=== PATIENT | female | born 1960 | race Caucasian/White ===

== ENCOUNTER → 2021-05-24 15:55 | Outpatient (BNVA) | payer OTHER, SELFPAY | PROVIDERS: Visit Provider Internal Medicine | DX: Z13.89 Encounter for screening for other disorder (principal) | CPT/HCPCS: 99202 ==

== ENCOUNTER → 2021-05-28 08:05 | Outpatient (BNVA) | payer OTHER, SELFPAY | PROVIDERS: Visit Provider Internal Medicine | DX: Z13.89 Encounter for screening for other disorder (principal) | CPT/HCPCS: 99213 ==

== ENCOUNTER 2023-07-28 07:29 | Inpatient (IN) | payer OTHER, SELFPAY ==
[2023-07-28] VITALS (9 sets, daily range): BP systolic 112–150; BP diastolic 50–86; PULSE 59–97; RESP 16–20; TEMP 36.1–36.8; O2SAT 87–97; BMI 25.8; BMI 24.4
--- NOTE | ~2023-07-28 | XR_ITS ---
EXAMINATION: XR CHEST CLINICAL INFORMATION: Shortness of breath COMPARISON: None available. TECHNIQUE: Frontal view of the chest was obtained. FINDINGS: Cardiac silhouette is normal in size. The lungs are well aerated. There is no gross lobar consolidation. No pleural effusion or pneumothorax. Mild degenerative changes of the spine. XR/XR chest 1V IMPRESSION: No acute pulmonary pathology.
--- NOTE | 2023-07-28 08:03 | PC.NURSE ---
swabs obtained/sent to lab.
[2023-07-28 08:41] LABS: Influenza A PCR NEGATIVE (Negative); Influenza B PCR NEGATIVE (Negative); Resp Syncy Virus RNA Qual PCR NEGATIVE (Negative); SARS COV2 PCR INHOUSE NEGATIVE (Negative)
--- NOTE | 2023-07-28 09:38 | ED_ITS ---
HPI - URI/Sore Throat General Chief Complaint: Upper Respiratory Symptoms Stated Complaint: Diff breathing Time Seen by Provider: 07/28/23 09:03 Source: patient Mode of arrival: ambulatory Limitations: no limitations History of Present Illness HPI Narrative: This is a 63-year-old female history former smoker, lung nodules, asthma presenting to the emergency department for evaluation of a few weeks of wheezing, shortness of breath, malaise, productive cough of white/ yellow sputum not improving. Patient has used albuterol treatments at home with little to no relief. She reports with bothering her most is the significant shortness of breath she does not feel like her typical she reports when she exerts herself she feels exhausted and like she needs to catch her breath. No history of DVT or PE. Not on blood thinners. No chest pain, fevers, chills, nausea, vomiting, diarrhea, headache, vision change. Patient currently taking a prednisone taper which was rx to her at w/o much improvment. Related Data Previous Rx's Medication Instructions Recorded albuterol sulfate 90 mcg/actuation 2 inh inhalation Q4-6H PRN 07/28/23 breath activated powder inhaler shortness of breath or wheezing #1 ea doxycycline hyclate 100 mg capsule 100 mg PO BID 10 days #20 caps 07/28/23 prednisone 20 mg tablet 40 mg (2 x 20 mg) PO DAILY 5 days 07/28/23 #10 tabs Allergies Allergy/AdvReac Type Severity Reaction Status Date / Time ampicillin Allergy Rash Verified 07/28/23 07:45 eucalyptus Allergy Anaphylaxis Verified 07/28/23 07:45 sulfamethoxazole Allergy Rash Verified 07/28/23 07:45 [From Bactrim] trimethoprim [From Bactrim] Allergy Rash Verified 07/28/23 07:45 Review of Systems 2 Review of Systems: Constitutional : No Weight loss, No Fever, No Chills, No Fatigue, No Malaise ENT/Mouth : No sore throat, No Rhinorrhea Eyes: No Eye Pain, No Swelling, No Redness Cardiovascular : No Chest Pain, + SOB, No Dyspnea on Exertion, No Orthopnea, No Edema, No Palpitations Respiratory : + Cough, + Sputum, + Wheezing Gastrointestinal : No Nausea, No Vomiting, No Diarrhea, No Constipation, No abdominal Pain, No Hematochezia, No Melena Genitourinary : No Dysuria, No Urinary Frequency, No Hematuria, Musculoskeletal : No joint pain, No Myalgias, No Joint Swelling Skin : No Skin Lesions, No rash Neuro : No Weakness, No Numbness, No Dizziness, No Headache Psych : No Anxiety/Panic, No Depression All other systems reviewed and are negative Yes all other systems are reviewed and are negative [facility] Past Medical History Attestation statement: The following information was validated with the patient. Source: old records reviewed and nursing notes reviewed Onset Date is defined in the Problem List Problems that require an onset date and time if occurred within 24 hrs of arrival to the ED Aortic Dissection and Rupture; Neurologic impairment; Cardiopulmonary Arrest; Endotracheal Intubation; Insertion or Replacement of Mechanical Circulatory Assist Device Social History Social History Smoked in Last 30 Days: No Use of substances other than those prescribed or required for medical reasons: Yes Substance Use Type: Marijuana Advance Directives: No Patient : No Physical Exam 2 Vital Signs: Vital Signs: Last Vital Signs Temp 98.3 F 07/28/23 12:36 Pulse 86 07/28/23 12:36 Resp 16 07/28/23 12:36 BP 126/67 07/28/23 12:36 Pulse Ox 87 L 07/28/23 13:32 O2 Del Method Room Air 07/28/23 13:32 BMI result Body Mass Index 25.8 Course Reevaluation(s) Reevaluation #1: CBC with leukocytosis no left shift. Chemistry unremarkable. Normal troponin, EKG nonischemic. Flu/COVID/RSV negative. Chest x-ray unremarkable. Ambulatory O2 87%. Patient will require hospital admission for hypoxia. Time: 13:36 Medications Administered Discontinued Medications Generic Name Dose Route Start Last Admin Trade Name Freq PRN Reason Stop Dose Admin Albuterol/Ipratropium 3 ml 07/28/23 12:45 07/28/23 13:05 Albuterol/Iprat 2.5/0.5mg 3 Ml Ampul.Neb INHALE 07/28/23 12:46 3 ml ONCE ONE Administration Albuterol Sulfate 2.5 mg/ 0 mg 07/28/23 09:56 07/28/23 10:08 Albuterol/Ipratropium 3 ml INHALE 07/28/23 09:57 1 dose ONCE ONE Administration Magnesium Sulfate 2 gm in 50 mls @ 25 mls/hr 07/28/23 09:49 07/28/23 11:56 Magnesium Sulfate/H2o IV 07/28/23 11:48 Infused ONCE ONE Infusion Levalbuterol HCl 1.25 mg 07/28/23 11:45 07/28/23 11:46 Levalbuterol Hcl 1.25 Mg/3 Ml Vial.Neb INHALE 07/28/23 11:46 1.25 mg ONCE ONE Administration Methylprednisolone Sodium Succinate 125 mg 07/28/23 09:49 07/28/23 09:54 Methylprednisolone Sod Succ 125 Mg/2 Ml Vial IVPUSH 07/28/23 09:50 125 mg ONCE ONE Administration Medical Decision Making Medical Decision Making [facility] Narrative: 63-year-old female presents with a few weeks of upper respiratory symptoms worsening. Physical exam expiratory wheezing throughout History and physical exam concerning for bronchitis versus viral illness versus chronic lung condition versus asthma. Unlikely pulmonary embolism, ACS, dissection, pneumonia. Plan labs, imaging, viral test. Will give magnesium and Solu-Medrol. Differential Diagnosis Differential Diagnoses: The differential diagnosis associated with the presentation includes History and physical exam concerning for bronchitis versus viral illness versus chronic lung condition versus asthma. Unlikely pulmonary embolism, ACS, dissection, pneumonia. Admission/Observation Consideration of admission/observation: Escalation of care including admission/observation considered Lab Data [facility] Lab Attestation statement: I reviewed the patient's lab results. 07/28/23 09:51 07/28/23 09:51 Labs: Lab Results 07/28/23 07/28/23 07/28/23 Range/Units 07:59 09:51 12:00 WBC 13.4 H (4.8-10.8) X10*3/uL RBC 5.04 (4.20-5.50) X10*6/uL Hgb 15.3 (12.0-16.0) g/dl Hct 43.9 (37.0-47.0) % MCV 87.1 (80.0-98.0) fL MCH 30.4 (27.0-33.0) pg MCHC 34.9 (31.0-35.0) g/dl RDW 11.8 (11.0-16.0) % Plt Count 379 (160-400) X10*3/uL MPV 8.3 L (9.4-12.3) fL Immature Gran % (Auto) 1.1 H (0.0-0.4) % Neut % (Auto) 69.8 (45-73) % Lymph % (Auto) 21.0 (20-40) % Bertie % (Auto) 7.5 (2-11) % Eos % (Auto) 0.5 (0-4) % Baso % (Auto) 0.1 (0-2) % Lymph # (Auto) 2.8 (1.2-4.9) X10*3/uL Bertie # (Auto) 1.0 (0.1-1.2) X10*3/uL Eos # (Auto) 0.1 (0.0-0.4) X10*3/uL Baso # (Auto) 0.0 (0.0-0.2) X10*3/uL Abs Immat Gran (auto) 0.15 H (0.00-0.03) X10*3/uL Absolute Neuts (auto) 9.4 H (2.0-8.3) x10*3/uL Absolute Nucleated RBC 0.000 (0.0-0.012) X10*3/uL Nucleated RBC % (auto) 0.0 (0.0-0.2) /100WBC PT 11.8 (11.1-13.3) SEC INR 1.0 (0.9-1.1) D-Dimer High Sensitivty < 150 NG/ML Sodium 140 (135-145) mmol/L Potassium 3.8 (3.3-5.1) mmol/L Chloride 104 (96-108) mmol/L Carbon Dioxide 26 (22-29) mmol/L Anion Gap 14 (12-20) BUN 13 (9-16) mg/dL Creatinine 0.67 (0.5-1.4) mg/dL Estim Creat Clear Calc 82.6 Estimated GFR > 60 Random Glucose 88 (60-115) mg/dL Calcium 9.4 (8.4-10.2) mg/dL Total Bilirubin 0.4 (0.0-1.0) mg/dL AST 30 (5-31) U/L ALT 47 H (0-31) U/L Alkaline Phosphatase 82 (39-117) U/L Troponin I High Sens < 2.7 (<3.5-17.0) ng/L Total Protein 7.6 (6.5-8.0) g/dL Albumin 4.3 (3.5-5.0) g/dL Influenza Type A (PCR) NEGATIVE (Negative) Influenza Type B (PCR) NEGATIVE (Negative) RSV RNA Qual (PCR) NEGATIVE (Negative) SARS-CoV-2 RNA (RT-PCR) NEGATIVE (Negative) Independent Interpretation I performed an independent interpretation of an: Plain X-Ray (Unremarkable) Radiology Impression Discussion of test interpretation with radiology: I have reviewed the radiologist's reading. Prescription Management I considered prescription management with: Antibiotic Critical Care Time Critical Care Time Critical Care Time: Yes Total Critical Care Time: 35 Attestation: I attest to this time spent taking care of the patient, obtaining history, physical, reviewing labs, imaging, speaking to my attending, speaking to specialist. Discharge Plan Discharge Clinical Impression: Asthma Patient Disposition: Admitted As Inpatient Instructions: Acute Bronchitis (ED) Prescriptions: New doxycycline hyclate 100 mg capsule 100 mg PO BID 10 Days Qty: 20 0RF albuterol sulfate 90 mcg/actuation aerosol powdr breath activated 2 inh inhalation Q4-6H PRN (Reason: shortness of breath or wheezing) Qty: 1 0RF prednisone 20 mg tablet 40 mg PO DAILY 5 Days Qty: 10 0RF Referrals: Physician,Unknown J [Primary Care Provider] - 2 days Stand Alone Forms: Work/School Release
[2023-07-28 09:54] LABS: MANUAL DIFF FLAG NO
[2023-07-28] MEDS: Magnesium Sulfate/H2O 2 GM/50 ML PIGGYBACK IV (09:54)
[2023-07-28] MEDS: methylPREDNISolone Sod Succ 125 MG/2 ML VIAL IVPUSH (09:54)
[2023-07-28 09:56] LABS: Basophils Percent Auto 0.1 % (0-2); Eosinophils Absolute Auto 0.1 X10*3/uL (0.0-0.4); Eosinophils Percent Auto 0.5 % (0-4); Hematocrit 43.9 % (37.0-47.0); Hemoglobin 15.3 g/dl (12.0-16.0); Imm Gran Abs Auto 0.15 X10*3/uL (0.00-0.03); Imm Gran Pct Auto 1.1 % (0.0-0.4); Lymphocytes Absolute Auto 2.8 X10*3/uL (1.2-4.9); Mean Corpuscular HGB Conc 34.9 g/dl (31.0-35.0); Mean Corpuscular Hemoglobin 30.4 pg (27.0-33.0); Mean Corpuscular Volume 87.1 fL (80.0-98.0); Mean Platelet Volume 8.3 fL (9.4-12.3); Monocytes Percent Auto 7.5 % (2-11); Neutrophils Absolute Auto 9.4 x10*3/uL (2.0-8.3); Neutrophils Percent Auto 69.8 % (45-73); Platelet Count 379 X10*3/uL (160-400); Red Blood Count 5.04 X10*6/uL (4.20-5.50); Red Cell Distribution Width 11.8 % (11.0-16.0); White Blood Count 13.4 X10*3/uL (4.8-10.8)
--- NOTE | 2023-07-28 09:56 | PC.NURSE ---
20gIV placed in the left AC - labs drawn and sent to lab. medication administered per provider order. RT bedside assessing pt at this time.
[2023-07-28 10:02] LABS: Prothrombin Time 11.8 SEC (11.1-13.3)
[2023-07-28 10:05] LABS: D Dimer High Sensitivity < 150 NG/ML
[2023-07-28] MEDS: Albuterol Sulfate 2.5 MG, Albuterol/Iprat 2.5/0.5MG 3 ML 3 ML INHALE (10:08)
[2023-07-28 10:13] LABS: Alanine Aminotransferase 47 U/L (0-31); Albumin Level 4.3 g/dL (3.5-5.0); Alkaline Phosphatase 82 U/L (39-117); Anion Gap 14 (12-20); Aspartate Amino Transferase 30 U/L (5-31); Bilirubin Total 0.4 mg/dL (0.0-1.0); Blood Urea Nitrogen 13 mg/dL (9-16); Calcium 9.4 mg/dL (8.4-10.2); Carbon Dioxide 26 mmol/L (22-29); Chloride 104 mmol/L (96-108); Creatinine Clr Calc Pharmacy 82.6; Estimated Glomerular Filt Rate > 60; Glucose Random 88 mg/dL (60-115); Potassium 3.8 mmol/L (3.3-5.1); Sodium 140 mmol/L (135-145); Total Protein 7.6 g/dL (6.5-8.0)
[2023-07-28] MEDS: levalbuterol HCL 1.25 MG/3 ML VIAL.NEB INHALE (11:46)
--- NOTE | 2023-07-28 11:50 | PC.NURSE ---
pt receiving breathing treatment via RT at this time.
[2023-07-28 12:39] LABS: Troponin-I High Sensitivity < 2.7 ng/L (<3.5-17.0)
--- NOTE | 2023-07-28 12:55 | PC.NURSE ---
ambulatory O2 completed by tech - pt's O2 dropped to 92% on RA while ambulating - pt had to stop multiple times stating that she was SOB.
[2023-07-28] MEDS: Albuterol/Iprat 2.5/0.5MG 3 ML AMPUL.NEB INHALE ×2 (13:05→17:05)
--- NOTE | 2023-07-28 13:31 | PC.NURSE ---
2nd O2 ambulatory trial completed by [employer] states O2 was between 87%-89% on RA while ambulating. tech verbalizes sob/wob noted upon ambulation trial. provider aware at this time.
--- NOTE | 2023-07-28 14:13 | PHA.MEDREC ---
Pharmacy Consult ? Medication Reconciliation Pharmacy has completed the medication reconciliation. Patient reported medicaitons. Juanita Echols, ArmenD
--- NOTE | 2023-07-28 15:15 | PM.IMHP ---
History of Present Illness Date of Service: 07/28/23 Chief Complaint: dyspnea/wheeze 63yo F with mild intermittent allergic asthma who started to have dry cough and nasal congestion around 07/18/23 but then proceeded to develop worsening dyspnea and wheezing, especially with exertion. She went to an urgent care on 07/23/23 and was tested for Covid, influenza, RSV, which were all negative. She was prescribed albuterol and prednisone and has been taking the prednisone as directed without improvement. She presented to the ED today and was given 125 mg of IV methylprednisolone and a total of 4 nebulizer treatments along with magnesium. She still is wheezing and short of breath. She ambulated in the ED and SaO2 dropped to 87%. CXR showed no infiltrate and PCR for influenza, Covid-19, and RSV was negative. Review of Systems Review of Systems: Yes all other systems are reviewed and are negative [facility] Medical History (Updated 07/28/23 @ 15:20 by Gio Cartwright MD) Asthma Social History Smoked in Last 30 Days: No Use of substances other than those prescribed or required for medical reasons: Yes Substance Use Type: Marijuana Advance Directives: No Patient : No Meds Allergies Allergy/AdvReac Type Severity Reaction Status Date / Time ampicillin Allergy Rash Verified 07/28/23 07:45 eucalyptus Allergy Anaphylaxis Verified 07/28/23 07:45 sulfamethoxazole Allergy Rash Verified 07/28/23 07:45 [From Bactrim] trimethoprim [From Bactrim] Allergy Rash Verified 07/28/23 07:45 Active Medications: Current Medications Albuterol Sulfate (Albuterol Sulfate (0.083%) 2.5 Mg/3 Ml Vial.Neb) 2.5 mg INHALE Q2H PRN PRN Reason: Shortness of Breath/Wheezing Diphenhydramine HCl (Diphenhydramine Hcl 25 Mg Capsule) 25 mg PO TID PRN PRN Reason: Allergy Symptoms Methylprednisolone Sodium Succinate (Methylprednisolone Sod Succ 40 Mg/Ml Vial) 40 mg IVPUSH Q12H EBONIE Nicotine Polacrilex (Nicotine Polacrilex 2 Mg Gum) 2 mg BUCCAL Q1H PRN PRN Reason: Nicotine Cravings Home Medications Medication Instructions Recorded Confirmed Last Taken Type albuterol sulfate 90 mcg/actuation 2 puff inhalation Q4H PRN Wheezing 07/28/23 07/28/23 Unknown History aerosol inhaler diphenhydramine HCl 25 mg tablet 25 mg PO TID PRN Allergy Symptoms 07/28/23 07/28/23 Unknown History ibuprofen 200 mg tablet 400 mg PO Q6H PRN Pain 07/28/23 07/28/23 Unknown History prednisone 20 mg tablet See Taper PO DAILY 07/28/23 07/28/23 Unknown History Physical Exam Vital Signs and Narrative: Vital Signs: Last Vital Signs Temp 98.3 F 07/28/23 12:36 Pulse 86 07/28/23 12:36 Resp 16 07/28/23 12:36 BP 126/67 07/28/23 12:36 Pulse Ox 95 07/28/23 13:55 O2 Del Method Room Air 07/28/23 13:55 BMI result Body Mass Index 25.8 Gen: in no acute distress HEENT: sclera anicteric, moist mucus membranes Neck: supple Lungs: L>R inspiratory and expiratory wheezing with scattered rhonchi as well Heart: regular rate and rhythm, no murmurs Abd: soft, non-tender, non-distended Ext: no edema Skin: warm/well-perfused Neuro: alert and oriented x3, no focal findings Psych: appropriate affect Results Labs 07/28/23 09:51 07/28/23 09:51 Labs: Laboratory Results - last 24 hr 07/28/23 07/28/23 07:59 09:51 MCV 87.1 MCH 30.4 MCHC 34.9 RDW 11.8 Plt Count 379 MPV 8.3 L Immature Gran % (Auto) 1.1 H Neut % (Auto) 69.8 Lymph % (Auto) 21.0 Terrell % (Auto) 7.5 Eos % (Auto) 0.5 Baso % (Auto) 0.1 Lymph # (Auto) 2.8 Terrell # (Auto) 1.0 Eos # (Auto) 0.1 Baso # (Auto) 0.0 Abs Immat Gran (auto) 0.15 H Absolute Neuts (auto) 9.4 H Absolute Nucleated RBC 0.000 Nucleated RBC % (auto) 0.0 PT 11.8 INR 1.0 D-Dimer High Sensitivty < 150 Anion Gap 14 Estim Creat Clear Calc 82.6 Estimated GFR > 60 Random Glucose 88 Calcium 9.4 Total Bilirubin 0.4 AST 30 ALT 47 H Alkaline Phosphatase 82 Total Protein 7.6 Albumin 4.3 Influenza Type A (PCR) NEGATIVE Influenza Type B (PCR) NEGATIVE RSV RNA Qual (PCR) NEGATIVE SARS-CoV-2 RNA (RT-PCR) NEGATIVE Imaging Radiologist's Impressions: Impressions Chest X-Ray 07/28/23 08:25 IMPRESSION: No acute pulmonary pathology. Assessment and Plan (1) Asthma, intermittent with acute exacerbation: Status: Acute Plan 63yo F with mild intermittent allergic asthma presenting with worsening dyspnea and cough despite taking prednisone taper from urgent care, found to have exertional hypoxia and persistent wheezing. asthma exacerbation - admit to med-surg service, give IV methylprednisolone 40 mg q8h, give standing/prn bronchodilators, check PCT + resp virus panel exertional hypoxia - wean O2 as tolerated tobacco abuse - NRT VTE ppx - LMWH dispo - eventual home code - full I anticipate that the patient will stay at least 2 midnights as an inpatient in the hospital due to the above reasons. It is neither reasonable nor safe to care for them in a less acute setting. Quality Stroke Does the patient have a stroke diagnosis?: No VTE Prior VTE?: No VTE Risk Level:: Medical - moderate - high VTE Device Contraindication: N/A - Device Ordered VTE Drug Contraindication: N/A - Med Ordered
[2023-07-28 15:57] LABS: Procalcitonin 0.03 ng/mL
[2023-07-28] MEDS: 0.9 % Sodium Chloride Flush 3 ML SYRINGE IVFLUSH ×2 (16:52→22:02)
[2023-07-28] MEDS: Enoxaparin Sodium 40 MG/0.4 ML SYRINGE SUBCUT (16:52)
--- NOTE | 2023-07-28 17:22 | PC.NURSE ---
pt receiving breathing treatment at this time.
--- NOTE | 2023-07-28 17:42 | PC.NURSE ---
admission worksheet completed. transport notified at this time.
[2023-07-28 18:03] LABS: Adenovirus PCR Not Detected (Not Detect.); Bordetella parapertussis PCR Not Detected (Not Detect.); Bordetella pertussis PCR Not Detected (Not Detect.); Chlamydia pneumoniae PCR Not Detected (Not Detect.); Coronavirus 229E PCR Not Detected (Not Detect.); Coronavirus HKU1 PCR Not Detected (Not Detect.); Coronavirus NL63 PCR Not Detected (Not Detect.); Coronavirus OC43 PCR Not Detected (Not Detect.); Human metapneumovirus PCR Not Detected (Not Detect.); Influenza A PCR Not Detected (Not Detect.); Influenza B PCR Not Detected (Not Detect.); Mycoplasma pneumoniae PCR Not Detected (Not Detect.); Parainfluenza 1 PCR Not Detected (Not Detect.); Parainfluenza 2 PCR Not Detected (Not Detect.); Parainfluenza 3 PCR Detected (Not Detect.); Parainfluenza 4 PCR Not Detected (Not Detect.); RSV PCR Not Detected (Not Detect.); Rhino/Enterovirus PCR Not Detected (Not Detect.)
[2023-07-28 18:29] LABS: SARS-CoV-2 PCR Not Detected (Not Detect.)
[2023-07-28] MEDS: methylPREDNISolone Sod Succ 40 MG/ML VIAL IVPUSH (22:02)
[2023-07-29 03:06] VITALS: BP 106/50; PULSE 71; RESP 17; TEMP 36.4; O2SAT 95
[2023-07-29 08:00] VITALS: BP 115/67; PULSE 80; RESP 18; TEMP 36.7; O2SAT 95
[2023-07-29] MEDS: methylPREDNISolone Sod Succ 40 MG/ML VIAL IVPUSH (09:21)
--- NOTE | 2023-07-29 09:35 | MHC.CM.PN ---
Pt lives at home with her , is self-care. Pts will transport her home. PCP: Alisson SOLANO
[2023-07-29 11:13] VITALS: BP 125/68; PULSE 83; RESP 13; TEMP 36.5; O2SAT 98
--- NOTE | 2023-07-29 12:26 | MHC.CM.PN ---
Pt is medically cleared for D/C home self-care, pts to transport her home.
--- NOTE | 2023-07-29 12:26 | PM.DS ---
DS: Providers Provider Date of Service: 07/29/23 Date of admission: 07/28/23 15:14 Date of discharge: 07/29/23 Primary care physician: Unknown Physician DS: Diagnosis Discharge Diagnosis (1) Parainfluenza: Status: Acute (2) Mild intermittent asthma with (acute) exacerbation: Status: Acute DS: Summary Hospital Course Hospital Course: from my admission H+P, 07/28/23: 63yo F with mild intermittent allergic asthma who started to have dry cough and nasal congestion around 07/18/23 but then proceeded to develop worsening dyspnea and wheezing, especially with exertion. She went to an urgent care on 07/23/23 and was tested for Covid, influenza, RSV, which were all negative. She was prescribed albuterol and prednisone and has been taking the prednisone as directed without improvement. She presented to the ED today and was given 125 mg of IV methylprednisolone and a total of 4 nebulizer treatments along with magnesium. She still is wheezing and short of breath. She ambulated in the ED and SaO2 dropped to 87%. CXR showed no infiltrate and PCR for influenza, Covid-19, and RSV was negative. She was admitted to the hospitalist service and improved with treatment with IV methylprednisolone and nebulized albuterol. Viral testing was positive for parainfluenza-3. She was discharged home on prednisone taper and albuterol via nebulizer. She was counseled to quit smoking and will need primary care follow-up and pulmonology referral. Time Attestation Total time managing care of this patient today: 35 mintues. Discharge coordination time: Greater than 30 minutes Quality: Safe Use of Opioids Does Pt have an Active Cancer Diagnosis on the Problem List?: No Quality: Stroke Does the patient have a stroke diagnosis?: No Physical Exam Vital Signs: Vital Signs: Last Vital Signs Temp 97.7 F 07/29/23 11:13 Pulse 83 07/29/23 11:13 Resp 13 07/29/23 11:13 BP 125/68 07/29/23 11:13 Pulse Ox 98 07/29/23 11:13 O2 Del Method Room Air 07/29/23 11:13 BMI result Body Mass Index 24.4 Gen: in no acute distress HEENT: sclera anicteric, moist mucus membranes Neck: supple Lungs: good air entry throughout, scattered end-exp wheezes at base Heart: regular rate and rhythm, no murmurs Abd: soft, non-tender, non-distended Ext: no edema Skin: warm/well-perfused Neuro: alert and oriented x3, no focal findings Psych: appropriate affect DS: Data Data Completed and Pending Completed studies during hospitalization [Text1]: Laboratory Results WBC 13.4 X10*3/uL (4.8-10.8) H 07/28/23 09:51 RBC 5.04 X10*6/uL (4.20-5.50) 07/28/23 09:51 Hgb 15.3 g/dl (12.0-16.0) 07/28/23 09:51 Hct 43.9 % (37.0-47.0) 07/28/23 09:51 MCV 87.1 fL (80.0-98.0) 07/28/23 09:51 MCH 30.4 pg (27.0-33.0) 07/28/23 09:51 MCHC 34.9 g/dl (31.0-35.0) 07/28/23 09:51 RDW 11.8 % (11.0-16.0) 07/28/23 09:51 Plt Count 379 X10*3/uL (160-400) 07/28/23 09:51 MPV 8.3 fL (9.4-12.3) L 07/28/23 09:51 Immature Gran % (Auto) 1.1 % (0.0-0.4) H 07/28/23 09:51 Neut % (Auto) 69.8 % (45-73) 07/28/23 09:51 Lymph % (Auto) 21.0 % (20-40) 07/28/23 09:51 Glenn % (Auto) 7.5 % (2-11) 07/28/23 09:51 Eos % (Auto) 0.5 % (0-4) 07/28/23 09:51 Baso % (Auto) 0.1 % (0-2) 07/28/23 09:51 Lymph # (Auto) 2.8 X10*3/uL (1.2-4.9) 07/28/23 09:51 Glenn # (Auto) 1.0 X10*3/uL (0.1-1.2) 07/28/23 09:51 Eos # (Auto) 0.1 X10*3/uL (0.0-0.4) 07/28/23 09:51 Baso # (Auto) 0.0 X10*3/uL (0.0-0.2) 07/28/23 09:51 Abs Immat Gran (auto) 0.15 X10*3/uL (0.00-0.03) H 07/28/23 09:51 Absolute Neuts (auto) 9.4 x10*3/uL (2.0-8.3) H 07/28/23 09:51 Absolute Nucleated RBC 0.000 X10*3/uL (0.0-0.012) 07/28/23 09:51 Nucleated RBC % (auto) 0.0 /100WBC (0.0-0.2) 07/28/23 09:51 PT 11.8 SEC (11.1-13.3) 07/28/23 09:51 INR 1.0 (0.9-1.1) 07/28/23 09:51 D-Dimer High Sensitivty < 150 NG/ML 07/28/23 09:51 Sodium 140 mmol/L (135-145) 07/28/23 09:51 Potassium 3.8 mmol/L (3.3-5.1) 07/28/23 09:51 Chloride 104 mmol/L (96-108) 07/28/23 09:51 Carbon Dioxide 26 mmol/L (22-29) 07/28/23 09:51 Anion Gap 14 (12-20) 07/28/23 09:51 BUN 13 mg/dL (9-16) 07/28/23 09:51 Creatinine 0.67 mg/dL (0.5-1.4) 07/28/23 09:51 Estim Creat Clear Calc 82.6 07/28/23 09:51 Estimated GFR > 60 07/28/23 09:51 Random Glucose 88 mg/dL (60-115) 07/28/23 09:51 Calcium 9.4 mg/dL (8.4-10.2) 07/28/23 09:51 Total Bilirubin 0.4 mg/dL (0.0-1.0) 07/28/23 09:51 AST 30 U/L (5-31) 07/28/23 09:51 ALT 47 U/L (0-31) H 07/28/23 09:51 Alkaline Phosphatase 82 U/L (39-117) 07/28/23 09:51 Troponin I High Sens < 2.7 ng/L (<3.5-17.0) 07/28/23 12:00 Total Protein 7.6 g/dL (6.5-8.0) 07/28/23 09:51 Albumin 4.3 g/dL (3.5-5.0) 07/28/23 09:51 Procalcitonin 0.03 ng/mL 07/28/23 09:51 Respiratory Panel Shaw See Note 07/28/23 16:58 Adenovirus (Rapid PCR) Not Detected (Not Detect.) 07/28/23 16:58 B.pert (TEM-PCR) Not Detected (Not Detect.) 07/28/23 16:58 B.parapertussis DNA PCR Not Detected (Not Detect.) 07/28/23 16:58 C. pneumoniae DNA (PCR) Not Detected (Not Detect.) 07/28/23 16:58 Coronavirus OC43 (PCR) Not Detected (Not Detect.) 07/28/23 16:58 Coronavirus HKU1 (PCR) Not Detected (Not Detect.) 07/28/23 16:58 Coronavirus 229E (PCR) Not Detected (Not Detect.) 07/28/23 16:58 Coronavirus NL63 (PCR) Not Detected (Not Detect.) 07/28/23 16:58 Human Metapneumovir PCR Not Detected (Not Detect.) 07/28/23 16:58 Influenza A (RT-PCR) Not Detected (Not Detect.) 07/28/23 16:58 Influenza Type A (PCR) NEGATIVE (Negative) 07/28/23 07:59 Influenza B (RT-PCR) Not Detected (Not Detect.) 07/28/23 16:58 Influenza Type B (PCR) NEGATIVE (Negative) 07/28/23 07:59 M. pneumoniae (PCR) Not Detected (Not Detect.) 07/28/23 16:58 Parainfluenza 1 (PCR) Not Detected (Not Detect.) 07/28/23 16:58 Parainfluenza 2 (PCR) Not Detected (Not Detect.) 07/28/23 16:58 Parainfluenza 3 (PCR) Detected (Not Detect.) A 07/28/23 16:58 Parainfluenza 4 (PCR) Not Detected (Not Detect.) 07/28/23 16:58 RSV (PCR) Not Detected (Not Detect.) 07/28/23 16:58 RSV RNA Qual (PCR) NEGATIVE (Negative) 07/28/23 07:59 Entero/Rhino (PCR) Not Detected (Not Detect.) 07/28/23 16:58 SARS-CoV-2 RNA (RT-PCR) Not Detected (Not Detect.) 07/28/23 16:58 Impressions Chest X-Ray 07/28/23 08:25 IMPRESSION: No acute pulmonary pathology. Discharge Plan Discharge Anticipated Discharge Date/Time: 07/29/23 12:14 Patient Disposition: Home, Self-Care Discharge Diagnosis: asthma exacerbation due to parainfluenza infection Referrals: Alisson Oliva NP [Nurse Practitioner] - 1 Week Isael Lewis MD [Physician] - 1 Month Discharge Medications: New albuterol sulfate 90 mcg/actuation aerosol powdr breath activated 2 inh inhalation Q4-6H PRN (Reason: shortness of breath or wheezing) Qty: 1 0RF prednisone 20 mg tablet 40 mg PO DAILY 5 Days Qty: 10 0RF albuterol sulfate 2.5 mg /3 mL (0.083 %) Solution For Nebulization 2.5 mg inhalation Q4H PRN (Reason: Shortness Of Breath/Wheezing) Qty: 50 0RF nicotine (polacrilex) 2 mg Gum 2 mg buccal Q1H PRN (Reason: Nicotine Cravings) Qty: 100 0RF prednisone 20 mg tablet See Rx Instructions .ROUTE .COMPLEX Qty: 21 0RF Rx Instructions: 40 mg (4 tabs) daily x 2 days, then 30 mg (3 tabs) daily x 2 days, then 20 mg (2 tabs) daily x 2 days, then 10 mg (1 tab) daily x 2 days, then 5 mg (half tab) daily x 2 days Continued diphenhydramine HCl 25 mg Tablet 25 mg PO TID PRN (Reason: Allergy Symptoms) ibuprofen 200 mg Tablet 400 mg PO Q6H PRN (Reason: Pain) albuterol sulfate 90 mcg/actuation HFA aerosol inhaler 2 puff inhalation Q4H PRN (Reason: Wheezing) Discontinued prednisone 20 mg tablet See Taper PO DAILY Taper: Prednisone 40 mg daily for 2 Days and 0 Hour 20 mg daily for 3 Days and 0 Hour Discharge Orders: Discharge Order (Routine); Ordered 07/29/23 Ordered By: Gio Cartwright Diet: Advance to usual diet Activity on Discharge: As tolerated Stand Alone Forms: Patient Portal Discharge page, Work/School Release Care Plan Goals: lung health Health Concerns: asthma exacerbation due to parainfluenza infection Plan of Treatment: albuterol via nebulizer every 4 hours as needed for wheeze/shortness of breath prednisone taper: 40 mg (4 tabs) daily x 2 days, then 30 mg (3 tabs) daily x 2 days, then 20 mg (2 tabs) daily x 2 days, then 10 mg (1 tab) daily x 2 days, then 5 mg (half tab) daily x 2 days quit smoking; use nicotine gum to help quit Please follow up with your primary care doctor within 1 week. Return to the hospital if you experience recurrent or worsening symptoms. Pulmonology referral Assessment: See Discharge Summary. Patient Instructions: Acute Bronchitis (ED)
== END 2023-07-29 13:13 | disposition home or self-care (01) | DRG 141 ==
LOC: HO.ED 13:38 → HO.EDOVER 16:08 → HO.IMC 17:19
PROVIDERS: Physician Assistant; Admitting Provider Family Medicine; Emergency Provider Emergency Medicine; PCP Nurse Practitioner Family; Visit Provider Family Medicine
DX: J45.21 Mild intermittent asthma with (acute) exacerbation (principal); B34.8 Other viral infections of unspecified site; R09.02 Hypoxemia; Z20.822 Contact with and (suspected) exposure to COVID-19; F17.210 Nicotine dependence, cigarettes, uncomplicated; Z71.6 Tobacco abuse counseling; Z79.899 Other long term (current) drug therapy
CPT/HCPCS: 0241U; 36415; 71045; 80053; 84145; 84484; 85025; 85379; 85610; 87633; 99285; J1650; J2920; J2930; J3475

== ENCOUNTER → 2023-07-28 08:03 | Outpatient (BNV) | payer OTHER, SELFPAY | PROVIDERS: Emergency Provider Emergency Medicine; Visit Provider Family Medicine | DX: B34.8 Other viral infections of unspecified site (principal); J45.21 Mild intermittent asthma with (acute) exacerbation | CPT/HCPCS: 99223; 99239 ==

== ENCOUNTER 2023-10-26 13:00 | Outpatient (AMB) | payer OTHER, SELFPAY ==
[2023-10-26 13:18] VITALS: BP 110/60; PULSE 62; O2SAT 98; BMI 25.7
--- NOTE | 2023-10-26 13:18 | A.OFFVIS_ITS ---
Intake Vital Signs 10/26/23 13:18 Height 5 ft 4 in Weight 150 lb BMI 25.7 BP 110/60 Blood Pressure Location Lt brachial Position Sitting Pulse 62 Pulse Source Pulse Oximeter Pulse Oximetry (%) 98 Oxygen Delivery Method Room Air Intake Visit Reasons: Hx of Asthma, Allergies ampicillin Allergy (Verified 10/26/23 13:21) Rash eucalyptus Allergy (Verified 10/26/23 13:21) Anaphylaxis sulfamethoxazole [From Bactrim] Allergy (Verified 10/26/23 13:21) Rash trimethoprim [From Bactrim] Allergy (Verified 10/26/23 13:21) Rash HPI HPI Comments History of Present Illness Details The patient is here for pulmonary evaluation. The patient is a 63 year woman, tobacco dependent, with a history of asthma presenting with worsening respiratory symptoms. Several months ago the patient has did develop a respiratory illness which started developing worsening chest tightness and cough. She did go to urgent care where she was given a course of prednisone. However, the patient was no better and she actually was getting worse and decided to come into the [facility] ED where she was evaluated. There she had a chest x-ray which I personally reviewed demonstrating tram tracking and peribronchial coughing primarily the right mid and lower lung areas. Suggest the possibility of bronchiectatic changes. She was initially given a course of prednisone and doxycycline. She was initially resistant to taking the doxycycline. Although her mucus was yellowish in color thick and tenacious and sticky. Moderate in amount. When she started taking the doxycycline her symptoms improved quickly. Now she is back to her baseline. She does use a rescue inhaler although she does not use 1 regularly. Typically less than twice a week. She had been participating also on the lung cancer screening program at [facility]. Her last CT scan was back in December 2022. I personally reviewed all the images with her. The patient does have evidence of chronic bronchitis and also some bronchiectatic changes primarily involving the right middle lobe and lingular area. The patient also has pulmonary nodules largest 1 measuring more than 6 mm in size. The nodules appeared to be inflammatory. Although infectious etiologies such as smoldering infections also in differential. She was supposed to have a repeat CT scan in June based on her rads 3. however, the patient has not them the CT scan as of yet. She does require a CT scan at this time. Will order the CT scan to further address the pulmonary nodules specially her being high risk for malignancy. The patient was also smoking. She understands he is already developing significant smoking-related respiratory issues. She does want to quit. We did talk about different options I do believe the Chantix would be a good option for. She is agreeable this time to starting Chantix. I will send started pack to the pharmacy. [facility] Medical History (Updated 10/26/23 @ 21:08 by Isael Lewis MD) Has daytime drowsiness Pulmonary nodules Tobacco dependence Chronic bronchitis Asthma Social History Household Members: Spouse Housing: House Do you presently have visiting nurse or other home services: No Patient Tobacco Use Status: Never used Tobacco Substance Use Type: Marijuana service: No Review of Systems Const Reports daytime sleepiness, Denies fever(s), Reports snoring and Reports stops breathing during sleep ENT Reports no additional complaints Card Denies chest pain Resp Reports cough, Reports snoring and Denies wheezing GI Reports no additional complaints Musc Reports no additional complaints Skin/Breast Denies rash Von/Lymph Denies lymphadenopathy Aller/Immun Denies wheezing Physical Exam Vital Signs: Last Vital Signs Pulse 62 10/26/23 13:18 BP 110/60 10/26/23 13:18 Pulse Ox 98 10/26/23 13:18 Oxygen Delivery Method Room Air 10/26/23 13:18 BMI result Body Mass Index 25.7 Const General: comfortable HEENT Head: Yes normocephalic Neck Neck: Yes supple Chest Chest palpation & inspection: normal inspection of the chest Resp Effort & Inspection: normal respiratory effort Auscultation: wheezes (On force exhalation) Cardio Heart sounds: S1 normal heart sound present and S2 normal heart sound present GI Palpation (GI): Soft to palpation Skin General skin exam: no rashes or lesions noted Extrem General: Yes no clubbing, cyanosis or edema Assessment & Plan Assessment & Plan (1) Pulmonary nodules: Code(s): R91.8 - Other nonspecific abnormal finding of lung field (2) Chronic bronchitis: Code(s): J42 - Unspecified chronic bronchitis Qualifiers: Chronic bronchitis type: simple Qualified Code(s): J41.0 - Simple chronic bronchitis (3) Tobacco dependence: Code(s): F17.200 - Nicotine dependence, unspecified, uncomplicated (4) Has daytime drowsiness: Code(s): R40.0 - Somnolence Plan CT chest PFTs Sputum cx / AFB sputum cx CPT with Aerobika TAMEKA as needed Start Chantix starter pack Consider Bloodwork and allergy testing Consider home PSG F/U 6-8 weeks Orders: Orders Sputum Cult + Gram stain Today J42 - Unspecified chronic bronchitis Acid-fast Culture + Smear Today J42 - Unspecified chronic bronchitis PFT pulmonary function test Today R91.8 - Other nonspecific abnormal finding of lung field CT chest wo IV con Today R91.8 - Other nonspecific abnormal finding of lung field Medications: New varenicline (Chantix Starting Month Box) PO PER PKG DIR 42 ea 0RF Coding Level of Care Code New Pt Level 4 (30175) Diagnoses Pulmonary nodules R91.8 Simple chronic bronchitis J41.0 Chronic bronchitis type: simple Tobacco dependence F17.200 Has daytime drowsiness R40.0 Time Spent (min) 40
== END 2023-10-26 14:00 | disposition home or self-care (01) ==
PROVIDERS: PCP Nurse Practitioner Family; Referring Provider Nurse Practitioner Family; Visit Provider Hospitalist
DX: R91.8 Other nonspecific abnormal finding of lung field (principal); J41.0 Simple chronic bronchitis; F17.200 Nicotine dependence, unspecified, uncomplicated; R40.0 Somnolence
CPT/HCPCS: 99204

== ENCOUNTER → 2023-10-26 13:00 | Outpatient (BNVA) | payer OTHER, SELFPAY | PROVIDERS: PCP Nurse Practitioner Family; Visit Provider Hospitalist ==

== ENCOUNTER 2023-11-04 12:07 | Outpatient (REF) | payer OTHER, SELFPAY | END 2023-11-04 12:08 | disposition home or self-care (01) | LOC: HO.LNP 12:07 | PROVIDERS: Visit Provider Hospitalist | DX: J42 Unspecified chronic bronchitis (principal) | CPT/HCPCS: 87070; 87077; 87116; 87185; 87205; 87206 ==

== ENCOUNTER 2023-11-30 14:39 | Outpatient (REF) | payer OTHER, SELFPAY ==
[2023-11-30 09:00] VITALS: PULSE 68; RESP 16; O2SAT 98
--- NOTE | 2023-11-30 15:40 | PFT_ITS ---
Flows: FEV1: 62 % of predicted at 1.51 L FVC: 89 % of predicted at 2.73 L FEV1/FVC: 55 % Bronchodilator response: Absent Volumes: Total lung capacity: 107 % of predicted at 5.42 L Residual volume: 164 % of predicted at 2.93 L Slow vital capacity: 76 % of predicted at 2.50 L Expiratory reserve volume: 34 % of predicted at 0.27 L Diffusion capacity: Normal Impression: Moderate obstructive ventilatory defect with no bronchodilator response. Increased residual volume suggests air trapping. Decreased expiratory reserve volume suggests extrathoracic restriction likely secondary to abdominal obesity. MTDD
== END 2023-11-30 14:40 | disposition home or self-care (01) ==
LOC: HO.RESP 14:39
PROVIDERS: PCP Nurse Practitioner Family; Visit Provider Hospitalist
DX: R91.8 Other nonspecific abnormal finding of lung field (principal)
CPT/HCPCS: 94010; 94640; 94727; 94729

== ENCOUNTER → 2023-11-30 15:40 | Outpatient (BNV) | payer OTHER, SELFPAY | PROVIDERS: PCP Nurse Practitioner Family; Visit Provider Internal Medicine Pulmonary Disease | DX: R91.8 Other nonspecific abnormal finding of lung field (principal) | CPT/HCPCS: 94060; 94727; 94729 ==

== ENCOUNTER 2023-12-09 07:41 | Outpatient (REF) | payer OTHER, SELFPAY ==
--- NOTE | ~2023-12-09 | CT_ITS ---
EXAMINATION: CT CHEST WITHOUT CONTRAST CLINICAL INFORMATION: History of abnormal finding of lung. COMPARISON: Chest CT from 01/19/2023. TECHNIQUE: Multidetector volumetric CT imaging of the chest was done. Axial MIP volume rendering provided. Sagittal and coronal reformatted images were obtained. This CT examination was performed using dose optimization techniques as appropriate, variously including the following: *Automated exposure control *Adjustment of mA and/or kV according to patient size (this includes techniques or standardized protocols for targeted exams where dose is matched to indication/reason for exam; i.e. extremities or head) *Use of iterative reconstruction technique DLP: 134 mGy-cm CTDlvol: 3.98 mGy Note: On additional information provided, there is a request for a RADS score. However, it is uncertain whether this is appropriate for this patient since this is not a formal low dose chest CT exam and there is no information provided regarding any smoking history or enrollment in a low-dose screening program. FINDINGS: LUNGS AND PLEURA: Bronchial moya are chronically diffusely thickened. Small scattered foci of mucous plugging are detected. Mild centrilobular and paraseptal emphysema. Chronic pulmonary micronodular. Also, subtle hazy centrilobular opacities are present. These findings could reflect presence of noninfectious respiratory bronchiolitis if there is a chronic history of cigarette smoking. Abnormalities include an irregular solid, noncalcified nodule of 0.6 cm average diameter within the right middle lobe. This has a stable appearance compared to 01/19/2023. A stable 0.4 cm solid, noncalcified nodule is present in the lateral right lower lobe (image 410, series 7). 0.3 cm subpleural nodule in the posterior right lower lobe is unchanged (image 349, series 7). A groundglass focus of 1 cm average diameter in the left upper lobe is unchanged (image 133, series 7). CARDIOVASCULAR: Cardiac chambers, pulmonary arteries and thoracic aorta are normal in size. No pericardial effusion. CORONARY ARTERY CALCIFICATION: None detected. MEDIASTINUM AND LOWER NECK: No mediastinal mass. The esophagus and thyroid gland are unremarkable. LYMPHATICS: No pathologic sized lymph nodes. UPPER ABDOMEN: Unremarkable. SKELETAL AND CHEST WALL: Mild and moderate spondylosis of the thoracic spine. No acute or suspicious osseous abnormality. No aggressive osseous lesions. CT/CT chest wo IV con IMPRESSION: * Mild pulmonary emphysema. * There is likely chronic respiratory bronchiolitis as may be seen in patients with a cigarette smoking history. Correlate for any history of cigarette smoking. * There are pulmonary nodules that remain stable compared to 01/19/2023. If the patient were enrolled in a Lung-RADS low dose screening program, then a Lung-RADS category 2 would be applied. * No interval development of a pulmonary mass or lymphadenopathy.
== END 2023-12-09 07:42 | disposition home or self-care (01) ==
LOC: HO.CT 07:41
PROVIDERS: PCP Nurse Practitioner Family; Visit Provider Hospitalist
DX: R91.8 Other nonspecific abnormal finding of lung field (principal)
CPT/HCPCS: 71250

== ENCOUNTER 2023-12-10 08:55 | Outpatient (REF) | payer OTHER, SELFPAY ==
--- NOTE | ~2023-12-10 | MM_ITS ---
EXAMINATION: MM SCREENING DIGITAL BREAST TOMOSYNTHESIS, BILATERAL CLINICAL INFORMATION: Screening. Asymptomatic. COMPARISON: Mammography: This study is compared with prior exams dating back to 2020. TECHNIQUE: Digital breast tomosynthesis is performed in both the craniocaudal and mediolateral oblique views along with computer-aided detection (CAD). Synthesized 2D images are generated from the tomosynthesis. FINDINGS: The breasts are heterogeneously dense, which may obscure small masses (ACR BI-RADS breast composition Category c). There are no significant masses, abnormal calcifications, or other abnormalities. MM/MM tomosynthesis screening BI IMPRESSION: No mammographic evidence of malignancy. ASSESSMENT: BI-RADS BI-RADS 1 - Negative RECOMMENDATION: Routine annual mammography screening. 1 year F/U This examination should not preclude the clinical evaluation of a suspicious palpable abnormality. This patient's information was entered into a reminder system with a target due date for their next mammogram.
== END 2023-12-10 08:56 | disposition home or self-care (01) ==
LOC: HO.MAMMO 08:55
PROVIDERS: PCP Nurse Practitioner Family; Visit Provider Nurse Practitioner Family
DX: Z12.31 Encounter for screening mammogram for malignant neoplasm of breast (principal)
CPT/HCPCS: 77063; 77067

== ENCOUNTER → 2023-12-10 09:00 | Outpatient (BNV) | payer OTHER, SELFPAY | PROVIDERS: PCP Nurse Practitioner Family; Visit Provider Radiology Diagnostic Radiology | DX: Z12.31 Encounter for screening mammogram for malignant neoplasm of breast (principal) | CPT/HCPCS: 77063; 77067 ==

== ENCOUNTER 2023-12-10 09:35 | Outpatient (AMB) | payer OTHER, SELFPAY ==
--- NOTE | 2023-12-10 10:03 | A.OFFVIS_ITS ---
Vital Signs 12/10/23 10:04 Height 5 ft 4 in Weight 150 lb BMI 25.7 BP 122/60 Blood Pressure Location Lt brachial Position Sitting Pulse 58 Pulse Source Pulse Oximeter Pulse Oximetry (%) 96 Oxygen Delivery Method Room Air Intake Visit Reasons: Asthma Director [place] Required: No Allergies ampicillin Allergy (Verified 12/10/23 10:06) Rash eucalyptus Allergy (Verified 12/10/23 10:06) Anaphylaxis sulfamethoxazole [From Bactrim] Allergy (Verified 12/10/23 10:06) Rash trimethoprim [From Bactrim] Allergy (Verified 12/10/23 10:06) Rash HPI Comments Details: The patient is a 63 year woman, tobacco dependent, with a history of asthma presenting with worsening respiratory symptoms. Several months ago the patient has did develop a respiratory illness which started developing worsening chest tightness and cough. She did go to urgent care where she was given a course of prednisone. However, the patient was no better and she actually was getting worse and decided to come into the [facility] ED where she was evaluated. There she had a chest x-ray which I personally reviewed demons trating tram tracking and peribronchial coughing primarily the right mid and lower lung areas. Suggest the possibility of bronchiectatic changes. She was initially given a course of prednisone and doxycycline. She was initially resistant to taking the doxycycline. Although her mucus was yellowish in color thick and tenacious and sticky. Moderate in amount. When she started taking the doxycycline her symptoms improved quickly. Now she is back to her baseline. She does use a rescue inhaler although she does not use 1 regularly. Typically less than twice a week. She had been participating also on the lung cancer screening program at [facility]. Her last CT scan was back in December 2022. I personally reviewed all the images with her. The patient does have evidence of chronic bronchitis and also some bronchiectatic changes primarily involving the right middle lobe and lingular area. The patient also has pulmonary nodules largest 1 measuring more than 6 mm in size. The nodules appeared to be inflammatory. Although infectious etiologies such as smoldering infections also in differential. She was supposed to have a repeat CT scan in June based on her rads 3. however, the patient has not them the CT scan as of yet. She does require a CT scan at this time. Will order the CT scan to further address the pulmonary nodules specially her being high risk for m alignancy. The patient was also smoking. She understands he is already developing significant smoking-related respiratory issues. She does want to quit. We did talk about different options I do believe the Chantix would be a good option for. She is agreeable this time to starting Chantix. I will send started pack to the pharmacy. 12/10/2023 the patient is here for a pulmonary follow-up visit. Overall the patient is doing well. She has not had to use her rescue inhaler. Still has some dyspnea on exertion. The patient did have pulmonary function studies which we personally reviewed. Appears to have moderate degree of COPD. No significant response to bronchodilators noted although there was a trend. We also reviewed her CT scan of the chest. Pulmonary nodules are stable although she does have areas of ground-glass opacities suggesting a component of respiratory bronchiolitis likely from the smoking. Based on the fact the nodules are stable we will go ahead and refer her to the lung cancer screening program for the next CT scan in a year. She did start the Chantix. She is having some mild adverse effects. She is going to continue with it. [facility] Medical History (Updated 10/26/23 @ 21:13 by Isael Lewis MD) Has daytime drowsiness Pulmonary nodules Tobacco dependence Chronic bronchitis Asthma Social History Household Members: Spouse Housing: House Do you presently have visiting nurse or other home services: No Patient Tobacco Use Status: Never used Tobacco Substance Use Type: Marijuana service: No Review of Systems Const Reports daytime sleepiness, Denies fever(s), Reports snoring and Reports stops breathing during sleep ENT Reports no additional complaints Card Denies chest pain Resp Reports cough, Reports snoring and Denies wheezing GI Reports no additional complaints Musc Reports no additional complaints Skin/Breast Denies rash Von/Lymph Denies lymphadenopathy Aller/Immun Denies wheezing Physical Exam Vital Signs: Last Vital Signs Pulse 58 12/10/23 10:04 BP 122/60 12/10/23 10:04 Pulse Ox 96 12/10/23 10:04 Oxygen Delivery Method Room Air 12/10/23 10:04 BMI result Body Mass Index 25.7 Const General: comfortable HEENT Head: Yes normocephalic Neck Neck: Yes supple Chest Chest palpation & inspection: normal inspection of the chest Resp Effort & Inspection: normal respiratory effort Auscultation: wheezes (On force exhalation) Cardio Heart sounds: S1 normal heart sound present and S2 normal heart sound present GI Palpation (GI): Soft to palpation Skin General skin exam: no rashes or lesions noted Extrem General: Yes no clubbing, cyanosis or edema Assessment & Plan Assessment & Plan (1) Pulmonary nodules: Code(s): R91.8 - Other nonspecific abnormal finding of lung field Category: Medical (2) Chronic bronchitis: Code(s): J42 - Unspecified chronic bronchitis Category: Medical Qualifiers: Chronic bronchitis type: simple Qualified Code(s): J41.0 - Simple chronic bronchitis (3) Tobacco dependence: Code(s): F17.200 - Nicotine dependence, unspecified, uncomplicated Category: Medical (4) Has daytime drowsiness: Code(s): R40.0 - Somnolence Category: Social Hx Plan CPT with Aerobika start Trelegy 100 daily TAMEKA as needed contiue Chantix Consider Bloodwork and allergy testing Consider home PSG LDCT referral, next CT 10/2024 F/U 3-4 months Medications: New mqtdgqlrnmk-bzmkysiad-nodsifoj 100-62.5-25 mcg (Trelegy Ellipta) 1 inh inhalation DAILY 60 ea 11RF 30 days J44.9 - Chronic obstructive pulmonary disease, unspecified Coding Level of Care Code Est Pt Level 4 (58460) Diagnoses Pulmonary nodules R91.8 Simple chronic bronchitis J41.0 Chronic bronchitis type: simple Tobacco dependence F17.200 Has daytime drowsiness R40.0 Time Spent (min) 18
[2023-12-10 10:04] VITALS: BP 122/60; PULSE 58; O2SAT 96; BMI 25.7
== END 2023-12-10 10:34 | disposition home or self-care (01) ==
PROVIDERS: PCP Nurse Practitioner Family; Visit Provider Hospitalist
DX: R91.8 Other nonspecific abnormal finding of lung field (principal); J41.0 Simple chronic bronchitis; F17.200 Nicotine dependence, unspecified, uncomplicated; R40.0 Somnolence
CPT/HCPCS: 99214

== ENCOUNTER 2024-05-31 07:23 | Day surgery (SDC) | payer OTHER, SELFPAY ==
[2024-05-27 09:21] VITALS: BMI 26.1
--- NOTE | 2024-05-30 11:03 | P.CONAN_ITS ---
HPI - Anesthesia Eval Consult details Narrative: 64yo F for Colonoscopy PMFSH Active Problems Active Problems: All Active Problems Mild intermittent asthma with (acute) exacerbation (Acute) Parainfluenza (Acute) Asthma, intermittent with acute exacerbation (Acute) Has daytime drowsiness (Acute) Pulmonary nodules (Acute) Tobacco dependence (Acute) Chronic bronchitis (Acute) Past Medical History Medical History (Updated 10/26/23 @ 21:13 by Isael Lewis MD) Has daytime drowsiness Pulmonary nodules Tobacco dependence Chronic bronchitis Asthma Surgical History Surgical History (Updated 05/27/24 @ 09:20 by Carol Reyes RN) History of breast lump/mass excision Hx of tubal ligation H/O colonoscopy Social History Social History Household Members: Spouse Housing: House Do you presently have visiting nurse or other home services: No Patient Tobacco Use Status: Current everyday Tobacco user Cigarette Packs Per Day: 0.5 Cigarettes Per Day: 10.0 Use of substances other than those prescribed or required for medical reasons: No Substance Use Type: Marijuana Are you DNR?: No Advance Directives: No Advance Directives Information Provided: Yes service: No Meds Allergies Allergy/AdvReac Type Severity Reaction Status Date / Time eucalyptus Allergy Severe Anaphylaxis Verified 05/31/24 07:51 ampicillin Allergy Intermediate Rash Verified 05/31/24 07:51 sulfamethoxazole Allergy Intermediate Rash Verified 05/31/24 07:51 [From Bactrim] trimethoprim [From Bactrim] Allergy Intermediate Rash Verified 05/31/24 07:51 citrace spray Allergy Unknown Unknown Uncoded 05/31/24 07:51 citronella Allergy Unknown Unknown Uncoded 05/31/24 07:51 patchouli plant Allergy Unknown Unknown Uncoded 05/31/24 07:51 Home Medications ?Medication ?Instructions ?Recorded ?Confirmed ?Last Taken ?Type albuterol sulfate 90 mcg/actuation 2 puff inhalation Q4H PRN Wheezing 07/28/23 05/31/24 Unknown History aerosol inhaler diphenhydramine HCl 25 mg tablet 25 mg PO TID PRN Allergy Symptoms 07/28/23 1 07/31/23 Unknown History ibuprofen 200 mg tablet 400 mg PO Q6H PRN Pain 07/28/23 05/31/24 Unknown History nebulizers 10/26/23 Unknown History Exam Height,Weight and Vital Signs: Height 5 ft 4 in Weight 68.946 kg Assessment and Plan Assessment Anesthesia Assessment: Chart Reviewed
[2024-05-31 07:56] VITALS: BMI 26.3
[2024-05-31 08:08] VITALS: BP 126/75; PULSE 63; RESP 16; TEMP 36.3; O2SAT 97
[2024-05-31] MEDS: Lactated Ringers 1,000 ML 100 ML IVCONT (08:29)
--- NOTE | 2024-05-31 08:38 | MHC.SHP ---
Pre-Procedural Eval Section A - 24 Hr Update-Section A only Date of Service: 05/31/24 Section B - Complete if H&P > 30 days Chief Complaint: screening Details of Present Illness: see H&P no changes Relevant Family History (Specify if Yes): No Relevant Social History: None Present Medications: see Short Stay Collaborative assessment Medical History: No relevant PMH History of Previous Operations: No relevant previous surgery Allergies: Allergies Allergy/AdvReac Type Severity Reaction Status Date / Time eucalyptus Allergy Severe Anaphylaxis Verified 05/31/24 07:51 ampicillin Allergy Intermediate Rash Verified 05/31/24 07:51 sulfamethoxazole Allergy Intermediate Rash Verified 05/31/24 07:51 [From Bactrim] trimethoprim [From Bactrim] Allergy Intermediate Rash Verified 05/31/24 07:51 citrace spray Allergy Unknown Unknown Uncoded 05/31/24 07:51 citronella Allergy Unknown Unknown Uncoded 05/31/24 07:51 patchouli plant Allergy Unknown Unknown Uncoded 05/31/24 07:51 Review of Systems Sugical H&P ROS: Negative: Constitution, Cardiovascular, Respiratory, Neurological, Psychiatric, Hem-Onc, Allergic/Immunologic, Gastrointestinal, Genitourinary, Musculoskeletal, Integumentary, Endocrine and Eyes/Ears/Nose/Throat Exam Surgical H&P Exam: Normal: HEENT, Normal: Heart, Normal: Lungs, Normal: Extremities, Normal: Abdomen, Normal: Skin and Normal: Neurological Plan Diagnosis/Plan: Unchanged I have reviewed the history and physical and performed a pertinent physical examination on my patient. No changes have occurred unless specified. Time Spent With Patient Time: Total time managing care of this patient today ____ minutes.
[2024-05-31 09:25] VITALS: BP 94/54; PULSE 59; RESP 17; TEMP 36.1; O2SAT 98
[2024-05-31 09:37] VITALS: BP 120/42; PULSE 61; RESP 16; TEMP 36.1; O2SAT 98
--- NOTE | 2024-05-31 09:59 | OP_ITS ---
DATE OF SERVICE: 05/31/2024 SURGEON: Igor Lozada MD INDICATIONS: Colon cancer screening. PREOPERATIVE DIAGNOSIS: POSTOPERATIVE DIAGNOSIS: PROCEDURE PERFORMED: Colonoscopy to the terminal ileum with snare polypectomy. ESTIMATED BLOOD LOSS: COMPLICATIONS: ANESTHESIA: Monitored anesthesia care. ASSISTANTS: SPECIMENS: DESCRIPTION OF PROCEDURE: A history and physical was performed. The risks and benefits of the procedure were explained to the patient, and informed consent was obtained. The patient was placed in the left lateral decubitus position. A digital rectal exam was performed and was found to be normal. The Olympus pediatric video colonoscope was introduced into the rectum and advanced to the cecum. The cecum was identified by transillumination, palpation, and identification of ileocecal valve. Examination was performed. The scope was removed. She tolerated the procedure well and was returned to the recovery area in stable condition. FINDINGS: The terminal ileum was examined and appeared normal. The visualized colonic mucosa was normal. The quality of prep was good. A single polyp measuring approximately 5 mm was identified in the rectum and removed with a cold snare. The polyp was recovered via suction. No other polyps were seen. Retroflexed examination showed small internal hemorrhoids. IMPRESSION: Colon polyp. RECOMMENDATION: 1. Follow up the biopsy results. 2. Repeat colonoscopy is 5 years because of family history. MD BIRD Blankenship/KATHYL / [phone]
== END 2024-05-31 10:10 | disposition home or self-care (01) ==
PROVIDERS: Visit Provider Internal Medicine Gastroenterology
PROC: 0DJD8ZZ Inspection of Lower Intestinal Tract, Via Natural or Artificial Opening Endoscopic (ICD-10-PCS; CPT 45378; principal; 2024-05-31 09:10)
DX: Z12.11 Encounter for screening for malignant neoplasm of colon (principal); D12.8 Benign neoplasm of rectum; K64.8 Other hemorrhoids; Z86.0101 Personal history of adenomatous and serrated colon polyps; J45.909 Unspecified asthma, uncomplicated; F17.210 Nicotine dependence, cigarettes, uncomplicated; Z79.899 Other long term (current) drug therapy
CPT/HCPCS: 45385; 88305; J2003; J2704

== ENCOUNTER 2024-06-13 12:53 | Outpatient (REF) | payer OTHER, SELFPAY ==
--- NOTE | ~2024-06-13 | XR_ITS ---
EXAMINATION: XR SACRUM AND COCCYX CLINICAL INFORMATION: CHRONIC MIDLINE LOW BACK PAIN WITH SCIATICA COMPARISON: None available. TECHNIQUE: 3 views of the sacrum and coccyx were obtained. FINDINGS: Moderate stool overlies the sacrum and coccyx on the AP view interfering with visualization. There are no fractures seen. There is minimal grade 1 anterolisthesis of L5 upon S1 and L4 upon L5 with mild degenerative change seen at L5-S1. No other bone, joint or soft tissue abnormality is demonstrated. XR/XR sacrum coccyx min 2V IMPRESSION: 1. No evidence of a sacral or coccygeal fracture. 2. Mild degenerative changes in the lower lumbar spine. Electronically signed by: Remy Galeano MD 06/13/2024 04:27 PM VIRI JANG
== END 2024-06-13 12:54 | disposition home or self-care (01) ==
LOC: HO.XRAY 12:53
PROVIDERS: PCP Nurse Practitioner Family; Visit Provider Nurse Practitioner Family
DX: M54.40 Lumbago with sciatica, unspecified side (principal); G89.29 Other chronic pain
CPT/HCPCS: 72220

== ENCOUNTER 2024-06-15 09:47 | Outpatient (AMB) | payer OTHER, SELFPAY ==
--- NOTE | 2024-06-15 09:48 | A.OFFVIS_ITS ---
Vital Signs 06/15/24 09:49 Weight 155 lb 6.814 oz BP 110/60 Blood Pressure Location Lt brachial Position Sitting Pulse 77 Pulse Source Pulse Oximeter Pulse Oximetry (%) 96 Oxygen Delivery Method Room Air Intake Visit Reasons: Asthma Allergies eucalyptus Allergy (Severe, Verified 06/15/24 09:55) Anaphylaxis ampicillin Allergy (Intermediate, Verified 06/15/24 09:55) Rash sulfamethoxazole [From Bactrim] Allergy (Intermediate, Verified 06/15/24 09:55) Rash trimethoprim [From Bactrim] Allergy (Intermediate, Verified 06/15/24 09:55) Rash citrace spray Allergy (Unknown, Uncoded 06/15/24 09:55) Unknown citronella Allergy (Unknown, Uncoded 06/15/24 09:55) Unknown patchouli plant Allergy (Unknown, Uncoded 06/15/24 09:55) Unknown Medication List - Last Reconciled 06/15/24 by Naa Shaikh LPN albuterol sulfate 2.5 mg (3 mL) inhalation Q4H PRN albuterol sulfate 90 mcg/actuation 2 puffs inhalation Q4H PRN diphenhydramine HCl 25 mg PO TID PRN nzciunwljqm-ebhskigqi-ebmrvfrd 100-62.5-25 mcg (Trelegy Ellipta) 1 inh inhalation DAILY 30 days ibuprofen 400 mg PO Q6H PRN nebulizers As directed nicotine (polacrilex) 2 mg buccal Q1H PRN HPI Comments Details: The patient is a 64 year woman, tobacco dependent, with a history of asthma presenting with worsening respiratory symptoms. Several months ago the patient has did develop a respiratory illness which started developing worsening chest tightness and cough. She did go to urgent care where she was given a course of prednisone. However, the patient was no better and she actually was getting worse and decided to come into the [facility] ED where she was evaluated. There she had a chest x-ray which I personally reviewed demonstrating tram tracking and peribronchial coughing primarily the right mid and lower lung areas. Suggest the possibility of bronchiectatic changes. She was initially given a course of prednisone and doxycycline. She was initially resistant to taking the doxycycline. Although her mucus was yellowish in color thick and tenacious and sticky. Moderate in amount. When she started taking the doxycycline her symptoms improved quickly. Now she is back to her baseline. She does use a rescue inhaler although she does not use 1 regularly. Typically less than twice a week. She had been participating also on the lung cancer screening program at [facility]. Her last CT scan was back in December 2022. I personally reviewed all the images with her. The patient does have evidence of chronic bronchitis and also some bronchiectatic changes primarily involving the right middle lobe and lingular area. The patient also has pulmonary nodules largest 1 measuring more than 6 mm in size. The nodules appeared to be inflammatory. Although infectious etiologies such as smoldering infections also in differential. She was supposed to have a repeat CT scan in June based on her rads 3. however, the patient has not them the CT scan as of yet. She does require a CT scan at this time. Will order the CT scan to further address the pulmonary nodules specially her being high risk for malignancy. The patient was also smoking. She understands he is already developing significant smoking-related respiratory issues. She does want to quit. We did talk about different options I do believe the Chantix would be a good option for. She is agreeable this time to starting Chantix. I will send started pack to the pharmacy. 12/10/2023 the patient is here for a pulmonary follow-up visit. Overall the patient is doing well. She has not had to use her rescue inhaler. Still has some dyspnea on exertion. The patient did have pulmonary function studies which we personally reviewed. Appears to have moderate degree of COPD. No significant response to bronchodilators noted although there was a trend. We also reviewed her CT scan of the chest. Pulmonary nodules are stable although she does have areas of ground-glass opacities suggesting a component of respiratory bronchiolitis likely from the smoking. Based on the fact the nodules are stable we will go ahead and refer her to the lung cancer screening program for the next CT scan in a year. She did start the Chantix. She is having some mild adverse effects. She is going to continue with it. 06/15/2024 the patient is here for pulmonary follow-up visit. Overall she is doing well. The Trelegy has been affecting beneficial. She has only had to use her rescue inhaler once. This is because she was exposed to an irritant a stent that was bothering her. Otherwise she is doing good. Unfortunately, she had to stop the Chantix because she started to get depressive symptoms. Therefore she stopped it. Unfortunately she is still smoking about 10 cigarettes a day. She is going to look into hypnosis. She can also consider Wellbutrin. She is going to look into it. In the meantime the patient is taking part of the lung cancer screening program. She is going to have another CT scan in the springtime. Also she does have snoring. She has an elevated [place] score of 8/24. Right now she is doing okay like to hold off on sleep study. If her symptoms were to worsen we can consider home sleep study. She does practice already positional therapy since she can not sleep on her back. Patient follow-up in 6 months. If she has any issues prior to that she will call for an earlier assessment. [facility] Medical History (Updated 10/26/23 @ 21:13 by Isael Lewis MD) Has daytime drowsiness Pulmonary nodules Tobacco dependence Chronic bronchitis Asthma Surgical History (Updated 05/27/24 @ 09:20 by Carol Reyes RN) History of breast lump/mass excision Hx of tubal ligation H/O colonoscopy Social History Household Members: Spouse Housing: House Do you presently have visiting nurse or other home services: No Patient Tobacco Use Status: Current everyday Tobacco user Cigarette Packs Per Day: 0.5 Cigarettes Per Day: 10.0 Substance Use Type: Marijuana service: No Review of Systems Const Reports daytime sleepiness, Denies fever(s), Reports snoring and Reports stops breathing during sleep ENT Reports no additional complaints Card Denies chest pain Resp Reports cough, Reports snoring and Denies wheezing GI Reports no additional complaints Musc Reports no additional complaints Skin/Breast Denies rash Von/Lymph Denies lymphadenopathy Aller/Immun Denies wheezing Physical Exam Vital Signs: Last Vital Signs Pulse 77 06/15/24 09:49 BP 110/60 06/15/24 09:49 Pulse Ox 96 06/15/24 09:49 Oxygen Delivery Method Room Air 06/15/24 09:49 Const General: comfortable HEENT Head: Yes normocephalic Neck Neck: Yes supple Chest Chest palpation & inspection: normal inspection of the chest Resp Effort & Inspection: normal respiratory effort Auscultation: no wheezes (On force exhalation) and diminished lung sounds Cardio Heart sounds: S1 normal heart sound present and S2 normal heart sound present GI Palpation (GI): Soft to palpation Skin General skin exam: no rashes or lesions noted Extrem General: Yes no clubbing, cyanosis or edema Assessment & Plan Assessment & Plan (1) Pulmonary nodules: Code(s): R91.8 - Other nonspecific abnormal finding of lung field Category: Medical (2) Chronic bronchitis: Code(s): J42 - Unspecified chronic bronchitis Category: Medical Qualifiers: Chronic bronchitis type: simple Qualified Code(s): J41.0 - Simple chronic bronchitis (3) Tobacco dependence: Code(s): F17.200 - Nicotine dependence, unspecified, uncomplicated Category: Medical (4) Has daytime drowsiness: Code(s): R40.0 - Somnolence Category: Social Hx Plan CPT with [facility] continue Trelegy 100 daily TAMEKA as needed stopped Chantix, Depressive symptoms Consider home PSG, positional therapy LDCT referral, next CT 10/2024 F/U 8-12 months Coding Level of Care Code Est Pt Level 4 (24989) Diagnoses Pulmonary nodules R91.8 Simple chronic bronchitis J41.0 Chronic bronchitis type: simple Tobacco dependence F17.200 Has daytime drowsiness R40.0 Time Spent (min) 17
[2024-06-15 09:49] VITALS: BP 110/60; PULSE 77; O2SAT 96
== END 2024-06-15 10:17 | disposition home or self-care (01) ==
PROVIDERS: PCP Nurse Practitioner Family; Visit Provider Hospitalist
DX: R91.8 Other nonspecific abnormal finding of lung field (principal); J41.0 Simple chronic bronchitis; F17.200 Nicotine dependence, unspecified, uncomplicated; R40.0 Somnolence
CPT/HCPCS: 99214

== ENCOUNTER 2024-06-30 16:44 | Outpatient (REF) | payer OTHER, SELFPAY | END 2024-06-30 16:45 | disposition home or self-care (01) | LOC: HO.MRI 16:44 | PROVIDERS: PCP Nurse Practitioner Family; Visit Provider Nurse Practitioner Family | DX: M25.561 Pain in right knee (principal); M25.562 Pain in left knee; M54.6 Pain in thoracic spine; M54.50 Low back pain, unspecified | CPT/HCPCS: 72146; 72148; 72195 ==

== ENCOUNTER → 2024-06-30 16:50 | Outpatient (BNV) | payer OTHER, SELFPAY | PROVIDERS: PCP Nurse Practitioner Family; Visit Provider Radiology Diagnostic Radiology | DX: M46.96 Unspecified inflammatory spondylopathy, lumbar region (principal); M43.16 Spondylolisthesis, lumbar region; M48.061 Spinal stenosis, lumbar region without neurogenic claudication | CPT/HCPCS: 72146; 72148; 72195 ==

== ENCOUNTER 2024-07-11 15:06 | Outpatient (REF) | payer OTHER, SELFPAY | END 2024-07-11 15:07 | disposition home or self-care (01) | LOC: HO.LNP 15:06 | PROVIDERS: Visit Provider Hospitalist | DX: J41.0 Simple chronic bronchitis (principal) | CPT/HCPCS: 87070; 87077; 87185; 87205 ==

== ENCOUNTER → 2024-08-10 07:01 | Outpatient (REF) | payer OTHER, SELFPAY ==
--- NOTE | 2024-08-10 09:10 | ECG_ITS ---
Test Reason : copd Blood Pressure : */* mmHG Vent. Rate : 56 BPM Atrial Rate : 56 BPM P-R Int : 146 ms QRS Dur : 82 ms QT Int : 446 ms P-R-T Axes : 74 48 65 degrees QTcB Int : 430 ms Sinus bradycardia Otherwise normal ECG No previous ECGs available Referred By: Isael Lewis Electronically Signed By: Dago Hyde
== END ==
LOC: HO.CARD 07:01
PROVIDERS: PCP Nurse Practitioner Family; Visit Provider Hospitalist
DX: J44.9 Chronic obstructive pulmonary disease, unspecified (principal)
CPT/HCPCS: 93005

== ENCOUNTER → 2024-08-10 09:10 | Outpatient (BNV) | payer OTHER, SELFPAY | PROVIDERS: PCP Nurse Practitioner Family; Visit Provider Internal Medicine Cardiovascular Disease | DX: R00.1 Bradycardia, unspecified (principal) | CPT/HCPCS: 93010 ==

== ENCOUNTER 2024-08-26 11:03 | Outpatient (REF) | payer OTHER, SELFPAY ==
--- NOTE | ~2024-08-26 | XR_ITS ---
EXAMINATION: XR LUMBAR SPINE 4 OR MORE VIEWS HISTORY: M48.062 - Spinal stenosis, lumbar region with neurogenic claudication COMPARISON: Correlation is made with an MRI of the lumbar spine dated 12 5 a 4. FINDINGS: AP, and neutral, flexion, and extension lateral views of the lumbar spine are submitted. Osseous mineralization is normal. Five nonrib-bearing lumbar vertebral bodies are identified, maintaining normal height without evidence of fracture. There is grade I spondylolisthesis of L4 on L5 and L5 on S1. There is no change with flexion or extension. There is mild disc space narrowing. There is osteoarthritis of the facet joints. The visualized paraspinal soft tissues are unremarkable. XR/XR lumbar spine 4V min IMPRESSION: Grade I spondylolisthesis of L4 on L5 and L5 on S1. There is no significant change with flexion or extension. Degenerative changes as described. Electronically signed by: Antione Clinton MD 08/26/2024 02:36 PM [facility]
--- OUTSIDE RECORDS SUMMARY | 2024-08-26 12:22 | XMS_ITS | Encounter Summary ---
Author Organization [facility] Technology [facility] Address [address] [facility] [address] 7 h Floor [place] [phone] Care Team Providers Care Commissioning Specialist Name Role Phone Alisson Oliva Primary Care Provider [phone] Encounter Details Date Type Department Care Team [...] 8:30 AM EST Office Visit [facility]ram [facility] D[facility]AL [address] [place] [address] Tammy Trivedi documented as of this encounter Visit Diagnoses Not on filedocumented in this encounter Care Teams Commissioning Specialist Relationship Specialty Start Date End Date Alisson Oliva FNP [address] [place] [address] PCP - General Family Medicine 10/16/22 documented as of this encounter
--- OUTSIDE RECORDS SUMMARY | 2024-08-26 12:22 | XMS_ITS | Encounter Summary ---
Author Organization [facility] Technology [facility] Address [address] [place] [address] 7 h Floor [place] [id number] Care Team Providers Care Tennis Ball Coverer Hand Name Role Phone Alisson Oliva Primary Care Provider [phone] Encounter Details Date Type Department Care Team [...] 09/28/2024 8:30 AM EST Office Visit [facility] D[facility] [address] [place] [address] Tammy Trivedi documented as of this encounter Visit Diagnoses Not on filedocumented in this encounter Care Teams Tennis Ball Coverer Hand Relationship Specialty Start Date End Date Alisson Oliva FNP [address] [place] [address] PCP - General Family Medicine 10/16/22 documented as of this encounter
--- OUTSIDE RECORDS SUMMARY | 2024-08-26 12:22 | XMS_ITS | Encounter Summary ---
Author Organization Count Includes [facility] Technology [facility] Address [address] [place] [address] 7 h Floor [place] [id number] Care Team Providers Care Licensing Services Clerk Name Role Phone Alisson Oliva Primary Care Provider [phone] Encounter Details Date Type Department Care Team [...] 8:30 AM EST Office Visit [facility] DENTAL [address] [place] [address] Tammy Trivedi documented as of this encounter Visit Diagnoses Not on filedocumented in this encounter Care Teams Licensing Services Clerk Relationship Specialty Start Date End Date Alisson Oliva FNP [address] [place] [address] PCP - General Family Medicine 10/16/22 documented as of this encounter
--- OUTSIDE RECORDS SUMMARY | 2024-08-26 12:22 | XMS_ITS | Clinical Summary ---
Author Organization [employer] [facility] Address [address] [facility] [address] 7t [place] [address] Care Team Providers Care Graphic Coordinator Name Role Phone Alisson Oliva FOAM CUTTING SUPERVISOR Primary Care Provider Allergies Active Allergy Reactions Criticality Noted Date [...] None. Categorization based on Lung-RADS 2021 criteria. [email or web address] WSN: [id number] Ordering Physician: Alisson Oliva Dictated By: Angel [...] done at end of June 2023 at [facility]. Routine general medical exam ination at a health care facility 12/11/2022 Overview (12/15/2023): CPE done 12/15/23. HEALTH CARE MAINTENANCE: Colonoscopy (age 45-75): Dr. Luis - [facility]. [facility] Has to go to [facility] due to insurance. Wants to go to [facility]. Has every 3 years - multiple benign polyps (tubular adenomas). Mammogram (age 40-74): Done 11/2023 - waiting for results. AAA Screen (Fam Hx AAA): No family hx. LDCT (smoke >30 pack year, age 55-80): Engaged with pulm - has routine screens. DEXA (age 61 with RF, age 66): Has Osteopenia - had scan at [facility]. Last done 08/2022. VETERINARY NURSE: Outside VETERINARY NURSE: Dr. Newell LMP: Menopause . Last PAP [...] Was advised by PT to go to [facility] - would like to see Sunita Ferguson at [facility]. We will send referral. Discussed pain management including piriformis stretches and ibuprofen. Assessment & Plan (02/06/2023 8:51 AM EDT): Son is workplace trainer and assessor and has been giving her suggestions. Is [...] from the original note were not included. [facility] Pulmonology Engaged with pulmonology - Isael Cortez. [...] cervicovaginal cytologic smear 10/16/2022 Overview (12/24/2023): Has VETERINARY NURSE - Dr. Newell who is following. 11/05/2022 [...] Type Department Care Team Description 08/10/2024 Telephone [facility] MED[facility] [address] [place] [address] Hailee Gutiérrez MD 08/10/[address] [facility] MEDICAL [address] [place] [address] [facility] Results 06/22/2024 4:00 PM EST Office Visit [facility] DENT[facility] [address] [place] [address] Tammy Trivedi Encounter for dental examination (Primary Dx); Accretions on teeth; Stage 1 grade A localized periodontitis per AAP/EFP 2017 classification 06/16/2024 9:40 AM EST Office Visit [facility] MED[facility] [address] [place] [address] Alisson Oliva, DANNY Hip pain, bilateral; Pulmonary nodules/lesions, multiple; Smoker 06/12/2024 Travel 06/10/2024 Telephone [facility] [address] [place] [address] Alisson Oliva FNP xray order 06/01/2024 Orders Only [facility] Information Management [address] [place] [address] Alisson Oliva FNP from Last 3 Months [...] 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 on file Not [...] Description 09/28/2024 8:30 AM EST Office Visit [facility] [address] [place] [address] Tammy Trivedi Health Maintenance Due Date Last Done [...] Referral to Orthopaedics (08/25/2024) us Alisson Lawrencen FOAM CUTTING SUPERVISOR OUTPATIENT REFERRAL ORDERABLES F inal Result * MR Sacral Iliac Joint w/o Contrast (06/30/2024) Anatomical Region Laterality Modality Magnetic Resonan ce Result [facility] MRI PROCEDURES Final Result * MR Lumbar Spine w/o Contrast (06/30/2024) Anatomical Region Laterality Modality Spine, L-spine Magnetic Resonan ce Result [facility] MRI PROCEDURES Final Result * MR Thoracic Spine w/o Contrast (06/30/2024) Anatomical Region Laterality Modality Spine, T-spine Magnetic Resonan ce Result [facility] MRI PROCEDURES Final Result * XR Sacrum Coccyx 2+ Views (06/13/2024) Anatomical Region Laterality Modality Sacrum, Coccyx Radiographic Deidra ging Result [facility] XR PROCEDURES Final Result * Hm Colonoscopy (05/31/2024 10:08 AM EST) Result [facility] HEALTH MAINTENANCE Final Result * BI Mammogram Screening Tomosynthesis Bilateral (12/10/2023 10:05 AM EDT) Anatomical Region Laterality Modality Breast Bilateral Mammography Result [facility] BI PROCEDURES Final Result * CT Lung Screening Low dose (12/09/2023) Anatomical Region Laterality Modality Lung Computed Tomogra phy Result [facility] CT PROCEDURES Final Result * HIV Antibody/Antigen, 4th Generation (04/23/2023 9:57 AM EDT) Result 4th Gen HIV Antibody Antigen NEGATIVE (NEG) [facility] Comment: Negative for antibodies to HIV 1 and HIV 2 and P24 antigen. Reference range: Negative Additional note: Written patient authorization is required for each separate release of this test result. This test was performed on the [employer] immunoassay system. Testing performed or reported by [facility], a Service of [facility], [address] [place] [address] Jong Lou MD, Insulation Board Back Tender [facility]# [id number] Blood 04/23/2023 9:57 AM EDT 04/23/2023 10:41 AM EDT [facility] LAB BLOOD ORDERABLES Final Resul t Performing Organization Address [facility] Co de Phone Number [facility] [address] [place] [address] * Hepatits C Antibody w/Reflex HCV Quant PCR and Genotyping (04/23/2023 9:57 AM EDT) Pathologist [facility] Hepatitis C Virus Ab, Serum NEGATIVE (NEG) [facility] Comment: Reference range: Negative This test was performed on the [employer] immunoassay system. Testing performed or reported by [facility], a Service of [facility], [facility] [place] [address] Jong Lou MD, Insulation Board Back Tender CLIA# [id number] 04/23/2023 9:57 AM EDT 04/23/2023 10:41 AM EDT [facility] LAB BLOOD ORDERABLES Final Resul t Performing Organization Address [facility] Co de Phone Number [facility] [address] [place] [address] * (ABNORMAL) Lipid panel (04/23/2023 9:57 AM EDT) Cholesterol, Total 225(H) (<200) MG/DL [facility] Triglyceride (mg/dL) in Serum/Plasma 97 (<150) MG/DL [facility] HDL Cholesterol 56 (>39) MG/DL [facility] LDL Cholesterol, Calculated 150(H) (0-130) MG/DL [facility] Non HDL Chol. (LDL+VLDL) 169(H) (<160) MG/DL [facility] Comment: Testing performed or reported by [facility], a Service of [facility], [address] [place] [address] Jong Lou MD, Insulation Board Back Tender [facility]# [id number] Blood Venous blood specimen / Unknown 04/23/2023 9:57 AM EDT 04/23/2023 10:41 AM EDT Alisson [facility] LAB BLOOD ORDERABLES Final Resul t [facility] [address] [place] [address] * HM PAP/HPV (11/05/2022 10:22 AM EDT) Alisson [facility] HEALTH MAINTENANCE Final Result from Last 3 Months or Most Recently Relevant to Health Maintenance Insurance [employer] Care Teams Graphic Coordinator Relationship Specialty Start Date End Date Alisson Oliva FNP [address] [place] [address] PCP - General Family Medicine 10/16/22
--- OUTSIDE RECORDS SUMMARY | 2024-08-26 12:22 | XMS_ITS | Encounter Summary ---
Author Organization [facility] Technology [facility] Address [address] [place] [address] 7 h Floor [place] [phone] Care Team Providers Care Generator Switchboard Operator Name Role Phone Alisson Oliva Primary Care Provider [phone] Encounter Details Date Type Department Care Team [...] 09/28/2024 8:30 AM EST Office Visit [facility] D[facility] [address] [place] [address] Tammy Trivedi documented as of this encounter Visit Diagnoses Not on filedocumented in this encounter Care Teams Generator Switchboard Operator Relationship Specialty Start Date End Date Alisson Oliva FNP [address] [place] [address] PCP - General Family Medicine 10/16/22 documented as of this encounter
--- OUTSIDE RECORDS SUMMARY | 2024-08-26 12:22 | XMS_ITS | Encounter Summary ---
Author Organization [facility] [employer] [facility] Address [address] [place] [address] 7 h Floor [place] [phone] Care Team Providers Care Hydraulic Barker Operator Name Role Phone Alisson Oliva Primary Care Provider [phone] Encounter Details Date Type Department Care Team [...] 09/28/2024 8:30 AM EST Office Visit [facility] DENTAL [address] [place] [address] Tammy Trivedi documented as of this encounter Visit Diagnoses Not on filedocumented in this encounter Care Teams Hydraulic Barker Operator Relationship Specialty Start Date End Date Alisson Oliva FNP [address] [place] [address] PCP - General Family Medicine 10/16/22 documented as of this encounter
--- OUTSIDE RECORDS SUMMARY | 2024-08-26 12:22 | XMS_ITS | Encounter Summary ---
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
--- OUTSIDE RECORDS SUMMARY | 2024-08-26 12:22 | XMS_ITS | Encounter Summary ---
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 Not on file documented as of this encounter Plan of Treatment Upcoming Encounters Date Type Department Care Team (Late st Contact Info) Description 09/28/2024 8:30 AM EST Office Visit [facility] DENTAL [address] [place] [address] Tammy Trivedi documented as of this encounter Procedures Procedure Name Priority Date/Time Associated Diagnosis Comments HM PAP/HPV Routine 11/05/2022 10:22 AM EDT documented in this encounter Results * HM PAP/HPV (11/05/2022 10:22 AM EDT) Alisson [facility] MAINTENA[facility]CE Final Result documented in this encounter Visit Diagnoses Not on filedocumented in this encounter Care Teams Change Management Expert Relationship Specialty Start Date End Date Alisson Oliva FNP [address] [place] [address] PCP - General Family Medicine 10/16/22 documented as of this encounter
--- OUTSIDE RECORDS SUMMARY | 2024-08-26 12:22 | XMS_ITS | Encounter Summary ---
Author Organization [employer] [facility] Address [address] 7 h Floor [place] [id number] Care Team Providers Care Senior Corporate Recruiter Name Role Phone Alisson Oliva Primary Care Provider [phone] Encounter Details Date Type Department Care Team [...] 09/28/2024 8:30 AM EST Office Visit [facility] [address] [place] [address] Tammy Trivedi documented as of this encounter Visit Diagnoses Not on filedocumented in this encounter Care Teams Senior Corporate Recruiter Relationship Specialty Start Date End Date Alisson Oliva FNP [address] [place] [address] PCP - General Family Medicine 10/16/22 documented as of this encounter
--- OUTSIDE RECORDS SUMMARY | 2024-08-26 12:22 | XMS_ITS | Encounter Summary ---
Author Organization [employer] [facility] Address [address] 7t [place] [address] Care Team Providers Care Reclamation Supervisor Name Role Phone Alisson Oliva [facility] Primary Care Provider Reason for Visit * Reason Onset Date Comments Results 08/10/2024 Encounter Details Date Type Department Care Team (Late st Contact Info) Description 08/10/2024 Telephone I[facility] [address] [place] [address] [facility] [address] [place] [address] Results Social History Tobacco Use Types Packs/Day [...] 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
--- OUTSIDE RECORDS SUMMARY | 2024-08-26 12:22 | XMS_ITS | Encounter Summary ---
Author Organization [employer] Address [address] 7t [place] [address] Care Team Providers Care Small Animal Caretaker Name Role Phone Alisson Oliva Primary Care Provider [phone] Encounter Details Date Type Department Care Team (Late st Contact Info) Description 05/11/[address] [place] 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 [address] [place] [address] Tammy Trivedi documented as of this encounter [...] colon documented in this encounter Care Teams Small Animal Caretaker Relationship Specialty Start Date End Date Alisson Oliva FNP [address] [place] [address] PCP - General Family Medicine 10/16/22 documented as of this encounter
--- OUTSIDE RECORDS SUMMARY | 2024-08-26 12:22 | XMS_ITS | Encounter Summary ---
Author Organization [facility] Address [address] [place] [address] 7 h Floor [place] [id number] Care Team Providers Care Laborer Wrecking And Salvaging Name Role Phone Alisosn Oliva Primary Care Provider [phone] Encounter Details Date Type Department Care Team [...] 8:30 AM EST Office Visit [facility] [address] [place] [address] Tammy Trivedi documented as of this encounter Visit Diagnoses Not on filedocumented in this encounter Care Teams Laborer Wrecking And Salvaging Relationship Specialty Start Date End Date Alisson Oliva FNP [address] [place] [address] PCP - General Family Medicine 10/16/22 documented as of this encounter
--- OUTSIDE RECORDS SUMMARY | 2024-08-26 12:22 | XMS_ITS | Encounter Summary ---
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 on file Not on file documented as of this encounter Plan of Treatment Upcoming Encounters Date Type Department Care Team (Late st Contact Info) Description 09/28/2024 8:30 AM EST Office Visit [place] [facility] [address] [place] [address] Tammy Trivedi documented as of this encounter Procedures Procedure Name Priority Date/Time Associated Diagnosis Comments BI MAMMOGRAM SCREENING TOMOSYNTHESIS BILATERAL Routine 12/10/2023 10:05 AM EDT documented in this encounter Results * BI Mammogram Screening Tomosynthesis Bilateral (12/10/2023 10:05 AM EDT) Anatomical Region Laterality Modality Breast Bilateral Mammography Alisson [facility]O [facility] BI PROCEDURES Final Result documented in this encounter Visit Diagnoses Not on filedocumented in this encounter Care Teams High Wire Artist Relationship Specialty Start Date End Date Alisson Oliva FNP [address] [place] [address] PCP - General Family Medicine 10/16/22 documented as of this encounter
--- OUTSIDE RECORDS SUMMARY | 2024-08-26 12:22 | XMS_ITS | Encounter Summary ---
Author Organization [employer] [facility] Address [address] 7 h Floor [place] [address] Care Team Providers Care Director Script Name Role Phone Alisson Oliva Primary Care Provider [phone] Encounter Details Date Type Department Care Team [...] 09/28/2024 8:30 AM EST Office Visit [facility] [address] [place] [address] Tammy Trivedi documented as of this encounter Visit Diagnoses Not on filedocumented in this encounter Care Teams Director Script Relationship Specialty Start Date End Date Alisson Oliva FNP [address] [place] [address] PCP - General Family Medicine 10/16/22 documented as of this encounter
--- OUTSIDE RECORDS SUMMARY | 2024-08-26 12:22 | XMS_ITS | Encounter Summary ---
Author Organization [facility] [employer] [facility] Address [address] [place] [address] 7 h Floor [place] [id number] Care Team Providers Care Pile Driver Name Role Phone Alisson Oliva Primary Care [...] 09/28/2024 8:30 AM EST Office Visit [facility] [address] [place] [address] Tammy Trivedi documented as of this encounter Visit Diagnoses Not on filedocumented in this encounter Care Teams Pile Driver Relationship Specialty Start Date End Date Alisson Oliva FNP [address] [place] [address] PCP - General Family Medicine 10/16/22 documented as of this encounter
--- OUTSIDE RECORDS SUMMARY | 2024-08-26 12:22 | XMS_ITS | Encounter Summary ---
Author Organization [employer] [facility] Address [address] [place] [address] 7t [place] [address] Care Team Providers Care Travel Specialist Name Role Phone Alisson Oliva Primary Care Provider [phone] Encounter Details Date Type Department Care Team (Late st Contact Info) Description 10/16/2022 Abstract [facility] MEDICAL [address] [place] [address] Alisson Oliva FNP [address] [place] [address] Social History Tobacco Use Types Packs/Day Years [...] Description 09/28/2024 8:30 AM EST Office Visit [facility]ENT[facility] [address] [place] [address] Tammy Trivedi documented as of this encounter Procedures Procedure Name Priority Date/Time Associated Diagnosis Comments COLONOSCOPY Routine 10/01/2020 MAMMOGRAPHY Routine 09/20/2019 HEMOGLOBIN A1C Routine 03/10/2019 LIPID PANEL, STANDARD Routine 03/10/2019 documented in this encounter Results * Colonoscopy (10/01/2020) [facility] Colonoscopy Normal Normal Comment:poyp removal, divert icula repeat 3-5 years [facility] Provider HEALTH MAINTENANCE Final Result * Mammography (09/20/2019) [facility] Mammogram Neg - annual exam - very dense breasts Anatomical Region Laterality Modality Other [facility] Provider HEALTH MAINTENANCE Final Result * Hemoglobin A1c (03/10/2019) [facility] Hemoglobin A1C 5.4 4.0 - 6.0 % Blood Venous blood specimen / Unknown Result [facility] Provider MD LAB BLOOD ORDERABLES Sarah l Result * (ABNORMAL) Lipid Panel, Standard (03/10/2019) [facility] Triglycerides 128 40 - 160 mg/dL Cholesterol 201(A) 0 - 200 mg/dL HDL Cholesterol 45 35 - 70 mg/dL LDL Cholesterol 130 mg/dL Blood Venous blood specimen / Unknown Result [facility] Provider MD LAB BLOOD ORDERABLES Sarah l Result documented in this encounter Visit Diagnoses Not on filedocumented in this encounter Care Teams Travel Specialist Relationship Specialty Start Date End Date Alisson Oliva FNP [address] [place] [address] PCP - General Family Medicine 10/16/22 documented as of this encounter
--- OUTSIDE RECORDS SUMMARY | 2024-08-26 12:23 | XMS_ITS | Encounter Summary ---
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 on file Not on file documented as of this encounter Plan of Treatment Upcoming Encounters Date Type Department Care Team (Late st Contact Info) Description 09/28/2024 8:30 AM EST Office Visit [place] [facility] [address] [place] [address] Tammy Trivedi documented as of this encounter Procedures Procedure Name Priority Date/Time Associated Diagnosis Comments HM COLONOSCOPY Routine 05/31/2024 10:08 AM EST documented in this encounter Results * Hm Colonoscopy (05/31/2024 10:08 AM EST) Alisson DELGADO HEALTH MAINTENANCE Final Result documented in this encounter Visit Diagnoses Not on filedocumented in this encounter Care Teams Natural Resource Technician Relationship Specialty Start Date End Date Alisson Oliva FNP [address] [place] [address] PCP - General Family Medicine 10/16/22 documented as of this encounter
== END 2024-08-26 11:04 | disposition home or self-care (01) ==
LOC: HO.HOSX 11:03
PROVIDERS: PCP Nurse Practitioner Family; Referring Provider Physical Medicine & Rehabilitation; Visit Provider Neurological Surgery
DX: M48.062 Spinal stenosis, lumbar region with neurogenic claudication (principal)
CPT/HCPCS: 72110

== ENCOUNTER 2024-08-26 11:03 | Outpatient (AMB) | payer OTHER, SELFPAY ==
--- NOTE | 2024-08-26 11:06 | HO.SPINEOV ---
Intake Visit Reasons: LBP Intake Note: Ms. Parker is here today c/o low back pain. Escape Wheel Tooth Cutter Required: No Allergies eucalyptus Allergy (Severe, Verified 08/25/24 08:46) Anaphylaxis ampicillin Allergy (Intermediate, Verified 08/25/24 08:46) Rash sulfamethoxazole [From Bactrim] Allergy (Intermediate, Verified 08/25/24 08:46) Rash trimethoprim [From Bactrim] Allergy (Intermediate, Verified 08/25/24 08:46) Rash citrace spray Allergy (Unknown, Uncoded 08/25/24 08:46) Unknown citronella Allergy (Unknown, Uncoded 08/25/24 08:46) Unknown patchouli plant Allergy (Unknown, Uncoded 08/25/24 08:46) Unknown Assessment & Plan Assessment & Plan (1) Lumbar stenosis with neurogenic claudication: Code(s): M48.062 - Spinal stenosis, lumbar region with neurogenic claudication Category: Medical Plan: Dear colleague Thank you for referring Lilian Parker to the office today with a chief complaint of low back pain and bilateral hip pain. HPI: This 64-year-old female note is that in the last proximally 5 years she is developing pains in her back. The pain is mostly after yd work where she goes frequently up and down and also periods that it interrupts with her sleep. Overall, the symptoms are manageable. In addition, she has bilateral hip pain with the left side is more affected than the right side and this pain can radiate all the way down to the outside of her ankle. Those symptoms come with prolonged walking or standing. She can still walk for 5 miles or more without interruption. She can also stand for a few hours without symptoms. Sitting down will improve those symptoms. She denies weakness or numbness. She still works full-time without restrictions. She went to the chiropractor with no effect. She went to physical therapy which made her symptoms worse. She takes anti-inflammatory drugs intermittently. PMH: Asthma Medications: Albuterol p.r.n. ibuprofen p.r.n. Allergies: Bactrim and ampicillin Social history: Employed at [employer]. Smokes half pack a day Physical Exam: Pleasant female. Neurological exam is intact for motor sensation and reflexes. Straight leg raise is negative. Normal mobility of the lumbar spine. Radiological Studies: MRI done at [facility] on 12/05/2024 shows severe central stenosis L3-4 and L4-5. There is a grade 1 L4-5 spondylolisthesis confirmed with dynamic lumbar x-rays obtained today. Impression/Plan: This 64-year-old female is suffering from neurogenic claudication and back pain. The symptoms are currently not severe enough to offer this patient a lumbar decompression. Moreover, I decompression may aggravate her back pain. The back pain can be associated with a lumbar spondylolisthesis. I advised the patient to return to my office if the neurogenic claudication symptoms progress. Surgery would be indicated at that time. Thank you for allowing me to participate in your patients care. total time spent was 50 minutes in counseling ,coordination of plan, personal review of imaging, surgical decision making and subsequent plan Kalpesh Wang MD, PhD Spine Fellowship Trained Neurosurgeon Director, [facility] Orders: Orders XR lumbar spine 4V min Today M48.062 - Spinal stenosis, lumbar region with neurogenic claudication Coding Level of Care Code New Pt Level 4 (52717) Diagnoses Lumbar stenosis with neurogenic claudication M48.062
--- OUTSIDE RECORDS SUMMARY | 2024-08-26 11:54 | XMS_ITS | Encounter Summary ---
Author Organization [facility] Address [address] [place] [address] [address] [place] [address] Care Team Providers Care Garnett Room Worker Name Role Phone Alisson Oliva Primary Care Provider [phone] Encounter Details Date Type Department Care Team (Late st Contact Info) Description 10/16/2022 Abstract [facility] MEDICAL [address] [place] [address] Alisson Oliva FNP [address] [place] [address] Social History Tobacco Use Types Packs/Day Years Used Date Smoking Tobacco: Every Day Cigarettes Smokeless Tobacco: Never Tobacco Cessation:Ready to Q uit: No; Counseling Given: Not Answered Alcohol Use Standard Drinks/Week Comments Yes 4 (1 standard drink = 0.6 oz pur e alcohol) Depression Answer Date Recorded Patient Health Questionnaire-2 Score 2 10/17/2022 Comments Unknown Sex and Gender Information Value Date Recorded Sex Assigned at Female 08/25/2022 1:54 PM EST Legal Sex Female 5:35 PM EDT Gender Identity Female 08/25/2022 1:54 PM EST Sexual Orientation Straight 12/08/2023 7: 54 PM EDT COVID-19 Exposure Response Date Recorded In the last 10 days, have yo u been in contact with someone who was confirmed or suspected to have Coronavirus/COVID-19? No / Unsure 10/16/2022 4:35 PM EDT documented as of this encounter Plan of Treatment Upcoming Encounters Date Type Department Care Team (Late st Contact Info) Description 09/28/2024 8:30 AM EST Office Visit [facility] DENTAL [address] [place] [address] Tammy Trivedi documented as of this encounter Procedures Procedure Name Priority Date/Time Associated Diagnosis Comments COLONOSCOPY Routine 10/01/2020 MAMMOGRAPHY Routine 09/20/2019 HEMOGLOBIN A1C Routine 03/10/2019 LIPID PANEL, STANDARD Routine 03/10/2019 documented in this encounter Results * Colonoscopy (10/01/2020) [facility] Colonoscopy Normal Normal Comment:poyp removal, divert icula repeat 3-5 years [facility] Provider HEALTH MAINTENANCE Final Result * Mammography (09/20/2019) [facility] Mammogram Neg - annual exam - very dense breasts Anatomical Region Laterality Modality Other [facility] Provider HEALTH MAINTENANCE Final Result * Hemoglobin A1c (03/10/2019) [facility] Hemoglobin A1C 5.4 4.0 - 6.0 % Blood Venous blood specimen / Unknown Result [facility] Provider MD LAB BLOOD ORDERABLES Sarah l Result * (ABNORMAL) Lipid Panel, Standard (03/10/2019) [facility] Triglycerides 128 40 - 160 mg/dL Cholesterol 201(A) 0 - 200 mg/dL HDL Cholesterol 45 35 - 70 mg/dL LDL Cholesterol 130 mg/dL Blood Venous blood specimen / Unknown Result [facility] Provider MD LAB BLOOD ORDERABLES Sarah l Result documented in this encounter Visit Diagnoses Not on filedocumented in this encounter Care Teams Garnett Room Worker Relationship Specialty Start Date End Date Alisson Oliva FNP [address] [place] [address] PCP - General Family Medicine 10/16/22 documented as of this encounter
--- OUTSIDE RECORDS SUMMARY | 2024-08-26 11:54 | XMS_ITS | Encounter Summary ---
Author Organization [employer] [facility] Address [address] [place] [address] Care Team Providers Care Ship Yard Electrical Person Name Role Phone Alisson Oliva [facility] Primary Care Provider [phone] Reason for Visit * Reason Onset Date Comments Results 08/10/2024 Encounter Details Date Type Department Care Team (Late st Contact Info) Description 08/10/2024 Telephone [facility] MEDICAL [address] [place] [address] [facility] [address] [place] [address] Results Social History Tobacco Use Types Packs/Day Years Used Date Smoking Tobacco: Every Day Cigarettes 0.8 46 Smokeless Tobacco: Never Alcohol Use Standard Drinks/Week Comments Yes 4 (1 standard drink = 0.6 oz pur e alcohol) Housing Stability Answer Date Recorded What is your housing situation today? I have flaco arias 12/15/[address] you li ve. Do you have problems with any of the following? None of the above 12/15/2023 Food Insecurity Answer Date Recorded Within the past 12 months, y ou worried that your food would run out before you got money to buy more: Never True 12/15/2023 Within the past 12 months,th e food you bought just didn't last and you didn't have enough money to get more: Never True Transportation Answer Date Recorded In the past 12 months, has l ack of transportation kept you from medical appts, meetings, work or from getting things needed for daily living? No 12/15/2023 Utilities Answer Date Recorded In the past 12 months, has t he electric, gas, oil or water company threatened to shut off services in your home? No 12/15/2023 Depression Answer Date Recorded Patient Health Questionnaire-2 Score 0 12/15/2023 Education Answer Date Recorded What is the highest level of school you have completed or the highest degree you have received? 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 She saw the MRI results on the portal. She has an appointment scheduled with Ortho later this month. * Telephone Encounter - DANNY Small - 08/10/2024 2:20 PM EST Covering for [place] and reviewing MRI results. Looks like she was already referred to ortho for management of hip/back pain. If she has not reviewed MRI results with them or needs further referrals, should set up provider appointment with a covering provider to review plan. documented in this encounter Plan of Treatment Upcoming Encounters Date Type Department Care Team (Late st Contact Info) Description 09/28/2024 8:30 AM EST Office Visit [facility] DENTAL [address] [place] [address] Tammy Trivedi documented as of this encounter Visit Diagnoses Not on filedocumented in this encounter Care Teams Ship Yard Electrical Person Relationship Specialty Start Date End Date Alisson Oliva FNP [address] [place] [address] PCP - General Family Medicine 10/16/22 documented as of this encounter
--- OUTSIDE RECORDS SUMMARY | 2024-08-26 11:54 | XMS_ITS | Encounter Summary ---
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 She reports she had been dr Gutiérrez's pt for years. She had to switch to [facility] when Dr Gutiérrez started weight management. Now that [facility] has left pt is wondering if she can change back to Dr Gutiérrez. Explained that Dr Gutiérrez is not taking new pt's but if she has an available appointment pt could beseen by her. Pt only wants to hear directly from Dr Gutiérrez. Portal message would be ok. documented in this encounter Plan of Treatment Upcoming Encounters Date Type Department Care Team (Late st Contact Info) Description 09/28/2024 8:30 AM EST Office Visit [place] [facility] [address] [place] [address] Tammy Trivedi documented as of this encounter Visit Diagnoses Not on filedocumented in this encounter Care Teams Mangle Tender Relationship Specialty Start Date End Date Alisson Oliva FNP [address] [place] [address] PCP - General Family Medicine 10/16/22 documented as of this encounter
--- OUTSIDE RECORDS SUMMARY | 2024-08-26 11:55 | XMS_ITS | Encounter Summary ---
Author Organization [facility] Address [address] [place] [address] [address] [place] [id number] Care Team Providers Care Mail Handler Sorter Name Role Phone Alisson Oliva Primary Care Provider Encounter Details Date Type Department Care Team (Latest Contact Info) Description 02/28/2020 Abstract [facility] Dental, Provider, DDS Social History Tobacco Use Types Packs/Day Years Used Date Smoking Tobacco: Never Assessed Comments Unknown Sex and Gender Information Value Date Recorded Sex Assigned at Female 08/25/2022 1:54 PM EST Legal Sex Female 5:35 PM EDT Gender Identity Female 08/25/2022 1:54 PM EST Sexual Orientation Straight 12/08/2023 7: 54 PM EDT documented as of this encounter Plan of Treatment Upcoming Encounters Date Type Department Care Team (Late st Contact Info) Description 09/28/2024 8:30 AM EST Office Visit [place] [facility] [address] [place] [address] Tammy Trivedi documented as of this encounter Visit Diagnoses Not on filedocumented in this encounter Care Teams Mail Handler Sorter Relationship Specialty Start Date End Date Alisson Oliva FNP [address] [place] [address] PCP - General Family Medicine 10/16/22 documented as of this encounter
--- OUTSIDE RECORDS SUMMARY | 2024-08-26 11:55 | XMS_ITS | Encounter Summary ---
Author Organization [facility] Address [address] [address] [facility] [address] [facility] [address] [place] [id number] Care Team Providers Care Marine Chronometer Assembler Name Role Phone Alisson Oliva Primary Care Provider [phone] Encounter Details Date Type Department Care Team (Latest Contact Info) Description 07/07/2019 Abstract [facility] Dental, Provider, DDS Social [...] 09/28/2024 8:30 AM EST Office Visit [place] [facility] [address] [place] [address] Tammy Trivedi documented as of this encounter Visit Diagnoses Not on filedocumented in this encounter Care Teams Marine Chronometer Assembler Relationship Specialty Start Date End Date Alisson Oliva FNP [address] [place] [address] PCP - General Family Medicine 10/16/22 documented as of this encounter
--- OUTSIDE RECORDS SUMMARY | 2024-08-26 11:55 | XMS_ITS | Clinical Summary ---
Author Organization [employer] [facility] Address [address] [place] [address] Care Team Providers Care Lining Folder Name Role Phone Alisson Oliva SAP BASIS Primary Care Provider [phone] Allergies Active Allergy Reactions Criticality Noted Date Comments Ampicillin Rash Low 08/28/2022 Dust Mite Extract Shortness of breath High Eucalyptus Oil Wheezing 10/17/2022 Patchouli Oil Anaphylaxis,Shortnes s of breath High 10/25/2021 Pneumococcal Vac Polyvalent Swelling Medium 08/28/2022 Sulfamethoxazole-Trimet hoprim Rash Low 08/28/2022 Other reaction(s): Edema Medications Multiple Vitamin (multivitamin) tablet Take 1 tablet by mouth in the morning. Active Trelegy Ellipta 100-62.5-25 MCG/ACT aerosol powder 12/10/2023 Active nicotine polacrilex (Nicorette) 2 MG gum 07/29/2023 Active albuterol (2.5 MG/3ML) 0.083% nebulizer solution 07/29/2023 Active albuterol 108 (90 Base) MCG/ACT inhalerIndication s:Mild intermittent asthma without complication INHALE 2 PUFFS INOT THE LUNG EVERY 4 HOURS FOR 16 DAYS NEEDED 18 g 3 12/15/2023 Active Active Problems Problem Noted Date Diagnosed Date Hospital discharge follow-up 08/06/2023 Overview (08/11/2023): Admit 07/28/23 for Respiratory distress s/t +Parainfluenza 3 virus. No records available to review. Treated with antibiotics - continues to take Doxycycline until course is completed. Has pulmonary follow up in 1 month. Symptoms improving, currently denies any respiratory issues. Reviewed when to call clinic, when to go to ER. Family history of colonic polyps 02/06/2023 Pulmonary nodules/lesions, multiple 02/06/2023 Overview (06/16/2024): === 01/19/23 === CT LOW DOSE SCREENING - Impression - 1. Multiple lung nodules measuring up to 6.6 mm average diameter. LungRad Category: 3 Probably benign. Probably benign finding(s) - short term follow up suggested; includes nodules with a low likelihood of becoming a clinically active cancer. 6 month LDCT. 2. No significant additional findings requiring further evaluation. Lung-RAD Category Modifier: None. Categorization based on Lung-RADS 2021 criteria. [email or web address] WSN: [id number] Ordering Physician: Alisson Oliva Dictated By: Angel Staples MD Dictated Date/Time: 01/19/23 4:11 pm Reviewed By: Angel Staples MD Signed By: Angel Staples MD Signed Date/Time: 01/19/23 4:11 pm Transcribed By: PASCUAL Transcribed Date/Time: 01/19/23 4:06 pm Engaged with pulmonology - Isael Cortez. Had PFT. Had CT scan - Stable nodules. Will have follow up in 1 year. Started Trelegy - is sleeping better. Next CT 11/18. Assessment & Plan (02/06/2023 8:53 AM EDT): Discussed results, Mrs. Parker denies any questions or concerns at this time. Follow up CT previously ordered. Plans to have done at end of June 2023 at [facility]. Routine general medical exam ination at a health care facility 12/11/2022 Overview (12/15/2023): CPE done 12/15/23. HEALTH CARE MAINTENANCE: Colonoscopy (age 45-75): Dr[facility] Luis - [facility]. [facility] Has to go to [facility] due to insurance. [facility] to go [facility]. Has every 3 years - multiple benign polyps (tubular adenomas). Mammogram (age 40-74): Done 11/2023 - waiting for results. AAA Screen (Fam Hx AAA): No family hx. LDCT (smoke >30 pack year, age 55-80): Engaged with pulm - has routine screens. DEXA (age 60 with RF, age 65): Has Osteopenia - had scan at [facility]. Last done 08/2022. FOURDRINIER TENDER: Outside FOURDRINIER TENDER: Dr. Newell LMP: Menopause . Last PAP Smear: Not due this year EYES: Due next month - Dr. Pelayo. Goes yearly. DENTAL: Goes every 4 months. IMMUNIZATIONS: Tetanus (every 10 years): 04/2015. Would like to have done today. Pneumococcal (age 65): Done x2, 2015. Shingrix (age 50): Has not yet gotten it. COVID: x3, last booster 06/2023. FLU: 04/2023. Assessment & Plan (12/11/2022 11:13 AM EDT): All health care maintenance reviewed, as above. PAP done 10/2022. Colonoscopy due 2023 - sees Dr. Luis. Mammogram done 11/26/22 - normal, annual follow up. DEXA done 08/2022 - +Osteopenia. Discussed LDCT - agreeable to have done. Chronic midline low back pain without sciatica 0 12/11/2022 Overview (04/20/2023): As a child fractured ankle on growth plate, inhibited growth of right leg - continues to be shorter. Has been wearing a lift in her shoe. Having chronic hip and back pain for years. Engaged with chiropractor - has not been very helpful. Needing Ibuprofen almost daily - which has been helpful. Overall, pain is worsening and changing - feeling more mid-back rather than lumbar. No recent injury/trauma. Hip XR 2020 - bilaterally - normal. Lumbar XR 12/2022 - mild degenerative changes, mild spondylolisthesis L4-5. Discussed treatment options - will get xrays of thoracic and cervical spine. Will refer to PT, unless any contraindications found on xray. Assessment & Plan (12/11/2022 11:10 AM EDT): Discussed options - will get Xray. Smoker 12/11/2022 Overview (06/16/2024): Was 3/4 ppd, now closer to 1/2ppd. Is working toward quitting smoking. Tried Chantix - was not helpful. Not interested in Nicotine replacement. Support and encouragement provided. Is trying hypnotherapy soon. We will continue to discuss. BMI 25.0-25.9,adult 12/11/2022 Overview (04/20/2023): Diet and exercise counseling 12/11/22. Labs due - haven't been done for years. Agreeable to have done. Assessment & Plan (12/11/2022 11:16 AM EDT): I recommend incorporating a variety of fruits, vegetables, whole grains, lean proteins, and healthy fats into your diet. It's important to limit consumption of processed foods, added sugars, and unhealthy fats. By making small but sustainable changes to your diet, you can improve your overall health and reduce the risk of chronic disease. I encourage you to keep a food diary to track your intake and identify areas for improvement. Additionally, focusing on portion sizes, mindful eating, and overcoming barriers to healthy eating can help you achieve your dietary goals. Incorporating both aerobic and strength-training exercises into your routine can help you burn calories, build muscle, and improve cardiovascular health. Aim for at least 150 minutes of moderate-intensity aerobic exercise per week, such as brisk walking or cycling, and two days of strength-training exercises targeting major muscle groups. It's important to find an exercise routine that you enjoy and can stick with long-term. Start slowly and gradually increase intensity and duration over time. Additionally, incorporating physical activity into your daily routine, such as taking the stairs instead of the elevator or walking instead of driving for short trips, can help increase overall activity levels. Depression 10/23/2022 Assessment & Plan (02/06/2023 8:54 AM EDT): Feeling stable, doing well. Does not need anything further at this time and will notify provider if that changes. Assessment & Plan (12/11/2022 11:14 AM EDT): Discussed treatment options. Declines referral to prescriber at this time for evaluation of cyclical depression. Will continue to consider and discuss at future visits. Assessment & Plan (10/23/2022 1:49 PM EDT): Discussed past history of depression. Will continue to discuss. Hip pain, bilateral 10/22/2022 Overview (06/16/2024): L>R, ongoing x 25 years. Reports hip xrays done a few years ago were normal. As child, fractured growth plate in R ankle - R leg 1/4in shorter than L. Went to PT for LE muscle weakness, then began to have other pain. Was advised by PT to go to [facility] - would like to see Sunita Ferguson at [facility]. We will send referral. Discussed pain management including piriformis stretches and ibuprofen. Assessment & Plan (02/06/2023 8:51 AM EDT): Son is ehr trainer and has been giving her suggestions. Is going to get lift in R shoe. Plans to go to chiropractor. Discussed PT - Mrs. Parker will call if she would like to go to physical therapy. Assessment & Plan (10/22/2022 8:54 AM EDT): Will assess further at next visit. Started to discuss some treatment options - pt will consider. Mild intermittent asthma without complication Overview (12/31/2023): Images from the original note were not included. [facility] Engaged with pulmonology - Isael Cortez. Had PFT. Had CT scan - Stable nodules. Will have follow up in 1 year. Started Trelegy - is sleeping better. Has follow up in 6 months. Assessment & Plan (12/11/2022 10:58 AM EDT): Triggered by allergies. Infrequent Albuterol use. Inhaler - needs refill. Assessment & Plan (10/23/2022 1:51 PM EDT): Intermittent use of Albuterol, has environmental triggers. Will continue to discuss. Low grade squamous intraepit helial lesion (LGSIL) on cervicovaginal cytologic smear 10/16/2022 Overview (12/24/2023): Has FOURDRINIER TENDER - Dr. Newell who is following. 11/05/2022 PAP done by outside provider - Negative, ECTZ present, satisfactory for eval, HPV negative. High triglycerides 10/16/2022 Overview (04/20/2023): Due for labs. Osteopenia 10/16/2022 Overview (12/15/2023): 08/2022 Osteopenia in femoral neck. Tubular adenoma 03/11/2010 Overview (06/09/2024): Images from the original note were not included. 05/31/24 Cscope: Resolved Problems Problem Noted Date Diagnosed Date Resolved Date Shoulder joint pain 10/16/2022 12/15/19 Encounters Date Type Department Care Team Description 08/10/2024 Telephone [facility] MEDICAL [address] [place] [address] Hailee Gutiérrez MD 08/10/2024 Telephone [facility] MEDICAL [address] [place] [address] [facility] Results 06/22/2024 4:00 PM EST Office Visit [facility] DENTAL [address] [place] [address] Tammy Trivedi Encounter for dental examination (Primary Dx); Accretions on teeth; Stage 1 grade A localized periodontitis per AAP/EFP 2017 classification 06/16/2024 9:40 AM EST Office Visit [facility] MEDICAL [address] [place] [address] Alisson Oliva, DANNY Hip pain, bilateral; Pulmonary nodules/lesions, multiple; Smoker 06/12/2024 Travel 06/10/2024 Telephone [place] [facility] MED[facility] [address] [place] [address] Alisson Oliva FNP xray order 06/01/2024 Orders Only [facility] [address] [place] [address] Alisson Oliva FNP from Last 3 Months Immunizations Name Administration Dates Next Due Influenza injectable quadrivalent preservative f ree 04/30/2023 Pneumococcal Polysaccharide PPSV23 01/07/2016, TD (adult), 2 Lf tetanus tox oid, preservative free, adsorbed 06/24/2005 Tdap 05/14/2015 Social History Tobacco Use Types Packs/Day Years Used Date Smoking Tobacco: Every Day Cigarettes 0.8 46 Smokeless Tobacco: Never Tobacco Cessation:Ready to Q uit: Not Asked; Counseling Given: Not Answered Alcohol Use Standard [...] 1:54 PM EST Sexual Orientation Straight 12/08/2023 7 :54 PM EDT 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 Not on file Not on file Last Filed Vital Signs Vital Sign Reading Time Taken Comments Blood Pressure 118/73 06/16/2024 10:00 AM EST Pulse 65 06/16/2024 10:00 AM EST Temperature 36.7 ??C (98.1 ??F) 06/16/2024 1 0:00 AM EST Respiratory Rate 16 06/16/2024 10:0 0 AM EST Oxygen Saturation 98% 08/06/2023 12: 00 PM EST Inhaled Oxygen Concentration - - Weight 70.2 kg (154 lb 12.8 oz) 024 10:00 AM EST Height 162.6 cm (5' 4 ) 06/16/2024 10:0 0 AM EST Body Mass Index 26.57 06/16/2024 10:00 AM EST Plan of Treatment Upcoming Encounters Date Type Department Care Team (Late st Contact Info) Description 09/28/2024 8:30 AM EST Office Visit [facility] [address] [place] [address] aTmmy Trivedi Health Maintenance Due Date Last Done Comments CT Colonography 1961 FIT DNA/Cologuard 1961 FIT 1961 FOBT 1961 Sigmoidoscopy 1961 Alcohol/Substance Use Screening 1973 HPV/Cotest 1991 Pneumococcal Vaccine: 50+ Years (2 of 2 - PCV) 01/06/2017 01/07/2016, 09/26/2011 RSV Patients and Patients Aged 60 years or older (1 - Risk 60-74 years 1-dose series) 2021 COVID-19 Vaccine ( season) 2024 06/26/2023, 08/10/2020, 07/18/2020 Dental X-Ray: Full Mouth 12/05/2024 022, 07/07/2019, 06/24/2007 Lung Cancer Screening 12/08/2024 12/09/2023, 023 Depression Screening 12/14/2024 12/15/2023, 12/15/19 24 SDOH Screening 12/14/2024 12/15/2023 Dental Oral Exam 12/21/2024 06/22/2024, , 08/28/2022, Additional history exists Dental Prophylaxis 12/21/2024 06/22/2024, 0 12/30/2023, 08/26/2023, Additional history exists Zoster Vaccines (1 of 2) 12/26/2024 Pos tponed from 2011 (Patient Refused) Tobacco Screening 12/29/2024 12/30/2023 DTaP/Tdap/Td Vaccines (2 - Td or Tdap) 05/14/2025 05/14/2015, 06/24/2005 Dental X-Ray: Bitewings 06/23/2025 06/22/20 24, 02/10/2023, 12/04/2021, Additional history exists Cervical Cancer Screening 11/05/2025 Pap Smear 11/05/2025 11/05/2022, 01/16/2021 Mammogram 12/09/2025 12/10/2023, 05/0 07/2023, 09/20/2019, Additional history exists Lipid Panel 04/23/2028 04/23/2023, 03/10/2019 Colonoscopy 05/31/2034 05/31/2024, 03/0 02/2021, 10/01/2020, Additional history exists Colorectal Cancer Screening 05/31/2034 HIV Screening Completed 04/23/2023 Hepatitis C Screening Completed 04/23/2023 Influenza Vaccine Completed 04/28/2024, 04/30/2023 HIB Vaccines Aged Out No longer eligi ble based on patient's age to complete this topic HPV Vaccines Aged Out No longer eligi ble based on patient's age to complete this topic Hepatitis A Vaccines Aged Out No long er eligible based on patient's age to complete this topic Hepatitis B Vaccines Aged Out No long er eligible based on patient's age to complete this topic IPV Vaccines Aged Out No longer eligi ble based on patient's age to complete this topic Meningococcal Vaccine Aged Out No oz puja eligible based on patient's age to complete this topic RSV under 20 months Aged Out No longe r eligible based on patient's age to complete this topic Rotavirus Vaccines Aged Out No longer eligible based on patient's age to complete this topic Procedures Procedure Name Priority Date/Time Associated Diagnosis Comments AMB REFERRAL TO ORTHOPAEDICS Routine 08/25/2024 Hip pain, bilateral MR THORACIC SPINE WO CONTRAST Routine 06/30/2024 Hip pain, bilateral MR LUMBAR SPINE WO CONTRAST Routine 06/30/2024 Hip pain, bilateral MR SACRAL ILIAC JOINT WO CONTRAST Routine 06/30/2024 Hip pain, bilateral BITEWINGS - 4 RADIOGRAPHIC IMAGES Routine 06/22/2024 4:00 PM EST Full PROPHYLAXIS - ADULT Routine 06/22/2024 4:00 PM EST PERIODIC ORAL EVALUATION - ESTABLISHED PATIENT Routine 06/22/2024 4:00 PM EST XR SACRUM COCCYX 2+ VIEWS Routine 06/13/2024 Chronic midline low back pain with sciatica, sciatica laterality unspecified HM COLONOSCOPY Routine 05/31/2024 10:08 AM EST BI MAMMOGRAM SCREENING TOMOSYNTHESIS BILATERAL Routine 12/10/2023 10:05 AM EDT LDCT LUNG SCREENING Routine 12/09/2023 Lung nodules HEPATITIS C ANTIBODY W/RFLX HCV QUANT PCR AND GENOTYPE Routine 04/23/2023 9:57 AM EDT Screen for STD (sexually transmitted disease) HIV ANTIBODY/ANTIGEN, 4TH GENERATION Routine 04/23/2023 9:57 AM EDT Screen for STD (sexually transmitted disease) LIPID PANEL, STANDARD Routine 04/23/2023 9:57 AM EDT BMI 25.0-25.9,adult HM PAP/HPV Routine 11/05/2022 10:22 AM EDT DIAGNOSTIC - DIAGNOSTIC IMAGING - INTRAORAL - COMPREHENSIVE SERIES OF RADIOGRAPHIC IMAGES Routine 12/04/2021 12:00 AM EDT from Last 3 Months or Most Recently Relevant to Health Maintenance Results * Referral to Orthopaedics (08/25/2024) us Alisson Lawrencen SAP BASIS OUTPATIENT REFERRAL ORDERABLES F inal Result * MR Sacral Iliac Joint w/o Contrast (06/30/2024) Anatomical Region Laterality Modality Magnetic Resonan ce Result [facility] MRI PROCEDURES Final Result * MR Lumbar Spine w/o Contrast (06/30/2024) Anatomical Region Laterality Modality Spine, L-spine Magnetic Resonan ce Result [facility] MRI PROCEDURES Final Result * MR Thoracic Spine w/o Contrast (06/30/2024) Anatomical Region Laterality Modality Spine, T-spine Magnetic Resonan ce Result [facility] MRI PROCEDURES Final Result * XR Sacrum Coccyx 2+ Views (06/13/2024) Anatomical Region Laterality Modality Sacrum, Coccyx Radiographic Deidra ging Result [facility] XR PROCEDURES Final Result * Hm Colonoscopy (05/31/2024 10:08 AM EST) Result [facility] HEALTH MAINTENANCE Final Result * BI Mammogram Screening Tomosynthesis Bilateral (12/10/2023 10:05 AM EDT) Anatomical Region Laterality Modality Breast Bilateral Mammography Result [facility] BI PROCEDURES Final Result * CT Lung Screening Low dose (12/09/2023) Anatomical Region Laterality Modality Lung Computed Tomogra phy Result [facility] CT PROCEDURES Final Result * HIV Antibody/Antigen, 4th Generation (04/23/2023 9:57 AM EDT) Result 4th Gen HIV Antibody Antigen NEGATIVE (NEG) [facility] Comment: Negative for antibodies to HIV 1 and HIV 2 and P24 antigen. Reference range: Negative Additional note: Written patient authorization is required for each separate release of this test result. This test was performed on the [employer] Hand Filer Balance Wheel immunoassay system. Testing performed or reported by [facility], a Service of [facility], [address] [place] [address] Jong Lou MD, Dietitian Therapeutic [facility]# [id number] Blood 04/23/2023 9:57 AM EDT 04/23/2023 10:41 AM EDT [facility] LAB BLOOD ORDERABLES Final Resul t Performing Organization Address [facility] Co de Phone Number [facility] [address] [place] [address] * Hepatits C Antibody w/Reflex HCV Quant PCR and Genotyping (04/23/2023 9:57 AM EDT) Pathologist [facility] Hepatitis C Virus Ab, Serum NEGATIVE (NEG) [facility] Comment: Reference range: Negative This test was performed on the [employer] Hand Filer Balance Wheel immunoassay system. Testing performed or reported by [facility], a Service of [facility], [facility] [place] [address] Jong Lou MD, Dietitian Therapeutic CLIA# [id number] 04/23/2023 9:57 AM EDT 04/23/2023 10:41 AM EDT [facility] LAB BLOOD ORDERABLES Final Resul t Performing Organization Address [facility] Co de Phone Number [facility] [address] [place] [phone] * (ABNORMAL) Lipid panel (04/23/2023 9:57 AM EDT) Cholesterol, Total 225(H) (<200) MG/DL [facility] Triglyceride (mg/dL) in Serum/Plasma 97 (<150) MG/DL [facility] HDL Cholesterol 56 (>39) MG/DL [facility] LDL Cholesterol, Calculated 150(H) (0-130) MG/DL [facility] Non HDL Chol. (LDL+VLDL) 169(H) (<160) MG/DL [facility] Comment: Testing performed or reported by [facility], a Service of [facility], [address] [place] [address] Jong oLu MD, Dietitian Therapeutic [facility]# [id number] Blood Venous blood specimen / Unknown 04/23/2023 9:57 AM EDT 04/23/2023 10:41 AM EDT Alisson [facility] LAB BLOOD ORDERABLES Final Resul t [facility] [address] [place] [id number] * HM PAP/HPV (11/05/2022 10:22 AM EDT) Alisson CRP HEALTH MAINTENANCE Final Result from Last 3 Months or Most Recently Relevant to Health Maintenance Insurance [employer] Care Teams Lining Folder Relationship Specialty Start Date End Date Alisson Oliva FNP [address] [place] [address] PCP - General Family Medicine 10/16/22
--- OUTSIDE RECORDS SUMMARY | 2024-08-26 11:55 | XMS_ITS | Encounter Summary ---
Author Organization [facility] [employer] [facility] Address [address] Floor [place] [id number] Care Team Providers Care Supervisor Ordnance Truck Installation Name Role Phone Alisson Oliva Primary Care Provider [phone] Encounter Details Date Type Department Care Team (Latest Contact Info) Description 02/17/2019 Abstract [facility] CONVERSIONS Dental, Provider, DDS Social [...] 09/28/2024 8:30 AM EST Office Visit [facility] [address] [place] [address] Tammy Trivedi documented as of this encounter Visit Diagnoses Not on filedocumented in this encounter Care Teams Supervisor Ordnance Truck Installation Relationship Specialty Start Date End Date Alisson Oliva FNP [address] [place] [address] PCP - General Family Medicine 10/16/22 documented as of this encounter
--- OUTSIDE RECORDS SUMMARY | 2024-08-26 11:56 | XMS_ITS | Encounter Summary ---
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 on file Not on file documented as of this encounter Plan of Treatment Upcoming Encounters Date Type Department Care Team (Late st Contact Info) Description 09/28/2024 8:30 AM EST Office Visit [facility] [address] [place] [address] Tammy Trivedi documented as of this encounter Procedures Procedure Name Priority Date/Time Associated Diagnosis Comments AMB REFERRAL TO GASTROENTEROLOGY Routine 04/14/2024 Colon cancer screening documented in this encounter Results * Referral to Gastroenterology (04/14/2024) Alisson DELGADO OUTPATIENT REFERRAL ORDERABLES F inal Result documented in this encounter Visit Diagnoses Diagnosis Colon cancer screening Special screening for malignant neoplasms, colon documented in this encounter Care Teams Radiation Control Specialist Relationship Specialty Start Date End Date Alisson Oliva FNP [address] [place] [address] PCP - General Family Medicine 10/16/22 documented as of this encounter
--- OUTSIDE RECORDS SUMMARY | 2024-08-26 11:56 | XMS_ITS | Encounter Summary ---
Author Organization [facility] [employer] [facility] Address [address] [place] [id number] Care Team Providers Care Granulator Operator Name Role Phone Alisson Oliva Primary Care Provider [phone] Encounter Details Date Type Department Care Team (Latest Contact Info) Description 10/13/2018 Abstract [facility] CONVERSIONS Dental, Provider, DDS Social [...] 09/28/2024 8:30 AM EST Office Visit [facility] [address] [place] [address] Tammy Trivedi documented as of this encounter Visit Diagnoses Not on filedocumented in this encounter Care Teams Granulator Operator Relationship Specialty Start Date End Date Alisson Oliva FNP [address] [place] [address] PCP - General Family Medicine 10/16/22 documented as of this encounter
--- OUTSIDE RECORDS SUMMARY | 2024-08-26 11:56 | XMS_ITS | Encounter Summary ---
Author Organization [facility] [employer] [facility] Address [address] [place] [address] 7 h Floor [place] [phone] Care Team Providers Care Aluminum Boats Assembler Name Role Phone Alisson Oliva Primary Care Provider [phone] Encounter Details Date Type Department Care Team (Latest Contact Info) Description 11/01/2020 Abstract [facility] CONVERSIONS Dental, Provider, DDS Social [...] AM EST Office Visit [facility] [address] [place] [address] Tammy Trivedi documented as of this encounter Visit Diagnoses Not on filedocumented in this encounter Care Teams Aluminum Boats Assembler Relationship Specialty Start Date End Date Alisson Oliva FNP 73 [place] [address] PCP - General Family Medicine 10/16/22 documented as of this encounter
--- OUTSIDE RECORDS SUMMARY | 2024-08-26 11:56 | XMS_ITS | Encounter Summary ---
Author Organization [facility] [employer] [facility] Address [address] [place] [address] 7 h Floor [place] [id number] Care Team Providers Care Cigarette Machine Filler Name Role Phone Alisson Oliva Primary Care Provider [phone] Encounter Details Date Type Department Care Team (Latest Contact Info) Description 07/02/2020 Abstract [facility] CONVERSIONS Dental, Provider, DDS Social [...] 09/28/2024 8:30 AM EST Office Visit [facility] D[facility] [address] [place] [address] Tammy Trivedi documented as of this encounter Visit Diagnoses Not on filedocumented in this encounter Care Teams Cigarette Machine Filler Relationship Specialty Start Date End Date Alisson Oliva FNP [address] [place] [address] PCP - General Family Medicine 10/16/22 documented as of this encounter
--- OUTSIDE RECORDS SUMMARY | 2024-08-26 11:56 | XMS_ITS | Encounter Summary ---
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 Not on file Not on file documented as of this encounter Plan of Treatment Upcoming Encounters Date Type Department Care Team (Late st Contact Info) Description 09/28/2024 8:30 AM EST Office Visit [place] [address] [place] [address] Tammy Trivedi documented as of this encounter Procedures Procedure Name Priority Date/Time Associated Diagnosis Comments HM COLONOSCOPY Routine 05/31/2024 10:08 AM EST documented in this encounter Results * Hm Colonoscopy (05/31/2024 10:08 AM EST) Alisson [facility] Final Result documented in this encounter Visit Diagnoses Not on filedocumented in this encounter Care Teams Jet Dyeing Machine Tender Relationship Specialty Start Date End Date Alisson Oliva FNP [address] [place] [address] PCP - General Family Medicine 10/16/22 documented as of this encounter
--- OUTSIDE RECORDS SUMMARY | 2024-08-26 11:56 | XMS_ITS | Encounter Summary ---
Author Organization [facility] [employer] [facility] Address [address] [place] [address] 7 h Floor [place] [phone] Care Team Providers Care Inside Account Executive Name Role Phone Alisson Oliva Primary Care Provider [phone] Encounter Details Date Type Department Care Team (Latest Contact Info) Description 03/14/2021 Abstract [facility] CONVERSIONS Dental, Provider, DDS Social [...] AM EST Office Visit [facility] D[facility] [address] [place] [address] Tammy Trivedi documented as of this encounter Visit Diagnoses Not on filedocumented in this encounter Care Teams Inside Account Executive Relationship Specialty Start Date End Date Alisson Oliva FNP [address] [place] [address] PCP - General Family Medicine 10/16/22 documented as of this encounter
--- OUTSIDE RECORDS SUMMARY | 2024-08-26 11:56 | XMS_ITS | Encounter Summary ---
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 on file Not on file documented as of this encounter Plan of Treatment Upcoming Encounters Date Type Department Care Team (Late st Contact Info) Description 09/28/2024 8:30 AM EST Office Visit [facility] DENTAL [address] [place] [address] Tammy Trivedi documented as of this encounter Procedures Procedure Name Priority Date/Time Associated Diagnosis Comments HM PAP/HPV Routine 11/05/2022 10:22 AM EDT documented in this encounter Results * HM PAP/HPV (11/05/2022 10:22 AM EDT) Alisson [facility] Final Result documented in this encounter Visit Diagnoses Not on filedocumented in this encounter Care Teams Supervisor Scrap Preparation Relationship Specialty Start Date End Date Alisson Oliva FNP [address] [place] [address] PCP - General Family Medicine 10/16/22 documented as of this encounter
--- OUTSIDE RECORDS SUMMARY | 2024-08-26 11:56 | XMS_ITS | Encounter Summary ---
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 file Not on file documented as of this encounter Plan of Treatment Upcoming Encounters Date Type Department Care Team (Late st Contact Info) Description 09/28/2024 8:30 AM EST Office Visit [place] [facility] D[facility] [address] [place] [address] Tammy Trivedi documented as of this encounter Procedures Procedure Name Priority Date/Time Associated Diagnosis Comments BI MAMMOGRAM SCREENING TOMOSYNTHESIS BILATERAL Routine 12/10/2023 10:05 AM EDT documented in this encounter Results * BI Mammogram Screening Tomosynthesis Bilateral (12/10/2023 10:05 AM EDT) Anatomical Region Laterality Modality Breast Bilateral Mammography Alisson [facility] [place] [facility] [place] PROCEDURES Final Result documented in this encounter Visit Diagnoses Not on filedocumented in this encounter Care Teams Soubrette Relationship Specialty Start Date End Date Alisson Oliva FNP [address] [place] [address] PCP - General Family Medicine 10/16/22 documented as of this encounter
--- OUTSIDE RECORDS SUMMARY | 2024-08-26 11:56 | XMS_ITS | Encounter Summary ---
Author Organization [facility] [employer] [facility] Address [address] [place] [address] 7 h Floor [place] [id number] Care Team Providers Care Car Seat Coverer Name Role Phone Alisson Oliva Primary Care Provider [phone] Encounter Details Date Type Department Care Team (Latest Contact Info) Description 07/18/2021 Abstract [facility] CONVERSIONS Dental, Provider, DDS Social [...] 09/28/2024 8:30 AM EST Office Visit [facility] D[facility] [address] [place] [address] Tammy Trivedi documented as of this encounter Visit Diagnoses Not on filedocumented in this encounter Care Teams Car Seat Coverer Relationship Specialty Start Date End Date Alisson Oliva FNP [address] [place] [address] PCP - General Family Medicine 10/16/22 documented as of this encounter
--- OUTSIDE RECORDS SUMMARY | 2024-08-26 11:56 | XMS_ITS | Encounter Summary ---
Author Organization [facility] Technology [facility] Address [address] [place] [address] 7 h Floor [place] [phone] Care Team Providers Care Journeyman Millwright Name Role Phone Alisson Oliva Primary Care Provider [phone] Encounter Details Date Type Department Care Team (Latest Contact Info) Description 12/04/2021 Abstract [facility] CONVERSIONS Dental, Provider, DDS Social [...] AM EST Office Visit [facility]ram [facility] D[facility] [address] [place] [address] Tammy Trivedi documented as of this encounter Visit Diagnoses Not on filedocumented in this encounter Care Teams Journeyman Millwright Relationship Specialty Start Date End Date Alisson Oliva FNP [address] [place] [address] PCP - General Family Medicine 10/16/22 documented as of this encounter
== END 2024-08-26 12:11 | disposition home or self-care (01) ==
LOC: HO.HNS 11:03
PROVIDERS: PCP Nurse Practitioner Family; Referring Provider Physical Medicine & Rehabilitation; Visit Provider Neurological Surgery
DX: M48.062 Spinal stenosis, lumbar region with neurogenic claudication (principal)
CPT/HCPCS: 99204

== ENCOUNTER → 2024-08-26 11:41 | Outpatient (BNV) | payer OTHER, SELFPAY | PROVIDERS: PCP Nurse Practitioner Family; Referring Provider Physical Medicine & Rehabilitation; Visit Provider Radiology Diagnostic Radiology | DX: M48.062 Spinal stenosis, lumbar region with neurogenic claudication (principal) | CPT/HCPCS: 72110 ==

== ENCOUNTER 2024-11-28 10:34 | Outpatient (AMB) | payer OTHER, SELFPAY ==
[2024-11-28 10:40] VITALS: BP 90/52; PULSE 83; O2SAT 96; BMI 27.1
--- NOTE | 2024-11-28 10:40 | MHC.OFFVIS ---
Vital Signs 11/28/24 10:40 Height 5 ft 4 in Weight 157 lb 10.088 oz BMI 27.1 BP 90/52 L Blood Pressure Location Lt brachial Position Sitting Pulse 83 Pulse Source Pulse Oximeter Pulse Oximetry (%) 96 Oxygen Delivery Method Room Air Intake Visit Reasons: Asthma Allergies eucalyptus Allergy (Severe, Verified 08/25/24 08:46) Anaphylaxis ampicillin Allergy (Intermediate, Verified 08/25/24 08:46) Rash sulfamethoxazole [From Bactrim] Allergy (Intermediate, Verified 08/25/24 08:46) Rash trimethoprim [From Bactrim] Allergy (Intermediate, Verified 08/25/24 08:46) Rash citrace spray Allergy (Unknown, Uncoded 08/25/24 08:46) Unknown citronella Allergy (Unknown, Uncoded 08/25/24 08:46) Unknown patchouli plant Allergy (Unknown, Uncoded 08/25/24 08:46) Unknown HPI Comments Details: The patient is a 64 year woman, tobacco dependent, with a history of asthma presenting with worsening respiratory symptoms. Several months ago the patient has did develop a respiratory illness which started developing worsening chest tightness and cough. She did go to urgent care where she was given a course of prednisone. However, the patient was no better and she actually was getting worse and decided to come into the [facility] ED where she was evaluated. There she had a chest x-ray which I personally reviewed demonstrating tram tracking and peribronchial coughing primarily the right mid and lower lung areas. Suggest the possibility of bronchiectatic changes. She was initially given a course of prednisone and doxycycline. She was initially resistant to taking the doxycycline. Although her mucus was yellowish in color thick and tenacious and sticky. Moderate in amount. When she started taking the doxycycline her symptoms improved quickly. Now she is back to her baseline. She does use a rescue inhaler although she does not use 1 regularly. Typically less than twice a week. She had been participating also on the lung cancer screening program at [facility]. Her last CT scan was back in December 2022. I personally reviewed all the images with her. The patient does have evidence of chronic bronchitis and also some bronchiectatic changes primarily involving the right middle lobe and lingular area. The patient also has pulmonary nodules largest 1 measuring more than 6 mm in size. The nodules appeared to be inflammatory. Although infectious etiologies such as smoldering infections also in differential. She was supposed to have a repeat CT scan in June based on her rads 3. however, the patient has not them the CT scan as of yet. She does require a CT scan at this time. Will order the CT scan to further address the pulmonary nodules specially her being high risk for malignancy. The patient was also smoking. She understands he is already developing significant smoking-related respiratory issues. She does want to quit. We did talk about different options I do believe the Chantix would be a good option for. She is agreeable this time to starting Chantix. I will send started pack to the pharmacy. 12/10/2023 the patient is here for a pulmonary follow-up visit. Overall the patient is doing well. She has not had to use her rescue inhaler. Still has some dyspnea on exertion. The patient did have pulmonary function studies which we personally reviewed. Appears to have moderate degree of COPD. No significant response to bronchodilators noted although there was a trend. We also reviewed her CT scan of the chest. Pulmonary nodules are stable although she does have areas of ground-glass opacities suggesting a component of respiratory bronchiolitis likely from the smoking. Based on the fact the nodules are stable we will go ahead and refer her to the lung cancer screening program for the next CT scan in a year. She did start the Chantix. She is having some mild adverse effects. She is going to continue with it. 06/15/2024 the patient is here for pulmonary follow-up visit. Overall she is doing well. The Trelegy has been affecting beneficial. She has only had to use her rescue inhaler once. This is because she was exposed to an irritant a stent that was bothering her. Otherwise she is doing good. Unfortunately, she had to stop the Chantix because she started to get depressive symptoms. Therefore she stopped it. Unfortunately she is still smoking about 10 cigarettes a day. She is going to look into hypnosis. She can also consider Wellbutrin. She is going to look into it. In the meantime the patient is taking part of the lung cancer screening program. She is going to have another CT scan in the springtime. Also she does have snoring. She has an elevated [place] score of 8/24. Right now she is doing okay like to hold off on sleep study. If her symptoms were to worsen we can consider home sleep study. She does practice already positional therapy since she can not sleep on her back. Patient follow-up in 6 months. If she has any issues prior to that she will call for an earlier assessment. 11/28/2024 the patient is here for pulmonary follow-up visit. Overall the patient had been doing very well for several months. The Trelegy inhaler has been very affecting beneficial. She has not had to use her rescue inhaler. Unfortunately she still struggle with smoking. She is looking to hypnosis. In the meantime for last few days she has been having issues with raspiness of her voice and worsening cough. She actually had to use her rescue inhaler this morning. She feels is potentially allergies and she has been working outside a lot lately. She does take allergy medications. Although only partially helpful. Will go and start her on Singulair to help her with her significant allergies. In the meantime she is going to monitor closely for any worsening respiratory symptoms. She had been sick with Haemophilus influenzae for several months. She did respond after prolonged course of azithromycin. Not unreasonable to consider checking her immune system to make sure that she does not have any immuno deficiencies that could predispose her to chronic infections. In addition to that the smoking by itself will cause her to have some increased risk of infections in the airways. She does have a CT scan coming up from the lung cancer screening program so will follow-up with that. Will have her get blood work and she can start the Singulair. She has any worsening symptoms or any chest congestion she will call and get a sputum culture. Will follow-up in 6-8 months. [facility] Medical History (Updated 11/28/24 @ 11:02 by Isael Lewis MD) Chronic bronchiolitis Has daytime drowsiness Pulmonary nodules Tobacco dependence Chronic bronchitis Asthma Surgical History (Updated 05/27/24 @ 09:20 by Carol Reyes RN) History of breast lump/mass excision Hx of tubal ligation H/O colonoscopy Social History Household Members: Spouse Housing: House Do you presently have visiting nurse or other home services: No Patient Tobacco Use Status: Current everyday Tobacco user Cigarette Packs Per Day: 0.5 Cigarettes Per Day: 10.0 Substance Use Type: Marijuana service: No Current occupational status: employed 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 Review of Systems Const Denies chills, Denies fatigue, Denies fever(s), Denies weight gain and Denies weight loss ENT Denies dizziness Card Denies chest pain, Denies leg edema, Denies lightheadedness, Denies palpitations, Denies dyspnea on exertion, Denies orthopnea and Denies other Resp Reports cough, Denies dyspnea on exertion and Reports wheezing GI Denies hematochezia and Denies change in stool character Musc Denies abnormal gait, Denies muscle weakness, Denies numbness, Denies radiating pain into limb and Denies tingling Skin/Breast Denies rash Neuro Denies abnormal gait, Denies dizziness, Denies numbness and Denies tingling Endo Denies fatigue and Denies palpitations Von/Lymph Denies lymphadenopathy Aller/Immun Reports wheezing Physical Exam Vital Signs: Last Vital Signs Pulse 83 11/28/24 10:40 BP 90/52 L 11/28/24 10:40 Pulse Ox 96 11/28/24 10:40 Oxygen Delivery Method Room Air 11/28/24 10:40 BMI result Body Mass Index 27.1 Const General: comfortable HEENT Head: Yes normocephalic Neck Neck: Yes supple Chest Chest palpation & inspection: normal inspection of the chest Resp Effort & Inspection: normal respiratory effort Auscultation: no wheezes (On force exhalation) and diminished lung sounds Cardio Heart sounds: S1 normal heart sound present and S2 normal heart sound present GI Palpation (GI): Soft to palpation Skin General skin exam: no rashes or lesions noted Extrem General: Yes no clubbing, cyanosis or edema Assessment & Plan Assessment & Plan (1) Pulmonary nodules: Code(s): R91.8 - Other nonspecific abnormal finding of lung field Category: Medical (2) Chronic bronchitis: Code(s): J42 - Unspecified chronic bronchitis Category: Medical Qualifiers: Chronic bronchitis type: simple Qualified Code(s): J41.0 - Simple chronic bronchitis (3) Tobacco dependence: Code(s): F17.200 - Nicotine dependence, unspecified, uncomplicated Category: Medical (4) Has daytime drowsiness: Code(s): R40.0 - Somnolence Category: Social Hx (5) Chronic bronchiolitis: Code(s): J44.89 - Other specified chronic obstructive pulmonary disease Category: Medical Plan CPT with [facility] continue Trelegy 100 daily TAMEKA as needed start Singulair bloodwork sputum culture if worsens stopped Chantix, Depressive symptoms. Will try hypnosis Consider home PSG, positional therapy LDCT referral, next CT 11/2024 F/U 6-8 months Orders: Orders Erythrocyte Sedimentation Rate Today J44.89 - Other specified chronic obstructive pulmonary disease Complete Blood Count Auto Diff Today J44.89 - Other specified chronic obstructive pulmonary disease Immunoglobulins,IgG IgA IgM Today J44.89 - Other specified chronic obstructive pulmonary disease Immunoglobulin E Today J44.89 - Other specified chronic obstructive pulmonary disease Sputum Cult + Gram stain Today R91.1 - Solitary pulmonary nodule Medications: New montelukast (Singulair) 10 mg PO BEDTIME 30 tabs 11RF 30 days J45.909 - Unspecified asthma, uncomplicated Coding Level of Care Code Est Pt Level 4 (31103) Complex EM visit Add On G2211 Diagnoses Pulmonary nodules R91.8 Simple chronic bronchitis J41.0 Chronic bronchitis type: simple Tobacco dependence F17.200 Has daytime drowsiness R40.0 Chronic bronchiolitis J44.89 Time Spent (min) 17
--- OUTSIDE RECORDS SUMMARY | 2024-11-28 11:57 | XMS_ITS | Encounter Summary ---
Author Organization [facility] [employer] Address [address] [place] [address] Care Team Providers Care Administrator Health Care Facility Name Role Phone Alisson Oliva Primary Care Provider [phone] Inactive/Transferred Primary Care Provider Unava ilable Encounter Details Date Type Department Care Team [...] Care Team (Late st Contact Info) Description 01/26/2025 8:30 AM EDT Office Visit [facility] DENTAL [address] [place] [address] Tammy Trivedi documented as of this encounter Visit Diagnoses Not on filedocumented in this encounter Care Teams Administrator Health Care Facility Relationship Specialty Start Date End Date Alisson Oliva FNP [address] [place] [address] PCP - General Family Medicine 10/16/22 11/22/24 Inactive/Transferred PCP - General 11/23/24 11/23/24 documented as of this encounter
--- OUTSIDE RECORDS SUMMARY | 2024-11-28 11:57 | XMS_ITS | Clinical Summary ---
Author Organization [employer] [facility] Address [address] [place] [address] 7t [place] [address] Care Team Providers Care Flaker Tender Name Role Phone Unavailable Primary Care Provider Unavailabl e Allergies Active Allergy Reactions Criticality Noted Date Comments Ampicillin Rash Low 08/28/2022 Dust Mite Extract Shortness of breath High 3 Eucalyptus Oil Wheezing 10/17/2022 Patchouli Oil Anaphylaxis,Shortnes s of breath High 10/25/2021 Pneumococcal Vac Polyvalent Swelling Medium 08/28/2022 Sulfamethoxazole-Trimet hoprim Rash Low 08/28/2022 Other reaction(s): Edema Medications Multiple Vitamin (multivitamin) tablet Take 1 tablet by mouth in the morning. Active Trelegy Ellipta 100-62.5-25 MCG/ACT aerosol powder 4 Active nicotine polacrilex (Nicorette) 2 MG gum 4 Active albuterol (2.5 MG/3ML) 0.083% nebulizer solution 4 Active albuterol 108 (90 Base) MCG/ACT inhalerIndicatio ns:Mild intermittent asthma without complication INHALE 2 PUFFS BY MOUTH EVERY 4 HOURS NEEDED 18 g 3 5 Active albuterol 108 (90 Base) MCG/ACT inhalerIndicatio ns:Mild intermittent asthma without complication INHALE 2 PUFFS INOT THE LUNG EVERY 4 HOURS FOR 16 DAYS NEEDED 18 g 3 4 025 Discontinued Active Problems Problem Noted Date Diagnosed Date [...] Category Modifier: None. Categorization based on Lung-RADS 2022 criteria. [email or web address] WSN: [id number] Ordering Physician: Alisson Oliva Dictated By: Angel [...] done at end of June 2023 at [facility]. Routine general medical exam ination at a health care facility 12/11/2022 Overview (12/15/2023): CPE done 12/15/23. HEALTH CARE MAINTENANCE: Colonoscopy (age 45-75): Dr. Luis - [facility]. Due for cscope. Has to go to [place] due to insurance. Wants to go to [facility]. Has every 3 years - multiple benign polyps (tubular adenomas). Mammogram (age 40-74): Done 11/2023 - waiting for results. AAA Screen (Fam Hx AAA): No family hx. LDCT (smoke >30 pack year, age 55-80): Engaged with pulm - has routine screens. DEXA (age 61 with RF, age 66): Has Osteopenia - had scan at [facility]. Last done 08/2022. OCCASIONAL BABYSITTER: Outside OCCASIONAL BABYSITTER: Dr. Newell LMP: Menopause . Last PAP Smear: Not due this year EYES: Due next month - Dr. Pelayo. Goes yearly. DENTAL: Goes every 4 months. IMMUNIZATIONS: Tetanus (every 10 years): 04/2015. Would like to have done today. Pneumococcal (age 65): Done , 2015. Shingrix (age 51): Has not yet [...] EDT): Discussed treatment options. Declines referral to MH prescriber at this time for evaluation of [...] Was advised by PT to go to [facility] - would like to see Sunita Ferguson at [place]. We will send referral. Discussed pain management including piriformis stretches and ibuprofen. Assessment & Plan (02/06/2023 8:51 AM EDT): Son is personal fitness trainer and has been giving her suggestions. [...] from the original note were not included. [facility] Pulmonology Engaged with pulmonology - Isael Cortez. [...] cervicovaginal cytologic smear 10/16/2022 Overview (12/24/2023): Has OCCASIONAL BABYSITTER - Dr. Newell who is following. 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 on file Not [...] Description 01/26/2025 8:30 AM EDT Office Visit [facility] D[facility] [address] [place] [address] Tammy Trivedi Health Maintenance Due Date Last [...] 12/21/2024 06/22/2024, , 08/28/2022, Additional history exists Zoster Vaccines (1 of 2) 12/26/2024 Pos tponed from 2011 (Patient Refused) Tobacco Screening 12/29/2024 12/30/2023 Dental Prophylaxis 04/01/2025 09/28/2024, 1 08/22/2023, 12/30/2023, Additional history exists DTaP/Tdap/Td Vaccines (2 - Td or Tdap) [...] Procedure Name Priority Date/Time Associated Diagnosis Comments PROPHYLAXIS - ADULT Routine 09/28/2024 8 :30 AM EST BITEWINGS - 4 RADIOGRAPHIC IMAGES Routine 06/22/2024 4:00 PM EST PERIODIC ORAL EVALUATION - ESTABLISHED PATIENT Routine 06/22/2024 4:00 PM EST HM COLONOSCOPY Routine 05/31/2024 10:08 AM EST [...] HM PAP/HPV Routine 11/05/2022 10:22 AM EDT INTRAORAL - COMPLETE SERIES OF RADIOGRAPHIC IMAGES Routine 12/04/2021 12:00 AM EDT from Last 3 Months or Most Recently Relevant to Health Maintenance Results * Hm Colonoscopy (05/31/2024 10:08 AM EST) [facility] [place] MAINTENANCE Final Result * BI Mammogram Screening Tomosynthesis Bilateral (12/10/2023 10:05 AM EDT) Anatomical Region Laterality Modality Breast Bilateral [facility]ammography [facility] [place] BI PROCEDURES Final Result * CT Lung Screening Low dose (12/09/2023) Anatomical Region Laterality Modality Lung Computed Tomogra phy [facility] CT PROCEDURES Final Result * HIV Antibody/Antigen, 4th Generation (04/23/2023 9:57 AM EDT) Result 4th Gen HIV Antibody Antigen NEGATIVE (NEG) [facility] Comment: Negative for antibodies to HIV 1 and HIV 2 and P24 antigen. Reference range: Negative Additional note: Written patient authorization is required for each separate release of this test result. This test was performed on the SMGBB immunoassay system. Testing performed or reported by [facility], a Service of [facility], [facility] Loni Johnson, [place] [address] Jong Lou MD, Route Service Representative [facility]# [id number] Blood 04/23/2023 9:57 AM EDT 04/23/2023 10:41 AM EDT Alisson Oliva [facility] BLOOD ORDERABLES Final Resul t Performing Organization Address [facility] Co de Phone Number [facility] [address] [place] [phone] * Hepatits C Antibody w/Reflex HCV Quant PCR and Genotyping (04/23/2023 9:57 AM EDT) Pathologist [facility] Hepatitis C Virus Ab, Serum NEGATIVE (NEG) [facility] Comment: Reference range: Negative This test was performed on the SMGBB immunoassay system. Testing performed or reported by [facility], a Service of [facility], [address] [place], [place] [address], [place] [address] Jong Lou MD, Route Service Representative CLIA# [id number] 04/23/2023 9:57 AM EDT 04/23/2023 10:41 AM EDT Alisson Oliva [facility] BLOOD ORDERABLES Final Resul t Performing Organization Address [facility] Co de Phone Number [facility] [address] [place] [phone] * (ABNORMAL) Lipid panel (04/23/2023 9:57 AM EDT) Pathologist [facility] Cholesterol, Total 225(H) (<200) MG/DL [facility] Triglyceride (mg/dL) in Serum/Plasma 97 (<150) MG/DL [facility] HDL Cholesterol 56 (>39) MG/DL [facility] LDL Cholesterol, Calculated 150(H) (0-130) MG/DL [facility] Non HDL Chol. (LDL+VLDL) 169(H) (<160) MG/DL [facility] Comment: Testing performed or reported by [facility], a Service of [facility], [address] [place] [id number] Jong Lou MD, Route Service Representative CLIA# [id number] Blood Venous blood specimen / Unknown 04/23/2023 9:57 AM EDT 04/23/2023 10:41 AM EDT Alisson Oliva APPEALS SPECIALIST LAB BLOOD ORDERABLES Final Resul t [facility] [address] [place] [address] * HM PAP/HPV (11/05/2022 10:22 AM EDT) Alisson CRP HEALTH MAINTENANCE Final Result from Last 3 Months or Most Recently Relevant to Health Maintenance Insurance [employer]
--- OUTSIDE RECORDS SUMMARY | 2024-11-28 11:57 | XMS_ITS | Encounter Summary ---
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 Not on file Not on file documented as of this encounter Plan of Treatment Upcoming Encounters Date Type Department Care Team (Late st Contact Info) Description 01/26/2025 8:30 AM EDT Office Visit [place] [facility] DENTAL [address] [place] [address] Tammy Trivedi documented as of this encounter Procedures Procedure Name Priority Date/Time Associated Diagnosis Comments XR LUMBAR SPINE COMPLETE 4 OR MORE VIEWS Routine 08/26/2024 11:49 AM EST documented in this encounter Results * XR LUMBAR SPINE COMPLETE 4 OR MORE VIEWS (08/26/2024 11:49 AM EST) Anatomical Region Laterality Modality Radiographic Deidra ging Alisson [facility] XR PROCEDURES Final Result documented in this encounter Visit Diagnoses Not on filedocumented in this encounter Care Teams Cilnical Scientist Relationship Specialty Start Date End Date Alisson Oliva FNP [address] [place] [address] PCP - General Family Medicine 10/16/22 11/22/24 Inactive/Transferred PCP - General 11/23/24 11/23/24 documented as of this encounter
--- OUTSIDE RECORDS SUMMARY | 2024-11-28 11:58 | XMS_ITS | Encounter Summary ---
Author Organization [employer] [facility] Address [address] [place] [address] Care Team Providers Care Director Of Collections And Archives Name Role Phone Alisson Oliva Primary Care Provider [phone] Inactive/Transferred Primary Care Provider Unava ilable Encounter [...] 01/26/2025 8:30 AM EDT Office Visit [facility] DENTAL [address] [place] [address] Tammy Trivedi documented as of this encounter Visit Diagnoses Not on filedocumented in this encounter Care Teams Director Of Collections And Archives Relationship Specialty Start Date End Date Alisson Oliva FNP [address] [place] [address] PCP - General Family Medicine 10/16/22 11/22/24 Inactive/Transferred PCP - General 11/23/24 11/23/24 documented as of this encounter
--- OUTSIDE RECORDS SUMMARY | 2024-11-28 11:58 | XMS_ITS | Encounter Summary ---
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 D[facility] [address] [place] [address] Tammy Trivedi documented as of this encounter Procedures Procedure Name Priority Date/Time Associated Diagnosis Comments HM COLONOSCOPY Routine 05/31/2024 10:08 AM EST documented in this encounter Results * Hm Colonoscopy (05/31/2024 10:08 AM EST) Alisson [facility] HEALTH MAINTENANCE Final Result documented in this encounter Visit Diagnoses Not on filedocumented in this encounter Care Teams Rn Pool Relationship Specialty Start Date End Date Alisson Oliva FNP [address] [place] [address] PCP - General Family Medicine 10/16/22 11/22/24 Inactive/Transferred PCP - General 11/23/24 11/23/24 documented as of this encounter
--- OUTSIDE RECORDS SUMMARY | 2024-11-28 11:58 | XMS_ITS | Encounter Summary ---
Author Organization [facility] [employer] Address [address] [place] [address] Care Team Providers Care Toe Trimmer Name Role Phone Alisson Oliva Primary Care Provider [phone] Inactive/Transferred Primary Care Provider Unava ilable Encounter [...] Description 01/26/2025 8:30 AM EDT Office Visit [facility] DENTAL [address] [place] [address] Tammy Trivedi documented as of this encounter Visit Diagnoses Not on filedocumented in this encounter Care Teams Toe Trimmer Relationship Specialty Start Date End Date Alisson Oliva FNP [address] [place] [address] PCP - General Family Medicine 10/16/22 11/22/24 Inactive/Transferred PCP - General 11/23/24 11/23/24 documented as of this encounter
--- OUTSIDE RECORDS SUMMARY | 2024-11-28 11:58 | XMS_ITS | Encounter Summary ---
Author Organization [employer] Address [address] [place] [address] Care Team Providers Care Clark Driver Name Role Phone Alisson Oliva Primary Care Provider [phone] Inactive/Transferred Primary Care Provider Unava ilable Encounter Details Date Type Department Care Team (Late st Contact Info) Description 05/11/2024 Orders Only [place] [facility] MEDICAL [address] [place] [address] Alisson Oliva FNP [address] [place] [address] Colon cancer screening Social History Tobacco Use Types Packs/Day Years Used Date Smoking Tobacco: Every Day Cigarettes 0.8 46 Smokeless Tobacco: Never Alcohol Use Standard Drinks/Week Comments Yes 4 (1 standard drink = 0.6 oz pur e alcohol) Housing Stability Answer Date Recorded What is your housing situation today? 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
--- OUTSIDE RECORDS SUMMARY | 2024-11-28 11:58 | XMS_ITS | Encounter Summary ---
Author Organization [employer] [facility] Address [address] [place] [address] Care Team Providers Care Physiology Teacher Name Role Phone Alisson Oliva Primary Care Provider [phone] Inactive/Transferred Primary Care Provider Unava ilable Encounter [...] Description 01/26/2025 8:30 AM EDT Office Visit [facility] DENTAL [address] [place] [address] Tammy Trivedi documented as of this encounter Visit Diagnoses Not on filedocumented in this encounter Care Teams Physiology Teacher Relationship Specialty Start Date End Date Alisson Oliva FNP [address] [facility] [address] PCP - General Family Medicine 10/16/22 11/22/24 Inactive/Transferred PCP - General 11/23/24 11/23/24 documented as of this encounter
--- OUTSIDE RECORDS SUMMARY | 2024-11-28 11:58 | XMS_ITS | Encounter Summary ---
Author Organization [facility] [employer] [facility] Address [address] [place] [address] Care Team Providers Care Warehouse Loader Name Role Phone Alisson Oliva Primary Care Provider [phone] Inactive/Transferred Primary Care Provider Unava ilable Encounter [...] Description 01/26/2025 8:30 AM EDT Office Visit [facility] DENTAL [address] [facility] [place] [address] Tammy Trivedi documented as of this encounter Visit Diagnoses Not on filedocumented in this encounter Care Teams Warehouse Loader Relationship Specialty Start Date End Date Alisson Oliva FNP [address] [place] [address] PCP - General Family Medicine 10/16/22 11/22/24 Inactive/Transferred PCP - General 11/23/24 11/23/24 documented as of this encounter
--- OUTSIDE RECORDS SUMMARY | 2024-11-28 11:58 | XMS_ITS | Encounter Summary ---
Author Organization [facility] [employer] Address [address] [place] [address] Care Team Providers Care Reproduction Machine Loader Name Role Phone Alisson Oliva Primary Care Provider [phone] Inactive/Transferred Primary Care Provider Unava ilable Encounter [...] Description 01/26/2025 8:30 AM EDT Office Visit [facility] DENTAL [address] [place] [address] Tammy Trivedi documented as of this encounter Visit Diagnoses Not on filedocumented in this encounter Care Teams Reproduction Machine Loader Relationship Specialty Start Date End Date Alisson Oliva FNP [address] [place] [address] PCP - General Family Medicine 10/16/22 11/22/24 Inactive/Transferred PCP - General 11/23/24 11/23/24 documented as of this encounter
--- OUTSIDE RECORDS SUMMARY | 2024-11-28 11:58 | XMS_ITS | Encounter Summary ---
Author Organization [facility] [employer] [facility] Address [address] [facility] [address] [place] [address] Care Team Providers Care Dowel Inspector Name Role Phone Alisson Oliva Primary Care Provider [phone] Inactive/Transferred Primary Care Provider Unava ilable Encounter [...] 01/26/2025 8:30 AM EDT Office Visit [facility] DENTAL [address] [place] [address] Tammy Trivedi documented as of this encounter Visit Diagnoses Not on filedocumented in this encounter Care Teams Dowel Inspector Relationship Specialty Start Date End Date Alisson Oliva FNP [address] [facility] [place] [address] PCP - General Family Medicine 10/16/22 11/22/24 Inactive/Transferred PCP - General 11/23/24 11/23/24 documented as of this encounter
--- OUTSIDE RECORDS SUMMARY | 2024-11-28 11:58 | XMS_ITS | Patient Health Record ---
Author Organization [facility] Address [address] [place] [address] Care Team Providers Care Helpdesk Administrator Name Role Phone Alisson Story Primary Care Provider Igor Sommer Jr Unavailable Allergies Allergen (clinical drug ingredient) Drug/Non Drug Allergy documented on EMR Reaction Allergy Type Onset Date Status Eucalyptus Unknown Drug Allergy Active sulfamethoxazole / trimethoprim Bactrim Unknown Drug Allergy Active patchouli plant (uncoded) Unknown Allergy Active citrace spray (uncoded) Unknown Allergy Active citronella (uncoded) Unknown Allergy Active Penicillin Unknown Drug Allergy Active Results Component Value Reference Range Notes Pathology Reviewed date:06/02/2024 10:06:52 AM Interpretation: Performing Lab:[facility], [address] [place] [phone] Notes/Report: Name: Owen Peters Age/Sex: 64/F : 1960 Unit#: [id number] Attend Dr: Igor Lozada MD Re05/31/24 Status : [facility] Location: HOSLY Disch: SPEC : [id number] RECD : 05/31/24 STATUS: BERNARDO JAY NUM: [id number] POPPY: 05/31/[address] [facility] DR: Igor Lozada MD ENTERED: 05/31/24 SP TYPE: Surgical OTHR DR: ORDERED: HE Stain/3, Gross Micro L4 Diagnosis Rectum, polypectomy: Tubular adenoma; negative for high-grade dysplasia or carcinoma. Clinical History Pre-Op Dx: Screening Post-Op Dx: Colon polyp Microscopic Description Microscopic sections reviewed. Material Received Rectal polyp Gross Description Received in formalin labeled ?rectal polyp? are 2 barrow-martino and martino-pink irregular and papular tissue fragm ents measuring 0.3 and 0.45 cm, submitted in toto in a cassette labeled A. CEDS Signed (si gnature on file) Ángel Marcos MD 06/01/24 1235 END OF REPORT Reason For Referral No Information Medications Medication SIG (Take, Route, Frequency, Duration) Notes Start Date End Date Status MiraLax (colon prep) 17 GM/SCOOP mixed with Gatorade or Crystal Light Orally begin at 5:00 p.m. the day before the procedure for 1 day 04/14/2024 Active ibuprofen Not-Taking Albuterol Sulfate HFA 108 (90 Base) MCG/ACT Inhalation for 17 A ctive Trelegy Ellipta 100-62.5-25 MCG/ACT Inhalation for 30 Act nancy Social History Tobacco Use: Social History Observation Description Date Details (start date - stop date) Current Smoker NA - NA Tobacco Use/Smoking Question Answer Notes Patient is a current smoker How often do you smoke cigarettes? every day How many cigarettes a day do you smoke? 11-20 Alcohol Screen Question Answer Notes Did you have a drink contain ing alcohol in the past year? Yes How often did you have a dri nk containing alcohol in the past year? Monthly or less (1 point) How many drinks did you have on a typical day when you were drinking in the past year? 1 or 2 drinks (0 point) Points 1 Interpretation Negative Problems Problem Type SNOMED Code ICD Code Onset Dates Problem Status W/U Status Risk Notes Problem 723012591 Special screenin g for malignant neoplasms, colon (Z12.11) Active confirmed Problem 94796387 Constipation, unspecified constipation type (K59.00) Active confirmed Vital Signs Blood pressure diastolic 00 mm Hg 04/14/2024 Height 5 ft 4 in in 04/14/2024 Blood pressure systolic 00 mm Hg 04/14/2024 Weight 152 lbs 04/14/2024 BMI 26.09 kg/m2 04/14/2024 Encounters Encounter Location Date Provider Diagnosis [facility] Outpatient [address] [place], [place] [id number] 05/31/2024 Igor Lozada Jr Colon cancer screening Z12.11 and Colon polyps K63.5 [facility] [address] [place] [phone] 04/14/2024 Igor Lozada Jr Special screening for malignant neoplasms, colon Z12.11 and Constipation, unspecified constipation type K59.00 [facility] [address] [place] [phone] 06/02/2024 Igor Lozada Jr Assessments Encounter Date Diagnosis (ICD Code) Assessment Notes Treatment Notes Treatment Clinical Notes Section Notes 05/31/2024 Colon cancer screening (ICD-10 - Z12.11) 05/31/2024 Colon polyps (ICD-10 - K63.5) 04/14/2024 Special screening for malignant neoplasms, colon (ICD-10 - Z12.11) We discussed constipation today. We discussed the high-fiber diet. We recommended she follow a high-fiber diet and use MiraLax on a p.r.n. basis. She can use fiber supplementation with Metamucil as needed. She is due for colorectal cancer screening. This will be arranged. She understands risks and benefits and agrees to proceed. 04/14/2024 Constipation, unspecified constipation type (ICD-10 - K59.00) Constipation - self-care material was printed We discussed constipation today. We discussed the high-fiber diet. We recommended she follow a high-fiber diet and use MiraLax on a p.r.n. basis. She can use fiber supplementation with Metamucil as needed. She is due for colorectal cancer screening. This will be arranged. She understands risks and benefits and agrees to proceed. Plan Of Treatment Future Test Test Name Order Date COLONOSCOPY 04/14/2024 Insurance Providers Payer Name Payer Address Payer Phone Subscriber Number Group Number Insured Name Patient Relationship to Insured Coverage Start Date Coverage End Date [employer] [address] [address] [place] [address] [id number] KAROL DON Self - patient is the insured Medical (General) History Medical History History ICD Code environmental allergies asthma Surgical History Surgery Date(Month/Year) lipoma fatty left breast superficial 198 3 tubal ligation
--- OUTSIDE RECORDS SUMMARY | 2024-11-28 11:58 | XMS_ITS | Encounter Summary ---
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 Not on file documented as of this encounter Plan of Treatment Upcoming Encounters Date Type Department Care Team (Late st Contact Info) Description 01/26/2025 8:30 AM EDT Office Visit [facility] DENT[facility] [address] [place] [address] Tammy Trivedi documented as of this encounter Procedures Procedure Name Priority Date/Time Associated Diagnosis Comments HM PAP/HPV Routine 11/05/2022 10:22 AM EDT documented in this encounter Results * HM PAP/HPV (11/05/2022 10:22 AM EDT) Alisson DELGADO HEALTH MAINTENANCE Final Result documented in this encounter Visit Diagnoses Not on filedocumented in this encounter Care Teams Health And Wellness Coach Relationship Specialty Start Date End Date Alisson Oliva FNP [address] [place] [address] PCP - General Family Medicine 10/16/22 11/22/24 Inactive/Transferred PCP - General 11/23/24 11/23/24 documented as of this encounter
--- OUTSIDE RECORDS SUMMARY | 2024-11-28 11:58 | XMS_ITS | Encounter Summary ---
Author Organization [employer] [facility] Address [address] [place] [address] Care Team Providers Care Barn And Property Manager Name Role Phone Alisson Oliva Primary Care Provider [phone] Inactive/Transferred Primary Care Provider Unava ilable Encounter Details Date Type Department Care Team (Late st Contact Info) Description 10/16/2022 Abstract [facility] MEDICAL [address] [place] [address] Alisson Oliva FNP [address] [place] [address] Social History Tobacco Use Types Packs/Day Years [...] Description 01/26/2025 8:30 AM EDT Office Visit [facility] DENTAL [address] [place] [address] Tammy Trivedi documented as of this encounter Procedures Procedure Name Priority Date/Time Associated Diagnosis Comments COLONOSCOPY Routine 10/01/2020 MAMMOGRAPHY Routine 09/20/2019 HEMOGLOBIN A1C Routine 03/10/2019 LIPID PANEL, STANDARD Routine 03/10/2019 documented in this encounter Results * Colonoscopy (10/01/2020) [facility] Colonoscopy Normal Normal Comment:poyp removal, divert icula repeat 3-5 years [facility] Provider MD HEALTH MAINTENANCE Final Result * Mammography (09/20/2019) [facility] Mammogram Neg - annual exam - very dense breasts Anatomical Region Laterality Modality Other [facility] Provider HEALTH MAINTENANCE Final Result * Hemoglobin A1c (03/10/2019) [facility] Hemoglobin A1C 5.4 4.0 - 6.0 % Blood Venous blood specimen / Unknown [facility] Provider MD LAB BLOOD ORDERABLES Sarah l Result * (ABNORMAL) Lipid Panel, Standard (03/10/2019) [facility] Triglycerides 128 40 - 160 mg/dL Cholesterol 201(A) 0 - 200 mg/dL HDL Cholesterol 45 35 - 70 mg/dL LDL Cholesterol 130 mg/dL Blood Venous blood specimen / Unknown [facility] Provider LAB BLOOD ORDERABLES Sarah l Result documented in this encounter Visit Diagnoses Not on filedocumented in this encounter Care Teams Barn And Property Manager Relationship Specialty Start Date End Date Alisson Oliva FNP [address] [place] [address] PCP - General Family Medicine 10/16/22 11/22/24 Inactive/Transferred PCP - General 11/23/24 11/23/24 documented as of this encounter
--- OUTSIDE RECORDS SUMMARY | 2024-11-28 11:58 | XMS_ITS ---
Author Organization [facility] Address [address] [place] [address] Care Team Providers Care Qa Tester Name Role Phone Alisson Story Primary Care Provider UnavailIgor Marcial Jr [phone] REASON FOR VISIT pathology Encounters Encounter Location Date Provider Diagnosis [facility] [address] [place] [address] 06/02/2024 Igor Lozada Jr Plan Of Treatment No Information Progress Notes * NAVEED PETERSOB:[birth year] (64 yo F)Acc No.[id number]:06/02/2024 Patient:?KAROL PETERS :1960???Age:64 Y???Sex:Female Address:[address], [place], [address] * true * Date:? Generated for Printi comfort/Brittany/eTransmitting on:?11/28/2024 11:58 AM EDT
--- OUTSIDE RECORDS SUMMARY | 2024-11-28 11:58 | XMS_ITS | Encounter Summary ---
Author Organization [employer] Address [address] [place] [address] Care Team Providers Care Performance Test Engineer Name Role Phone Alisson Oliva Primary Care Provider Inactive/Transferred Primary Care Provider Unava ilable Encounter [...] Description 01/26/2025 8:30 AM EDT Office Visit [facility] DENTAL [address] [place] [address] Tammy Trivedi documented as of this encounter Visit Diagnoses Not on filedocumented in this encounter Care Teams Performance Test Engineer Relationship Specialty Start Date End Date Alisson Oliva FNP [address] [place] [address] PCP - General Family Medicine 10/16/22 11/22/24 Inactive/Transferred PCP - General 11/23/24 11/23/24 documented as of this encounter
--- OUTSIDE RECORDS SUMMARY | 2024-11-28 11:58 | XMS_ITS | Encounter Summary ---
Author Organization [facility] Address [address] [place] [address] Care Team Providers Care Lacing Operator Name Role Phone Alisson Oliva Primary Care Provider [phone] Inactive/Transferred Primary Care Provider Unava ilable Encounter [...] 8:30 AM EDT Office Visit [facility] DENTAL [address] [facility] [place] [address] Tammy Trivedi documented as of this encounter Visit Diagnoses Not on filedocumented in this encounter Care Teams Lacing Operator Relationship Specialty Start Date End Date Alisson Oliva FNP [address] [facility] [place] [address] PCP - General Family Medicine 10/16/22 11/22/24 Inactive/Transferred PCP - General 11/23/24 11/23/24 documented as of this encounter
--- OUTSIDE RECORDS SUMMARY | 2024-11-28 11:58 | XMS_ITS ---
Author Organization [facility] Address [address] [place] [address] Care Team Providers Care Box Car Washer Name Role Phone Alisson Story Primary Care Provider UnavailIgor Marcial Jr [phone] REASON FOR VISIT screening Encounters Encounter Location Date Provider Diagnosis [facility] Outpatient [address] [place] [phone] 05/31/2024 Igor Lozada Jr Colon cancer screening Z12.11 and Colon polyps K63.5 Assessments Encounter Date Diagnosis (ICD Code) Assessment Notes Treatment Notes Treatment Clinical Notes Section Notes 05/31/2024 Colon cancer screening (ICD-10 - Z12.11) 05/31/2024 Colon polyps (ICD-10 - K63.5) Plan Of Treatment No Information Progress Notes * ESTRELLA PETERSRICHYOB:[birth year] (64 yo F)Acc No.[id number]:05/31/2024 COLON WITH MAC Patient:?KAROL PETERS Provider:?Igor Lozada MD :1960???Age:64 Y???Sex:Female D ate:05/31/2024 Address:[address], [place] Pcp:DANNY Ness Subjective: * Chief Complaints: * ???1. Screening. * Medical History:? Objective: * Vitals:? Assessment: * Assessment: 1.?Colon cancer screening - Z12.11 (Primary)???2.?Colon polyps - K63.5??? Plan: * Treatment: * Procedure Codes:?24327 LESIO N REMOVAL COLONOSCOPY, 0529F INTRVL 3+YRS PTS CLNSCP DOCD * * The named appointment provid er may or may not be the originator of this progress note, and it is not deemed complete until electronically signed by the appointment provider. Sign off status: Pending * Provider:?Igor Lozada MD Date:?1 07/31/2023 Generated for Matty moyer/Brittany/eTransmitting on:?11/28/2024 11:57 AM EDT
--- OUTSIDE RECORDS SUMMARY | 2024-11-28 11:58 | XMS_ITS | Encounter Summary ---
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 Not on file Not on file Not on file documented as of this encounter Plan of Treatment Upcoming Encounters Date Type Department Care Team (Late st Contact Info) Description 01/26/2025 8:30 AM EDT Office Visit [facility] D[facility] [address] [place] [address] Tammy Trivedi documented as of this encounter Procedures Procedure Name Priority Date/Time Associated Diagnosis Comments BI MAMMOGRAM SCREENING TOMOSYNTHESIS BILATERAL Routine 12/10/2023 10:05 AM EDT documented in this encounter Results * BI Mammogram Screening Tomosynthesis Bilateral (12/10/2023 10:05 AM EDT) Anatomical Region Laterality Modality Breast Bilateral Mammography Alisson DELGADO IM BI PROCEDURES Final Result documented in this encounter Visit Diagnoses Not on filedocumented in this encounter Care Teams Button Puncher Relationship Specialty Start Date End Date Alisson Oliva FNP [address] [place] [address] PCP - General Family Medicine 10/16/22 11/22/24 Inactive/Transferred PCP - General 11/23/24 11/23/24 documented as of this encounter
== END 2024-11-28 11:13 | disposition home or self-care (01) ==
LOC: HO.HPS 10:34
PROVIDERS: PCP Nurse Practitioner Family; Visit Provider Hospitalist
DX: J41.0 Simple chronic bronchitis (principal); R91.8 Other nonspecific abnormal finding of lung field; F17.210 Nicotine dependence, cigarettes, uncomplicated; R40.0 Somnolence
CPT/HCPCS: 99214

== ENCOUNTER → 2024-11-28 10:34 | Outpatient (BNVA) | payer OTHER, SELFPAY | PROVIDERS: PCP Nurse Practitioner Family; Visit Provider Hospitalist | DX: J42 Unspecified chronic bronchitis (principal); J44.9 Chronic obstructive pulmonary disease, unspecified ==

== ENCOUNTER 2024-11-29 | Outpatient (REF) | payer OTHER, SELFPAY ==
--- NOTE | ~2024-11-29 | XR_ITS ---
EXAMINATION: XR ABDOMEN 2 VIEWS SUPINE ERECT HISTORY: GAS PAIN COMPARISON: There are no prior studies for comparison. FINDINGS: Three supine views of the abdomen are submitted. There is a moderate amount of gas in the stomach. The bowel gas pattern is otherwise unremarkable. No abnormal calcifications are identified. There are no abnormal soft tissue masses. There is degenerative disc disease of the lower lumbar spine. XR/XR abdomen min 2V IMPRESSION: Moderate gaseous distention of the stomach. Electronically signed by: Antione Clinton MD 11/30/2024 07:31 AM EDT
[2024-11-29 16:19] LABS: MANUAL DIFF FLAG NO
[2024-11-29 16:29] LABS: Basophils Absolute Auto 0.1 X10*3/uL (0.0-0.2); Basophils Percent Auto 0.4 % (0-2); Eosinophils Absolute Auto 0.1 X10*3/uL (0.0-0.4); Eosinophils Percent Auto 0.6 % (0-4); Hematocrit 35.5 % (37.0-47.0); Hemoglobin 12.1 g/dl (12.0-16.0); Imm Gran Abs Auto 0.06 X10*3/uL (0.00-0.03); Imm Gran Pct Auto 0.4 % (0.0-0.4); Lymphocytes Absolute Auto 1.6 X10*3/uL (1.2-4.9); Lymphocytes Percent Auto 11.8 % (20-40); Mean Corpuscular HGB Conc 34.1 g/dl (31.0-35.0); Mean Corpuscular Hemoglobin 30.1 pg (27.0-33.0); Mean Corpuscular Volume 88.3 fL (80.0-98.0); Mean Platelet Volume 8.8 fL (9.4-12.3); Monocytes Absolute Auto 0.9 X10*3/uL (0.1-1.2); Monocytes Percent Auto 6.4 % (2-11); Neutrophils Absolute Auto 10.9 x10*3/uL (2.0-8.3); Neutrophils Percent Auto 80.4 % (45-73); Platelet Count 461 X10*3/uL (160-400); Red Blood Count 4.02 X10*6/uL (4.20-5.50); Red Cell Distribution Width 12.2 % (11.0-16.0); White Blood Count 13.5 X10*3/uL (4.8-10.8)
[2024-11-29 17:08] LABS: Erythrocyte Sedimentation Rate 28 MM/HR (0-20)
[2024-11-29 18:11] LABS: Alanine Aminotransferase 128 U/L (0-31); Albumin Level 3.9 g/dL (3.5-5.0); Alkaline Phosphatase 115 U/L (39-117); Aspartate Amino Transferase 65 U/L (5-31); Bilirubin Direct 0.3 mg/dL (0.0-0.5); Bilirubin Total 0.8 mg/dL (0.0-1.0); Lipase 20 U/L (8-78); Total Protein 6.6 g/dL (6.5-8.0)
[2024-11-29 18:31] LABS: TSH reflex Free T4 1.31 uIU/mL (0.32-4.0)
[2024-12-01 08:49] LABS: IgA 146 mg/dL (70-320); IgG 886 mg/dL (600-1540); IgM 105 mg/dL (50-300)
[2024-12-08 23:13] LABS: Immunoglobulin E 40 kU/L (<OR=114)
--- OUTSIDE RECORDS SUMMARY | 2025-01-23 13:02 | XMS_ITS | Patient Health Record ---
Author Organization [facility] Address [address] [place] [address] Care Team Providers Care Industrial Engineer Name Role Phone Alisson Story Primary Care Provider Igor Sommer Jr Unavailable [phone] Allergies Allergen (clinical drug ingredient) Drug/Non Drug [...] date:11/30/2024 08:53:14 AM Interpretation: Performing Lab: Notes/Report: [address] [address] XRay Report Signed Patient: Lilian Peters MR#: [id number] 668 : 1960 Acct:[id number] Age/Sex: 64 / F ADM Date: 11/29/24 Loc: HO.XRAY Attending Dr: Igor Lozada MD Ordering Physician: Igor Lozada MD Date of Service: 11/29/24 Procedure(s): XR abdomen min 2V Accession Number(s): [id number] cc: Igor Lozada MD; Physician,Unknown EXAMINATION: XR [...] Clinton MD in OV> 11/30/24 0731 DD/ 1552 TD/TT: 11/29/24 1606 Sanipractic Physician: Pathology Reviewed date:06/02/2024 10:06:52 AM Interpretation: Performing Lab:[facility], [address] [place] [phone] Notes/Report: Complete Blood Count Auto Di ff Reviewed date:11/30/2024 08:52:46 AM Interpretation: Performing Lab:[facility], [address] [place] [phone] Notes/Report: White Blood Count 13.5 4.8-10.8 X10*3/uL [...] te Reviewed date:11/30/2024 08:52:39 AM Interpretation: Performing Lab:[address] [address] Notes/Report: Erythrocyte Sedimentation Rate 28 0-20 MM/HR Patients with polycythemia and many hemoglobin abnormalities may have depressed sed rates whereas patients with anemia may have elevated sed rates. Liver Panel Reviewed date:11/30/2024 08:52:08 AM Interpretation: Performing Lab:[address] [address] Notes/Report: Bilirubin Total 0.8 0.0-1.0 mg/dL Bilirubin Direct 0.3 0.0-0.5 mg/dL Aspartate Amino Transferase 65 5-31 U/L Alanine Aminotransferase 128 0-31 U/L Total Protein 6.6 6.5-8.0 g/dL Albumin Level 3.9 3.5-5.0 g/dL Alkaline Phosphatase 115 39-117 U/L Lipase Reviewed date:11/30/2024 08:52:05 AM Interpretation: Performing Lab:[address] [address] Notes/Report: Lipase 20 8-78 U/L TSH reflex Free T4 Reviewed date:11/30/2024 08:51:52 AM Interpretation: Performing Lab:[address] [address] Notes/Report: TSH reflex Free T4 1.31 0.32-4.0 uIU/mL Immunoglobulins,IgG IgA IgM Reviewed date:12/09/2024 04:20:40 PM Interpretation: Performing Lab:[facility], [address] [place] [phone] Notes/Report: IgG 421 516-1046 mg/dL IgA 146 70-320 mg/dL IgM 105 50-300 mg/dL THIS TEST WAS PERFORMED AT: [facility] [address] [place] [phone] JASMIN BLANTON MD Immunoglobulin E Reviewed date:12/09/2024 04:20:22 PM Interpretation: Performing Lab:[facility], [address] [place] [phone] Notes/Report: Immunoglobulin E 40 <WX=025 kU/L THIS TEST WAS PERFORMED AT: [facility] [address] [place] [phone] JASMIN BLANTON MD Reason For Referral No [...] W/U Status Risk Notes Problem Abdominal bloating (943795650) Abdominal bloating (787.3) Active confirmed Problem 103944229 Special screening for malignant neoplasms, colon (Z12.11) Active confirmed Problem Eructation (68642084) Eructation (R14.2) Active confirmed Problem Elevated liver enzymes level (395061767) Elevated LFTs (R79.89) Active confirmed Problem Altered bowel function (04842159) Change in bowel function (R19.4) Active confirmed Problem Anemia (663182971) Anemia (D64.9) Active confir med Problem 33530969 Constipation, unspecified constipation type (K59.00) Active confirmed Problem Gastrointestinal tract problem (183092369) Abn findings-GI tract (R93.3) Active confirmed Problem Flatulence, eructation and gas pain (927409580) Abdominal gas pain (R14.1) Active confirmed Vital Signs Blood pressure diastolic 00 mm Hg 04/14/2024 Height 5 ft 4 in in 04/14/2024 Blood pressure systolic 00 mm Hg 04/14/2024 Weight 152 lbs 04/14/2024 BMI 26.09 kg/m2 04/14/2024 Encounters Encounter Location Date Provider Diagnosis [facility] [place] [address] [place] [id number] 05/31/2024 Igor Lozada Jr Colon cancer screening Z12.11 and Colon polyps K63.5 [facility] [address] [place] [address] 04/14/2024 Igor Lozada Jr Special screening for malignant neoplasms, colon Z12.11 and Constipation, unspecified constipation type K59.00 [facility] [address] [place] [address] 06/02/2024 Igor Lozada Jr [facility] [address] [address] 11/29/2024 Igor Lozada Jr Change in bowel function R19.4 ; Abdominal gas pain R14.1 ; Abdominal bloating 787.3 and Eructation R14.2 [facility] [address] [address] 11/30/2024 Igor Lozada Jr Elevated LFTs R79.89 ; Abn findings-GI tract R93.3 and Anemia D64.9 [facility] [address] [address] 12/06/2024 Igor Lozada Jr Assessments Encounter Date [...] Coverage End Date [employer] [place] [address] [address] [place] [address] [id number] 5 LILIAN DON Self - patient is the insured Medical (General) History Medical History History ICD Code environmental allergies asthma Surgical History Surgery Date(Month/Year) lipoma fatty left breast superficial 198 3 tubal ligation
--- OUTSIDE RECORDS SUMMARY | 2025-01-23 13:02 | XMS_ITS | Clinical Summary ---
Author Organization [employer] Address [address] [place] [address] Care Team Providers Care Central Office Repairer Supervisor Name Role Phone Unavailable Primary Care Provider [...] None. Categorization based on Lung-RADS 2022 criteria. [email or web address] WSN: [id number] Ordering Physician: Alisson Oliva Dictated By: Angel [...] done at end of June 2023 at [facility]. Routine general medical exam ination at a health care facility 12/11/2022 Overview (12/15/2023): CPE done 12/15/23. HEALTH CARE MAINTENANCE: Colonoscopy (age 45-75): Dr. Luis - [facility]. Due for cscope. Has to go to [place] due to insurance. Wants to go [facility]. Has every 3 years - multiple benign polyps (tubular adenomas). Mammogram (age 40-74): Done 11/2023 - waiting for results. AAA Screen (Fam Hx AAA): No family hx. LDCT (smoke >30 pack year, age 55-80): Engaged with pulm - has routine screens. DEXA (age 61 with RF, age 66): Has Osteopenia - had scan at [facility]. Last done 08/2022. STUDENT COUNSELOR: Outside STUDENT COUNSELOR: Dr. Newell LMP: Menopause . Last PAP [...] Was advised by PT to go to [facility] - would like to see Sunita Ferguson at [place]. We will send referral. Discussed pain management including piriformis stretches and ibuprofen. Assessment & Plan (02/06/2023 8:51 AM EDT): Son is quality review trainer and has been giving her suggestions. [...] from the original note were not included. [facility] with pulmonology - [facility]. [...] cervicovaginal cytologic smear 10/16/2022 Overview (12/24/2023): Has STUDENT COUNSELOR - Dr. Newell who is following. 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 Not on file Not on file Not on file Last Filed Vital Signs Vital Sign Reading Time Taken Comments Blood Pressure 118/73 06/16/2024 10:00 AM EST Pulse 65 06/16/2024 10:00 AM EST Temperature 36.7 C (98.1 F) 06/16/2024 10:00 AM EST Respiratory Rate 16 06/16/2024 10:0 [...] Description 01/26/2025 8:30 AM EDT Office Visit [place] [facility] [address] [place] [address] Tammy Trivedi Health Maintenance Due Date Last Done Comments CT Colonography 1960 FIT DNA/Cologuard 1960 FIT 1960 FOBT 1960 Sigmoidoscopy 1960 Alcohol/Substance Use Screening 1973 HPV/Cotest 1991 Zoster Vaccines (1 of 2) 2011 Pneumococcal Vaccine: 50+ Years (2 of 2 - PCV) 01/06/2017 01/07/2016, 09/26/2011 RSV Patients and Patients Aged 60 years or older (1 - Risk 60-74 years 1-dose series) 2021 COVID-19 Vaccine ( season) 2024 06/26/2023, 08/10/2020, 07/18/2020 Dental X-Ray: Full Mouth 12/05/2024 022, 07/07/2019, 06/24/2007 Depression Screening 12/14/2024 12/15/2023, 12/15/19 24 SDOH Screening 12/14/2024 12/15/2023 Dental Oral Exam 12/21/2024 06/22/2024, , 08/28/2022, Additional history exists Tobacco Screening 12/29/2024 12/30/2023 Dental Prophylaxis 04/01/2025 09/28/2024, 1 08/22/2023, 12/30/2023, Additional history exists DTaP/Tdap/Td Vaccines (2 - Td or Tdap) 05/14/2025 05/14/2015, 06/24/2005 Disability Screening 06/16/2025 06/16/2024 Dental X-Ray: Bitewings 06/23/2025 06/22/20 24, 02/10/2023, 12/04/2021, Additional history exists Cervical Cancer Screening 11/05/2025 Pap Smear 11/05/2025 11/05/2022, 01/16/2021 Mammogram 12/09/2025 12/10/2023, 05/0 07/2023, 09/20/2019, Additional history exists Colonoscopy 05/31/2034 05/31/2024, 03/0 02/2021, 10/01/2020, Additional history exists Colorectal Cancer Screening 05/31/2034 HIV Screening Completed 04/23/2023 Hepatitis C Screening Completed 04/23/2023 Lung Cancer Screening Discontinued 12/09/2023, 023 Influenza Vaccine Completed 04/28/2024, 04/30/2023 HIB Vaccines [...] EDT Screen for STD (sexually transmitted disease) HM PAP/HPV Routine 11/05/2022 10:22 AM EDT INTRAORAL - COMPLETE SERIES OF RADIOGRAPHIC IMAGES Routine 12/04/2021 12:00 AM EDT from Last 3 Months or Most Recently Relevant to Health Maintenance Results * Hm Colonoscopy (05/31/2024 10:08 AM EST) Result [facility] HEALTH MAINTENANCE Final Result * BI Mammogram Screening Tomosynthesis Bilateral (12/10/2023 10:05 AM EDT) Anatomical Region Laterality Modality Breast Bilateral Mammography [facility] IM BI PROCEDURES Final Result * CT Lung Screening Low dose (12/09/2023) Anatomical Region Laterality Modality Lung Computed Tomogra phy [facility] CT PROCEDURES Final Result * HIV Antibody/Antigen, 4th Generation (04/23/2023 9:57 AM EDT) Result 4th Gen HIV Antibody Antigen NEGATIVE (NEG) [facility] Comment: Negative for antibodies to HIV 1 and HIV 2 and P24 antigen. Reference range: Negative Additional note: Written patient authorization is required for each separate release of this test result. This test was performed on the [employer] immunoassay system. Testing performed or reported by [facility], a Service of [facility], [facility] [place] [address] Jong Lou MD, Automatic Driller And Reamer [facility]# [id number] Blood 04/23/2023 9:57 AM EDT 04/23/2023 10:41 AM EDT Result [facility] LAB BLOOD ORDERABLES Final Resul t [facility] [address] [place] [address] * Hepatits C Antibody w/Reflex HCV Quant PCR and Genotyping (04/23/2023 9:57 AM EDT) Hepatitis C Virus Ab, Serum NEGATIVE (NEG) [facility] Comment: Reference range: Negative This test was performed on the [employer] Hood Operator immunoassay system. Testing performed or reported by [facility] [employer] a Service of [facility], [facility] [place] [address] Jong Lou MD, Automatic Driller And Reamer [facility]# [id number] 04/23/2023 9:57 AM EDT 04/23/2023 10:41 AM EDT Alisson DELGADO LAB BLOOD ORDERABLES Final Resul t [facility] [address] [place] [address] * HM PAP/HPV (11/05/2022 10:22 AM EDT) Alisson DELGADO HEALTH MAINTENANCE Final Result from Last 3 Months or Most Recently Relevant to Health Maintenance Insurance [employer]
== END 2024-11-29 00:01 | disposition home or self-care (01) ==
LOC: HO.XRAY
PROVIDERS: Absent Provider Hospitalist; Visit Provider Internal Medicine Gastroenterology
DX: R19.4 Change in bowel habit (principal); J44.89 Other specified chronic obstructive pulmonary disease; R14.1 Gas pain; R14.2 Eructation
CPT/HCPCS: 36415; 74019; 80076; 82784; 82785; 83690; 84443; 85025; 85652

== ENCOUNTER → 2024-11-29 15:52 | Outpatient (BNV) | payer OTHER, SELFPAY | PROVIDERS: Absent Provider Hospitalist; Visit Provider Radiology Diagnostic Radiology | DX: R14.0 Abdominal distension (gaseous) (principal) | CPT/HCPCS: 74019 ==

== ENCOUNTER 2024-12-02 11:30 | Emergency (ER) | payer OTHER, SELFPAY ==
[2024-12-02] VITALS (9 sets, daily range): BP systolic 99–131; BP diastolic 47–87; PULSE 69–156; RESP 15–23; TEMP 36.7–37.2; O2SAT 95–98; BMI 26.7
--- NOTE | 2024-12-02 | ECG_ITS ---
Test Reason : afib Blood Pressure : */* mmHG Vent. Rate : 145 BPM Atrial Rate : 312 BPM P-R Int : * ms QRS Dur : 70 ms QT Int : 300 ms P-R-T Axes : * 60 213 degrees QTcB Int : 466 ms Atrial flutter with variable A-V block Nonspecific T wave abnormality Abnormal ECG When compared with ECG of 02-Dec-2024 11:58, Atrial flutter has replaced Sinus rhythm Vent. rate has increased by 54 bpm Nonspecific T wave abnormality, worse in Anterolateral leads Referred By: Moises Barcenas Electronically Signed By: JOSELYN ACEVEDO
--- NOTE | ~2024-12-02 | XR_ITS ---
EXAMINATION: XR CHEST CLINICAL INFORMATION: SOB COMPARISON: July 28, 2023. TECHNIQUE: 2 views of the chest were obtained. FINDINGS: Linear opacities lower hemithoraces and blunting of the costophrenic angles. No pneumothorax. Cardiomediastinal silhouette is enlarged. Multilevel thoracic spondylosis. Degenerative changes in the right acromioclavicular joint. XR/XR chest 2V IMPRESSION: Bilateral pleural effusions, moderate volume and likely mild interstitial lung edema with cardiomegaly versus pericardial effusion. Electronically signed by: Ben Farmer MD 12/02/2024 12:20 PM EDT
--- NOTE | 2024-12-02 11:34 | ED_ITS ---
HPI - General Adult General Chief complaint: General Medical Stated complaint: Blood Pressure Low, Fatigue, Trouble Breathing Time Seen by Provider: 12/02/24 14:18 Source: patient Mode of arrival: ambulatory Limitations: no limitations History of Present Illness ED Provider: Dr. Moises Barcenas HPI narrative: 64-year-old female with a history of asthma, hyperlipidemia who presents emergency department for evaluation of 2 weeks of ?feeling lousy ?. She states that she has had dyspnea on exertion and fatigue. She states she was trying to garden and was unusually winded and fatigued. She states that over the last 2 days she has had increased dyspnea on exertion. 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 She also states that she has felt bloated and distended. She did talk to Dr. Lozada and he did order outpatient labs and wanted to get a CT scan of her abdomen pelvis to further evaluate her symptoms. Today, she had increased dyspnea on exertion, her was concerned and insisted that she go to the hospital to be seen. Initially the patient was in a sinus rhythm but on the hall monitor she was noted to be in atrial fibrillation. She denied fever but has had occasional chills. She denied rhinorrhea, sore throat, cough, chest pain. She has had no nausea or vomiting. She states she has loose stools for the past week. She denied frequency, urgency or dysuria. She has not noticed any swelling of her lower extremities her pain in her lower extremities. Related Data Home Medications ?Medication ?Instructions ?Recorded ?Confirmed albuterol sulfate 90 mcg/actuation 2 puff inhalation Q4H PRN Wheezing 07/28/23 12/02/24 aerosol inhaler ibuprofen 200 mg tablet 400 mg PO Q6H PRN Pain 07/28/23 12/02/24 nebulizers 10/26/23 08/25/24 fvdpdbyl-lej-uztuk ac 400 1 tab PO DAILY 12/02/24 12/02/24 mcg-calcium carb 500 mg-vit K1 20 mcg tablet (Women's 50 Plus Daily Formula) Previous Rx's ?Medication ?Instructions ?Recorded albuterol sulfate 2.5 mg/3 mL 2.5 mg (3 mL) inhalation Q4H PRN 07/29/23 (0.083 %) solution for nebulization Shortness Of Breath/Wheezing #50 ea fluticasone fur. 100 mcg-umeclid 1 inh inhalation DAILY 30 days #60 10/25/24 62.5 mcg-vilant 25 mcg ea inhalat.powder (Trelegy Ellipta) Allergies Allergy/AdvReac Type Severity Reaction Status Date / Time eucalyptus Allergy Severe Anaphylaxis Verified 12/02/24 11:43 ampicillin Allergy Intermediate Rash Verified 12/02/24 11:43 sulfamethoxazole Allergy Intermediate Rash Verified 12/02/24 11:43 [From Bactrim] trimethoprim [From Bactrim] Allergy Intermediate Rash Verified 12/02/24 11:43 citrace spray Allergy Unknown Unknown Uncoded 12/02/24 11:43 citronella Allergy Unknown Unknown Uncoded 12/02/24 11:43 patchouli plant Allergy Unknown Unknown Uncoded 12/02/24 11:43 Review of Systems 2 Review of Systems: Yes all other systems are reviewed and are negative [facility] Past Medical History [facility] Narrative: Social history: She does smoke 1/2 pack of cigarettes per day times 40 years. She drinks alcoholic beverages 2 to 3 times a week. When she drinks she will drink 1-2 beers or mixed drinks. She occasionally smokes marijuana. Medical History (Updated 12/02/24 @ 16:17 by Moises Barcenas MD) Tubular adenoma of colon Nicotine dependence, cigarettes, uncomplicated Chronic bronchiolitis Has daytime drowsiness Pulmonary nodules Chronic bronchitis Asthma Surgical History (Updated 12/01/24 @ 13:30 by Shanon Mcgill PA-C) History of tubal ligation History of colonoscopy History of breast lump/mass excision Social History Social History Household Members: Spouse Housing: House Do you presently have visiting nurse or other home services: No Patient Tobacco Use Status: Current everyday Tobacco user Cigarette Packs Per Day: 0.5 Cigarettes Per Day: 10.0 Smoked in Last 30 Days: Yes Substance Use Type: Marijuana Advance Directives: No Advance Directives Information Provided: Yes service: No Current occupational status: employed 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 Physical Exam ED Vital Signs: Vital Signs - 24 hr 12/02/24 11:36 12/02/24 14:07 12/02/24 14:07 Temperature Pulse Rate 101 H 78 Pulse Rate [Monitor] 78 Respiratory Rate 18 16 Blood Pressure 117/78 122/81 Pulse Oximetry 98 96 Oxygen Delivery Method Room Air Room Air 12/02/24 14:21 12/02/24 14:53 12/02/24 15:10 Temperature Pulse Rate 77 156 H 69 Pulse Rate [Monitor] Respiratory Rate 15 23 H 18 Blood Pressure 128/85 131/87 99/63 Pulse Oximetry 97 97 95 Oxygen Delivery Method Room Air Room Air 12/02/24 16:13 12/02/24 18:01 12/02/24 20:00 Temperature 98.3 F 98.1 F 99.0 F Pulse Rate 73 76 73 Pulse Rate [Monitor] Respiratory Rate 18 20 20 Blood Pressure 115/74 99/47 L 112/73 Pulse Oximetry 96 95 95 Oxygen Delivery Method Room Air Room Air Room Air 12/02/24 20:46 Temperature 98.1 F Pulse Rate 73 Pulse Rate [Monitor] Respiratory Rate 20 Blood Pressure 112/73 Pulse Oximetry 95 Oxygen Delivery Method Room Air BMI result Body Mass Index 26.7 Patient's vital signs revealed variation in her heart rate 78-101 beats per minute. Vital signs were otherwise unremarkable Exam: General: Awake, alert in no distress Head: Normocephalic, atraumatic EENT: PERRL, Lids normal, sclera normal, conjunctiva normal, nose normal , ears normal, throat without erythema or exudates Neck: Supple, no adenopathy Lung: breath sounds symmetric, no wheezing, rales or rhonchi Chest: symmetric movement, nontender Heart: Irregular rate rhythm, normal S1-S2, no murmurs rubs or gallops Abdomen: soft, non-tender, nondistended, normal bowel sounds Back: no vertebral tenderness, no CVAT Extremities: no deformities, moves all extremities symmetrically, trace pitting edema bilaterally symmetric Neuro: Awake, alert, oriented, normal speech, cranial nerves intact, moves all extremities symmetrically Psych: Pleasant, cooperative Course Course Course Narrative: This is an RME performed by Jose Brown CNP: Additional HPI, ROS, PE not included below will be deferred to primary provider. 64 yo femalw with PMHx of, asthma, presents to the ED due to 2 weeks of SOB, and abdominal discomfort. She thought SOB may be due to seasonal allergies but difficulty breathing is persistent. Saw her GI doctor who recommended to increase dose of miralax. She states she has only had small volume of soft BM. States she just feels terrible and some episodes of chills without fever. Reports recent bouts of hypotension 90's systolic. Denies, fever, vomiting, black/tarry stool. PE: A&O x3, talking in complete sentences, no increased work of breathing, O2 97% RA Plan: Labs, CXR, EKG, UA Medications Administered Discontinued Medications Generic Name Dose Route Start Last Admin Trade Name Lencho PRN Reason Stop Dose Admin Amiodarone HCl 400 mg 12/02/24 16:11 12/02/24 16:29 Amiodarone Hcl 200 Mg Tablet PO 12/02/24 16:12 400 mg ONCE ONE Administration Diltiazem HCl 15 mg 12/02/24 14:45 12/02/24 14:54 Diltiazem Hcl 50 Mg/10 Ml Vial IVPUSH 12/02/24 14:46 15 mg STAT STA Administration Diltiazem HCl 10 mg 12/02/24 17:28 12/02/24 17:48 Diltiazem Hcl 50 Mg/10 Ml Vial IVPUSH 12/02/24 17:29 Not Given STAT STA Medical Decision Making Medical Decision Making MDM Narrative: 64-year-old female with a history of asthma, hyperlipidemia who presents emergency department for evaluation of 2 weeks of ?feeling lousy ?. Patient has had intermittent dyspnea on exertion which has gotten progressively worse, she has also had a bloated sensation in her abdomen. She denied chest pain with exertion. She has not noticed any peripheral edema. Vital signs revealed a variation in her heart rate 78-101 beats per minute. Initial EKG revealed a normal sinus rhythm but on hall monitor she was noted to be in atrial fibrillation. Physical examination was unremarkable. Differential diagnosis: ?Includes but is not limited to myocardial infarction, myocardial ischemia, acute coronary syndrome, new onset atrial fibrillation, congestive heart failure, anemia, electrolyte abnormalities Course: 15:15 My interpretation patient's laboratory evaluation is as follows: WBC elevated 13,700. Normocytic anemia with an H&H of 12 and 35. Elevated platelet count 492,000. Low sodium 131. Elevated glucose 134. Elevated AST and ALT 33 and 74. Elevated BNP of 138. Urinalysis was positive for leukocyte esterase. Microscopic revealed no bacteria. High sensitive troponin I was below detectable limits. Patient's 12 EKG initially revealed a sinus rhythm but repeat EKG revealed atrial flutter with a 2-1 block with a rate of 145 and a normal QTC interval. Chest x-ray revealed bilateral pleural effusions of moderate volume and mild increased interstitial infiltrates consistent with pulmonary edema with cardiomegaly versus pericardial effusion. Bedside ultrasound did reveal a pericardial effusion but no evidence for tamponade. Patient was given diltiazem 15 mg IV. 16:14 I did discuss the patient's presentation with the covering clinical registered nurse, Dr. Rooney. He recommended a stat echocardiogram to rule out tamponade. He also recommended amiodarone 400 mg orally now. He recommended against giving diuretics since the patient may need more volume given the pericardial effusion. I also discuss admission with the covering hospitalist, physician shipping assistant Kane Linares and the patient will be admitted to the hospitalist service for further treatment. 18:13 I was contacted by our clinical registered nurse, Dr. Rooney and he felt that the patient's thoracic echocardiogram was concerning for moderate to large pericardial effusion and that we did not have the capability to drain this at this institution at this time. He recommended the patient be transferred to [facility]. I did discuss the patient with the mud analysis operator, Dr. Marli Swift who felt that the patient was an appropriate transfer and recommended admission to the hospitalist service. I did discuss the patient with the [facility] covering hospitalist in the accepting attending physician is . The patient had another episode of atrial fibrillation flutter with a rapid RVR and was treated with diltiazem 10 mg IV. Admission/Observation Consideration of admission/observation: Escalation of care including admission/observation considered (Yes) Consult Healthcare Provider Management of the patient was discussed with: Hospitalist (Physician shipping assistant, Kane Linares) and Chief Warden (Proofer Apprentice, Dr. Rooney: graphics coordinator at [facility], Dr. Marli Swift) Lab Data MDM Lab Attestation statement: I reviewed the patient's lab results. 12/02/24 11:54 12/02/24 11:54 Labs: Lab Results 12/02/24 12/02/24 Range/Units 11:54 12:06 WBC 13.7 H (4.8-10.8) X10*3/uL RBC 4.12 L (4.20-5.50) X10*6/uL Hgb 12.2 (12.0-16.0) g/dl Hct 35.8 L (37.0-47.0) % MCV 86.9 (80.0-98.0) fL MCH 29.6 (27.0-33.0) pg MCHC 34.1 (31.0-35.0) g/dl RDW 12.1 (11.0-16.0) % Plt Count 492 H (160-400) X10*3/uL MPV 8.9 L (9.4-12.3) fL Immature Gran % (Auto) 0.5 H (0.0-0.4) % Neut % (Auto) 83.5 H (45-73) % Lymph % (Auto) 7.9 L (20-40) % [place] % (Auto) 7.5 (2-11) % Eos % (Auto) 0.2 (0-4) % Baso % (Auto) 0.4 (0-2) % Lymph # (Auto) 1.1 L (1.2-4.9) X10*3/uL [place] # (Auto) 1.0 (0.1-1.2) X10*3/uL Eos # (Auto) 0.0 (0.0-0.4) X10*3/uL Baso # (Auto) 0.1 (0.0-0.2) X10*3/uL Abs Immat Gran (auto) 0.07 H (0.00-0.03) X10*3/uL Absolute Neuts (auto) 11.5 H (2.0-8.3) x10*3/uL Absolute Nucleated RBC 0.000 (0.0-0.012) X10*3/uL Nucleated RBC % (auto) 0.0 (0.0-0.2) /100WBC Sodium 131 L (135-145) mmol/L Potassium 3.5 (3.3-5.1) mmol/L Chloride 100 (96-108) mmol/L Carbon Dioxide 24 (22-29) mmol/L Anion Gap 11 L (12-20) BUN 8 L (9-16) mg/dL Creatinine 0.71 (0.5-1.4) mg/dL Estim Creat Clear Calc 78.1 Estimated GFR > 60 Random Glucose 134 H (60-115) mg/dL Calcium 8.9 (8.4-10.2) mg/dL Total Bilirubin 0.8 (0.0-1.0) mg/dL Direct Bilirubin 0.4 (0.0-0.5) mg/dL AST 33 H (5-31) U/L ALT 74 H (0-31) U/L Alkaline Phosphatase 107 (39-117) U/L Troponin I High Sens < 2.7 (<3.5-17.0) ng/L B-Natriuretic Peptide 138 H (<100) pg/mL Total Protein 6.6 (6.5-8.0) g/dL Albumin 3.6 (3.5-5.0) g/dL Lipase 10 (8-78) U/L Urine Color Yellow Urine Appearance Clear Urine pH 7.0 (5.0-9.0) Ur Specific Guin 1.010 (1.005-1.025) Urine Protein Trace (Neg-Trace) mg/dL Urine Glucose (UA) Negative (Negative) mg/dL Urine Ketones Negative (Negative) mg/dL Urine Blood Negative (Negative) Urine Nitrite Negative (Negative) Ur Leukocyte Esterase Trace H (Negative) Urine RBC 0-2 (0-2) /HPF Urine WBC 0-5 (0-5) /HPF Ur Squamous Epith Cells 0-2 (0-2) /HPF Urine Bacteria None Seen (None Seen) Hyaline Casts 0-2 (0-2) /LPF Independent Interpretation I performed an independent interpretation of an: EKG and Plain X-Ray Interpretation: My interpretation of the patient's EKGs is as follows: EKG 1.: 12/02/2024 at 14:43 hours , normal sinus rhythm with a rate of 91, normal DC interval, QRS duration QTC interval no ST segment elevation, no ST segment depression, no PACs, no PVCs EKG 2.: 12/02/2024 at 14:43 hours, atrial flutter with a variable block with a rate of 145, no ST segment elevation, no ST segment depression, no significant T-wave abnormalities My interpretation of the patient's two view chest x-ray is as follows: Increased interstitial markings consistent with pulmonary edema, small bilateral pleural effusions Radiology Impression Discussion of test interpretation with radiology: I have reviewed the radiologist's reading. Radiologist Impression: 2 views of the chest were obtained. FINDINGS: Linear opacities lower hemithoraces and blunting of the costophrenic angles. No pneumothorax. Cardiomediastinal silhouette is enlarged. Multilevel thoracic spondylosis. Degenerative changes in the right acromioclavicular joint. XR/XR chest 2V IMPRESSION: Bilateral pleural effusions, moderate volume and likely mild interstitial lung edema with cardiomegaly versus pericardial effusion. Electronically signed by: Ben Farmer MD 12/02/2024 12:20 PM EDT RP Dictated By: Ben Rodriguez MD Chronic Conditions Patient?s care impacted by: Other (Asthma) Critical Care Time Critical Care Time Critical Care Time: Yes Total Critical Care Time: 45 Attestation: Critical Care: The patient was critically ill with a high probability of imminent or life threatening deterioration. I spent greater than 30 minutes of discontinuous time evaluating the patient,delivering critical care at the bedside, discussing and evaluating pertinent data with consultants. Critical care time does not include time spent performing separately billable procedures or teaching. Total time spent performing critical care was 35 minutes. Discharge Plan Discharge Clinical Impression: Paroxysmal atrial fibrillation, Pulmonary edema, Acute pericardial effusion Patient Disposition: er [facility] Hospital Transfer Details: [facility] hospitalist service, [place]; accepting attending physician Dr Jordan Prescriptions: No Action Trelegy Ellipta 100-62.5-25 mcg blister with device 1 inh inhalation DAILY 30 Days Qty: 60 0RF ibuprofen 200 mg Tablet 400 mg PO Q6H PRN (Reason: Pain) albuterol sulfate 90 mcg/actuation HFA aerosol inhaler 2 puff inhalation Q4H PRN (Reason: Wheezing) albuterol sulfate 2.5 mg /3 mL (0.083 %) Solution For Nebulization 2.5 mg inhalation Q4H PRN (Reason: Shortness Of Breath/Wheezing) Qty: 50 0RF Women's 50 Plus Daily Formula 400 mcg-500 mg calcium-20 mcg Tablet 1 tab PO DAILY (DME) nebulizers Misc See Rx Instructions .Route Rx Instructions: As directed Interventions: Acute Care Transfer Worksheet (ED) Last Done: 12/02/24 20:46 Print Language: Luxembourger
--- NOTE | 2024-12-02 11:42 | ECG_ITS ---
Test Reason : SOB Blood Pressure : */* mmHG Vent. Rate : 91 BPM Atrial Rate : 91 BPM P-R Int : 132 ms QRS Dur : 70 ms QT Int : 350 ms P-R-T Axes : -14 9 23 degrees QTcB Int : 430 ms Normal sinus rhythm Low voltage QRS Borderline ECG When compared with ECG of 10-Aug-2024 09:10, Vent. rate has increased by 35 bpm Nonspecific T wave abnormality now evident in Inferior leads Nonspecific T wave abnormality now evident in Lateral leads Referred By: Maria L Brown Electronically Signed By: JOSELYN ACEVEDO
[2024-12-02 12:10] LABS: MANUAL DIFF FLAG NO
[2024-12-02 12:14] LABS: Appearance Urine Clear; Color Urine Yellow; Glucose Urine UA Negative (Negative); Leukocyte Esterase Urine Trace (Negative); Nitrite Urine Negative (Negative); UMIC TRIGGER UACC YES; Urine Blood Negative (Negative); Urine Ketones Negative (Negative); Urine Protein Trace mg/dL (Neg-Trace)
[2024-12-02 12:19] LABS: Bacteria Urine None Seen (None Seen); Hyaline Casts Urine 0-2 /LPF (0-2); RBC Urine 0-2 /HPF (0-2); Squamous Epithelial Cell Urine 0-2 /HPF (0-2); WBC Urine 0-5 /HPF (0-5)
[2024-12-02 12:24] LABS: Basophils Absolute Auto 0.1 X10*3/uL (0.0-0.2); Basophils Percent Auto 0.4 % (0-2); Eosinophils Percent Auto 0.2 % (0-4); Hematocrit 35.8 % (37.0-47.0); Hemoglobin 12.2 g/dl (12.0-16.0); Imm Gran Abs Auto 0.07 X10*3/uL (0.00-0.03); Imm Gran Pct Auto 0.5 % (0.0-0.4); Lymphocytes Absolute Auto 1.1 X10*3/uL (1.2-4.9); Lymphocytes Percent Auto 7.9 % (20-40); Mean Corpuscular HGB Conc 34.1 g/dl (31.0-35.0); Mean Corpuscular Hemoglobin 29.6 pg (27.0-33.0); Mean Corpuscular Volume 86.9 fL (80.0-98.0); Mean Platelet Volume 8.9 fL (9.4-12.3); Monocytes Percent Auto 7.5 % (2-11); Neutrophils Absolute Auto 11.5 x10*3/uL (2.0-8.3); Neutrophils Percent Auto 83.5 % (45-73); Platelet Count 492 X10*3/uL (160-400); Red Blood Count 4.12 X10*6/uL (4.20-5.50); Red Cell Distribution Width 12.1 % (11.0-16.0); White Blood Count 13.7 X10*3/uL (4.8-10.8)
[2024-12-02 12:37] LABS: Alanine Aminotransferase 74 U/L (0-31); Albumin Level 3.6 g/dL (3.5-5.0); Alkaline Phosphatase 107 U/L (39-117); Anion Gap 11 (12-20); Aspartate Amino Transferase 33 U/L (5-31); Bilirubin Direct 0.4 mg/dL (0.0-0.5); Bilirubin Total 0.8 mg/dL (0.0-1.0); Blood Urea Nitrogen 8 mg/dL (9-16); Calcium 8.9 mg/dL (8.4-10.2); Carbon Dioxide 24 mmol/L (22-29); Chloride 100 mmol/L (96-108); Creatinine Clr Calc Pharmacy 78.1; Estimated Glomerular Filt Rate > 60; Glucose Random 134 mg/dL (60-115); Lipase 10 U/L (8-78); Potassium 3.5 mmol/L (3.3-5.1); Sodium 131 mmol/L (135-145); Total Protein 6.6 g/dL (6.5-8.0)
--- NOTE | 2024-12-02 14:00 | PC.NURSE ---
Patient is a 64 yo female who presents with multiple complaints over the past several weeks, including abdominal bloating and gas, fatigue, body aches, intermittent palpitations, and feeling unwell. PMH: Tubular adenoma of colon, Nicotine dependence, cigarettes, uncomplicated Chronic bronchiolitis, Has daytime drowsiness, Pulmonary nodules, Chronic bronchitis, and Asthma. Patient alert and oriented. quality assurance monitor final applied and NSR noted. Lungs essentially clear but decreased in the right base. Respirations even and non-labored. Abdomen soft, sl distended with positive bowel sounds. No tenderness noted. Positive pedal pulses with no edema.
[2024-12-02 14:17] LABS: B Type Natriuretic Peptide 138 pg/mL (<100)
--- NOTE | 2024-12-02 14:23 | PC.NURSE ---
Patient noted to have a non-sustained run of rapid afib in the 150's to 170's. Denies any chest pain or sob. Blood pressure stable.
--- OUTSIDE RECORDS SUMMARY | 2024-12-02 14:23 | XMS_ITS ---
Author Organization [facility] Address [address] [place] [id number] Care Team Providers Care Geriatric Physician Name Role Phone Alisson Story Primary Care Provider Unavailab Igor Rubi Jr Unavailable REASON FOR VISIT Labs/x-ray Problems Problem Type SNOMED Code ICD Code Onset Dates Problem Status W/U Status Risk Notes Problem Elevated liver enzymes level (338518460) Elevated LFTs (R79.89) Active confirmed Problem Gastrointestinal tract problem (932722586) Abn findings-GI tract (R93.3) Active confirmed Problem Anemia (D64.9) Active confirmed Encounters Encounter Location Date Provider Diagnosis [facility] [address] [place] [id number] 11/30/2024 Igor Lozada Jr Elevated LFTs R79.89 ; Abn findings-GI tract R93.3 and Anemia D64.9 Assessments Encounter Date Diagnosis (ICD Code) Assessment Notes Treatment Notes Treatment Clinical Notes Section Notes 11/30/2024 Elevated LFTs (ICD-10 - R79.89) 11/30/2024 Abn findings-GI tract (ICD-10 - R93.3) 11/30/2024 Anemia (ICD-10 - D64.9) Plan Of Treatment Pending Test Test Name Order Date CT ABD & PELVIS WITH CONTRAST 11/30/2024 Progress Notes * NAVEED PETERSOB:[birth year] (64 yo F)Acc No.[id number]:11/30/2024 Patient:?KAROL PETERS :1960???Age:64 Y???Sex:Female Address:[facility], [address] Subjective: * Chief Complaints: * ???Labs/x-ray * Medical History:? * Surgical History:? * Hospitalization/Major Diagno stic Procedure:? * Medications:? Objective: * Vitals:? * Physical Examination:? Assessment: * Assessment: 1.?Elevated LFTs - R79.89 (P rimary)???2.?Abn findings-GI tract - R93.3???3.?Anemia - D64.9??? Plan: * Treatment: 2.?Abn findings-GI tract?Imaging: CT ABD & PELVIS WITH CONTRAST* 3.?Anemia?Imaging: CT ABD & PELVIS WITH CONTRAST* * Procedure Codes:? * true * Date:? Generated for Matty moyer/Brittany/Clintonsmitting on:?12/02/2024 02:23 PM EDT
--- OUTSIDE RECORDS SUMMARY | 2024-12-02 14:24 | XMS_ITS | Clinical Summary ---
Author Organization [employer] Address [address] [place] [address] Care Team Providers Care Connection Worker Name Role Phone Unavailable Primary Care Provider [...] EVERY 4 HOURS NEEDED 18 g 3 11/02/2024 Active Active Problems Problem Noted Date Diagnosed [...] None. Categorization based on Lung-RADS 2022 criteria. [email or web address] WSN: [id number] Ordering Physician: Alisson Oliva Dictated By: Angel [...] done at end of June 2023 at [facility]. Routine general medical exam ination at a health care facility 12/11/2022 Overview (12/15/2023): CPE done 12/15/23. HEALTH CARE MAINTENANCE: Colonoscopy (age 45-75): Dr. Luis - [facility]. Due for cscope. Has to go to [place] due to insurance. Wants to go to [place]. Has every 3 years - multiple benign polyps (tubular adenomas). Mammogram (age 40-74): Done 11/2023 - waiting for results. AAA Screen (Fam Hx AAA): No family hx. LDCT (smoke >30 pack year, age 55-80): Engaged with pulm - has routine screens. DEXA (age 61 with RF, age 66): Has Osteopenia - had scan at [facility]. Last done 08/2022. PRINTER SLOTTER FEEDER: Outside PRINTER SLOTTER FEEDER: Dr. Newell LMP: Menopause . Last PAP [...] Was advised by PT to go to Dental Technician Instructor - would like to see Sunita Ferguson at [place]. We will send referral. Discussed pain management including piriformis stretches and ibuprofen. Assessment & Plan (02/06/2023 8:51 AM EDT): Son is college athletic director and has been giving her suggestions. Is [...] from the original note were not included. [facility] Engaged with pulmonology - Isael Cortez. [...] cervicovaginal cytologic smear 10/16/2022 Overview (12/24/2023): Has PRINTER SLOTTER FEEDER - Dr. Newell who is following. 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 Not on file [...] 01/26/2025 8:30 AM EDT Office Visit [place] [facility] D[facility] [address] [place] [address] Tammy Trivedi Health Maintenance Due Date Last [...] Hm Colonoscopy (05/31/2024 10:08 AM EST) Alisson CRP HEALTH MAINTENANCE Final Result * BI Mammogram Screening Tomosynthesis Bilateral (12/10/2023 10:05 AM EDT) Anatomical Region Laterality Modality Breast Bilateral Mammography Alisson Oliva [facility] IM BI PROCEDURES Final Result * CT Lung Screening Low dose (12/09/2023) Anatomical Region Laterality Modality Lung Computed Tomogra phy Alisson Oliva [facility] CT PROCEDURES Final Result * HIV Antibody/Antigen, 4th Generation (04/23/2023 9:57 AM EDT) Result 4th Gen HIV Antibody Antigen NEGATIVE (NEG) [facility] Comment: Negative for antibodies to HIV 1 and HIV 2 and P24 antigen. Reference range: Negative Additional note: Written patient authorization is required for each separate release of this test result. This test was performed on the [employer] Atmospheric Drier Tender immunoassay system. Testing performed or reported by [facility], a Service of [facility], [facility] Loni Johnson, [place] [address] Jong Lou MD, Size Marker [facility]# [id number] Blood 04/23/2023 9:57 AM EDT 04/23/2023 10:41 AM EDT Alisson CRP LAB BLOOD ORDERABLES Final Resul t [facility] [address] [place] [address] * Hepatits C Antibody w/Reflex HCV Quant PCR and Genotyping (04/23/2023 9:57 AM EDT) Hepatitis C Virus Ab, Serum NEGATIVE (NEG) [facility] Comment: Reference range: Negative This test was performed on the [place] Atmospheric Drier Tender immunoassay system. Testing performed or reported by [facility], a Service of [facility], [address] [place] [address] [place] [address] Jong Lou MD, Size Marker CLIA# [id number] 04/23/2023 9:57 AM EDT 04/23/2023 10:41 AM EDT Alisson Oliva [facility] LAB BLOOD ORDERABLES Final Resul t Performing Organization Address [facility] de Phone Number [facility] [address] [place] [address] * (ABNORMAL) Lipid panel (04/23/2023 9:57 AM EDT) Pathologist [facility] Cholesterol, Total 225(H) (<200) MG/DL [facility] Triglyceride (mg/dL) in Serum/Plasma 97 (<150) MG/DL [facility] HDL Cholesterol 56 (>39) MG/DL [facility] LDL Cholesterol, Calculated 150(H) (0-130) MG/DL [facility] Non HDL Chol. (LDL+VLDL) 169(H) (<160) MG/DL [facility] Comment: Testing performed or reported by [facility], a Service of [facility], [address] [place] [address] Jong Lou MD, Size Marker CLIA# [id number] Blood Venous blood specimen / Unknown 04/23/2023 9:57 AM EDT 04/23/2023 10:41 AM EDT Alisson Oliva [facility] LAB BLOOD ORDERABLES Final Resul t Performing Organization Address [facility] Co de Phone Number [facility] [address] [place] [address] * HM PAP/HPV (11/05/2022 10:22 AM EDT) Alisson Oliva CHLORINATION OPERATOR HEALTH MAINTENANCE Final Result from Last 3 Months or Most Recently Relevant to Health Maintenance Insurance [employer]
--- OUTSIDE RECORDS SUMMARY | 2024-12-02 14:24 | XMS_ITS ---
Author Organization [facility] Address [address] [place] [address] Care Team Providers Care Senior Web Developer Name Role Phone Alisson Story Primary Care Provider UnavailIgor Marcial Jr [phone] REASON FOR VISIT pathology Encounters Encounter Location Date Provider Diagnosis [facility] [address] [place] [address] 06/02/2024 Igor Lozada Jr Plan Of Treatment No Information Progress Notes * NAVEED PETERSOB:[birth year] (64 yo F)Acc No.[id number]:06/02/2024 Patient:?KAROL PETERS :1960???Age:64 Y???Sex:Female Address:[address], [place], [address] * true * Date:? Generated for Radhai comfort/Brittany/eTransmitting on:?12/02/2024 02:24 PM EDT
--- OUTSIDE RECORDS SUMMARY | 2024-12-02 14:24 | XMS_ITS | Patient Health Record ---
Author Organization [facility] Address [address] [place] [address] Care Team Providers Care Senior Science Consultant Name Role Phone Alisson Story Primary Care Provider Igor Sommer Jr Unavailable [phone] Allergies Allergen (clinical drug ingredient) Drug/Non Drug Allergy documented on EMR Reaction Allergy Type Onset Date Status Eucalyptus Unknown Drug Allergy Active sulfamethoxazole / trimethoprim Bactrim Unknown Drug Allergy Active patchouli plant (uncoded) Unknown Allergy Active citrace spray (uncoded) Unknown Allergy Active citronella (uncoded) Unknown Allergy Active Penicillin Unknown Drug Allergy Active Results Component Value Reference Range Notes XR abdomen min 2V Reviewed date:11/30/2024 08:53:14 AM Interpretation: Performing Lab: Notes/Report: [address] [address] XRay Report Signed Patient: Lilian Peters MR#: [id number] : 1960 Acct:[id number] Age/Sex: 64 / F ADM Date: 11/29/24 Loc: HO.XRAY Attending Dr: Igor Lozada MD Ordering Physician: Igor Lozada MD Date of Service: 11/29/24 Procedure(s): XR abdomen min 2V Accession Number(s): [id number] cc: Igor Lozada MD; Physician,Unknown EXAMINATION: XR ABDOMEN 2 VIEWS SUPINE ERECT HISTORY: GAS PAIN COMPARISON: There are no prior studies for comparison. FINDINGS: Three supine views of the abdomen are submitted. There is a moderate amount of gas in the stomach. The bowel gas pattern is otherwise unremarkable. No abnormal calcifications are identified. There are no abnormal soft tissue masses. There is degenerative disc disease of the lower lumbar spine. XR/XR abdomen min 2V IMPRESSION: Moderate gaseous distention of the stomach. Electronically signed by: Antione Clinton MD 11/30/2024 07:31 AM EDT RP Dictated By: Antione Clinton MD Signed By: <Electronically signed by Antione Clinton MD in OV> 11/30/24730 DD/ 1552 TD/TT: 11/29/24 1604 Phonograph Mechanic: [place] [id number] XRay Report Signed Patient: Lilian Peters MR#: [id number] : 1960 Acct:[id number] Age/Sex: 64 / F ADM Date: 11/29/24 Loc: HO.XRAY Attending Dr: Kirit Lozada MD Ordering Physician: Igor Lozada MD Date of Service: 11/29/24 Procedure(s): XR abdomen min 2V Accession Number(s): [id number] cc: Igor Lozada MD; Physician,Unknown EXAMINATION: XR ABDO MEN 2 VIEWS SUPINE ERECT HISTORY: GAS PAIN COMPARISON: There ar e no prior studies for comparison. FINDINGS: Three supi ne views of the abdomen are submitted. There is a moderate amount of gas in the stomach. The bowel gas pattern is otherwise unremarkab le. No abnormal calcifications are identified. There are no abnorma l soft tissue masses. There is degenerative disc disease of the lower lumbar spine. XR/XR abdomen min 2V IMPRESSION: Moderate gaseous distention of the stomach. Electronically giovanni d by: Antione Clinton MD 11/30/2024 07:31 AM EDT RP Dictated By: Antione Clinton MD Signed By: <Electronically signed by Antione Clinton MD in OV> 11/30/24730 DD/ 1552 TD/TT: 11/29/24 1604 Phonograph Mechanic: Pathology Reviewed date:06/02/2024 10:06:52 AM Interpretation: Performing Lab:[facility], [address] [facility], [place] [address] Notes/Report: --- Name: Owen Peters rylan Age/Sex: 64/F : 1960 Unit#: [id number] Attend Dr: Igor Lozada MD Re05/31/24 Status : [facility] Location: [facility] Disch: --- SPEC : [id number] RECD : 05/31/24 STATUS: BERNARDO JAY NUM: [id number] POPPY: 05/31/24 [facility] DR: Igor Lozada MD ENTERED: 05/31/24 SP TYPE: Surgical OTHR DR: ORDERED: HE Stain/3, Gross Micro L4 Diagnosis Rectum, polypectomy: Tubular adenoma; negative for high-grade dysplasia or carcinoma. Clinical History Pre-Op Dx: Screening Post-Op Dx: Colon polyp Microscopic Description Microscopic sections reviewed. Material Received Rectal polyp Gross Description Received in formalin labeled ?rectal polyp? are 2 barrow-martino and martino-pink irregular and papular tissue fragments measuring 0.3 and 0.45 cm, submitted in toto in a cassette labeled AJasmine GUTIERREZ --- Signed (signature on file) Ángel Marcos MD 06/01/24 1235 --- END OF REPORT Complete Blood Count Auto Di ff Reviewed date:11/30/2024 08:52:46 AM Interpretation: Performing Lab:[facility], [address] [place] [phone] Notes/Report: White Blood Count 13.5 4.8-10.8 X10*3/uL Red Blood Count 4.02 4.20-5.50 X10*6/uL Hemoglobin 12.1 12.0-16.0 g/dl Hematocrit 35.5 37.0-47.0 % Mean Corpuscular Volume 88.3 80.0-98.0 fL Mean Corpuscular Hemoglobin 30.1 27.0-33.0 pg Mean Corpuscular HGB Conc 34.1 31.0-35.0 g/dl Red Cell Distribution Width 12.2 11.0-16.0 % Platelet Count 461 160-400 X10*3/uL Mean Platelet Volume 8.8 9.4-12.3 fL Neutrophils Percent Auto 80.4 45-73 % Imm Gran Pct Auto 0.4 0.0-0.4 % Lymphocytes Percent Auto 11.8 20-40 % Monocytes Percent Auto 6.4 2-11 % Eosinophils Percent Auto 0.6 0-4 % Basophils Percent Auto 0.4 0-2 % NRBC Pct Auto 0.0 0.0-0.2 /100WBC Neutrophils Absolute Auto 10.9 2.0-8.3 x10*3/u L Imm Gran Abs Auto 0.06 0.00-0.03 X10*3/uL Lymphocytes Absolute Auto 1.6 1.2-4.9 X10*3/u L Monocytes Absolute Auto 0.9 0.1-1.2 X10*3/uL Eosinophils Absolute Auto 0.1 0.0-0.4 X10*3/u L Basophils Absolute Auto 0.1 0.0-0.2 X10*3/uL NRBC Abs Auto 0.000 0.0-0.012 X10*3/uL Erythrocyte Sedimentation Ra te Reviewed date:11/30/2024 08:52:39 AM Interpretation: Performing Lab:[address] [address] Notes/Report: Erythrocyte Sedimentation Rate 28 0-20 MM/HR Patients with polycythemia and many hemoglobin abnormalities may have depressed sed rates whereas patients with anemia may have elevated sed rates. Liver Panel Reviewed date:11/30/2024 08:52:08 AM Interpretation: Performing Lab:[address] [address] Notes/Report: Bilirubin Total 0.8 0.0-1.0 mg/dL Bilirubin Direct 0.3 0.0-0.5 mg/dL Aspartate Amino Transferase 65 5-31 U/L Alanine Aminotransferase 128 0-31 U/L Total Protein 6.6 6.5-8.0 g/dL Albumin Level 3.9 3.5-5.0 g/dL Alkaline Phosphatase 115 39-117 U/L Lipase Reviewed date:11/30/2024 08:52:05 AM Interpretation: Performing Lab:[address] [address] Notes/Report: Lipase 20 8-78 U/L TSH reflex Free T4 Reviewed date:11/30/2024 08:51:52 AM Interpretation: Performing Lab:[address] [address] Notes/Report: TSH reflex Free T4 1.31 0.32-4.0 uIU/mL Reason For Referral No Information Medications Medication SIG (Take, Route, Frequency, Duration) Notes Start Date End Date Status MiraLax (colon prep) 17 GM/SCOOP mixed with Gatorade or Crystal Light Orally begin at 5:00 p.m. the day before the procedure for 1 day 04/14/2024 Active ibuprofen Not-Taking Albuterol Sulfate HFA 108 (90 Base) MCG/ACT Inhalation for 17 A ctive Gilberto Ellipta 100-62.5-25 MCG/ACT Inhalation for 30 Act [...] Problem Status W/U Status Risk Notes Problem Abdominal bloating (463164713) Abdominal bloating (787.3) Active confirmed Problem 309739122 Special screening for malignant neoplasms, colon (Z12.11) Active confirmed Problem Eructation (47016637) Eructation (R14.2) Active confirmed Problem Elevated liver enzymes level (681608767) Elevated LFTs (R79.89) Active confirmed Problem Altered bowel function (52723545) Change in bowel function (R19.4) Active confirmed Problem Anemia (533626264) Anemia (D64.9) Active confir med Problem 08844736 Constipation, unspecified constipation type (K59.00) Active confirmed Problem Gastrointestinal tract problem (923687888) Abn findings-GI tract (R93.3) Active confirmed Problem Abdominal gas pain (R14.1) Active confirmed Vital Signs Blood pressure diastolic 00 mm Hg 04/14/2024 Height 5 ft 4 in in 04/14/2024 Blood pressure systolic 00 mm Hg 04/14/2024 Weight 152 lbs 04/14/2024 BMI 26.09 kg/m2 04/14/2024 Encounters Encounter Location Date Provider Diagnosis [facility] Outpatient [address] [place] [id number] 05/31/2024 Igor Lozada Jr Colon cancer screening Z12.11 and Colon polyps K63.5 [facility] [address] [place] [phone] 04/14/2024 Igor Lozada Jr Special screening for malignant neoplasms, colon Z12.11 and Constipation, unspecified constipation type K59.00 [facility] [address] [place] [address] 06/02/2024 Igor Lozada Jr [facility] [address] [place] [phone] 11/29/2024 Igor Lozada Jr Change in bowel function R19.4 ; Abdominal gas pain R14.1 ; Abdominal bloating 787.3 and Eructation R14.2 [facility] [address] [place] [phone] 11/30/2024 Igor Lozada Jr Elevated LFTs R79.89 [...] risks and benefits and agrees to proceed. 11/29/2024 Change in bowel function (ICD-10 - R19.4) 11/29/2024 Abdominal gas pain (ICD-10 - R14.1) 11/30/2024 Elevated LFTs (ICD-10 - R79.89) 11/30/2024 Abn findings-GI tract (ICD-10 - R93.3) 11/29/2024 Abdominal bloating (ICD9-CM - 787.3) 11/30/2024 Anemia (ICD-10 - D64.9) 11/29/2024 Eructation (ICD-10 - R14.2) Plan Of Treatment Pending Test Test Name Order Date LIVER PROFILE 11/29/2024 LIPASE 11/29/2024 CBC w/o DIFF 11/29/2024 CT ABD & PELVIS WITH CONTRAST 11/30/2024 TSH REFLEX FREE T4 11/29/2024 Future Test Test Name Order Date COLONOSCOPY 04/14/2024 Insurance Providers Payer Name Payer Address Payer Phone Subscriber Number Group Number Insured Name Patient Relationship to Insured Coverage Start Date Coverage End Date [employer] [place] [address] [address] [place] [address] [id number] LILIAN DON Self - patient is the insured Medical (General) History Medical History History ICD Code environmental allergies asthma Surgical History Surgery Date(Month/Year) lipoma fatty left breast superficial 198 3 tubal ligation
--- OUTSIDE RECORDS SUMMARY | 2024-12-02 14:24 | XMS_ITS | Encounter Summary ---
Author Organization [employer] Address [address] [place] [address] Care Team Providers Care Medical Staff Assistant Name Role Phone Alisson Oliva Primary Care [...] Description 01/26/2025 8:30 AM EDT Office Visit [place] [facility] D[facility] [address] [place] [address] Tammy Trivedi documented as of this encounter Visit Diagnoses Not on filedocumented in this encounter Care Teams Medical Staff Assistant Relationship Specialty Start Date End Date Alisson Oliva FNP [address] [place] [address] PCP - General Family Medicine 10/16/22 11/22/24 Inactive/Transferred PCP - General 11/23/24 11/23/24 documented as of this encounter
--- OUTSIDE RECORDS SUMMARY | 2024-12-02 14:24 | XMS_ITS | Encounter Summary ---
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 Not on file Not on file Not on file documented as of this encounter Plan of Treatment Upcoming Encounters Date Type Department Care Team (Late st Contact Info) Description 01/26/2025 8:30 AM EDT Office Visit [place] [facility] [address] [place] [address] Tammy Trivedi documented as of this encounter [...] on filedocumented in this encounter Care Teams Stunner And Shackler Relationship Specialty Start Date End Date Alisson Oliva FNP [address] [place] [address] PCP - General Family Medicine 10/16/22 11/22/24 Inactive/Transferred PCP - General 11/23/24 11/23/24 documented as of this encounter
--- OUTSIDE RECORDS SUMMARY | 2024-12-02 14:24 | XMS_ITS | Encounter Summary ---
Author Organization [employer] Address [address] [place] [address] Care Team Providers Care Picked Edge Sewing Machine Operator Name Role Phone Alisson Oliva Primary Care Provider [phone] Inactive/Transferred Primary Care Provider Unava ilable Encounter [...] Description 01/26/2025 8:30 AM EDT Office Visit [place] [facility] [address] [place] [address] Tammy Trivedi documented as of this encounter Visit Diagnoses Not on filedocumented in this encounter Care Teams Picked Edge Sewing Machine Operator Relationship Specialty Start Date End Date Alisson Oliva FNP [address] [place] [address] PCP - General Family Medicine 10/16/22 11/22/24 Inactive/Transferred PCP - General 11/23/24 11/23/24 documented as of this encounter
--- OUTSIDE RECORDS SUMMARY | 2024-12-02 14:24 | XMS_ITS | Encounter Summary ---
Author Organization [employer] Address [address] [place] [address] Care Team Providers Care Face Worker Name Role Phone Alisson Oliva Primary Care Provider [phone] Inactive/Transferred Primary Care Provider Unava ilable Encounter [...] Description 01/26/2025 8:30 AM EDT Office Visit [place] [facility] [address] [place] [address] Tammy Trivedi documented as of this encounter Visit Diagnoses Not on filedocumented in this encounter Care Teams Face Worker Relationship Specialty Start Date End Date Alisson Oliva FNP [address] [place] [address] PCP - General Family Medicine 10/16/22 11/22/24 Inactive/Transferred PCP - General 11/23/24 11/23/24 documented as of this encounter
--- OUTSIDE RECORDS SUMMARY | 2024-12-02 14:24 | XMS_ITS | Encounter Summary ---
Author Organization [employer] Address [address] [address] [facility] [address] [address] [place] [address] Care Team Providers Care Small Electric Engine Technician Name Role Phone Alisson Oliva Primary Care Provider [phone] Inactive/Transferred Primary Care Provider Unava ilable Encounter [...] Description 01/26/2025 8:30 AM EDT Office Visit [place] [facility] [address] [place] [address] Tammy Trivedi documented as of this encounter Visit Diagnoses Not on filedocumented in this encounter Care Teams Small Electric Engine Technician Relationship Specialty Start Date End Date Alisson Oliva FNP [address] [place] [address] PCP - General Family Medicine 10/16/22 11/22/24 Inactive/Transferred PCP - General 11/23/24 11/23/24 documented as of this encounter
--- OUTSIDE RECORDS SUMMARY | 2024-12-02 14:24 | XMS_ITS | Encounter Summary ---
Author Organization [employer] Address [address] [place] [address] Care Team Providers Care Sausage Tier Name Role Phone Alisson Oliva Primary Care Provider [phone] Inactive/Transferred Primary Care Provider Unava ilable Encounter [...] Description 01/26/2025 8:30 AM EDT Office Visit [place] [facility] D[facility] [address] [place] [address] Tammy Trivedi documented as of this encounter Visit Diagnoses Not on filedocumented in this encounter Care Teams Sausage Tier Relationship Specialty Start Date End Date Alisson Oliva FNP [address] [facility] [place] [address] PCP - General Family Medicine 10/16/22 11/22/24 Inactive/Transferred PCP - General 11/23/24 11/23/24 documented as of this encounter
--- OUTSIDE RECORDS SUMMARY | 2024-12-02 14:24 | XMS_ITS | Encounter Summary ---
Author Organization [employer] Address [address] [place] [address] Care Team Providers Care Saw Handle Assembler Name Role Phone Alisson Oliva Primary [...] Description 01/26/2025 8:30 AM EDT Office Visit [place] [facility] D[facility] [address] [place] [address] Tammy Trivedi documented as of this encounter Visit Diagnoses Not on filedocumented in this encounter Care Teams Saw Handle Assembler Relationship Specialty Start Date End Date Alisson Oliva FNP [address] [place] [address] PCP - General Family Medicine 10/16/22 11/22/24 Inactive/Transferred PCP - General 11/23/24 11/23/24 documented as of this encounter
--- OUTSIDE RECORDS SUMMARY | 2024-12-02 14:24 | XMS_ITS | Encounter Summary ---
Author Organization [employer] Address 75 [facility] 7 [place] [address] Care Team Providers Care Radiator Repairer Name Role Phone Alisson Oliva Primary Care Provider [phone] Inactive/Transferred Primary Care Provider Unava ilable Encounter [...] Description 01/26/2025 8:30 AM EDT Office Visit [place] [facility] [address] [place] [address] Tammy Trivedi documented as of this encounter Visit Diagnoses Not on filedocumented in this encounter Care Teams Radiator Repairer Relationship Specialty Start Date End Date Alisson Oliva FNP [address] [place] [address] PCP - General Family Medicine 10/16/22 11/22/24 Inactive/Transferred PCP - General 11/23/24 11/23/24 documented as of this encounter
--- OUTSIDE RECORDS SUMMARY | 2024-12-02 14:24 | XMS_ITS | Encounter Summary ---
Author Organization [employer] Address 75 [facility] 7t [place] [address] Care Team Providers Care Sleep Manager Name Role Phone HazelAlisson FILING WRITER Primary Care Provider [phone] Inactive/Transferred Primary Care Provider Unava ilable Encounter Details Date Type Department Care Team (Late st Contact Info) Description 10/16/2022 Abstract [facility][1] MEDICAL [address] [place] [address] Alisson Oliva FNP [address] [place] [address] Social History Tobacco Use Types Packs/Day Years [...] Description 01/26/2025 8:30 AM EDT Office Visit [facility][1] DENTAL [address] [place] [address] Trivedi, Tammy documented as of this encounter Procedures Procedure Name Priority Date/Time Associated Diagnosis Comments COLONOSCOPY Routine 10/01/2020 MAMMOGRAPHY Routine 09/20/2019 HEMOGLOBIN A1C Routine 03/10/2019 LIPID PANEL, STANDARD Routine 03/10/2019 documented in this encounter Results * Colonoscopy (10/01/2020) [facility] Colonoscopy Normal Normal Comment:poyp removal, divert icula repeat 3-5 years [facility] Provider MD HEALTH MAINTENANCE Final Result * Mammography (09/20/2019) [facility] Mammogram Neg - annual exam - very dense breasts Anatomical Region Laterality Modality Other [facility] Provider HEALTH MAINTENANCE Final Result * Hemoglobin A1c (03/10/2019) [facility] Hemoglobin A1C 5.4 4.0 - 6.0 % Blood Venous blood specimen / Unknown [facility] Provider LAB BLOOD ORDERABLES Sarah l Result * (ABNORMAL) Lipid Panel, Standard (03/10/2019) [facility] Triglycerides 128 40 - 160 mg/dL Cholesterol 201(A) 0 - 200 mg/dL HDL Cholesterol 45 35 - 70 mg/dL LDL Cholesterol 130 mg/dL Blood Venous blood specimen / Unknown [facility] Provider LAB BLOOD ORDERABLES Sarah l Result documented in this encounter Visit Diagnoses Not on filedocumented in this encounter Care Teams Sleep Manager Relationship Specialty Start Date End Date Alisson Oliva FNP [address] [place] [address] PCP - General Family Medicine 10/16/22 11/22/24 Inactive/Transferred PCP - General 11/23/24 11/23/24 documented as of this encounter
--- OUTSIDE RECORDS SUMMARY | 2024-12-02 14:24 | XMS_ITS ---
Author Organization [facility] Address [address] [place] [address] Care Team Providers Care Staff Radiographer Name Role Phone Alisson Story Primary Care Provider UnavailIgor Marcial Jr Unavailable Results Component Value Reference Range Notes XR abdomen min 2V Reviewed date:11/30/2024 08:53:14 AM Interpretation: Performing Lab: Notes/Report: [facility] [address] [place] [address] XRay Report Signed Patient: Lilian Peters MR#: [id number] : 1960 Acct:[id number] Age/Sex: 64 / F ADM Date: 11/29/24 Loc: HO.XRAY Attending Dr: Igor Lozada MD Ordering Physician: Igor Lozada MD Date of Service: 11/29/24 Procedure(s): XR abdomen min 2V Accession Number(s): [id number] cc: Igor Lozada MD; Physician,Unknown EXAMINATION: XR [...] Antione Clinton MD in OV> 11/30/24730 DD/ 155 TD/TT: 11/29/24 1604 Medical Associate: [place] [address] XRay Report Signed Patient: Milan Peters MR#: [id number] : 1960 Acct:[id number] Age/Sex: 64 / F ADM Date: 11/29/24 Loc: HO.XRAY Attending Dr: Kirit Lozada MD Ordering Physician: Igor Lozada MD Date of Service: 11/29/24 Procedure(s): XR abdomen min 2V Accession Number(s): [id number] cc: Igor Lozada MD; Physician,Unknown EXAMINATION: XR [...] disc disease of the lower lumbar spine. X R/XR abdomen min 2V IMPRESSION: Moderate gaseous dis tention of the stomach. Electronically giovanni d by: Antione Clinton MD 11/30/2024 07:31 AM EDT RP Dictated By: Antione Clinton MD Signed By: <Electron jerry signed by Antione Clinton MD in OV> 11/30/24 0731 DD/ 155 TD/TT: 11/29/24 1604 Medical Associate: REASON FOR VISIT issues Problems Problem Type SNOMED Code ICD Code Onset Dates Problem Status W/U Status Risk Notes Problem Altered bowel function (96260540) Change in bowel function (R19.4) Active confirmed Problem Flatulence, eructation and gas pain (709184242) Abdominal gas pain (R14.1) Active confirmed Problem Abdominal bloating (445672985) Abdominal bloating (787.3) Active confirmed Problem Eructation (48509460) Eructation (R14.2) Active confirmed Encounters Encounter Location Date Provider Diagnosis [facility] [address] [place] [address] 11/29/2024 Igor Lozada Jr Change in bowel function R19.4 ; Abdominal gas pain R14.1 ; Abdominal bloating 787.3 and Eructation R14.2 Assessments Encounter Date Diagnosis (ICD Code) Assessment Notes Treatment Notes Treatment Clinical Notes Section Notes 11/29/2024 Change in bowel function (ICD-10 - R19.4) 11/29/2024 Abdominal gas pain (ICD-10 - R14.1) 11/29/2024 Abdominal bloating (ICD9-CM - 787.3) 11/29/2024 Eructation (ICD-10 - R14.2) Plan Of Treatment Pending Test Test Name Order Date LIVER PROFILE 11/29/2024 LIPASE 11/29/2024 CBC w/o DIFF 11/29/2024 TSH REFLEX FREE T4 11/29/2024 Progress Notes * NAVEED PETERSOB:[birth year] (64 yo F)Acc No.[id number]:11/29/2024 Patient:?LILIAN PETERS :1960???Age:64 Y???Sex:Female Address:[place] [address], [place], [address] Subjective: * Chief Complaints: * ???Issues * Medical History:? * Surgical History:? * Hospitalization/Major Diagno stic Procedure:? * Medications:? Objective: * Vitals:? * Physical Examination:? Assessment: * Assessment: 1.?Change in bowel function - R19.4 (Primary)???2.?Abdominal gas pain - R14.1???3.?Abdominal bloating - 787.3???4.?Eructation - R14.2??? Plan: * Treatment: 2.?Abdominal gas pain?LAB: LIVER PROFILE ?LAB: LIPASE ?LAB: CBC w/o DIFF ?LAB: TSH REFLEX FREE T4 ?Imaging: XR abdomen min 2V* 3.?Abdominal bloating?LAB: LIVER PROFILE ?LAB: LIPASE ?LAB: CBC w/o DIFF ?LAB: TSH REFLEX FREE T4 ?Imaging: XR abdomen min 2V* 4.?Eructation?LAB: LIVER PROFILE ?LAB: LIPASE ?LAB: CBC w/o DIFF ?LAB: TSH REFLEX FREE T4 ?Imaging: XR abdomen min 2V* * Procedure Codes:? * true * Date:? Generated for Matty moyer/Brittany/Flip on:?12/02/2024 02:23 PM EDT
--- OUTSIDE RECORDS SUMMARY | 2024-12-02 14:24 | XMS_ITS | Encounter Summary ---
Author Organization [employer] Address [address] 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 Not on file Not on file documented as of this encounter Plan of Treatment Upcoming Encounters Date Type Department Care Team (Late st Contact Info) Description 01/26/2025 8:30 AM EDT Office Visit [place] [facility] [address] [place] [address] Tammy Trivedi documented as of this encounter Procedures Procedure Name Priority Date/Time Associated Diagnosis Comments HM PAP/HPV Routine 11/05/2022 10:22 AM EDT documented in this encounter Results * HM PAP/HPV (11/05/2022 10:22 AM EDT) Alisson [facility] MAINTENA[facility]CE Final Result documented in this encounter Visit Diagnoses Not on filedocumented in this encounter Care Teams Nurse Researcher Relationship Specialty Start Date End Date Alisson Oliva FNP [address] [place] [address] PCP - General Family Medicine 10/16/22 11/22/24 Inactive/Transferred PCP - General 11/23/24 11/23/24 documented as of this encounter
--- OUTSIDE RECORDS SUMMARY | 2024-12-02 14:24 | XMS_ITS | Encounter Summary ---
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
--- OUTSIDE RECORDS SUMMARY | 2024-12-02 14:24 | XMS_ITS | Encounter Summary ---
Author Organization [employer] Address 75 [facility] [address] [place] [address] Care Team Providers Care Ela Teacher Name Role Phone Alisson Oliva Primary Care Provider [phone] Inactive/Transferred Primary Care Provider Unava ilable Encounter [...] Description 01/26/2025 8:30 AM EDT Office Visit [place] [facility] [address] [place] [address] Tammy Trivedi documented as of this encounter Visit Diagnoses Not on filedocumented in this encounter Care Teams Ela Teacher Relationship Specialty Start Date End Date Alisson Oliva FNP 73 [facility] [place] [address] PCP - General Family Medicine 10/16/22 11/22/24 Inactive/Transferred PCP - General 11/23/24 11/23/24 documented as of this encounter
--- OUTSIDE RECORDS SUMMARY | 2024-12-02 14:24 | XMS_ITS | Encounter Summary ---
Author Organization [employer] Address 75 [facility] 7 [place] [address] Care Team Providers Care Block Inspector Name Role Phone Alisson Oliva Primary Care Provider [phone] Inactive/Transferred Primary Care Provider Unava ilable Encounter [...] Description 01/26/2025 8:30 AM EDT Office Visit [place] [facility] D[facility] [address] [place] [address] Tammy Trivedi documented as of this encounter Visit Diagnoses Not on filedocumented in this encounter Care Teams Block Inspector Relationship Specialty Start Date End Date Alisson Oliva FNP [address] [facility] [place] [address] PCP - General Family Medicine 10/16/22 11/22/24 Inactive/Transferred PCP - General 11/23/24 11/23/24 documented as of this encounter
--- OUTSIDE RECORDS SUMMARY | 2024-12-02 14:25 | XMS_ITS | Encounter Summary ---
Author Organization [employer] Address [address] 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 Not on file Not on file documented as of this encounter Plan of Treatment Upcoming Encounters Date Type Department Care Team (Late st Contact Info) Description 01/26/2025 8:30 AM EDT Office Visit [place] [facility] [address] [place] [address] Tammy Trivedi documented as of this encounter Procedures Procedure Name Priority Date/Time Associated Diagnosis Comments HM COLONOSCOPY Routine 05/31/2024 10:08 AM EST documented in this encounter Results * Hm Colonoscopy (05/31/2024 10:08 AM EST) Alisson [facility] MAINTENANCE Final Result documented in this encounter Visit Diagnoses Not on filedocumented in this encounter Care Teams Marine Safety Officer Relationship Specialty Start Date End Date Alisson Oliva FNP [address] [place] [address] PCP - General Family Medicine 10/16/22 11/22/24 Inactive/Transferred PCP - General 11/23/24 11/23/24 documented as of this encounter
--- OUTSIDE RECORDS SUMMARY | 2024-12-02 14:25 | XMS_ITS | Encounter Summary ---
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
--- NOTE | 2024-12-02 14:48 | MHC.EDTECH ---
orthostatic vitals delayed d/t arrhythmia and tachycardia
[2024-12-02] MEDS: dilTIAZem HCL 50 MG/10 ML VIAL 15 MG IVPUSH (14:54)
[2024-12-02 14:58] LABS: Troponin-I High Sensitivity < 2.7 ng/L (<3.5-17.0)
--- NOTE | 2024-12-02 16:03 | CA_ITS ---
Transthoracic Echocardiogram Patient (Last, First, Middle): Lilian Parker, Gender: Female Date of : 1960 Age: 64 Procedure Date: 12/02/2024 Procedure Type: Transthoracic Echocardiogram Location: ER Height: 162.56 cm Weight: 70.31 kg BSA: 1.76 m2 Heart Rate: bpm BP: 115 / 74 mmHg Moulder Operator: Referring MD: Moises Barcenas MD Symptoms: Pericardial effusion on bedside ultrasound, rule out tamponade Study Quality: Adequate ECG Rhythm: Sinus Conclusions: - function is normal. The visually estimated ejection fraction is between 55-60%. - Moderate to large circumferential pericardial effusion noted. There is augmented respiratory variation in mitral inflow, but otherwise no definitive evidence of tamponade physiology. Findings Left Ventricle Normal left ventricular cavity size. There is normal left ventricular wall thickness. The left ventricular systolic function is normal. The visually estimated ejection fraction is between 55-60%. There is no evidence of regional wall motion abnormalities. Diastolic function is normal for age. Right Ventricle Normal right ventricular cavity size and systolic function. Atria Both atria are normal in size. Aortic Valve There is a normal trileaflet aortic valve. There is no aortic valve stenosis. There is no aortic valve regurgitation. Mitral Valve The mitral valve appears normal. There is trace mitral valve regurgitation. There is no mitral valve stenosis. Pulmonic Valve The pulmonic valve is likely normal. Tricuspid Valve There is trace tricuspid valve regurgitation. There is no evidence of pulmonary hypertension. Great Vessels The asc aorta is normal in size. Venous The inferior vena cava is normal in size and collapses greater than 50% with inspiration. Pericardium/Pleural Moderate to large circumferential pericardial effusion noted. There is augmented respiratory variation in mitral inflow, but otherwise no definitive evidence of tamponade physiology. Prior Study Comparison No prior study available for comparison. Measurements 2D Linear Measurements IVSd: 0.82 0.6-0.9/0.6-1.0 cm LVIDd: 3.83 3.9-5.3/4.2-5.9 cm LVIDd Index: 2.18 2.4-3.2/2.2-3.1 cm/m2 LVIDs: 2.79 2.0-3.6 cm LVPWd: 0.87 0.7-1.1 cm Ao Root: 2.90 2.1-3.5 cm LA Diam: 3.40 2.7-3.8/3.0-4.0 cm LAIDs Index: 1.93 1.5-2.3 cm/m2 LV Mass: 116.40 67-162/88-224 g LV Mass Index: 66.14 43-95/49-115 g/m2 LVOT Diam: 1.90 3.0+(-)1.3 cm Mitral Valve MV Pk E: 0.84 MV PK A: 0.79 MV Decel Time: 234.00 E/A: 1.10 E'Lateral: 8.81 E'Medial: 10.00 E/E' Med: 8.40 E/E' Lat: 9.50 PHT: 68.00 MVA PHT: 3.24 Decel [place]: 3.58 Aortic Valve AoV Pk Gregor: 1.66 AoV Mn Gregor: 0.99 AoV VTI: 0.34 AoV Pk Grad: 11.00 Aov Mn Grad: 5.00 HALEY Cont.VTI: 1.92 LVOT LVOT Pk Gregor: 1.27 LVOT Mn Gregor: 0.75 LVOT VTI: 0.23 LVOT Pk Grad: 6.00 LVOT Mn Grad: 3.00 LVOT Diam: 1.90 LVOT Area: 2.84 Diastolic Function MV Pk E: 0.84 MV Pk A: 0.79 E/A: 1.10 E'Medial: 10.00 E/E' Med: 8.40 E' Laterial: 8.81 E/E' Lat: 9.50 Right Ventricle TAPSE (mm): 24.00 Tricuspid Valve TR Pk Gregor: 2.29 TR Pk Grad: 21.00 RA Press: 3.00 RVSP: 24.00 Great Vessels Aorta Ao Root-2D: 2.90 2.0-3.7 cm Ao Asc: 3.00 2.1-3.4 cm Pulmonary Valve PV Pk Gregor: 0.90 Peak PV Grad: 3.00 Updated in Other Vendor System with Status of Final Juan Antonio Rooney MD electronically signed on 12/03/2024 9:05:04 AM with status of Final
[2024-12-02] MEDS: Amiodarone HCL 200 MG TABLET 400 MG PO (16:29)
--- NOTE | 2024-12-02 16:30 | P.HPHOSP_ITS ---
History of Present Illness Date of Service: 12/02/24 Attending physician on admission: Jordi Diana Chief Complaint: Dizziness, SOB Pt is a 64-year-old female with a PMH significant for?moderate persistent asthma, who presents to the ED with? In the ED pt was Labs were significant for WBCs 13.7, sodium 131, AST 33, ALT 74, BNP 138. Stable H&H. Renal function WNL. T bili WNL. Troponin negative. UA negative for UTI. CXR showed moderate bilateral pleural effusions and likely mild interstitial lung edema with cardiomegaly vs pericardial effusion. CT? Initial EKG demonstrated normal sinus rhythm without significant ischemia. Repeat EKG showed atrial flutter with variable AV block and RVR of 145. Bedside echo performed by ED clinician showed small pericardial effusion.Pt was treated in the ED with diltiazem 50 mg IV and amiodarone 400 mg p.o.. Pt is admitted to the hospital for treatment and further evaluation of new onset a flutter with likely new onset mild CHF. [facility] Medical History (Updated 12/02/24 @ 16:17 by Moises Barcenas MD) Tubular adenoma of colon Nicotine dependence, cigarettes, uncomplicated Chronic bronchiolitis Has daytime drowsiness Pulmonary nodules Chronic bronchitis Asthma Surgical History (Updated 12/01/24 @ 13:30 by Shanon Mcgill PA-C) History of tubal ligation History of colonoscopy History of breast lump/mass excision Social History Household Members: Spouse Housing: House Do you presently have visiting nurse or other home services: No Patient Tobacco Use Status: Current everyday Tobacco user Cigarette Packs Per Day: 0.5 Cigarettes Per Day: 10.0 Smoked in Last 30 Days: Yes Substance Use Type: Marijuana Advance Directives: No Advance Directives Information Provided: Yes service: No Current occupational status: employed 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 Meds Allergies Allergy/AdvReac Type Severity Reaction Status Date / Time eucalyptus Allergy Severe Anaphylaxis Verified 12/02/24 11:43 ampicillin Allergy Intermediate Rash Verified 12/02/24 11:43 sulfamethoxazole Allergy Intermediate Rash Verified 12/02/24 11:43 [From Bactrim] trimethoprim [From Bactrim] Allergy Intermediate Rash Verified 12/02/24 11:43 citrace spray Allergy Unknown Unknown Uncoded 12/02/24 11:43 citronella Allergy Unknown Unknown Uncoded 12/02/24 11:43 patchouli plant Allergy Unknown Unknown Uncoded 12/02/24 11:43 Home Medications ?Medication ?Instructions ?Recorded ?Confirmed ?Last Taken ?Type albuterol sulfate 90 mcg/actuation 2 puff inhalation Q4H PRN Wheezing 07/28/23 08/25/24 Unknown History aerosol inhaler diphenhydramine HCl 25 mg tablet 25 mg PO TID PRN Allergy Symptoms 07/28/23 08/25/24 Unknown History ibuprofen 200 mg tablet 400 mg PO Q6H PRN Pain 07/28/23 08/25/24 Unknown History nebulizers 10/26/23 08/25/24 Unknown History Physical Exam 2 Vital Signs and Narrative: Vital Signs: Last Vital Signs Temp 98.3 F 12/02/24 16:13 Pulse 73 12/02/24 16:13 Resp 18 12/02/24 16:13 BP 115/74 12/02/24 16:13 Pulse Ox 96 12/02/24 16:13 O2 Del Method Room Air 12/02/24 16:13 BMI result Body Mass Index 26.7 Results Labs 12/02/24 11:54 12/02/24 11:54 Labs: Laboratory Results - last 24 hr 12/02/24 12/02/24 11:54 12:06 MCV 86.9 MCH 29.6 MCHC 34.1 RDW 12.1 Plt Count 492 H MPV 8.9 L Immature Gran % (Auto) 0.5 H Neut % (Auto) 83.5 H Lymph % (Auto) 7.9 L Ramsey % (Auto) 7.5 Eos % (Auto) 0.2 Baso % (Auto) 0.4 Lymph # (Auto) 1.1 L Ramsey # (Auto) 1.0 Eos # (Auto) 0.0 Baso # (Auto) 0.1 Abs Immat Gran (auto) 0.07 H Absolute Neuts (auto) 11.5 H Absolute Nucleated RBC 0.000 Nucleated RBC % (auto) 0.0 Anion Gap 11 L Estim Creat Clear Calc 78.1 Estimated GFR > 60 Random Glucose 134 H Calcium 8.9 Total Bilirubin 0.8 Direct Bilirubin 0.4 AST 33 H ALT 74 H Alkaline Phosphatase 107 B-Natriuretic Peptide 138 H Total Protein 6.6 Albumin 3.6 Lipase 10 Urine Color Yellow Urine Appearance Clear Urine pH 7.0 Ur Specific [place] 1.010 Urine Protein Trace Urine Glucose (UA) Negative Urine Ketones Negative Urine Blood Negative Urine Nitrite Negative Ur Leukocyte Esterase Trace H Urine RBC 0-2 Urine WBC 0-5 Ur Squamous Epith Cells 0-2 Urine Bacteria None Seen Hyaline Casts 0-2 Imaging Radiologist's Impressions: Impressions Chest X-Ray 12/02/24 11:41 IMPRESSION: Bilateral pleural effusions, moderate volume and likely mild interstitial lung edema with cardiomegaly versus pericardial effusion. Electronically signed by: Ben Farmer MD 12/02/2024 12:20 PM EDT
--- NOTE | 2024-12-02 16:31 | PC.NURSE ---
U/S at the bedside
--- NOTE | 2024-12-02 16:48 | MHC.EDTECH ---
Per Dr. Arvizu, orthostatic vitals are no longer needed
--- NOTE | 2024-12-02 18:05 | PHA.MEDREC ---
Pharmacy Consult ? Medication Reconciliation Pharmacy has completed the medication reconciliation. Spoke with patient and she confirmed her medications. Patient confirmed she has not started taking the Montlukast 10mg tab due to still dealing with some health issues and scared staring that med might make things worse for her.
--- NOTE | 2024-12-02 20:45 | PC.NURSE ---
report called to SONIA Newell on [place] [facility] room 4 - pt to be transfrred via [facility]- no ETA at this time
[2024-12-09 23:59] LABS: Amiodarone, Serum <0.1 mcg/mL (1.5-2.5)
== END 2024-12-02 23:15 | disposition short-term general hospital (02) ==
PROVIDERS: Nurse Practitioner Family; Emergency Provider Emergency Medicine Emergency Medical Services; PCP Physician Assistant
DX: I48.0 Paroxysmal atrial fibrillation (principal); J81.1 Chronic pulmonary edema; I30.9 Acute pericarditis, unspecified; R06.00 Dyspnea, unspecified; E78.5 Hyperlipidemia, unspecified; J45.909 Unspecified asthma, uncomplicated; F17.210 Nicotine dependence, cigarettes, uncomplicated
CPT/HCPCS: 36415; 71046; 80048; 80076; 80151; 81001; 83690; 83880; 84484; 85025; 93005; 93306; 96374; 99285

== ENCOUNTER → 2024-12-02 11:41 | Outpatient (BNV) | payer OTHER, SELFPAY | PROVIDERS: PCP Physician Assistant; Visit Provider Radiology Diagnostic Radiology | DX: J90 Pleural effusion, not elsewhere classified (principal) | CPT/HCPCS: 71046 ==

== ENCOUNTER → 2024-12-02 16:03 | Outpatient (BNV) | payer OTHER, SELFPAY | PROVIDERS: Emergency Provider Emergency Medicine Emergency Medical Services; PCP Physician Assistant; Visit Provider Internal Medicine | DX: I48.92 Unspecified atrial flutter (principal); I44.0 Atrioventricular block, first degree; R06.02 Shortness of breath | CPT/HCPCS: 93010 ==

== ENCOUNTER 2024-12-15 08:43 | Outpatient (REF) | payer OTHER, SELFPAY ==
--- NOTE | ~2024-12-15 | MM_ITS ---
EXAMINATION: DXA BONE DENSITY AXIAL HISTORY: N95.9 TECHNIQUE: [employer] Dual energy absorptiometry (DEXA) of the lumbar spine, total left hip, and femoral neck was performed. COMPARISON: There are no prior studies for comparison. FINDINGS: The bone mineral density of the lumbar spine is 1.177, corresponding to a T-score of 0.1, and a Z-score of 1.4. This is indicative of normal bone mineral density. The bone mineral density of the left total hip is 0.841, corresponding to a T-score of -1.3, and a Z-score of -0.3. This is indicative of osteopenia. The bone mineral density of the left femoral neck is 0.786, corresponding to a T-score of -1.8, and a Z-score of -0.5. This is indicative of osteopenia. FRACTURE RISK: The FRAX index suggests a risk of major osteoporotic fracture of 10.1%, and of hip fracture 2.1%. MM/XR DEXA axial skeleton IMPRESSION: Based on bone mineral density, and according to World Health Organization (WHO) criteria, the diagnosis is consistent with osteopenia. All bone density values are in grams per centimeter squared (g/cm2). Statistically, 68% of repeat scans fall within 1 SD (+/- 0.010 g/cm2 for AP spine L1-L4) and 1 SD (+/- 0.012 g/cm2 for femur total) FRAX is a trademark of the [employer]'s [place] for Metabolic Bone Disease, a World Health Organization (WHO) Collaborating Center. Electronically signed by: Antione Clinton MD 12/15/2024 10:04 AM EDT
--- OUTSIDE RECORDS SUMMARY | 2024-12-15 08:54 | XMS_ITS ---
Author Organization [facility] Address [address] [place] [address] Care Team Providers Care Casing Trimmer Name Role Phone Alisson Story Primary Care Provider Unavailab Igor Rubi Jr REASON FOR VISIT Labs/x-ray Problems Problem Type SNOMED Code ICD Code Onset Dates Problem Status W/U Status Risk Notes Problem Elevated liver enzymes level (089410053) Elevated LFTs (R79.89) Active confirmed Problem Gastrointestinal tract problem (965863578) Abn findings-GI tract (R93.3) Active confirmed Problem Anemia (558374246) Anemia (D64.9) Active confirmed Encounters Encounter Location Date Provider Diagnosis [facility] [address] [place] [address] 11/30/2024 Igor Lozada Jr Elevated LFTs R79.89 [...] * NAVEED PETERSOB:[birth year] (64 yo F)Acc No.[id number]:11/30/2024 Patient:?KAROL PETERS :1960???Age:64 Y???Sex:Female Address:[address], [place], [address] Subjective: * Chief Complaints: * ???Labs/x-ray * [...] * true * Date:? Generated for Matty moyer/Brittany/eTransmitting on:?12/15/2024 08:54 AM EDT
--- OUTSIDE RECORDS SUMMARY | 2024-12-15 08:54 | XMS_ITS ---
Author Organization [facility] Address [address] [place] [address] Care Team Providers Care Career Services Coordinator Name Role Phone Alisson Story Primary Care Provider UnavailIgor Marcial Jr Unavailable Results Component Value Reference Range Notes XR abdomen min 2V Reviewed date:11/30/2024 08:53:14 AM Interpretation: Performing Lab: Notes/Report: [facility] [address] [place] [address] XRay Report Signed Patient: Liilan Peters MR#: [id number] : 1960 Acct:[id number] Age/Sex: 64 / F ADM Date: 11/29/24 Loc: HO.XRAY Attending Dr: Igor Lozada MD Ordering Physician: Igor Lozada MD Date of Service: 11/29/24 Procedure(s): XR abdomen min 2V Accession Number(s): [id number] cc: Igor Lozada MD; Physician,Unknown EXAMINATION: XR [...] OV> 11/30/24730 DD/ 155 TD/TT: 11/29/24 1604 Jig Box Operator: [place] [address] XRay Report Signed Patient: Milan Peters MR#: [id number] : 1960 Acct:[id number] Age/Sex: 64 / F ADM Date: 11/29/24 Loc: HO.XRAY Attending Dr: Kirit Lozada MD Ordering Physician: Igor Lozada MD Date of Service: 11/29/24 Procedure(s): XR abdomen min 2V Accession Number(s): [id number] cc: Igor Lozada MD; Physician,Unknown EXAMINATION: XR [...] 11/30/24 0731 DD/ 155 TD/TT: 11/29/24 1604 Jig Box Operator: REASON FOR VISIT issues Problems Problem Type SNOMED Code ICD Code Onset Dates Problem Status W/U Status Risk Notes Problem Altered bowel function (86921461) Change in bowel function (R19.4) Active confirmed Problem Flatulence, eructation and gas pain (350653695) Abdominal gas pain (R14.1) Active confirmed Problem Abdominal bloating (761614808) Abdominal bloating (787.3) Active confirmed Problem Eructation (25639973) Eructation (R14.2) Active confirmed Encounters Encounter Location Date Provider Diagnosis [facility] [address] [place] [address] 11/29/2024 Igor Lozada Jr Change in bowel [...] * NAVEED PETERSOB:[birth year] (64 yo F)Acc No.[id number]:11/29/2024 Patient:?LILIAN PETERS :1960???Age:64 Y???Sex:Female Address:[address] [address], [facility] [place], [address] Subjective: * Chief Complaints: * ???Issues * [...] true * Date:? Generated for Matty moyer/Brittany/Flip on:?12/15/2024 08:54 AM EDT
--- OUTSIDE RECORDS SUMMARY | 2024-12-15 08:54 | XMS_ITS | Clinical Summary ---
Author Organization [employer] Address [address] [place] [address] Care Team Providers Care Crab Butcher Name Role Phone Unavailable Primary Care Provider [...] None. Categorization based on Lung-RADS 2022 criteria. [email or web address] WSN: [id number] Ordering Physician: Alisson Oliva Dictated By: Angel [...] done at end of June 2023 at [facility]. Routine general medical exam ination at a health care facility 12/11/2022 Overview (12/15/2023): CPE done 12/15/23. HEALTH CARE MAINTENANCE: Colonoscopy (age 45-75): Dr. Luis - [facility]. Due for cscope. Has to go to [place] due to insurance. Wants to go to [place]. Has every 3 years - multiple benign polyps (tubular adenomas). Mammogram (age 40-74): Done 11/2023 - waiting for results. AAA Screen (Fam Hx AAA): No family hx. LDCT (smoke >30 pack year, age 55-80): Engaged with pulm - has routine screens. DEXA (age 61 with RF, age 66): Has Osteopenia - had scan at [facility]. Last done 08/2022. POWER BALLAST MACHINE OPERATOR: Outside POWER BALLAST MACHINE OPERATOR: Dr. Newell LMP: Menopause . Last PAP [...] Was advised by PT to go to [facility] [facility] - would like to see Sunita Ferguson at [place]. We will send referral. Discussed pain management including piriformis stretches and ibuprofen. Assessment & Plan (02/06/2023 8:51 AM EDT): Son is industrial trainer and has been giving her suggestions. [...] the original note were not included. [facility] Engaged with pulmonology - [place]. [...] cervicovaginal cytologic smear 10/16/2022 Overview (12/24/2023): Has POWER BALLAST MACHINE OPERATOR - Dr. Newell who is following. 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 on file Not [...] 01/26/2025 8:30 AM EDT Office Visit [place] [facility] [address] [place] [address] Tammy Trivedi Health Maintenance Due Date Last [...] - Td or Tdap) 05/14/2025 05/14/2015, 06/24/2005 Disability Screening 06/16/2025 06/16/2024 Dental X-Ray: [employer] 06/23/2025 06/22/20 24, 02/10/2023, [...] patient's age to complete this topic Meningococcal B Vaccine Aged Out No l onger eligible based on patient's age to complete [...] * Hm Colonoscopy (05/31/2024 10:08 AM EST) [facility] HEALTH MAINTENANCE Final Result * BI Mammogram Screening Tomosynthesis Bilateral (12/10/2023 10:05 AM EDT) Anatomical Region Laterality Modality Breast Bilateral Mammography [facility] IM BI PROCEDURES Final Result * CT Lung Screening Low dose (12/09/2023) Anatomical Region Laterality Modality Lung Computed Tomogra phy [facility] CT PROCEDURES Final Result * HIV Antibody/Antigen, 4th Generation (04/23/2023 9:57 AM EDT) Result 4th Gen HIV Antibody Antigen NEGATIVE (NEG) [facility] Comment: Negative for antibodies to HIV 1 and HIV 2 and P24 antigen. Reference range: Negative Additional note: Written patient authorization is required for each separate release of this test result. This test was performed on the Gogetit immunoassay system. Testing performed or reported by [facility], a Service of [facility], [facility] [place] [address] Jong Lou MD, Flipping Machine Operator [facility]# [id number] Blood 04/23/2023 9:57 AM EDT 04/23/2023 10:41 AM EDT Alisson Oliva [facility] BLOOD ORDERABLES Final Resul t Performing Organization Address [facility] Co de Phone Number [facility] [address] [place] [address] * Hepatits C Antibody w/Reflex HCV Quant PCR and Genotyping (04/23/2023 9:57 AM EDT) Pathologist [facility] Hepatitis C Virus Ab, Serum NEGATIVE (NEG) [facility] Comment: Reference range: Negative This test was performed on the Z[employer] Life Mix Crusher Operator immunoassay system. Testing performed or reported by [facility], a Service of [facility], [address] [place] [address] [place] [address] Jong Lou MD, Flipping Machine Operator CLIA# [id number] 04/23/2023 9:57 AM EDT 04/23/2023 10:41 AM EDT Alisson Oliva [facility] BLOOD ORDERABLES Final Resul t Performing Organization Address [facility] de Phone Number [facility] [address] [place] [address] * (ABNORMAL) Lipid panel (04/23/2023 9:57 AM EDT) [facility] Cholesterol, Total 225(H) (<200) MG/DL [facility] Triglyceride (mg/dL) in Serum/Plasma 97 (<150) MG/DL [facility] HDL Cholesterol 56 (>39) MG/DL [facility] LDL Cholesterol, Calculated 150(H) (0-130) MG/DL [facility] Non HDL Chol. (LDL+VLDL) 169(H) (<160) MG/DL [facility] Comment: Testing performed or reported by [facility], a Service of [facility], [address] [place] [address] Jong Lou MD, Flipping Machine Operator CLIA# [id number] Blood Venous blood specimen / Unknown 04/23/2023 9:57 AM EDT 04/23/2023 10:41 AM EDT Alisson Oliva RN BARIATRIC LAB BLOOD ORDERABLES Final Resul t [facility] [address] [place], [place] [id number] * HM PAP/HPV (11/05/2022 10:22 AM EDT) Alisson CRP HEALTH MAINTENANCE Final Result from Last 3 Months or Most Recently Relevant to Health Maintenance Insurance [employer]
--- OUTSIDE RECORDS SUMMARY | 2024-12-15 08:54 | XMS_ITS | Encounter Summary ---
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
--- OUTSIDE RECORDS SUMMARY | 2024-12-15 08:54 | XMS_ITS ---
Author Organization [facility] Address [address] [place] [address] Care Team Providers Care Firmware Architect Name Role Phone Alisson Story Primary Care Provider UnavailIgor Marcial Jr REASON FOR VISIT update Encounters Encounter Location Date Provider Diagnosis [facility] [address] [place] [address] 12/06/2024 Igor Lozada Jr Plan Of Treatment No Information Progress Notes * NAVEED PETERSOB:[birth year] (64 yo F)Acc No.[id number]:12/06/2024 Patient:?KAROL PETERS :1960???Age:64 Y???Sex:Female Address:[address], [place], [address] * true * Date:? Generated for Printi comfort/Brittany/eTransmitting on:?12/15/2024 08:54 AM EDT
--- OUTSIDE RECORDS SUMMARY | 2024-12-15 08:55 | XMS_ITS | Encounter Summary ---
Author Organization [employer] Address [address] [place] [address] Care Team Providers Care Electrical Line Mechanic Name Role Phone Alisson Oliva Primary Care Provider [phone] Inactive/Transferred Primary Care Provider Unava ilable Encounter [...] Description 01/26/2025 8:30 AM EDT Office Visit [place] [facility] D[facility] [address] [place] [address] Tammy Trivedi documented as of this encounter Visit Diagnoses Not on filedocumented in this encounter Care Teams Electrical Line Mechanic Relationship Specialty Start Date End Date Alisson lOiva FNP [address] [place] [address] PCP - General Family Medicine 10/16/22 11/22/24 Inactive/Transferred PCP - General 11/23/24 11/23/24 documented as of this encounter
--- OUTSIDE RECORDS SUMMARY | 2024-12-15 08:55 | XMS_ITS | Encounter Summary ---
Author Organization [employer] Address [address] [place] [address] Care Team Providers Care Schedule Analyst Name Role Phone Alisson Oliva Primary Care Provider [phone] Inactive/Transferred Primary Care Provider Unava ilable Encounter [...] Description 01/26/2025 8:30 AM EDT Office Visit [place] [facility] [address] [place] [address] Tammy Trivedi documented as of this encounter Visit Diagnoses Not on filedocumented in this encounter Care Teams Schedule Analyst Relationship Specialty Start Date End Date Alisson Oliva FNP [address] [place] [address] PCP - General Family Medicine 10/16/22 11/22/24 Inactive/Transferred PCP - General 11/23/24 11/23/24 documented as of this encounter
--- OUTSIDE RECORDS SUMMARY | 2024-12-15 08:55 | XMS_ITS | Encounter Summary ---
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 file Not on file documented as of this encounter Plan of Treatment Upcoming Encounters Date Type Department Care Team (Late st Contact Info) Description 01/26/2025 8:30 AM EDT Office Visit [place] [facility] [address] [place] [address] Tammy Trivedi documented as of this encounter Procedures Procedure Name Priority Date/Time Associated Diagnosis Comments HM PAP/HPV Routine 11/05/2022 10:22 AM EDT documented in this encounter Results * HM PAP/HPV (11/05/2022 10:22 AM EDT) Alisson [facility] Final Result documented in this encounter Visit Diagnoses Not on filedocumented in this encounter Care Teams Telecommunications Sales Representative Relationship Specialty Start Date End Date Alisson Oliva FNP [address] [place] [address] PCP - General Family Medicine 10/16/22 11/22/24 Inactive/Transferred PCP - General 11/23/24 11/23/24 documented as of this encounter
--- OUTSIDE RECORDS SUMMARY | 2024-12-15 08:55 | XMS_ITS | Encounter Summary ---
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 Not on file Not on file documented as of this encounter Plan of Treatment Upcoming Encounters Date Type Department Care Team (Late st Contact Info) Description 01/26/2025 8:30 AM EDT Office Visit [place] [facility] D[facility] [address] [place] [address] Tammy Trivedi documented as of this encounter [...] on filedocumented in this encounter Care Teams Lithographic Printing Machinist Relationship Specialty Start Date End Date Alisson Oliva FNP [address] [place] [address] PCP - General Family Medicine 10/16/22 11/22/24 Inactive/Transferred PCP - General 11/23/24 11/23/24 documented as of this encounter
--- OUTSIDE RECORDS SUMMARY | 2024-12-15 08:55 | XMS_ITS | Encounter Summary ---
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
--- OUTSIDE RECORDS SUMMARY | 2024-12-15 08:55 | XMS_ITS | Encounter Summary ---
Author Organization [employer] Address [address] [facility] [address] [place] [address] Care Team Providers Care Offset Press Assistant Name Role Phone Alisson Oliva Primary Care Provider [phone] Inactive/Transferred Primary Care Provider Unava ilable Encounter [...] Description 01/26/2025 8:30 AM EDT Office Visit [place] [facility] D[facility] [address] [place] [address] Tammy Trivedi documented as of this encounter Visit Diagnoses Not on filedocumented in this encounter Care Teams Offset Press Assistant Relationship Specialty Start Date End Date Alisson Oliva FNP [address] [place] [address] PCP - General Family Medicine 10/16/22 11/22/24 Inactive/Transferred PCP - General 11/23/24 11/23/24 documented as of this encounter
--- OUTSIDE RECORDS SUMMARY | 2024-12-15 08:55 | XMS_ITS | Encounter Summary ---
Author Organization [employer] Address [address] [facility] [address] [place] [address] Care Team Providers Care Casing Man Name Role Phone Alisson Oliva Primary Care Provider [phone] Inactive/Transferred Primary Care Provider Unava ilable Encounter [...] Description 01/26/2025 8:30 AM EDT Office Visit [place] [facility] D[facility] [address] [place] [address] Tammy Trivedi documented as of this encounter Visit Diagnoses Not on filedocumented in this encounter Care Teams Casing Man Relationship Specialty Start Date End Date Alisson Oliva FNP [address] [place] [address] PCP - General Family Medicine 10/16/22 11/22/24 Inactive/Transferred PCP - General 11/23/24 11/23/24 documented as of this encounter
--- OUTSIDE RECORDS SUMMARY | 2024-12-15 08:55 | XMS_ITS | Encounter Summary ---
Author Organization [employer] Address [address] [place] [address] Care Team Providers Care Hot Mill Operator Name Role Phone Alisson Oliva Primary [...] Description 01/26/2025 8:30 AM EDT Office Visit [place] [facility] D[facility] [address] [place] [address] Tammy Trivedi documented as of this encounter Visit Diagnoses Not on filedocumented in this encounter Care Teams Hot Mill Operator Relationship Specialty Start Date End Date Alisson Oliva FNP [address] [place] [address] PCP - General Family Medicine 10/16/22 11/22/24 Inactive/Transferred PCP - General 11/23/24 11/23/24 documented as of this encounter
--- OUTSIDE RECORDS SUMMARY | 2024-12-15 08:55 | XMS_ITS | Encounter Summary ---
Author Organization [employer] Address [address] [place] [address] Care Team Providers Care Success Coach Name Role Phone Alisson Oliva Primary Care Provider [phone] Inactive/Transferred Primary Care Provider Unava ilable Encounter [...] Description 01/26/2025 8:30 AM EDT Office Visit [employer] [facility] D[facility] [address] [place] [address] Tammy Trivedi documented as of this encounter Visit Diagnoses Not on filedocumented in this encounter Care Teams Success Coach Relationship Specialty Start Date End Date Alisson Oliva FNP [address] [facility] [place] [address] PCP - General Family Medicine 10/16/22 11/22/24 Inactive/Transferred PCP - General 11/23/24 11/23/24 documented as of this encounter
--- OUTSIDE RECORDS SUMMARY | 2024-12-15 08:55 | XMS_ITS | Encounter Summary ---
Author Organization [employer] Address [address] [facility] 7 [place] [address] Care Team Providers Care Functional Tester Name Role Phone Alisson Oliva Primary Care Provider [phone] Inactive/Transferred Primary Care Provider Unava ilable Encounter [...] Description 01/26/2025 8:30 AM EDT Office Visit [place] [facility] D[facility] [address] [place] [address] Tammy Trivedi documented as of this encounter Visit Diagnoses Not on filedocumented in this encounter Care Teams Functional Tester Relationship Specialty Start Date End Date Alisson Oliva FNP [address] [facility] [place] [place] [address] PCP - General Family Medicine 10/16/22 11/22/24 Inactive/Transferred PCP - General 11/23/24 11/23/24 documented as of this encounter
--- OUTSIDE RECORDS SUMMARY | 2024-12-15 08:55 | XMS_ITS | Encounter Summary ---
Author Organization [employer] Address [address] [facility] [address] [place] [address] Care Team Providers Care Ammonia Technician Name Role Phone Alisson Oliva RETAIL MERCHANDISER Primary Care Provider [phone] Inactive/Transferred Primary Care Provider Unava ilable Encounter Details Date Type Department Care Team (Late st Contact Info) Description 10/16/2022 Abstract [facility] [address] [place] [address] Alisson Oliva FNP [address] [place] [address] Social History Tobacco Use Types Packs/Day Years [...] PM EDT documented as of this encounter Functional Status * Over the past 2 weeks, how often have you been bothered by any of the following problems? Question Answer Date of Assessment Author Little interest or pleasure in doing things Not at all 10/17/2022 9:06 AM EDT Reva Ramos C MA Feeling down, depressed, or hopeless More than half the days 10/17/2022 9:06 AM EDT Reva Ramos CMA Patient Health Questionnaire-2 Score 2 10/17/2022 9:06 AM EDT Reva Ramos CMA * If you checked off any problems on this questionnaire so far, Question Answer Date of Assessment Author How difficult have these problems made it for you to do your work, take care of things at home, or get along with other people? Not difficult at all 10/17/2022 9:06 AM EDT Reva Ramos CMA documented as of this encounter Plan of Treatment Upcoming Encounters Date Type Department Care Team (Late st Contact Info) Description 01/26/2025 8:30 AM EDT Office Visit [facility] DENTAL [address] [place] [address] Tammy Trivedi documented as of this encounter Procedures Procedure Name Priority Date/Time Associated Diagnosis Comments COLONOSCOPY Routine 10/01/2020 MAMMOGRAPHY Routine 09/20/2019 HEMOGLOBIN A1C Routine 03/10/2019 LIPID PANEL, STANDARD Routine 03/10/2019 documented in this encounter Results * Colonoscopy (10/01/2020) [facility] Colonoscopy Normal Normal Comment:poyp removal, divert icula repeat 3-5 years Historical Provider HEALTH MAINTENANCE Final Result * Mammography (09/20/2019) [facility] Mammogram Neg - annual exam - very dense breasts Anatomical Region Laterality Modality Other Historical Provider HEALTH MAINTENANCE Final Result * Hemoglobin A1c (03/10/2019) [facility] Hemoglobin A1C 5.4 4.0 - 6.0 % Blood Venous blood specimen / Unknown Historical Provider LAB BLOOD ORDERABLES Sarah l Result * (ABNORMAL) Lipid Panel, Standard (03/10/2019) Triglycerides 128 40 - 160 mg/dL Cholesterol 201(A) 0 - 200 mg/dL HDL Cholesterol 45 35 - 70 mg/dL LDL Cholesterol 130 mg/dL Blood Venous blood specimen / Unknown us Historical Provider LAB BLOOD ORDERABLES Sarah l Result documented in this encounter Visit Diagnoses Not on filedocumented in this encounter Care Teams Ammonia Technician Relationship Specialty Start Date End Date Alisson Oliva FNP [address] [place] [address] PCP - General Family Medicine 10/16/22 11/22/24 Inactive/Transferred PCP - General 11/23/24 11/23/24 documented as of this encounter
--- OUTSIDE RECORDS SUMMARY | 2024-12-15 08:55 | XMS_ITS | Encounter Summary ---
Author Organization [employer] Address [address] [facility] [address] Floor [place] [id number] Care Team Providers Care Certified Prosthetist Vice President Name Role Phone Alisson Oliva Primary Care Provider [phone] Inactive/Transferred Primary Care Provider Unava ilable Encounter [...] Description 01/26/2025 8:30 AM EDT Office Visit [place] [facility] [address] [place] [address] Tammy Trivedi documented as of this encounter Visit Diagnoses Not on filedocumented in this encounter Care Teams Certified Prosthetist Vice President Relationship Specialty Start Date End Date Alisson Oliva FNP [address] [facility] [place] [address] PCP - General Family Medicine 10/16/22 11/22/24 Inactive/Transferred PCP - General 11/23/24 11/23/24 documented as of this encounter
--- OUTSIDE RECORDS SUMMARY | 2024-12-15 08:55 | XMS_ITS | Encounter Summary ---
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 Not on file Not on file documented as of this encounter Plan of Treatment Upcoming Encounters Date Type Department Care Team (Late st Contact Info) Description 01/26/2025 8:30 AM EDT Office Visit [facility] [address] [place] [address] Tammy Trivedi documented as of this encounter Procedures Procedure Name Priority Date/Time Associated Diagnosis Comments HM COLONOSCOPY Routine 05/31/2024 10:08 AM EST documented in this encounter Results * Hm Colonoscopy (05/31/2024 10:08 AM EST) Alisson [facility] Final Result documented in this encounter Visit Diagnoses Not on filedocumented in this encounter Care Teams Escrow Secretary Relationship Specialty Start Date End Date Alisson Oliva FNP [address] [place] [address] PCP - General Family Medicine 10/16/22 11/22/24 Inactive/Transferred PCP - General 11/23/24 11/23/24 documented as of this encounter
--- OUTSIDE RECORDS SUMMARY | 2024-12-15 08:55 | XMS_ITS | Encounter Summary ---
Author Organization [employer] Address [address] [facility] [address] [place] [address] Care Team Providers Care Button Maker Name Role Phone Alisson Oliva Primary Care Provider [phone] Inactive/Transferred Primary Care Provider Unava ilable Encounter [...] Description 01/26/2025 8:30 AM EDT Office Visit [place] [facility] [address] [place] [address] Tammy Trivedi documented as of this encounter Visit Diagnoses Not on filedocumented in this encounter Care Teams Button Maker Relationship Specialty Start Date End Date Alisson Oliva FNP [address] [place] [facility] [place] [address] PCP - General Family Medicine 10/16/22 11/22/24 Inactive/Transferred PCP - General 11/23/24 11/23/24 documented as of this encounter
--- OUTSIDE RECORDS SUMMARY | 2024-12-15 08:55 | XMS_ITS | Patient Health Record ---
Author Organization [facility] Address [address] [place] [address] Care Team Providers Care Human Service Worker Name Role Phone Alisson Story Primary Care Provider Igor Sommer Jr Unavailable Allergies Allergen (clinical drug ingredient) Drug/Non Drug Allergy documented on EMR Reaction Allergy Type Onset Date Status sulfamethoxazole / trimethoprim Bactrim Unknown Drug Allergy Active patchouli plant (uncoded) Unknown Allergy Active citrace spray (uncoded) Unknown Allergy Active citronella (uncoded) Unknown Allergy Active Penicillin Unknown Drug Allergy Active Eucalyptus Unknown Drug Allergy Active Results Component Value Reference Range Notes XR abdomen min 2V Reviewed date:11/30/2024 08:53:14 AM Interpretation: Performing Lab: Notes/Report: [address] [address] XRay Report Signed Patient: Lilian Peters MR#: [id number] : 1960 Acct:[id number] Age/Sex: 64 / F ADM Date: 11/29/24 Loc: HO.XRAY Attending Dr: Igor Lozada MD Ordering Physician: Igor Lozada MD Date of Service: 11/29/24 Procedure(s): XR abdomen min 2V Accession Number(s): [id number] cc: Igor Lozada MD; Physician,Unknown EXAMINATION: XR [...] OV> 11/30/24730 DD/ 1552 TD/TT: 11/29/24 1604 Director Of Health Care Marketing: [place] [address] XRay Report Signed Patient: Lilian Peters MR#: [id number] : 1960 Acct:[id number] Age/Sex: 64 / F ADM Date: 11/29/24 Loc: HO.XRAY Attending Dr: Kirit Lozada MD Ordering Physician: Igor Lozada MD Date of Service: 11/29/24 Procedure(s): XR abdomen min 2V Accession Number(s): [id number] cc: Igor Lozada MD; Physician,Unknown EXAMINATION: XR [...] OV> 11/30/24730 DD/ 1552 TD/TT: 11/29/24 1604 Director Of Health Care Marketing: Pathology Reviewed date:06/02/2024 10:06:52 AM Interpretation: Performing Lab:[facility], [address] [facility], [place] [address] Notes/Report: --- Name: Owen Peters rylan Age/Sex: 64/F : 1960 Unit#: [id number] Attend Dr: Igor Lozada MD Re05/31/24 Status : [facility] Location: [facility] Disch: --- SPEC : [id number] RECD : 05/31/24 STATUS: BERNARDO JAY NUM: [id number] POPPY: 05/31/24 [facility] DR: Igor Lozada MD ENTERED: [...] ff Reviewed date:11/30/2024 08:52:46 AM Interpretation: Performing Lab:[facility], [address] [place] [phone] Notes/Report: White Blood Count 13.5 4.8-10.8 X10*3/uL [...] te Reviewed date:11/30/2024 08:52:39 AM Interpretation: Performing Lab:[address] [address] Notes/Report: Erythrocyte Sedimentation Rate 28 0-20 MM/HR Patients with polycythemia and many hemoglobin abnormalities may have depressed sed rates whereas patients with anemia may have elevated sed rates. Liver Panel Reviewed date:11/30/2024 08:52:08 AM Interpretation: Performing Lab:[address] [address] Notes/Report: Bilirubin Total 0.8 0.0-1.0 mg/dL Bilirubin Direct 0.3 0.0-0.5 mg/dL Aspartate Amino Transferase 65 5-31 U/L Alanine Aminotransferase 128 0-31 U/L Total Protein 6.6 6.5-8.0 g/dL Albumin Level 3.9 3.5-5.0 g/dL Alkaline Phosphatase 115 39-117 U/L Lipase Reviewed date:11/30/2024 08:52:05 AM Interpretation: Performing Lab:[address] [address] Notes/Report: Lipase 20 8-78 U/L TSH reflex Free T4 Reviewed date:11/30/2024 08:51:52 AM Interpretation: Performing Lab:[address] [address] Notes/Report: TSH reflex Free T4 1.31 0.32-4.0 uIU/mL Immunoglobulins,IgG IgA IgM Reviewed date:12/09/2024 04:20:40 PM Interpretation: Performing Lab:[address] [place] [address] Notes/Report: IgG 891 498-5346 mg/dL IgA 146 70-320 mg/dL IgM 105 50-300 mg/dL THIS TEST WAS PERFORMED AT: [facility] [address] [place] [phone] JASMIN BLANTON MD Immunoglobulin E Reviewed date:12/09/2024 04:20:22 PM Interpretation: Performing Lab:[facility], [address] [place] [address] Notes/Report: Immunoglobulin E 40 <YJ=935 kU/L THIS TEST WAS PERFORMED AT: [facility] [address] [place] [phone] JASMIN BLANTON MD Reason For Referral No Information Medications Medication [...] W/U Status Risk Notes Problem Abdominal bloating (829833313) Abdominal bloating (787.3) Active confirmed Problem 452650514 Special screening for malignant neoplasms, colon (Z12.11) Active confirmed Problem Eructation (04933645) Eructation (R14.2) Active confirmed Problem Elevated liver enzymes level (149518132) Elevated LFTs (R79.89) Active confirmed Problem Altered bowel function (21104975) Change in bowel function (R19.4) Active confirmed Problem Anemia (559656954) Anemia (D64.9) Active confir med Problem 40218371 Constipation, unspecified constipation type (K59.00) Active confirmed Problem Gastrointestinal tract problem (809261211) Abn findings-GI tract (R93.3) Active confirmed Problem Flatulence, eructation and gas pain (155883370) Abdominal gas pain (R14.1) Active confirmed Vital Signs Blood pressure diastolic 00 mm Hg 04/14/2024 Height 5 ft 4 in in 04/14/2024 Blood pressure systolic 00 mm Hg 04/14/2024 Weight 152 lbs 04/14/2024 BMI 26.09 kg/m2 04/14/2024 Encounters Encounter Location Date Provider Diagnosis [facility] [address] [place] [id number] 05/31/2024 Igor Lozada Jr Colon cancer screening Z12.11 and Colon polyps K63.5 [facility] [address] [place] [phone] 04/14/2024 Igor Lozada Jr Special screening for malignant neoplasms, colon Z12.11 and Constipation, unspecified constipation type K59.00 [facility] [address] [place] [address] 06/02/2024 Igor Lozada Jr [facility] [address] [address] 11/29/2024 Igor Lozada Jr Change in bowel function R19.4 ; Abdominal gas pain R14.1 ; Abdominal bloating 787.3 and Eructation R14.2 [facility] [address] [address] 11/30/2024 Igor Lozada Jr Elevated LFTs R79.89 ; Abn findings-GI tract R93.3 and Anemia D64.9 [facility] [address] [address] 12/06/2024 Igor Lozada Jr Assessments Encounter Date Diagnosis [...] Coverage End Date [employer] [place] [address] [address] [place] [address] [id number] LILIAN DON Self - patient is the insured Medical (General) History Medical History History ICD Code environmental allergies asthma Surgical History Surgery Date(Month/Year) lipoma fatty left breast superficial 198 3 tubal ligation
== END 2024-12-15 08:44 | disposition home or self-care (01) ==
LOC: HO.MAMMO 08:43
PROVIDERS: PCP Physician Assistant; Visit Provider Obstetrics & Gynecology Female Pelvic Medicine and Reconstructive Surgery
DX: Z12.31 Encounter for screening mammogram for malignant neoplasm of breast (principal); Z13.820 Encounter for screening for osteoporosis; Z78.0 Asymptomatic menopausal state
CPT/HCPCS: 77063; 77067; 77080

== ENCOUNTER → 2024-12-15 09:15 | Outpatient (BNV) | payer OTHER, SELFPAY | PROVIDERS: PCP Physician Assistant; Visit Provider Radiology Diagnostic Radiology | DX: E28.39 Other primary ovarian failure (principal) | CPT/HCPCS: 77080 ==

== ENCOUNTER 2024-12-30 09:41 | Outpatient (AMB) | payer OTHER, SELFPAY ==
--- NOTE | 2024-12-30 08:02 | A.OFFVIS_ITS ---
Intake Visit Reasons: Current Smoker Allergies eucalyptus Allergy (Severe, Verified 12/02/24 11:43) Anaphylaxis ampicillin Allergy (Intermediate, Verified 12/02/24 11:43) Rash sulfamethoxazole [From Bactrim] Allergy (Intermediate, Verified 12/02/24 11:43) Rash trimethoprim [From Bactrim] Allergy (Intermediate, Verified 12/02/24 11:43) Rash citrace spray Allergy (Unknown, Uncoded 12/02/24 11:43) Unknown citronella Allergy (Unknown, Uncoded 12/02/24 11:43) Unknown patchouli plant Allergy (Unknown, Uncoded 12/02/24 11:43) Unknown HPI HPI Current Smoker: Details: Initial visit for this 64yo smoker with a 30PYH. Patient started smoking at age 15 for 49 years at 1/2-1ppd. Currently at 1/2ppd. . Denies marijuana use. Denies second hand smoke exposure. Denies exposure to chemicals or substances like asbestos. . Denies known family history of lung cancer. Denies personal history of cancers. Denies chest CT in last year. Reports LDCT in past as Andre. 11/[facility] [facility] was noted it would be a Lung RADS 2 if in program. . Denies recent travel outside the [place]. Denies recent respiratory illness or recent hospitalization for respiratory issues. Denies testing positive for COVID. Admits receiving COVID Vaccine. . Denies fever, chills, new/worsening cough, hemoptysis, hoarseness or dysphagia. Denies significant chest pain, significant dyspnea or unintentional weight loss. Patient Lung Cancer Screening Questionnaire reviewed with patient by provider. . Shared Decision Making Completed. Patient meets criteria. Discussed in detail with patient, the risk vs benefit of LDCT screening. Patient consents to proceed with scan. Tried Chantix in past but felt depressed taking it. She wants to try hypnosis. Discussed smoking cessation. [facility] Medical History (Updated 12/30/24 @ 10:02 by Shanon Mcgill PA-C) Tubular adenoma of colon Nicotine dependence, cigarettes, uncomplicated Chronic bronchiolitis Has daytime drowsiness Pulmonary nodules Chronic bronchitis Asthma Surgical History (Updated 12/01/24 @ 13:30 by Shanon Mcgill PA-C) History of tubal ligation History of colonoscopy History of breast lump/mass excision Social History (Updated 12/30/24 @ 10:02 by Shanon Mcgill PA-C) Household Members: Spouse Housing: House Do you presently have visiting nurse or other home services: No Patient Tobacco Use Status: Current everyday Tobacco user Cigarettes Per Day: 10.0 Years Smoked: (onset 15yo, 1/2-1ppd x 49yrs, 30pyh) Substance Use Type: Marijuana service: No Current occupational status: employed 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 - Patient meets criteria for LDCT for lung cancer screening purposes and is asymptomatic. - Smoking cessation counseling offered. Patients can always call [phone]. - Will arrange for a LDCT scan of the chest for screening purposes at [facility]. - Risks, benefits, and alternatives were discussed in detail and the patient agrees to proceed. - Risks discussed include but are not limited to: radiation exposure, anxiety during testing and while awaiting results, false negatives, false positives and possibility of additional intervention such as further imaging or surgical procedures for benign disease. - Benefits are obviously detection of lung cancer at an early stage which can lead to improved outcomes. - Discussed the importance of screening program compliance with adherence to yearly LDCT scan as scheduled - or sooner interval scans for personalized screening regimen. - Discussed follow up plan. Our office will send a letter discussing results and if needed set up phone call and office visit based on CT findings. - Patient educated on results categorization and the management decisions for suspicious findings potentially found on the screening LDCT scan. Any patient with a Lung RADS score of 3 or 4 will be reviewed by a multidisciplinary team at [facility] to form a plan of action in regards to scan findings. - If further work up is warranted for a suspicious lung finding this will be followed by the Lung Cancer Screening program in conjunction with the Thoracic Surgery Department at [facility]. - A copy of the office note and LDCT will be sent to the patient's PCP - as well as documentation on any associated further plans of care. - Incidental findings on LDCT are the PCP's responsibility. These findings are indicated with an S finding on the LDCT Assessment. A note discussing the findings will be sent to the PCP who is then responsible for further management. - All questions answered.? Coding Level of Care Code Lung Cancer Screening G0296 Diagnoses Nicotine dependence, cigarettes, uncomplicated F17.210
--- OUTSIDE RECORDS SUMMARY | 2024-12-30 10:17 | XMS_ITS ---
Author Organization [facility] Address [address] [place] [address] Care Team Providers Care Pipe Bowls Paint Trimmer Name Role Phone Alisson Story Primary Care Provider UnavailIgor Marcial Jr [phone] REASON FOR VISIT update Encounters Encounter Location Date Provider Diagnosis [facility] [address] [place] [address] 12/06/2024 Igor Lozada Jr Plan Of Treatment No Information Progress Notes * NAVEED PETERSOB:[birth year] (64 yo F)Acc No.[id number]:12/06/2024 Patient:?KAROL PETERS :1960???Age:64 Y???Sex:Female Address:[address], [place], [address] * true * Date:? Generated for Printi comfort/Brittany/eTransmitting on:?12/30/2024 10:17 AM EDT
== END 2024-12-30 10:41 | disposition home or self-care (01) ==
LOC: HO.HPS 09:42
PROVIDERS: PCP Physician Assistant; Referring Provider Physician Assistant; Visit Provider Physician Assistant Medical
DX: F17.210 Nicotine dependence, cigarettes, uncomplicated (principal)
CPT/HCPCS: G0296

== ENCOUNTER 2024-12-30 10:07 | Outpatient (REF) | payer OTHER, SELFPAY ==
--- NOTE | ~2024-12-30 | CT_ITS ---
CLINICAL HISTORY: F17.210 - Nicotine dependence, cigarettes, uncomplicated CT lung cancer screening (LDCT) Comparison: CR/SR - XR CHEST 2V - 12/02/24 12:16 EDT Technique: Axial CT images of the chest using low-dose technique. Referring provider counseled the patient on shared decision-making for LDCT screening. Additional counseling was provided on smoking cessation. Effective radiation dose total: DLP 35.6 mGycm, CTDIvol 1.1 mGy. Findings: There is 8 mm spiculated nodule in the right middle lobe best seen on image number 105 of series 5. There is a small left pleural effusion. There is mild left basilar atelectasis. There are no coronary artery calcifications. Limited upper abdomen: Unremarkable Other: None Impression: LungRADS 4A - Suspicious: Follow-up low dose Chest CT recommended in 3 months. ##L4A# Category 1: Normal; continue annual screening Category 2: Benign appearance or behavior, continue annual screening Category 3: Probably benign, [address] recommended Category 4A: Suspicious, [address] recommended; may consider PET/CT Category 4B: Suspicious, Additional diagnostics and/or tissue sampling recommended Category 4X: Suspicious, Additional diagnostics and/or tissue sampling recommended Category 0: Recalls (incomplete screen due to Incomplete coverage, Noise, Respiratory motion, Expiration, Obscured by acute abnormality) This document has been electronically signed by: Darrius Newell MD on 12/30/2024 12:33:54
== END 2024-12-30 10:08 | disposition home or self-care (01) ==
LOC: HO.CT 10:07
PROVIDERS: PCP Physician Assistant; Visit Provider Physician Assistant Medical
DX: Z12.2 Encounter for screening for malignant neoplasm of respiratory organs (principal); F17.210 Nicotine dependence, cigarettes, uncomplicated
CPT/HCPCS: 71271

== ENCOUNTER → 2024-12-30 10:08 | Outpatient (BNV) | payer OTHER, SELFPAY | PROVIDERS: PCP Physician Assistant; Visit Provider Radiology Diagnostic Radiology | DX: F17.210 Nicotine dependence, cigarettes, uncomplicated (principal) | CPT/HCPCS: 71271 ==

== ENCOUNTER 2025-01-05 10:49 | Outpatient (AMB) | payer OTHER, SELFPAY ==
--- NOTE | 2025-01-05 10:56 | A.OFFPC_ITS ---
Vital Signs 01/05/25 11:03 Height 5 ft 4 in Weight 148 lb BMI 25.4 BP 120/74 Blood Pressure Location Lt brachial Position Sitting Pulse 68 Pulse Source Pulse Oximeter Temp 96.9 F Temp Source Temporal Artery Scan Pulse Oximetry (%) 96 Oxygen Delivery Method Room Air Intake Visit Reasons: establish care Intake Note: Patient is a new patient establishing care for asthma and pericardial effusion. [place] [facility] [place]ness [place] breath, which was complicated by atrial flutter. Board Certified Behavioral Analyst Required: No Information Interpreted: non-clinical & clinical Research Biostatistician: Not Required per policy Accompanied by: Self / Same As Patient Allergies eucalyptus Allergy (Severe, Verified 01/05/25 11:19) Anaphylaxis ampicillin Allergy (Intermediate, Verified 01/05/25 11:19) Rash sulfamethoxazole [From Bactrim] Allergy (Intermediate, Verified 01/05/25 11:19) Rash trimethoprim [From Bactrim] Allergy (Intermediate, Verified 01/05/25 11:19) Rash citrace spray Allergy (Unknown, Uncoded 01/05/25 11:19) Unknown citronella Allergy (Unknown, Uncoded 01/05/25 11:19) Unknown patchouli plant Allergy (Unknown, Uncoded 01/05/25 11:19) Unknown Medication List - Last Reconciled 01/05/25 by Austen Traylor PA-C albuterol sulfate 2.5 mg (3 mL) inhalation Q4H PRN albuterol sulfate 90 mcg/actuation 2 puffs inhalation Q4H PRN colchicine 0.6 mg PO BID ozgyqbmcnph-xfzwickgq-eqpwturw 100-62.5-25 mcg (Trelegy Ellipta) 1 inh in halation DAILY 30 days ibuprofen 400 mg PO Q6H PRN metoprolol tartrate 12.5 mg PO BID fe-uvc-oancg-calcium carb-K1 400 mcg-500 mg calcium-20 mcg (Women's 50 Plus Daily Formula) 1 tab PO DAILY nebulizers As directed Tobacco use date assessed: 01/05/25 HPI establish care HPI Details Patient is a 64-year-old female here today for new patient visit. Patient has a past medical history significant for asthma, hyperlipidemia, paroxysmal AFib. Previous PCP at [place] office Recently admitted to [facility] for shortness of breath and was found to have a pericardial effusion. She was transferred to [facility]. Her pericardial effusion was aspirated with Interventional Radiology at [facility] with the above 250 cc of dark bloody fluid. Lights criteria to exudative. She did get evaluation with Cardiology though no indication for anticoagulation due to low CHADS-VASc score- 1. Her pericardial effusion has a unclear etiology at this point though likely viral but other causes still on the table. Now has outpatient cardiology follow-up. .. Tobacco dependency/pulmonary nodule : The patient has a significant smoking history, currently smoking half a pack per day. She is part of a lung screening program due to the presence of nodules and is considering quitting smoking. .. COPD: The patient has a history of asthma, which developed in her 30s. She is seeing pulmonology to which her pulmonary in [place].. She has been using an inhaler and Trelegy for management, with environmental triggers such as patchouli causing exacerbations. Since starting Trelegy, she reports fewer extreme reactions. [facility] Medical History Tubular adenoma of colon Nicotine dependence, cigarettes, uncomplicated Chronic bronchiolitis Has daytime drowsiness Pulmonary nodules Chronic bronchitis Asthma Surgical History History of tubal ligation History of colonoscopy History of breast lump/mass excision Family History (Updated 01/05/25 @ 11:35 by Austen Traylor PA-C) Mother CAD (coronary artery disease) Father CAD (coronary artery disease) Social History Household Members: Spouse Housing: House Do you presently have visiting nurse or other home services: No Patient Tobacco Use Status: Current everyday Tobacco user Cigarettes Per Day: 10.0 Years Smoked: (onset 15yo, 1/2-1ppd x 49yrs, 30pyh) Substance Use Type: Marijuana service: No Current occupational status: employed 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 1. Little interest or pleasure in doing things: not at all 2. Feeling down, depressed, or hopeless: several days 3. Trouble falling or staying asleep, or sleeping too much: several days 4. Feeling tired or having little energy: several days 5. Poor appetite or overeating: not at all 6. Feeling bad about yourself - or that you are a failure or have let yourself or your family down: not at all 7. Trouble concentrating on things, such as reading the newspaper or watching television: not at all 8. Moving or speaking so slowly that other people could have noticed. Or the opposite - being so fidgety or restless that you have been moving around a lot more than usual: not at all 9. Thoughts that you would be better off or of hurting yourself in some way: not at all Total score: 3 Depression Screening Interpretation: Positive Depression Screening Follow-up: Existing condition Depression Screening Done: Yes 24265 - PHQ-9 Billing: Yes Source: Developed by Drs. Antione Vega, Ana Lilia Toth, Surya Farnsworth and colleagues, with an educational jonathan from [employer]. Thrive Questionnaire Date Thrive assessed: 01/05/25 I am a: Patient What is your living situation today?: I have a steady place to live Within the past 12 months, did the food you bought not last and you didn't have the money to get more?: Never true Within the past 12 months, did you worry whether your food would run out before you got money to buy more?: Never true Do you have trouble paying for medicines?: No Do you have trouble getting transportation to medical appointments?: No Do you have trouble paying your heating and electricity bill?: No Do you have trouble taking care of your child, family member or friend?: No Do you have trouble with day-to-day activities such as bathing, preparing meals, shopping, managing finances, etc.?: No Are you currently unemployed and looking for a job?: No Are you interested in more education?: No Please select the resources that you would like help with: None Currently or been in a relationship where the following occur: No concerns reported THRIVE Score: 0 AUDIT C Alcohol Use Questionnaire (AUDIT-C) 1. How often do you have a drink containing alcohol?: 2-3 times a week 2. How many drinks containing alcohol do you have on a typical day when you are drinking?: 1 or 2 3. How often do you have six or more drinks on one occasion?: Never Total Score: 3 CHERRY-7 AMB Questionnaire CHERRY-7 Date CHERRY - 7 assessed: 01/05/25 Feeling nervous, anxious, or on edge: 1 = Several days Not being able to stop or control worryin = Not at all Worrying too much about different things: 1 = Several days Trouble relaxin = Not at all Being so restless that it is hard to sit still: 0 = Not at all Becoming easily annoyed or irritable: 1 = Several days Feeling afraid as if something awful might happen: 1 = Several days Total CHERRY-7 score (0-4 normal; 5-9 mild; 10-14 moderate; 15-21 severe): 4 Source: Developed by Drs. Antione Vega, Ana Lilia Toth, Surya Farnsworth and colleagues, with an educational jonathan from [employer]. CHERRY-7 Assessment Billing CHERRY-7 Assessment Tool: CHERRY-7 Assessment 19715 Review of Systems Const Denies headache(s) Eyes Denies loss of vision ENT Denies vertigo, Denies dizziness, Denies headache(s) and Denies sore throat Card Denies chest pain, Denies leg edema and Denies lightheadedness Resp Denies cough, Denies hemoptysis and Denies wheezing GI Denies abdominal pain, Denies melena, Denies constipation, Denies diarrhea and Denies vomiting Denies urinary frequency, Denies dysuria and Denies urinary urgency Musc Denies arthralgias, Denies joint swelling, Denies numbness and Denies tingling Neuro Denies Abnormal speech present, Denies behavioral changes, Denies vertigo, Denies dizziness, Denies headache(s), Denies loss of vision, Denies memory loss, Denies numbness and Denies tingling Psych Denies anxiety, Denies behavioral changes, Denies depression, Denies memory loss and Denies panic attacks Von/Lymph Denies easy bleeding and Denies easy bruising Aller/Immun Denies wheezing Physical exam (Primary Care) Vital Signs: Last Vital Signs Temp 96.9 F 01/05/25 11:03 Pulse 68 01/05/25 11:03 BP 120/74 01/05/25 11:03 Pulse Ox 96 01/05/25 11:03 Oxygen Delivery Method Room Air 01/05/25 11:03 BMI result Body Mass Index 25.4 Tobacco/Smoking Status: Tobacco use Status Tobacco use date assessed 01/05/25 01/05/25 11:07 Patient Tobacco Use Status Current everyday Tobacco 01/05/25 10:58 Are you ready to quit: No Tobacco cessation counseling provided: Yes Items discussed: Nicotine replacement Relapse Prevention: discussed the importance of a supportive environment, discussed negative mood or depression after quitting, weight gain after smoking is common and discussed dietary, exercise and/or lifestyle changes Number of minutes spent counselin CPT code: 45727 - 4-10 Minutes PHQ-9: PHQ-9 Score PHQ-9: Total score 3 01/05/25 11:18 Depression Screening Interpretation: Positive Depression Screening Follow-up: Existing condition Thrive Assessment: Date of Thrive Assessment Date Thrive assessed 01/05/25 01/05/25 11:13 Currently or been in a relationship where the following occur: No concerns reported Const General: healthy appearing, no acute distress, alert and awake Nutritional Appearance: well nourished Orientation/consciousness: oriented to person, oriented to place and oriented to time HENMT Ears: TM's normal bilaterally General nose exam: Normal nasal mucous membranes and turbinates present Eyes Conjunctivae: conjunctivae normal Sclerae: sclerae normal Pupils: Equal, round and reactive pupils present Neck Neck: Yes no lymphadenopathy and Yes no JVD Thyroid: Thyroid normal Carotids: no bruits Resp Effort & Inspection: normal respiratory effort and not tachypneic Auscultation: no crackles, no rales, no rhonchi and no wheezes Cardio Rate: regular rate Rhythm: regular rhythm Heart sounds: no murmurs and normal S1 and S2 GI Palpation (GI): Soft to palpation, nontender, no hepatomegaly and no splenomegaly Auscultation: normal bowel sounds Skin General skin exam: no rashes or lesions noted and dry skin Neuro General: oriented to person, oriented to place and oriented to time Cranial nerves: Yes Equal, round and reactive pupils present Speech: No Abnormal speech present Gait exam (Neuro): Normal gait present Motor exam (neuro): no tremor noted Extrem Right upper extremity: full ROM Left upper extremity: full ROM Right lower extremity: full ROM; no edema Left lower extremity: full ROM; no edema Psych Mental Status: mental status grossly normal Speech and movement: Normal speech and movement present Affect: normal affect Attitude: cooperative Thought process: Normal thought process present Coding Level of Care Code New Pt Level 4 (26823) Diagnoses Paroxysmal atrial fibrillation I48.0 Atrial fibrillation type: paroxysmal Nicotine dependence, cigarettes, uncomplicated F17.210 Mild intermittent asthma with (acute) exacerbation J45.21 Pericardial effusion I31.39 Elevated C-reactive protein (CRP) R79.82 Additional Codes CHERRY-7 Assessment Billing - CHERRY-7 Assessment Tool: CHERRY-7 Assessment 90004 ([id number]) PHQ-9 - 54425 - PHQ-9 Billing: Yes ([id number]) Vital Signs *Quality* - CPT code: 07448 - 4-10 Minutes ([id number]) Assessment & Plan Assessment & Plan (1) Afib: Code(s): I48.91 - Unspecified atrial fibrillation Category: Medical Qualifiers: Atrial fibrillation type: paroxysmal Qualified Code(s): I48.0 - Parox ysmal atrial fibrillation Plan: Patient has been noted to AFib during recent hospitalization, has low CHADS-VASc score of 1. Has not been started on anticoagulation at this time. She has been started on metoprolol for rate control, still has episodes which she believes has a heart skipping a beat. She has upcoming appointment with Cardiology for further eval. (2) Nicotine dependence, cigarettes, uncomplicated: Comment: (onset 15yo, 1/2-1ppd x 49yrs, 30pyh) Code(s): F17.210 - Nicotine dependence, cigarettes, uncomplicated Category: Medical Plan: Patient does understand she needs to quit smoking. She is currently in the lung cancer screening program and most recent CT chest showing concerning nodules. (3) Mild intermittent asthma with (acute) exacerbation: Code(s): J45.21 - Mild intermittent asthma with (acute) exacerbation Category: Medical Plan: Followed by pulmonology, continues with the use of Trelegy inhaler with good effect. She does understand she needs to completely quit smoking though has been very difficult for her. (4) Pericardial effusion: Code(s): I31.39 - Other pericardial effusion (noninflammatory) Category: Medical Plan: As per HPI patient recently admitted to [place] and transferred to [facility] for a large pericardial and pulmonary effusion. Her lights criteria appeared to be exudative of the pericardial fluid. Unclear etiology at this time. * Of note has abnormal CT lung cancer screening (5) Elevated C-reactive protein (CRP): Code(s): R79.82 - Elevated C-reactive protein (CRP) Category: Medical Plan: Had an elevated C-reactive protein in the setting of acute illness/pericardial effusion. Her RUTHIE was negative. Will trend her CRP now are outpatient. Orders: Orders CRP High Sensitivity 01/05/25 R79.82 - Elevated C-reactive protein (CRP) Comprehensive [place]. Panel Fast 01/05/25 I31.39 - Other pericardial effusion (noninflammatory) Lipid Panel 01/05/25 I48.0 - Paroxysmal atrial fibrillation Medications: New scopolamine base 1 patch transdermal Q3D PRN 4 ea 0RF nausea and vomiting ondansetron 4 mg PO Q8H PRN 15 tabs 0RF nausea and vomiting 5 days
[2025-01-05 11:03] VITALS: BP 120/74; PULSE 68; TEMP 36.1; O2SAT 96; BMI 25.4
--- OUTSIDE RECORDS SUMMARY | 2025-01-05 12:43 | XMS_ITS ---
Author Organization [facility] Address [address] [place] [id number] Care Team Providers Care Automobile Mechanic Radiator Name Role Phone Alisson Story Primary Care Provider Unavailab Igor Rubi Jr REASON FOR VISIT Labs/x-ray Problems Problem Type SNOMED Code ICD Code Onset Dates Problem Status W/U Status Risk Notes Problem Elevated liver enzymes level (104432547) Elevated LFTs (R79.89) Active confirmed Problem Gastrointestinal tract problem (235122521) Abn findings-GI tract (R93.3) Active confirmed Problem Anemia (201555683) Anemia (D64.9) Active confirmed Encounters Encounter Location Date Provider Diagnosis [facility] [address] [place] [phone] 11/30/2024 Igor Lozada Jr Elevated LFTs R79.89 [...] * NAVEED PETERSOB:[birth year] (64 yo F)Acc No.[id number]:11/30/2024 Patient:?KAROL PETERS :1960???Age:64 Y???Sex:Female Address:[address], [place], [address] Subjective: * Chief Complaints: * ???Labs/x-ray * [...] true * Date:? Generated for Matty moyer/Brittany/eTransmitting on:?01/05/2025 12:42 PM EDT
== END 2025-01-05 11:53 | disposition home or self-care (01) ==
LOC: HO.HMCH 10:50
PROVIDERS: PCP Nurse Practitioner Family; Visit Provider Physician Assistant
DX: I48.0 Paroxysmal atrial fibrillation (principal); F17.210 Nicotine dependence, cigarettes, uncomplicated; J45.21 Mild intermittent asthma with (acute) exacerbation; I31.39 Other pericardial effusion (noninflammatory); R79.82 Elevated C-reactive protein (CRP)

== ENCOUNTER → 2025-01-05 10:49 | Outpatient (BNVA) | payer OTHER, SELFPAY | PROVIDERS: PCP Nurse Practitioner Family; Visit Provider Physician Assistant | DX: I48.0 Paroxysmal atrial fibrillation (principal); E78.5 Hyperlipidemia, unspecified; R91.8 Other nonspecific abnormal finding of lung field; J44.9 Chronic obstructive pulmonary disease, unspecified; J45.21 Mild intermittent asthma with (acute) exacerbation; I31.39 Other pericardial effusion (noninflammatory); R79.82 Elevated C-reactive protein (CRP); F17.210 Nicotine dependence, cigarettes, uncomplicated | CPT/HCPCS: 96127 ==

== ENCOUNTER 2025-01-09 12:35 | Outpatient (AMB) | payer OTHER, SELFPAY ==
--- NOTE | 2025-01-09 12:37 | A.OFFVIS_ITS ---
Vital Signs 01/09/25 12:38 Height 5 ft 4 in Weight 145 lb 8.081 oz BMI 25.0 BP 122/62 Blood Pressure Location Lt brachial Position Sitting Pulse 70 Pulse Source Pulse Oximeter Intake Visit Reasons: Paroxysmal atrial fibrillation Allergies eucalyptus Allergy (Severe, Verified 01/05/25 11:19) Anaphylaxis ampicillin Allergy (Intermediate, Verified 01/05/25 11:19) Rash sulfamethoxazole [From Bactrim] Allergy (Intermediate, Verified 01/05/25 11:19) Rash trimethoprim [From Bactrim] Allergy (Intermediate, Verified 01/05/25 11:19) Rash citrace spray Allergy (Unknown, Uncoded 01/05/25 11:19) Unknown citronella Allergy (Unknown, Uncoded 01/05/25 11:19) Unknown patchouli plant Allergy (Unknown, Uncoded 01/05/25 11:19) Unknown Medication List - Last Reconciled 01/09/25 by Juan Antonio Rooney MD albuterol sulfate 2.5 mg (3 mL) inhalation Q4H PRN albuterol sulfate 90 mcg/actuation 2 puffs inhalation Q4H PRN colchicine 0.6 mg PO BID ayhdslvviye-xsjhicify-mezlnskv 100-62.5-25 mcg (Trelegy Ellipta) 1 inh inhalation DAILY 30 days ibuprofen 400 mg PO Q6H PRN metoprolol tartrate 12.5 mg PO BID zp-lpm-vvsyx-calcium carb-K1 400 mcg-500 mg calcium-20 mcg (Women's 50 Plus Daily Formula) 1 tab PO DAILY nebulizers As directed ondansetron 4 mg PO Q8H PRN 5 days scopolamine base 1 patch transdermal Q3D PRN HPI Comments Details: Lilian is here for consultation regarding pericardial effusion. She was recently seen in the emergency room. Per notes, she had symptoms of shortness of breath as well as fatigue. She also felt bloated and distended. She was seen in the emergency room and underwent an echocardiogram which showed a significant pericardial effusion. She also had atrial fibrillation apparently. Following that, she was sent to [facility] where she had pericardiocentesis. After that, discharged home. She believes that she was having various symptoms like chest pain, back pain extra which could have been rather due to the pericardial effusion. She states she went to a chiropractor rather for that. Additionally, there was an episode of suppressed sneezing and she feels that may have played some role as well causing some kind of trauma but not very clear. Any case, she is does feel much better after the drainage of the fluid. She is on colchicine. Some diarrhea but otherwise tolerating. History of smoking. [facility] Medical History Tubular adenoma of colon Nicotine dependence, cigarettes, uncomplicated Chronic bronchiolitis Has daytime drowsiness Pulmonary nodules Chronic bronchitis Asthma Surgical History History of tubal ligation History of colonoscopy History of breast lump/mass excision Family History Mother CAD (coronary artery disease) Father CAD (coronary artery disease) Social History Household Members: Spouse Housing: House Do you presently have visiting nurse or other home services: No Patient Tobacco Use Status: Current everyday Tobacco user Cigarettes Per Day: 10.0 Years Smoked: (onset 15yo, 1/2-1ppd x 49yrs, 30pyh) Substance Use Type: Marijuana service: No Current occupational status: employed 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 Review of Systems Const Denies weakness ENT Denies dizziness Card Denies chest pain, Denies chest pain with activity, Denies syncope, Denies rapid heart rate, Denies pedal edema, Denies edema, Denies leg edema, Denies lightheadedness, Denies palpitations, Denies dyspnea, Denies dyspnea on exertion and Denies orthopnea Resp Denies cough, Denies dyspnea and Denies dyspnea on exertion GI Denies hematochezia and Denies change in stool character Musc Denies abnormal gait, Denies muscle cramps, Denies muscle weakness, Denies numbness, Denies radiating pain into limb and Denies tingling Neuro Denies abnormal gait, Denies dizziness, Denies syncope, Denies numbness, Denies tingling and Denies weakness Endo Denies palpitations Physical Exam Vital Signs: Last Vital Signs Pulse 70 01/09/25 12:38 BP 122/62 01/09/25 12:38 BMI result Body Mass Index 25.0 Const General: comfortable and no acute distress Orientation/consciousness: patient oriented x3 HEENT Other: Unremarkable Head: Yes normal to inspection Neck Neck: Yes normal visual inspection Chest Chest palpation & inspection: normal inspection of the chest Resp Auscultation: clear to auscultation bilaterally Cardio Palpation: normal PMI Heart sounds: S1 normal heart sound present, S2 normal heart sound present, no gallops, no murmurs and no rubs GI Palpation (GI): Soft to palpation Back/Spine/Pelvis Other: unremarkable Skin General skin exam: no rashes or lesions noted Neuro General: patient oriented x3 Extrem General: Yes normal to inspection Psych Mental Status: mental status grossly normal Assessment & Plan Assessment & Plan (1) Pericardial effusion: Code(s): I31.39 - Other pericardial effusion (noninflammatory) Category: Medical Plan: In the initial echocardiogram, umtssgeo-sz-ucfvq pericardial effusion but no definitive tamponade. Per notes, she had 250 cc of bloody fluid drained by Interventional Radiology. Continue colchicine for 3 months total. It seems there was an increase in CRP/sed rate which might suggest in fact etiology. She has no history of any autoimmune disease. Cytology was negative. We will plan on a follow-up limited study. (2) Atrial flutter, paroxysmal: Code(s): I48.92 - Unspecified atrial flutter Category: Medical Plan: EKG in the ER had shown atrial flutter with rapid rate. Could be related to the pericardial information. However, she has had some symptoms suggestive of ectopy in the preceding months. Check Holter monitor. Continue low-dose beta- blockers. No need for anticoagulation at this time. Plan Discussion NotesI reviewed with the patient the likely idiopathic nature of the pericardial effusion, with a possible viral component. Given elevated inflammatory markers, I explained the rationale for colchicine treatment as an anti-inflammatory agent and discussed potential gastrointestinal side effects. I assured her of the essential role of metoprolol in controlling her atrial fibrillation and minimizing risks. Follow-up plan involving a repeat echocardiogram and Holter monitoring was discussed. I outlined the consent for these treatments and diagnostic measures, discussions of alternatives, and importance of monitoring signs of disease progression. Implementation of the Holter monitor will assist in capturing ongoing arrhythmic events, helping to tailor further intervention. Patient was informed and verbally consented to the use of an ambient scribe for clinic note documentation during this visit. Orders: Orders [place] Echo Limited Today I31.39 - Other pericardial effusion (noninflammatory) ECG 14 day holter monitor Today I48.92 - Unspecified atrial flutter Patient Instructions: - Continue taking colchicine unless it causes severe stomach issues. - Take metoprolol as directed to control your heart rhythm. - Wear the Holter monitor for two weeks as instructed. - Attend your scheduled follow-up appointments. - If you notice any severe chest pain, difficulty breathing, or fainting, seek medical care right away. - Keep a record of any unusual symptoms and report them during your follow-up visit. Coding Level of Care Code New Pt Level 4 (35935) Complex EM visit Add On G2211 Diagnoses Pericardial effusion I31.39 Atrial flutter, paroxysmal I48.92
[2025-01-09 12:38] VITALS: BP 122/62; PULSE 70; BMI 25.0
--- OUTSIDE RECORDS SUMMARY | 2025-01-09 13:58 | XMS_ITS ---
Author Organization [facility] Address [address] [place] [phone] Care Team Providers Care Automotive Maintenance Technician Name Role Phone Alisson Story Primary Care Provider Unavailab Igor Rubi Jr REASON FOR VISIT Labs/x-ray Problems Problem Type SNOMED Code ICD Code Onset Dates Problem Status W/U Status Risk Notes Problem Elevated liver enzymes level (088595872) Elevated LFTs (R79.89) Active confirmed Problem Gastrointestinal tract problem (488400831) Abn findings-GI tract (R93.3) Active confirmed Problem Anemia (252212876) Anemia (D64.9) Active confirmed Encounters Encounter Location Date Provider Diagnosis [facility] [address] [place] [phone] 11/30/2024 Igor Lozada Jr Elevated LFTs R79.89 [...] * NAVEED PETERSOB:[birth year] (64 yo F)Acc No.[id number]:11/30/2024 Patient:?KAROL PETERS :1960???Age:64 Y???Sex:Female Address:[address], [place], [address] Subjective: * Chief Complaints: * ???Labs/x-ray * [...] true * Date:? Generated for Matty moyer/Brittany/eTransmitting on:?01/09/2025 01:58 PM EDT
== END 2025-01-09 13:19 | disposition home or self-care (01) ==
LOC: HO.HCS 12:35
PROVIDERS: PCP Physician Assistant; Visit Provider Internal Medicine
DX: I31.39 Other pericardial effusion (noninflammatory) (principal); I48.92 Unspecified atrial flutter
CPT/HCPCS: 99214

== ENCOUNTER → 2025-01-09 12:35 | Outpatient (BNVA) | payer OTHER, SELFPAY | PROVIDERS: PCP Physician Assistant; Visit Provider Internal Medicine ==

== ENCOUNTER 2025-01-25 06:33 | Outpatient (REF) | payer OTHER, SELFPAY ==
--- OUTSIDE RECORDS SUMMARY | 2025-01-25 06:36 | XMS_ITS | Patient Health Record ---
Author Organization [facility] Address [address] [place] [address] Care Team Providers Care Physics Faculty Member Name Role Phone Alisson Story Primary Care Provider Igor Sommer Jr Unavailable [phone] Allergies Allergen (clinical drug ingredient) Drug/Non Drug Allergy documented on EMR Reaction Allergy Type Onset Date Status Penicillin Unknown Drug Allergy Active Eucalyptus Unknown Drug Allergy Active sulfamethoxazole / trimethoprim Bactrim Unknown Drug Allergy Active patchouli plant (uncoded) Unknown Allergy Active citrace spray (uncoded) Unknown Allergy Active citronella (uncoded) Unknown Allergy Active Results Component Value Reference Range Notes XR abdomen min 2V Reviewed date:11/30/2024 08:53:14 AM Interpretation: Performing Lab: Notes/Report: [address] [address] XRay Report Signed Patient: Lilian Peters MR#: [id number] 668 : 1960 Acct:[id number] Age/Sex: 64 / F ADM Date: 11/29/24 Loc: HO.XRAY Attending Dr: Igor Lozada MD Ordering Physician: Igor Lozada MD Date of Service: 11/29/24 Procedure(s): XR abdomen min 2V Accession Number(s): [id number] cc: Igor Lozada MD; Physician,Unknown EXAMINATION: XR [...] OV> 11/30/24 0731 DD/ 1552 TD/TT: 11/29/24 1601 Kilnman: Pathology Reviewed date:06/02/2024 10:06:52 AM Interpretation: Performing Lab:[facility], [address] [place] [phone] Notes/Report: Complete Blood Count Auto Di ff Reviewed date:11/30/2024 08:52:46 AM Interpretation: Performing Lab:[facility], [address] [place] [phone] Notes/Report: White Blood Count 13.5 4.8-10.8 X10*3/uL [...] te Reviewed date:11/30/2024 08:52:39 AM Interpretation: Performing Lab:[address] [address] Notes/Report: Erythrocyte Sedimentation Rate 28 0-20 MM/HR Patients with polycythemia and many hemoglobin abnormalities may have depressed sed rates whereas patients with anemia may have elevated sed rates. Liver Panel Reviewed date:11/30/2024 08:52:08 AM Interpretation: Performing Lab:[address] [address] Notes/Report: Bilirubin Total 0.8 0.0-1.0 mg/dL Bilirubin Direct 0.3 0.0-0.5 mg/dL Aspartate Amino Transferase 65 5-31 U/L Alanine Aminotransferase 128 0-31 U/L Total Protein 6.6 6.5-8.0 g/dL Albumin Level 3.9 3.5-5.0 g/dL Alkaline Phosphatase 115 39-117 U/L Lipase Reviewed date:11/30/2024 08:52:05 AM Interpretation: Performing Lab:[address] [address] Notes/Report: Lipase 20 8-78 U/L TSH reflex Free T4 Reviewed date:11/30/2024 08:51:52 AM Interpretation: Performing Lab:[address] [address] Notes/Report: TSH reflex Free T4 1.31 0.32-4.0 uIU/mL Immunoglobulins,IgG IgA IgM Reviewed date:12/09/2024 04:20:40 PM Interpretation: Performing Lab:[facility], [address] [place] [phone] Notes/Report: IgG 721 620-3451 mg/dL IgA 146 70-320 mg/dL IgM 105 50-300 mg/dL THIS TEST WAS PERFORMED AT: [facility] [address] [place] [phone] JASMIN BLANTON MD Immunoglobulin E Reviewed date:12/09/2024 04:20:22 PM Interpretation: Performing Lab:[facility], [address] [place] [phone] Notes/Report: Immunoglobulin E 40 <ZK=583 kU/L THIS TEST WAS PERFORMED AT: [facility] [address] [place] [phone] JASMIN BLANTON MD Reason For Referral No [...] W/U Status Risk Notes Problem Abdominal bloating (694058884) Abdominal bloating (787.3) Active confirmed Problem 724133130 Special screening for malignant neoplasms, colon (Z12.11) Active confirmed Problem Eructation (20878368) Eructation (R14.2) Active confirmed Problem Elevated liver enzymes level (445534306) Elevated LFTs (R79.89) Active confirmed Problem Altered bowel function (28856632) Change in bowel function (R19.4) Active confirmed Problem Anemia (981937856) Anemia (D64.9) Active confir med Problem 52163480 Constipation, unspecified constipation type (K59.00) Active confirmed Problem Gastrointestinal tract problem (795665630) Abn findings-GI tract (R93.3) Active confirmed Problem Flatulence, eructation and gas pain (474888791) Abdominal gas pain (R14.1) Active confirmed Vital Signs Blood pressure diastolic 00 mm Hg 04/14/2024 Height 5 ft 4 in in 04/14/2024 Blood pressure systolic 00 mm Hg 04/14/2024 Weight 152 lbs 04/14/2024 BMI 26.09 kg/m2 04/14/2024 Encounters Encounter Location Date Provider Diagnosis [facility] [place] [address] [place] [id number] 05/31/2024 Igor Lozada Jr Colon cancer screening Z12.11 and Colon polyps K63.5 [facility] [address] [place] [phone] 04/14/2024 Igor Lozada Jr Special screening for malignant neoplasms, colon Z12.11 and Constipation, unspecified constipation type K59.00 [facility] [address] [place] [phone] 06/02/2024 Igor Lozada Jr [facility] [address] [address] 11/29/2024 Igor Lozada Jr Change in bowel function R19.4 ; Abdominal gas pain R14.1 ; Abdominal bloating 787.3 and Eructation R14.2 [facility] [address] [address] 11/30/2024 Igor Lozada Jr Elevated LFTs R79.89 ; Abn findings-GI tract R93.3 and Anemia D64.9 [facility] [address] [address] 12/06/2024 Igor Lozada Jr Assessments Encounter Date [...] Coverage End Date [employer] [place] [address] [address] [place] [address] [id number] 5 LILIAN DON Self - patient is the insured Medical (General) History Medical History History ICD Code environmental allergies asthma Surgical History Surgery Date(Month/Year) lipoma fatty left breast superficial 198 3 tubal ligation
--- OUTSIDE RECORDS SUMMARY | 2025-01-25 06:36 | XMS_ITS | Clinical Summary ---
Author Organization [employer] Address [address] [place] [address] Care Team Providers Care Numerical Control Machine Tool Operator Name Role Phone Unavailable Primary Care Provider [...] None. Categorization based on Lung-RADS 2022 criteria. [email or web address] WSN: [id number] Ordering Physician: Alisson Oliva Dictated By: Angel [...] done at end of June 2023 at [facility]. Routine general medical exam ination at a health care facility 12/11/2022 Overview (12/15/2023): CPE done 12/15/23. HEALTH CARE MAINTENANCE: Colonoscopy (age 45-75): Dr. Luis - [facility]. Due for cscope. Has to go to [place] due to insurance. Wants to go to [facility]. Has every 3 years - multiple benign polyps (tubular adenomas). Mammogram (age 40-74): Done 11/2023 - waiting for results. AAA Screen (Fam Hx AAA): No family hx. LDCT (smoke >30 pack year, age 55-80): Engaged with pulm - has routine screens. DEXA (age 61 with RF, age 65): Has Osteopenia - had scan at [facility]. Last done 08/2022. BROKE MAN: Outside BROKE MAN: Dr. Newell LMP: Menopause . Last PAP [...] Was advised by PT to go to [place] [facility] Machine Operator - would like to see Sunita Ferguson at [place]. We will send referral. Discussed pain management including piriformis stretches and ibuprofen. Assessment & Plan (02/06/2023 8:51 AM EDT): Son is hardware trainer and has been giving her suggestions. [...] original note were not included. [facility] [place] with [facility]monology - [facility]. [...] cervicovaginal cytologic smear 10/16/2022 Overview (12/24/2023): Has BROKE MAN - Dr. Newell who is following. 11/05/2022 [...] Team Description 01/21/2025 Travel 11/02/2024 Refmariza Walden [facility] [address] [place] [address] Alisson Oliva FNP Mild intermittent asthma without [...] Description 01/26/2025 8:30 AM EDT Office Visit [place] [facility] [address] [place] [address] Tammy Trivedi Health Maintenance Due Date Last [...] Hm Colonoscopy (05/31/2024 10:08 AM EST) Result [facility] HEALTH MAINTENANCE Final Result * BI Mammogram Screening Tomosynthesis Bilateral (12/10/2023 10:05 AM EDT) Anatomical Region Laterality Modality Breast Bilateral Mammography [facility] IM BI PROCEDURES Final Result * CT Lung Screening Low dose (12/09/2023) Anatomical Region Laterality Modality Lung Computed Tomogra phy [facility] CT PROCEDURES Final Result * HIV Antibody/Antigen, 4th Generation (04/23/2023 9:57 AM EDT) Result 4th Gen HIV Antibody Antigen NEGATIVE (NEG) [facility] Comment: Negative for antibodies to HIV 1 and HIV 2 and P24 antigen. Reference range: Negative Additional note: Written patient authorization is required for each separate release of this test result. This test was performed on the [employer] immunoassay system. Testing performed or reported by [facility], a Service of [facility], [facility] [place] [address] Jong Lou MD, Bike Designer [facility]# [id number] Blood 04/23/2023 9:57 AM EDT 04/23/2023 10:41 AM EDT Result [facility] LAB BLOOD ORDERABLES Final Resul t [facility] [address] [place] [address] * Hepatits C Antibody w/Reflex HCV Quant PCR and Genotyping (04/23/2023 9:57 AM EDT) Hepatitis C Virus Ab, Serum NEGATIVE (NEG) [facility] Comment: Reference range: Negative This test was performed on the [employer] Information [employer] immunoassay system. Testing performed or reported by [facility], a Service of [facility], [facility] [place] [id number] Jong Lou MD, Bike Designer [facility]# [id number] 04/23/2023 9:57 AM EDT 04/23/2023 10:41 AM EDT Alisson DELGADO LAB BLOOD ORDERABLES Final Resul t [facility] [address] [place] [address] * HM PAP/HPV (11/05/2022 10:22 AM EDT) Alisson DELGADO HEALTH MAINTENANCE Final Result from Last 3 Months or Most Recently Relevant to Health Maintenance Insurance [employer]
[2025-01-25 07:21] LABS: Hematocrit 39.6 % (37.0-47.0); Hemoglobin 13.4 g/dl (12.0-16.0); Mean Corpuscular HGB Conc 33.8 g/dl (31.0-35.0); Mean Corpuscular Hemoglobin 28.9 pg (27.0-33.0); Mean Corpuscular Volume 85.3 fL (80.0-98.0); NRBC Abs Auto 0.000 X10*3/uL (0.0-0.012); NRBC Pct Auto 0.0 /100WBC (0.0-0.2); Platelet Count 364 X10*3/uL (160-400); Red Blood Count 4.64 X10*6/uL (4.20-5.50); White Blood Count 7.4 X10*3/uL (4.8-10.8)
[2025-01-25 07:40] LABS: Alanine Aminotransferase 27 U/L (0-31); Albumin Level 4.3 g/dL (3.5-5.0); Alkaline Phosphatase 87 U/L (39-117); Anion Gap 11 (12-20); Aspartate Amino Transferase 29 U/L (5-31); Blood Urea Nitrogen 16 mg/dL (9-16); Calcium 9.0 mg/dL (8.4-10.2); Carbon Dioxide 27 mmol/L (22-29); Chloride 104 mmol/L (96-108); Cholesterol 213 mg/dL (<200); Estimated Glomerular Filt Rate > 60; HDL Cholesterol 42 mg/dL (>40); Potassium 4.1 mmol/L (3.3-5.1); Sodium 138 mmol/L (135-145); Total Protein 7.0 g/dL (6.5-8.0); Triglycerides 137 mg/dL (<150)
== END 2025-01-25 06:34 | disposition home or self-care (01) ==
LOC: HO.LAB 06:33
PROVIDERS: PCP Physician Assistant; Visit Provider Physician Assistant
DX: R79.82 Elevated C-reactive protein (CRP) (principal); I31.39 Other pericardial effusion (noninflammatory); I48.0 Paroxysmal atrial fibrillation; I48.92 Unspecified atrial flutter; Z13.6 Encounter for screening for cardiovascular disorders
CPT/HCPCS: 36415; 80053; 80061; 85027; 86141

== ENCOUNTER → 2025-02-06 13:18 | Outpatient (REF) | payer OTHER, SELFPAY ==
--- NOTE | 2025-02-06 13:22 | HM_ITS ---
* Total monitoring time 13 days and 3 hours. * Underlying rhythm is sinus with an average rate of 65/Min. * Rare supraventricular ectopy. * Rare ventricular ectopy. * 4 pauses noted- 6.5 seconds at 16:38. 02/08/2025 4.3 seconds at 17:03. 02/09/2025 4.8 seconds at 05:55. 02/12/2025 7.5 seconds at 05:55. 02/12/2025 * Patient marker used with sinus rhythm. * Flutter in patient diary correlates with sinus rhythm and PVC. MTDD
--- OUTSIDE RECORDS SUMMARY | 2025-02-06 14:24 | XMS_ITS | Patient Health Record ---
Author Organization [facility] Address [address] [place] [address] Care Team Providers Care Operator Weapon Locating Radar Name Role Phone Alisson Story Primary Care [...] date:11/30/2024 08:53:14 AM Interpretation: Performing Lab: Notes/Report: [address] [address] XRay Report Signed Patient: Lilian Peters MR#: [id number] 668 : 1960 Acct:[id number] Age/Sex: 64 / F ADM Date: 11/29/24 Loc: HO.XRAY Attending Dr: Igor Loazda MD Ordering Physician: Igor Lozada MD Date of Service: 11/29/24 Procedure(s): XR abdomen min 2V Accession Number(s): [id number] cc: Igor Lozada MD; Physician,Unknown EXAMINATION: XR [...] OV> 11/30/24 0731 DD/ 1552 TD/TT: 11/29/24 160 Epidemiology Investigator: Pathology Reviewed date:06/02/2024 10:06:52 AM Interpretation: Performing Lab:[facility], [address] [place] [address] Notes/Report: Complete Blood Count Auto Di ff Reviewed date:11/30/2024 08:52:46 AM Interpretation: Performing Lab:[facility], [address] [place] [address] Notes/Report: White Blood Count 13.5 4.8-10.8 X10*3/uL [...] te Reviewed date:11/30/2024 08:52:39 AM Interpretation: Performing Lab:[address] [address] Notes/Report: Erythrocyte Sedimentation Rate 28 0-20 MM/HR Patients with polycythemia and many hemoglobin abnormalities may have depressed sed rates whereas patients with anemia may have elevated sed rates. Liver Panel Reviewed date:11/30/2024 08:52:08 AM Interpretation: Performing Lab:[address] [address] Notes/Report: Bilirubin Total 0.8 0.0-1.0 mg/dL Bilirubin Direct 0.3 0.0-0.5 mg/dL Aspartate Amino Transferase 65 5-31 U/L Alanine Aminotransferase 128 0-31 U/L Total Protein 6.6 6.5-8.0 g/dL Albumin Level 3.9 3.5-5.0 g/dL Alkaline Phosphatase 115 39-117 U/L Lipase Reviewed date:11/30/2024 08:52:05 AM Interpretation: Performing Lab:[address] [address] Notes/Report: Lipase 20 8-78 U/L TSH reflex Free T4 Reviewed date:11/30/2024 08:51:52 AM Interpretation: Performing Lab:[address] [address] Notes/Report: TSH reflex Free T4 1.31 0.32-4.0 uIU/mL Immunoglobulins,IgG IgA IgM Reviewed date:12/09/2024 04:20:40 PM Interpretation: Performing Lab:[facility], [address] [place] [address] Notes/Report: IgG 760 180-6500 mg/dL IgA 146 70-320 mg/dL IgM 105 50-300 mg/dL THIS TEST WAS PERFORMED AT: [facility] [address] [place] [phone] JASMIN BLANTON MD Immunoglobulin E Reviewed date:12/09/2024 04:20:22 PM Interpretation: Performing Lab:[facility], [address] [place] [address] Notes/Report: Immunoglobulin E 40 <JG=591 kU/L THIS TEST WAS PERFORMED AT: [facility] [address] [place] [phone] JASMIN BLANTON MD Reason For Referral No [...] W/U Status Risk Notes Problem Abdominal bloating (656586813) Abdominal bloating (787.3) Active confirmed Problem 576489508 Special screening for malignant neoplasms, colon (Z12.11) Active confirmed Problem Eructation (43643998) Eructation (R14.2) Active confirmed Problem Elevated liver enzymes level (447174441) Elevated LFTs (R79.89) Active confirmed Problem Altered bowel function (61293387) Change in bowel function (R19.4) Active confirmed Problem Anemia (229654191) Anemia (D64.9) Active confir med Problem 33974023 Constipation, unspecified constipation type (K59.00) Active confirmed Problem Gastrointestinal tract problem (316785362) Abn findings-GI tract (R93.3) Active confirmed Problem Flatulence, eructation and gas pain (477746427) Abdominal gas pain (R14.1) Active confirmed Vital Signs Blood pressure diastolic 00 mm Hg 04/14/2024 Height 5 ft 4 in in 04/14/2024 Blood pressure systolic 00 mm Hg 04/14/2024 Weight 152 lbs 04/14/2024 BMI 26.09 kg/m2 04/14/2024 Encounters Encounter Location Date Provider Diagnosis [facility] [address] [place] [phone] 05/31/2024 Igor Lozada Jr Colon cancer screening Z12.11 and Colon polyps K63.5 [facility] [address] [place] [address] 04/14/2024 Igor Lozada Jr Special screening for malignant neoplasms, colon Z12.11 and Constipation, unspecified constipation type K59.00 [facility] [address] [place] [address] 06/02/2024 Igor Lozada Jr [facility] [address] [address] 11/29/2024 Igor Lozada Jr Change in bowel function R19.4 ; Abdominal gas pain R14.1 ; Abdominal bloating 787.3 and Eructation R14.2 [facility] [address] [address] 11/30/2024 Igor Lozada Jr Elevated LFTs R79.89 ; Abn findings-GI tract R93.3 and Anemia D64.9 [facility] [address] [address] 12/06/2024 Igor Lozada Jr Assessments Encounter Date [...] Coverage End Date [employer] [place] [address] [address] [place] [address] [id number] 5 LILIAN DON Self - patient is the insured Medical (General) History Medical History History ICD Code environmental allergies asthma Surgical History Surgery Date(Month/Year) lipoma fatty left breast superficial 198 3 tubal ligation
--- OUTSIDE RECORDS SUMMARY | 2025-02-06 14:24 | XMS_ITS | Clinical Summary ---
Author Organization [employer] Address [address] [place] [address] Care Team Providers Care Escrow Closer Name Role Phone Unavailable Primary Care Provider [...] None. Categorization based on Lung-RADS 2022 criteria. [email or web address] WSN: [id number] Ordering Physician: Alisson Oliva Dictated By: Angel Stapels MD Dictated Date/Time: 01/19/23 4:11 pm Reviewed [...] done at end of June 2023 at [facility]. Routine general medical exam ination at a health care facility 12/11/2022 Overview (12/15/2023): CPE done 12/15/23. HEALTH CARE MAINTENANCE: Colonoscopy (age 45-75): Dr. Luis - [facility]. Due for cscope. Has to go to [place] due to insurance. Wants to go to [place] [facility]. Has every 3 years - multiple benign polyps (tubular adenomas). Mammogram (age 40-74): Done 11/2023 - waiting for results. AAA Screen (Fam Hx AAA): No family hx. LDCT (smoke >30 pack year, age 55-80): Engaged with pulm - has routine screens. DEXA (age 61 with RF, age 66): Has Osteopenia - had scan at [facility]. Last done 08/2022. ENGINEERING FACULTY MEMBER: Outside ENGINEERING FACULTY MEMBER: Dr. Newell LMP: Menopause . Last PAP [...] Was advised by PT to go to [facility] - would like to see Sunita Ferguson at [facility]. We will send referral. Discussed pain management including piriformis stretches and ibuprofen. Assessment & Plan (02/06/2023 8:51 AM EDT): Son is link trainer maintenance worker and has been giving her suggestions. Is [...] cervicovaginal cytologic smear 10/16/2022 Overview (12/24/2023): Has ENGINEERING FACULTY MEMBER - Dr. Newell who is following. 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 Not on file Not on file Last Filed Vital Signs Vital Sign Reading Time Taken Comments Blood Pressure 113/72 01/26/2025 8:32 AM EDT Pulse 65 06/16/2024 10:00 AM EST Temperature [...] Care Team (Late st Contact Info) Description 05/31/2025 8:30 AM EST Office Visit [facility] DENT[facility] [address] [place] [address] Tammy Trivedi 09/28/2025 8:30 AM EST Office Visit [facility] DENT[facility] [address] [place] [address] Tammy Trivedi Health Maintenance Due Date Last [...] 12/15/2023, 12/15/19 24 SDOH Screening 12/14/2024 12/15/2023 Tobacco Screening 12/29/2024 12/30/2023 Influenza Vaccine (#1) 2025 04/28/2024, 2022 DTaP/Tdap/Td Vaccines (2 - Td or Tdap) 05/14/2025 05/14/2015, 06/24/2005 Disability Screening 06/16/2025 06/16/2024 Dental X-Ray: Bitewings 06/23/2025 06/22/20 24, 02/10/2023, 12/04/2021, Additional history exists Dental Oral Exam 07/30/2025 01/26/2025, , 08/26/2023, Additional history exists Dental Prophylaxis 07/30/2025 01/26/2025, 0 09/28/2024, 06/22/2024, Additional history exists Cervical Cancer Screening 11/05/2025 Pap Smear 11/05/2025 11/05/2022, 01/16/2021 Mammogram 12/09/2025 12/10/2023, 05/0 07/2023, 09/20/2019, Additional history exists Colonoscopy 05/31/2034 05/31/2024, 03/0 02/2021, 10/01/2020, Additional history exists Colorectal Cancer Screening 05/31/2034 HIV Screening Completed 04/23/2023 Hepatitis C Screening Completed 04/23/2023 Lung Cancer Screening Discontinued 12/09/2023, 023 HIB Vaccines Aged Out No longer eligi [...] Procedure Name Priority Date/Time Associated Diagnosis Comments Full PROPHYLAXIS - ADULT Routine 01/26/2025 8:30 AM EDT PERIODIC ORAL EVALUATION - ESTABLISHED PATIENT Routine 01/26/2025 8:30 AM EDT BITEWINGS - 4 RADIOGRAPHIC IMAGES Routine 06/22/2024 4:00 PM EST HM COLONOSCOPY [...] Hm Colonoscopy (05/31/2024 10:08 AM EST) Alisson Oliva [facility] HEALTH MAINTENANCE Final Result * BI Mammogram Screening Tomosynthesis Bilateral (12/10/2023 10:05 AM EDT) Anatomical Region Laterality Modality Breast Bilateral Mammography Alisson Oliva [facility] IM BI PROCEDURES Final Result * CT Lung Screening Low dose (12/09/2023) Anatomical Region Laterality Modality Lung Computed Tomogra phy Alisson Oliva [facility] CT PROCEDURES Final Result * HIV Antibody/Antigen, 4th Generation (04/23/2023 9:57 AM EDT) Result 4th Gen HIV Antibody Antigen NEGATIVE (NEG) [facility] Comment: Negative for antibodies to HIV 1 and HIV 2 and P24 antigen. Reference range: Negative Additional note: Written patient authorization is required for each separate release of this test result. This test was performed on the [employer] immunoassay system. Testing performed or reported by [facility], a Service of [facility], [address] [place] [address] Jong Lou MD, Clay Modeler [facility]# [id number] Blood 04/23/2023 9:57 AM EDT 04/23/2023 10:41 AM EDT Alisson Oliva [facility] LAB BLOOD ORDERABLES Final Resul t [facility] [address] [place] [address] * Hepatits C Antibody w/Reflex HCV Quant PCR and Genotyping (04/23/2023 9:57 AM EDT) Hepatitis C Virus Ab, Serum NEGATIVE (NEG) [facility] Comment: Reference range: Negative This test was performed on the [employer] immunoassay system. Testing performed or reported by [facility], a Service of [facility], [address] [place] [address] Jong Lou MD, Clay Modeler [facility]# [id number] 04/23/2023 9:57 AM EDT 04/23/2023 10:41 AM EDT Alisson CRP LAB BLOOD ORDERABLES Final Resul t [facility] [address] [place] [address] * HM PAP/HPV (11/05/2022 10:22 AM EDT) Alisson Oliva [facility] HEALTH MAINTENANCE Final Result from Last 3 Months or Most Recently Relevant to Health Maintenance Insurance [employer]
== END ==
LOC: HO.CARD 13:18
PROVIDERS: PCP Physician Assistant; Visit Provider Internal Medicine
DX: I48.92 Unspecified atrial flutter (principal)
CPT/HCPCS: 93246

== ENCOUNTER → 2025-02-06 13:22 | Outpatient (BNV) | payer OTHER, SELFPAY | PROVIDERS: PCP Physician Assistant; Visit Provider Internal Medicine | DX: I49.3 Ventricular premature depolarization (principal); I49.8 Other specified cardiac arrhythmias | CPT/HCPCS: 93248 ==

== ENCOUNTER → 2025-02-10 08:48 | Outpatient (REF) | payer OTHER, SELFPAY ==
--- OUTSIDE RECORDS SUMMARY | 2025-02-10 08:52 | XMS_ITS | Patient Health Record ---
Author Organization [facility] Address [address] [place] [address] Care Team Providers Care Supervisor Plastering Name Role Phone Alisson Story Primary Care Provider Igor Sommer Jr Unavailable [phone] Allergies Allergen (clinical drug ingredient) Drug/Non Drug [...] date:11/30/2024 08:53:14 AM Interpretation: Performing Lab: Notes/Report: [address] [address] XRay Report Signed Patient: Lilian Peters MR#: [id number] 668 : 1960 Acct:[id number] Age/Sex: 64 / F ADM Date: 11/29/24 Loc: HO.XRAY Attending Dr: Igor Lozada MD Ordering Physician: Igor Lozada MD Date of Service: 11/29/24 Procedure(s): XR abdomen min 2V Accession Number(s): [id number] cc: Igor Lozada MD; Physician,Unknown EXAMINATION: XR [...] OV> 11/30/24 0731 DD/ 1552 TD/TT: 11/29/24 1607 Tank Crewmember: Pathology Reviewed date:06/02/2024 10:06:52 AM Interpretation: Performing Lab:[facility], [address] [place] [phone] Notes/Report: Complete Blood Count Auto Di ff Reviewed date:11/30/2024 08:52:46 AM Interpretation: Performing Lab:[facility], [address] [place] [address] Notes/Report: White Blood Count 13.5 4.8-10.8 X10*3/uL [...] te Reviewed date:11/30/2024 08:52:39 AM Interpretation: Performing Lab:[address] [address] Notes/Report: Erythrocyte Sedimentation Rate 28 0-20 MM/HR Patients with polycythemia and many hemoglobin abnormalities may have depressed sed rates whereas patients with anemia may have elevated sed rates. Liver Panel Reviewed date:11/30/2024 08:52:08 AM Interpretation: Performing Lab:[address] [address] Notes/Report: Bilirubin Total 0.8 0.0-1.0 mg/dL Bilirubin Direct 0.3 0.0-0.5 mg/dL Aspartate Amino Transferase 65 5-31 U/L Alanine Aminotransferase 128 0-31 U/L Total Protein 6.6 6.5-8.0 g/dL Albumin Level 3.9 3.5-5.0 g/dL Alkaline Phosphatase 115 39-117 U/L Lipase Reviewed date:11/30/2024 08:52:05 AM Interpretation: Performing Lab:[address] [address] Notes/Report: Lipase 20 8-78 U/L TSH reflex Free T4 Reviewed date:11/30/2024 08:51:52 AM Interpretation: Performing Lab:[address] [address] Notes/Report: TSH reflex Free T4 1.31 0.32-4.0 uIU/mL Immunoglobulins,IgG IgA IgM Reviewed date:12/09/2024 04:20:40 PM Interpretation: Performing Lab:[facility], [address] [place] [phone] Notes/Report: IgG 431 659-9131 mg/dL IgA 146 70-320 mg/dL IgM 105 50-300 mg/dL THIS TEST WAS PERFORMED AT: [facility] [address] [place] [phone] JASMIN BLANTON MD Immunoglobulin E Reviewed date:12/09/2024 04:20:22 PM Interpretation: Performing Lab:[facility], [address] [place] [phone] Notes/Report: Immunoglobulin E 40 <VU=361 kU/L THIS TEST WAS PERFORMED AT: [facility] [address] [place] [phone] JASMIN BLANTON MD Reason For Referral No [...] W/U Status Risk Notes Problem Abdominal bloating (136027315) Abdominal bloating (787.3) Active confirmed Problem 737364900 Special screening for malignant neoplasms, colon (Z12.11) Active confirmed Problem Eructation (95003368) Eructation (R14.2) Active confirmed Problem Elevated liver enzymes level (327136563) Elevated LFTs (R79.89) Active confirmed Problem Altered bowel function (13295117) Change in bowel function (R19.4) Active confirmed Problem Anemia (977597477) Anemia (D64.9) Active confir med Problem 12539056 Constipation, unspecified constipation type (K59.00) Active confirmed Problem Gastrointestinal tract problem (148560234) Abn findings-GI tract (R93.3) Active confirmed Problem Flatulence, eructation and gas pain (894421619) Abdominal gas pain (R14.1) Active confirmed Vital Signs Blood pressure diastolic 00 mm Hg 04/14/2024 Height 5 ft 4 in in 04/14/2024 Blood pressure systolic 00 mm Hg 04/14/2024 Weight 152 lbs 04/14/2024 BMI 26.09 kg/m2 04/14/2024 Encounters Encounter Location Date Provider Diagnosis [facility] Out[facility] [address] [place] [phone] 05/31/2024 Igor Lozada Jr Colon cancer screening Z12.11 and Colon polyps K63.5 [facility] [address] [place] [address] 04/14/2024 Igor Lozada Jr Special screening for malignant neoplasms, colon Z12.11 and Constipation, unspecified constipation type K59.00 [facility] [address] [place] [phone] 06/02/2024 Igor Lozada Jr [facility] [address] [address] 11/29/2024 Igor Lozada Jr Change in bowel function R19.4 ; Abdominal gas pain R14.1 ; Abdominal bloating 787.3 and Eructation R14.2 [facility] [address] [address] 11/30/2024 Igor Lozada Jr Elevated LFTs R79.89 ; Abn findings-GI tract R93.3 and Anemia D64.9 [facility] [address] [address] 12/06/2024 Igor Lozada Jr Assessments Encounter Date [...] Coverage End Date [employer] [place] [address] [address] [place] [address] [id number] 5 LILIAN DON Self - patient is the insured Medical (General) History Medical History History ICD Code environmental allergies asthma Surgical History Surgery Date(Month/Year) lipoma fatty left breast superficial 198 3 tubal ligation
--- OUTSIDE RECORDS SUMMARY | 2025-02-10 08:52 | XMS_ITS | Clinical Summary ---
Author Organization [employer] Address [address] [place] [address] Care Team Providers Care Farm Helper Name Role Phone Unavailable Primary Care Provider [...] None. Categorization based on Lung-RADS 2022 criteria. [email or web address] WSN: [id number] Ordering Physician: Alisson Oliva Dictated By: Angel [...] done at end of June 2023 at [facility]. Routine general medical exam ination at a health care facility 12/11/2022 Overview (12/15/2023): CPE done 12/15/23. HEALTH CARE MAINTENANCE: Colonoscopy (age 45-75): Dr. Luis - [facility]. Due for cscope. Has to go to [place] due to insurance. Wants to go to [place]. Has every 3 years - multiple benign polyps (tubular adenomas). Mammogram (age 40-74): Done 11/2023 - waiting for results. AAA Screen (Fam Hx AAA): No family hx. LDCT (smoke >30 pack year, age 55-80): Engaged with pulm - has routine screens. DEXA (age 61 with RF, age 66): Has Osteopenia - had scan at [facility]. Last done 08/2022. HOME HEALTH CAREGIVER: Outside HOME HEALTH CAREGIVER: Dr. Newell LMP: Menopause . Last PAP [...] Was advised by PT to go to [facility] - would like to see Sunita Ferguson at [place]. We will send referral. Discussed pain management including piriformis stretches and ibuprofen. Assessment & Plan (02/06/2023 8:51 AM EDT): Son is link trainer and has been giving her suggestions. [...] from the original note were not included. [facility] Engaged with pulmonology - Isael Cortez. [...] cervicovaginal cytologic smear 10/16/2022 Overview (12/24/2023): Has HOME HEALTH CAREGIVER - Dr. Newell who is following. 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 Not on file [...] Description 05/31/2025 8:30 AM EST Office Visit [facility] DENTAL [address] [place] [address] Tammy Trivedi 09/28/2025 8:30 AM EST Office Visit [facility] DENT[facility] [address] [place] [address] Tammy Trivedi Health Maintenance Due Date Last [...] Colonoscopy (05/31/2024 10:08 AM EST) Alisson Oliva [facility] HEALTH MAINTENANCE Final Result * BI Mammogram Screening Tomosynthesis Bilateral (12/10/2023 10:05 AM EDT) Anatomical Region Laterality Modality Breast Bilateral Mammography Alisson Oliva [facility] IM BI PROCEDURES Final Result * CT Lung Screening Low dose (12/09/2023) Anatomical Region Laterality Modality Lung Computed Tomogra phy Alisson Oliva [facility] CT PROCEDURES Final Result * HIV Antibody/Antigen, 4th Generation (04/23/2023 9:57 AM EDT) Result 4th Gen HIV Antibody Antigen NEGATIVE (NEG) [facility] Comment: Negative for antibodies to HIV 1 and HIV 2 and P24 antigen. Reference range: Negative Additional note: Written patient authorization is required for each separate release of this test result. This test was performed on the [employer] immunoassay system. Testing performed or reported by [facility], a Service of [facility], [address] [place] [address] Jong Lou MD, Medical Doctor Md [facility]# [id number] Blood 04/23/2023 9:57 AM EDT 04/23/2023 10:41 AM EDT Alisson Oliva [facility] LAB BLOOD ORDERABLES Final Resul t [facility] [address] [place] [address] * Hepatits C Antibody w/Reflex HCV Quant PCR and Genotyping (04/23/2023 9:57 AM EDT) Hepatitis C Virus Ab, Serum NEGATIVE (NEG) [facility] Comment: Reference range: Negative This test was performed on the [employer] immunoassay system. Testing performed or reported by [facility], a Service of [facility], [address] [place] [address] Jong Lou MD, Medical Doctor Md [facility]# [id number] 04/23/2023 9:57 AM EDT 04/23/2023 10:41 AM EDT Alisson CRP LAB BLOOD ORDERABLES Final Resul t [facility] [address] [place] [address] * HM PAP/HPV (11/05/2022 10:22 AM EDT) Alisson Oliva [facility] HEALTH MAINTENANCE Final Result from Last 3 Months or Most Recently Relevant to Health Maintenance Insurance [employer]
--- NOTE | 2025-02-10 08:53 | CA_ITS ---
Transthoracic Echocardiogram Patient (Last, First, Middle): Lilian Parker, Gender: Female Date of : 1960 Age: 64 Procedure Date: 02/10/2025 Procedure Type: Transthoracic Echocardiogram Location: OP Height: 162.56 cm Weight: 68.04 kg BSA: 1.73 m2 Heart Rate: bpm BP: 110 / 68 mmHg Suit Attendant: TO Referring MD: Juan Antonio Rooney MD Symptoms: I31.39 - Other pericardial effusion (noninflammatory) Study Quality: Adequate ECG Rhythm: Sinus Conclusions: - There is no evidence of pericardial effusion. Findings Left Ventricle Normal left ventricular cavity size. The left ventricular systolic function is normal. The visually estimated ejection fraction is between 60-65%. Venous The inferior vena cava is normal in size and collapses greater than 50% with inspiration. Pericardium/Pleural There is no evidence of pericardial effusion. Prior Study Comparison Changes noted compared to prior study dated: 12/02/2024. Pericardial effusion resolved. Measurements 2D Linear Measurements IVSd: 0.78 0.6-0.9/0.6-1.0 cm LVIDd: 4.66 3.9-5.3/4.2-5.9 cm LVIDd Index: 2.69 2.4-3.2/2.2-3.1 cm/m2 LVIDs: 3.19 2.0-3.6 cm LVPWd: 0.72 0.7-1.1 cm LV Mass: 137.38 67-162/88-224 g LV Mass Index: 79.41 43-95/49-115 g/m2 LVOT Diam: 1.90 3.0+(-)1.3 cm 2D Systolic Function EF 4C: 58.40 >55% EF 2C: 66.30 >55% EF BiP: 62.50 >55% LVOT LVOT Pk Gregor: 1.16 LVOT Mn Gregor: 0.70 LVOT VTI: 0.25 LVOT Pk Grad: 5.00 LVOT Mn Grad: 2.00 LVOT Diam: 1.90 LVOT Area: 2.84 Tricuspid Valve RA Press: 3.00 Updated in Other Vendor System with Status of Final Juan Antonio Rooney MD electronically signed on 02/11/2025 1:43:29 PM with status of Final
== END ==
LOC: HO.CARD 08:48
PROVIDERS: PCP Physician Assistant; Visit Provider Internal Medicine
DX: I31.39 Other pericardial effusion (noninflammatory) (principal)
CPT/HCPCS: 93308

== ENCOUNTER → 2025-02-10 08:53 | Outpatient (BNV) | payer OTHER, SELFPAY | PROVIDERS: PCP Physician Assistant; Visit Provider Internal Medicine | DX: I31.39 Other pericardial effusion (noninflammatory) (principal) | CPT/HCPCS: 93308 ==

== ENCOUNTER 2025-04-25 09:36 | Outpatient (AMB) | payer OTHER, SELFPAY ==
--- OUTSIDE RECORDS SUMMARY | 2024-05-31 05:10 | XMS_ITS ---
Author Organization [facility] Address [address] [place] [address] Care Team Providers Care Pipe Finishing Supervisor Name Role Phone Alisson Story Primary Care Provider Igor Sommer Jr REASON FOR VISIT screening Encounters Encounter Location Date Provider Diagnosis [facility] Outpatient [address] [place] [address] [phone] 05/31/2024 Igor Lozada Jr Colon cancer screening Z12.11 and Colon polyps K63.5 Assessments Encounter Date Diagnosis (ICD Code) Assessment Notes Treatment Notes Treatment Clinical Notes Section Notes 05/31/2024 Colon cancer screening (ICD-10 - Z12.11) 05/31/2024 Colon polyps (ICD-10 - K63.5) Plan Of Treatment No Information Progress Notes * NAVEED PETERSOB:[birth year] (65 yo F)Acc No.[id number]:05/31/2024 COLON WITH MAC Patient: KAROL AGOSTO Provider: Jin Lozada MD :1960 A ge:64 Y S ex:Female Date:05/31/2024 Address:[address] [id number] Pcp:DANNY Ness Subjective: * Chief Complaints: * [...] Pending * Provider: Jin Lozada MD Date: 1 07/31/2023 Generated for Matty moyer/Brittany/Calvinitting on: 0 04/25/2025 10:25 AM EDT
--- NOTE | 2025-04-25 09:51 | A.OFFPC_ITS ---
Vital Signs 04/25/25 09:52 Height 5 ft 4 in Weight 153 lb 2 oz BMI 26.3 BP 120/70 Blood Pressure Location Lt brachial Position Sitting Pulse 75 Pulse Source Pulse Oximeter Temp 97.1 F Temp Source Temporal Artery Scan Pulse Oximetry (%) 98 Oxygen Delivery Method Room Air Intake Visit Reasons: PE Intake Note: Patient is here today for a physical. Can Operator Required: No Director Of Digital Marketing: Not Required per policy Accompanied by: Self / Same As Patient Allergies eucalyptus Allergy (Severe, Verified 04/25/25 10:09) Anaphylaxis ampicillin Allergy (Intermediate, Verified 04/25/25 10:09) Rash sulfamethoxazole (From Bactrim) Allergy (Intermediate, Verified 04/25/25 10:09) Rash trimethoprim (From Bactrim) Allergy (Intermediate, Verified 04/25/25 10:09) Rash varenicline (From Chantix) Adverse Reaction (Intermediate, Verified 04/25/25 10:28) Depression citrace spray Allergy (Unknown, Uncoded 04/25/25 10:09) Unknown citronella Allergy (Unknown, Uncoded 04/25/25 10:09) Unknown patchouli plant Allergy (Unknown, Uncoded 04/25/25 10:09) Unknown Medication List - Last Reconciled 04/25/25 by Austen Traylor PA-C albuterol sulfate 2.5 mg (3 mL) inhalation Q4H PRN albuterol sulfate 90 mcg/actuation 2 puffs inhalation Q4H PRN laihzidxxof-yszqoxfqi-ttwrritx 100-62.5-25 mcg (Trelegy Ellipta) 1 inh inhalation DAILY 30 days ibuprofen 400 mg PO Q6H PRN tp-gph-kdlhk-calcium carb-K1 400 mcg-500 mg calcium-20 mcg (Women's 50 Plus Daily Formula) 1 tab PO DAILY nebulizers As directed ondansetron 4 mg PO Q8H PRN 5 days scopolamine base 1 patch transdermal Q3D PRN Tobacco use date assessed: 04/25/25 Fall risk assessment: No Falls in past year Last assessed Fall Risk: 04/25/25 Dental Screening Dental Screen Date: 04/25/25 Did you have a dental visit in the last 12 months?: Yes Did you have a dental problem in the last 6 months where you did not have access to dental care?: No Was dental information given to patient?: Patient has dentist HPI PE HPI Details Patient is a 65-year-old female here today for annual physical. Patient has a past medical history significant for asthma, hyperlipidemia, paroxysmal AFib. Previous PCP at [place] office AFIB: Pericardial effusion: Her pericardial effusion has a unclear etiology at this point though likely viral but other causes still on the table. Now has outpatient cardiology follow-up. Has done a follow-up cardiac which did show some abnormalities. Has followed up with an patternmaker grader at [facility] whom recommends to getting a sleep study. For now no cardiac meds .. Tobacco dependency/pulmonary nodule : The patient has a significant smoking history, currently smoking half a pack per day. She is part of a lung screening program due to the presence of nodules and is considering quitting smoking. .. COPD: The patient has a history of asthma, which developed in her 30s. She is seeing pulmonology to which her pulmonary in [place].. She has been using an inhaler and Trelegy for management, with environmental triggers such as patchouli causing exacerbations. Since starting Trelegy, she reports fewer extreme reactions. Followed by the lung cancer screening program- CT lung showing concerning nodule though with further review she will continue annual monitoring .. Hyperlipidemia: Most recent labs showing a borderline high cholesterol and LDL. She does understand her CV risk due to smoking. We did discuss perhaps starting cholesterol medication though patient will like to hold off and work on dietary modifications for now. Vaccine: Up-to-date with COVID vaccine, considering flu vaccine, needs pneumonia and tetanus vaccines (willing to get today) Colorectal cancer screening: Colonoscopy done in 2023, repeat 5 years due to family history .. TRACK REPAIR WORKER: followed by TRACK REPAIR WORKER - [facility] Mammogram: Done in November of 2024 BI-RADS 1 Laboratory Tests 11/29/24 12/02/24 01/25/25 16:18 11:54 06:55 RBC 4.64 Sodium 131 L Creatinine 0.72 Fasting Glucose 94 AST 65 H 33 H 29 ALT 128 H 74 H 27 B-Natriuretic Pept justin 138 H Cholesterol 213 H LDL Cholesterol, C alc 144 H PFS Medical History Tubular adenoma of colon Nicotine dependence, cigarettes, uncomplicated Chronic bronchiolitis Has daytime drowsiness Pulmonary nodules Chronic bronchitis Asthma Surgical History History of tubal ligation History of colonoscopy History of breast lump/mass excision Family History (Updated 04/25/25 @ 10:19 by Austen Traylor PA-C) Mother CAD (coronary artery disease) Father CAD (coronary artery disease) Colon polyps Sister Colon polyps Social History (Updated 04/25/25 @ 10:19 by Austen Traylor PA-C) Household Members: Spouse Housing: House Do you presently have visiting nurse or other home services: No Alcohol intake: current Alcohol intake frequency: a few times a week Alcohol type: hard liquor Patient Tobacco Use Status: Current everyday Tobacco user Tobacco use type: Cigarette Cigarette Packs Per Day: 0.5 Cigarettes Per Day: 10.0 Years Smoked: (onset 15yo, 1/2-1ppd x 49yrs, 30pyh) e-Cigarette/Vaping Use: Never Used Second Hand Smoke Exposure: Yes Substance Use Type: Marijuana service: No Current occupational status: employed 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[employer] [place] Cognitive needs: No Hearing needs: No Vision needs: No Questionnaire Thrive Questionnaire Date Thrive assessed: 12/29/24 I am a: Patient What is your living situation today?: I have a steady place to live Within the past 12 months, did the food you bought not last and you didn't have the money to get more?: Never true Within the past 12 months, did you worry whether your food would run out before you got money to buy more?: Never true Do you have trouble paying for medicines?: No Do you have trouble getting transportation to medical appointments?: No Do you have trouble paying your heating and electricity bill?: No Do you have trouble taking care of your child, family member or friend?: No Do you have trouble with day-to-day activities such as bathing, preparing meals, shopping, managing finances, etc.?: No Are you currently unemployed and looking for a job?: No Are you interested in more education?: No Please select the resources that you would like help with: None Currently or been in a relationship where the following occur: No concerns reported THRIVE Score: 0 CHERRY-7 AMB Questionnaire CHERRY-7 Date CHERRY - 7 assessed: 01/05/25 Source: Developed by Drs. Antione Vega, Ana Lilia Toth, Surya Farnsworth and colleagues, with an educational jonathan from [employer]. Review of Systems Const Denies body aches, Denies chills, Denies excessive sweating, Denies fatigue, Denies fever(s) and Denies headache(s) Eyes Denies blurry vision ENT Denies dysphagia, Denies vertigo, Denies dizziness, Denies headache(s), Denies hearing loss and Denies tinnitus Card Denies chest pain, Denies chest pain with activity, Denies syncope, Denies irregular heart rhythm and Denies dyspnea Resp Denies chest congestion, Denies cough, Denies hemoptysis, Denies dyspnea and Denies wheezing GI Denies abdominal pain, Denies melena, Denies hematochezia, Denies coffee ground emesis, Denies dysphagia, Denies diarrhea, Denies nausea and Denies vomiting Denies urinary frequency, Denies dysuria, Denies urinary hesitancy and Denies urinary urgency Musc Denies arthralgias, Denies limited range of motion, Denies muscle cramps and Denies muscle weakness Skin/Breast Denies rash and Denies skin ulcer Neuro Denies Abnormal speech present, Denies confusion, Denies vertigo, Denies dizziness, Denies syncope, Denies headache(s), Denies memory loss and Denies seizure-like activity Psych Denies anxiety, Denies confusion, Denies depression, Denies memory loss, Denies panic attacks and Denies paranoia Endo Denies excessive sweating, Denies fatigue, Denies flushing, Denies polydipsia and Denies polyuria Aller/Immun Denies wheezing Physical exam (Primary Care) Vital Signs: Last Vital Signs Temp 97.1 F 04/25/25 09:52 Pulse 75 04/25/25 09:52 BP 120/70 04/25/25 09:52 Pulse Ox 98 04/25/25 09:52 Oxygen Delivery Method Room Air 04/25/25 09:52 BMI result Body Mass Index 26.3 Tobacco/Smoking Status: Tobacco use Status Tobacco use date assessed 04/25/25 04/25/25 09:58 Patient Tobacco Use Status Current everyday Tobacco 04/25/25 10:19 Tobacco use type Cigarette 04/25/25 10:19 e-Cigarette/Vaping Use Never Used 04/25/25 10:19 Are you ready to quit: No Tobacco cessation counseling provided: Yes Items discussed: Nicotine replacement Relapse Prevention: discussed the importance of a supportive environment, discussed negative mood or depression after quitting, weight gain after smoking is common and discussed dietary, exercise and/or lifestyle changes Number of minutes spent counselin CPT code: 89407 - 4-10 Minutes Thrive Assessment: Date of Thrive Assessment Date Thrive assessed 12/29/24 04/25/25 09:58 Currently or been in a relationship where the following occur: No concerns reported Const General: cooperative, comfortable, no acute distress, alert and awake; No confusion Orientation/consciousness: oriented to person, oriented to place, patient oriented x3 and No confusion HENMT Head: Yes normocephalic Ears: external ears normal and TM's normal bilaterally Face and sinus: No sinus tenderness Mouth: Normal oral and palatal mucosa present and tongue normal Teeth and gingiva: dentition normal and gingiva normal Throat: Yes posterior oropharynx normal, Yes tonsils normal and Yes uvula mid line Eyes Conjunctivae: conjunctivae normal Sclerae: sclerae normal Pupils: Equal, round and reactive pupils present EOM: EOMs intact bilaterally Direct Ophthalmoscopy: No no photophobia Neck Neck: Yes no lymphadenopathy, No tender and Yes no JVD Thyroid: Thyroid normal Carotids: no bruits Chest Chest palpation & inspection: no tenderness Resp Effort & Inspection: normal respiratory effort, no audible wheezes, not labored and no stridor Auscultation: no crackles, no rales, no rhonchi and no wheezes Cardio Jugular venous distension: no JVD Rate: regular rate, not bradycardic and not tachycardic Rhythm: regular rhythm Bruits: no carotid bruits Peripheral pulses: Peripheral pulses 2+ throughout GI Inspection: Yes normal to inspection, No abdominal wall ecchymosis and No visible herniation Palpation (GI): Soft to palpation, nontender, no guarding, not rigid and No hepatosplenomegaly present Auscultation: normoactive bowel sounds General: Yes no CVA tenderness Back/Spine/Pelvis Back: no CVA tenderness and No back tenderness Cervical Spine: cervical ROM normal Thoracic/Lumbar Spine: thoracic and lumbar spine normal to inspection, straight leg raise negative bilaterally, No thoraco-lumbar ROM limited and No lumbar spinal tenderness Skin Lesions: no lesions Rashes: no rashes Wounds: no wounds Neuro General: oriented to person, oriented to place, patient oriented x3, CN's II-XI intact bilaterally and No confusion Cranial nerves: Yes Equal, round and reactive pupils present and Yes Normal accommodation reflex present Cognition (Neuro): normal cognition Speech: No Abnormal speech present Gait exam (Neuro): Normal gait present Motor exam (neuro): 5/5 motor strength present throughout Extrem Right upper extremity: full ROM; no cyanosis Left upper extremity: full ROM; no cyanosis Right lower extremity: no edema Left lower extremity: no edema Psych Appearance: grossly normal Mental Status: mental status grossly normal Affect: normal affect Attitude: cooperative Thought process: Normal thought process present Immunizations Boostrix Tdap 2.5 Lf unit-8 mcg-5 Lf/0.5 mL intramuscular syringe Performing Provider: Austen Traylor PA-C [facility] Administered by: Alisson Greenfield LPN on 04/25/25 10:53 Dose Route Admin Location Dispensed Lot Number Expiration Date [facility] Pressure Tester Operator 0.5 mL IM Left Deltoid 0.5 mL [id number] 06/15/27 [id number] [employer] Total Dispensed Waste 0.5 mL 0 % VIS Given Date VIS Provided VIS Publication Date 04/25/25 Single Vaccine 21 Eligibility Eligibility Date Funding Source Not [facility] Eligible 04/25/25 Private Coding Level of Care Code Est Pt Prev Care 40-64y(84355) Diagnoses Annual physical exam Z00.00 Paroxysmal atrial fibrillation I48.0 Atrial fibrillation type: paroxysmal Nicotine dependence, cigarettes, uncomplicated F17.210 Pericardial effusion I31.39 Mixed hyperlipidemia E78.2 Hyperlipidemia type: mixed hyperlipidemia AV block I44.30 Additional Codes Vital Signs *Quality* - CPT code: 16822 - 4-10 Minutes ([id number]) Assessment & Plan Assessment & Plan (1) Annual physical exam: Code(s): Z00.00 - Encounter for general adult medical examination without abnormal findings Category: Medical Plan: As per HPI (2) Afib: Code(s): I48.91 - Unspecified atrial fibrillation Category: Medical Qualifiers: Atrial fibrillation type: paroxysmal Qualified Code(s): I48.0 - Paroxysmal atrial fibrillation Plan: Patient has been noted to AFib during recent hospitalization, has low CHADS-VASc score of 1. Has not been started on anticoagulation at this time. She has upcoming appointment with Cardiology for further eval. (3) Nicotine dependence, cigarettes, uncomplicated: Comment: (onset 15yo, 1/2-1ppd x 49yrs, 30pyh) Code(s): F17.210 - Nicotine dependence, cigarettes, uncomplicated Category: Medical Plan: Patient does understand she needs to quit smoking. She is currently in the lung cancer screening program and most recent CT chest showing concerning nodules. (4) Pericardial effusion: Code(s): I31.39 - Other pericardial effusion (noninflammatory) Category: Medical Plan: As per HPI patient recently admitted to [place] and transferred to [facility] for a large pericardial and pulmonary effusion. Her lights criteria appeared to be exudative of the pericardial fluid. Unclear etiology at this time. * Of note has abnormal CT lung cancer screening (5) HLD (hyperlipidemia): Code(s): E78.5 - Hyperlipidemia, unspecified Category: Medical Qualifiers: Hyperlipidemia type: mixed hyperlipidemia Qualified Code(s): E78.2 - Mixed hyperlipidemia Plan: Patient's lipid panel showing borderline high cholesterol. We did discuss perhaps starting low-dose statin therapy to reduce her CV risk due to her smoking status though she would like to hold off on this for now. (6) AV block: Code(s): I44.30 - Unspecified atrioventricular block Category: Medical Plan: Was found to have AV block on ambulatory heart monitor. She has followed up with the patternmaker grader who wants patient to get a sleep study. For now will hold off on pacemaker Orders: Orders Lipid Panel Today E78.2 - Mixed hyperlipidemia Complete Blood Count no Diff Today E78.2 - Mixed hyperlipidemia TDaP Immunization Today Z23 - Encounter for immunization Comprehensive [place]. Panel Fast Today E78.2 - Mixed hyperlipidemia
[2025-04-25 09:52] VITALS: BP 120/70; PULSE 75; TEMP 36.2; O2SAT 98; BMI 26.3
--- OUTSIDE RECORDS SUMMARY | 2025-04-25 10:25 | XMS_ITS | Encounter Summary ---
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 Not on file Not on file documented as of this encounter Plan of Treatment Upcoming Encounters Date Type Department Care Team (Late st Contact Info) Description 05/31/2025 8:30 AM EST Office Visit [facility] DENT[facility] [address] [place] [address] Tammy Trivedi 09/28/2025 8:30 AM EST Office Visit [facility] D[facility] [address] [place] [address] Tammy Trivedi documented as of this encounter Procedures Procedure Name Priority Date/Time Associated Diagnosis Comments AMB REFERRAL TO GASTROENTEROLOGY Routine 04/14/2024 Colon cancer screening documented in this encounter Results * Referral to Gastroenterology (04/14/2024) us Alisson DELGADO OUTPATIENT REFERRAL ORDERABLES F inal Result documented in this encounter Visit Diagnoses Diagnosis Colon cancer screening Special screening for malignant neoplasms, colon documented in this encounter Care Teams Tc Operator Relationship Specialty Start Date End Date Alisson Oliva FNP [address] [place] [address] PCP - General Family Medicine 10/16/22 11/22/24 Inactive/Transferred PCP - General 11/23/24 11/23/24 documented as of this encounter
--- OUTSIDE RECORDS SUMMARY | 2025-04-25 10:25 | XMS_ITS | Encounter Summary ---
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 Not on file Not on file documented as of this encounter Plan of Treatment Upcoming Encounters Date Type Department Care Team (Late st Contact Info) Description 05/31/2025 8:30 AM EST Office Visit [facility] DENTAL [address] [place] [address] Tammy Trivedi 09/28/2025 8:30 AM EST Office Visit [facility] DENT[facility] [address] [place] [address] Tammy Trivedi documented as of this encounter Procedures Procedure Name Priority Date/Time Associated Diagnosis Comments HM PAP/HPV Routine 11/05/2022 10:22 AM EDT documented in this encounter Results * HM PAP/HPV (11/05/2022 10:22 AM EDT) Alisson DELGADO HEALTH MAINTENANCE Final Result documented in this encounter Visit Diagnoses Not on filedocumented in this encounter Care Teams Detacher Relationship Specialty Start Date End Date Alisson Oliva FNP [address] [place] [address] PCP - General Family Medicine 10/16/22 11/22/24 Inactive/Transferred PCP - General 11/23/24 11/23/24 documented as of this encounter
--- OUTSIDE RECORDS SUMMARY | 2025-04-25 10:25 | XMS_ITS | Encounter Summary ---
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 Not on file Not on file documented as of this encounter Plan of Treatment Upcoming Encounters Date Type Department Care Team (Late st Contact Info) Description 05/31/2025 8:30 AM EST Office Visit [facility] DENTAL [address] [place] [address] Tammy Trivedi 09/28/2025 8:30 AM EST Office Visit [facility] DENTAL [address] [place] [address] Tammy Trivedi documented as of this encounter Procedures Procedure Name Priority Date/Time Associated Diagnosis Comments HM COLONOSCOPY Routine 05/31/2024 10:08 AM EST documented in this encounter Results * Hm Colonoscopy (05/31/2024 10:08 AM EST) Alisson DELGADO HEALTH MAINTENANCE Final Result documented in this encounter Visit Diagnoses Not on filedocumented in this encounter Care Teams Digital Photographer Relationship Specialty Start Date End Date Alisson Oliva FNP [address] [place] [address] PCP - General Family Medicine 10/16/22 11/22/24 Inactive/Transferred PCP - General 11/23/24 11/23/24 documented as of this encounter
--- OUTSIDE RECORDS SUMMARY | 2025-04-25 10:25 | XMS_ITS | Encounter Summary ---
Author Organization [employer] Address [address] [facility] [address] [place] [address] Care Team Providers Care Computational Scientist Name Role Phone Alisson Oliva Primary Care Provider [phone] Inactive/Transferred Primary Care Provider Unava ilable Encounter [...] Description 05/31/2025 8:30 AM EST Office Visit [facility] DENTAL [address] [place] [address] Tammy Trivedi 09/28/2025 8:30 AM EST Office Visit [facility] DENTAL [address] [place] [address] Tammy Trivedi documented as of this encounter Visit Diagnoses Not on filedocumented in this encounter Care Teams Computational Scientist Relationship Specialty Start Date End Date Alisson Oliva FNP [address] [place] [address] PCP - General Family Medicine 10/16/22 11/22/24 Inactive/Transferred PCP - General 11/23/24 11/23/24 documented as of this encounter
--- OUTSIDE RECORDS SUMMARY | 2025-04-25 10:25 | XMS_ITS | Encounter Summary ---
Author Organization [employer] Address [address] [facility] [address] [place] [address] Care Team Providers Care Oil Truck Driver Name Role Phone Alisson Oliva Primary Care Provider [phone] Inactive/Transferred Primary Care Provider Unava ilable Encounter [...] Description 05/31/2025 8:30 AM EST Office Visit [facility] DENTAL [address] [place] [address] Tammy Trivedi 09/28/2025 8:30 AM EST Office Visit [facility] DENTAL [address] [place] [address] Tammy Trivedi documented as of this encounter Visit Diagnoses Not on filedocumented in this encounter Care Teams Oil Truck Driver Relationship Specialty Start Date End Date Alisson Oliva FNP [address] [place] [address] PCP - General Family Medicine 10/16/22 11/22/24 Inactive/Transferred PCP - General 11/23/24 11/23/24 documented as of this encounter
--- OUTSIDE RECORDS SUMMARY | 2025-04-25 10:25 | XMS_ITS | Encounter Summary ---
Author Organization [employer] Address [address] [facility] 7 [place] [address] Care Team Providers Care Expediter Clerk Name Role Phone Alisson Oliva Primary Care Provider [phone] Inactive/Transferred Primary Care Provider Unava ilable Encounter [...] Description 05/31/2025 8:30 AM EST Office Visit [facility] D[facility] [address] [place] [address] Tammy Trivedi 09/28/2025 8:30 AM EST Office Visit [facility] D[facility] [address] [place] [address] Tammy Trivedi documented as of this encounter Visit Diagnoses Not on filedocumented in this encounter Care Teams Expediter Clerk Relationship Specialty Start Date End Date Alisson Oliva FNP [address] [place] [address] PCP - General Family Medicine 10/16/22 11/22/24 Inactive/Transferred PCP - General 11/23/24 11/23/24 documented as of this encounter
--- OUTSIDE RECORDS SUMMARY | 2025-04-25 10:25 | XMS_ITS | Encounter Summary ---
Author Organization [employer] Address [address] [facility] [address] [place] [id number] Care Team Providers Care Auto Mechanics Teacher Name Role Phone Alisson Oliva Primary Care Provider [phone] Inactive/Transferred Primary Care Provider Unava ilable Encounter [...] 05/31/2025 8:30 AM EST Office Visit [facility] DENTAL [address] [place] [address] Tammy Trivedi 09/28/2025 8:30 AM EST Office Visit [facility] DENT[facility] [address] [place] [address] Tammy Trivedi documented as of this encounter Visit Diagnoses Not on filedocumented in this encounter Care Teams Auto Mechanics Teacher Relationship Specialty Start Date End Date Alisson Oliva FNP [address] [place] [address] PCP - General Family Medicine 10/16/22 11/22/24 Inactive/Transferred PCP - General 11/23/24 11/23/24 documented as of this encounter
--- OUTSIDE RECORDS SUMMARY | 2025-04-25 10:25 | XMS_ITS | Encounter Summary ---
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 Not on file Not on file documented as of this encounter Plan of Treatment Upcoming Encounters Date Type Department Care Team (Late st Contact Info) Description 05/31/2025 8:30 AM EST Office Visit [facility] DENTAL [address] [place] [address] Tammy Trivedi 09/28/2025 8:30 AM EST Office Visit [facility] DENTAL [address] [place] [address] Tammy Trivedi documented as of this encounter [...] on filedocumented in this encounter Care Teams Carbon Setter Relationship Specialty Start Date End Date Alisson Oliva FNP [address] [place] [address] PCP - General Family Medicine 10/16/22 11/22/24 Inactive/Transferred PCP - General 11/23/24 11/23/24 documented as of this encounter
--- OUTSIDE RECORDS SUMMARY | 2025-04-25 10:25 | XMS_ITS | Encounter Summary ---
Author Organization [employer] Address 75 [facility] 7 [place] [address] Care Team Providers Care Senior Litigation Paralegal Name Role Phone Alisson Oliva Primary Care Provider [phone] Inactive/Transferred Primary Care Provider Unava ilable Encounter [...] Description 05/31/2025 8:30 AM EST Office Visit [facility] DENTAL [address] [place] [address] Tammy Trivedi 09/28/2025 8:30 AM EST Office Visit [facility] DENTAL [address] [place] [address] Tammy Trivedi documented as of this encounter Visit Diagnoses Not on filedocumented in this encounter Care Teams Senior Litigation Paralegal Relationship Specialty Start Date End Date Alisson Oliva FNP [address] [place] [address] PCP - General Family Medicine 10/16/22 11/22/24 Inactive/Transferred PCP - General 11/23/24 11/23/24 documented as of this encounter
--- OUTSIDE RECORDS SUMMARY | 2025-04-25 10:25 | XMS_ITS | Patient Health Record ---
Author Organization [facility] Address [address] [place] [address] Care Team Providers Care Sales Support Coordinator Name Role Phone Alisson Story Primary [...] date:11/30/2024 08:53:14 AM Interpretation: Performing Lab: Notes/Report: [address] [address] XRay Report Signed Patient: Lilian Peters MR#: [id number] : 1960 Acct:[id number] Age/Sex: 64 / F ADM Date: 11/29/24 Loc: HO.XRAY Attending Dr: Igor Lozada MD Ordering Physician: Igor Lozada MD Date of Service: 11/29/24 Procedure(s): XR abdomen min 2V Accession Number(s): [id number] cc: Igor Lozada MD; Physician,Unknown EXAMINATION: XR [...] 11/30/24 0731 DD/ 1552 TD/TT: 11/29/24 1601 Automobile Glass Technician: Pathology Reviewed date:06/02/2024 10:06:52 AM Interpretation: Performing Lab:[facility], [address] [place] [phone] Notes/Report: Complete Blood Count Auto Di ff Reviewed date:11/30/2024 08:52:46 AM Interpretation: Performing Lab:[facility], [address] [place] [phone] Notes/Report: White Blood Count 13.5 4.8-10.8 X10*3/uL [...] te Reviewed date:11/30/2024 08:52:39 AM Interpretation: Performing Lab:[address] [address] Notes/Report: Erythrocyte Sedimentation Rate 28 0-20 MM/HR Patients with polycythemia and many hemoglobin abnormalities may have depressed sed rates whereas patients with anemia may have elevated sed rates. Liver Panel Reviewed date:11/30/2024 08:52:08 AM Interpretation: Performing Lab:[address] [address] Notes/Report: Bilirubin Total 0.8 0.0-1.0 mg/dL Bilirubin Direct 0.3 0.0-0.5 mg/dL Aspartate Amino Transferase 65 5-31 U/L Alanine Aminotransferase 128 0-31 U/L Total Protein 6.6 6.5-8.0 g/dL Albumin Level 3.9 3.5-5.0 g/dL Alkaline Phosphatase 115 39-117 U/L Lipase Reviewed date:11/30/2024 08:52:05 AM Interpretation: Performing Lab:[address] [address] Notes/Report: Lipase 20 8-78 U/L TSH reflex Free T4 Reviewed date:11/30/2024 08:51:52 AM Interpretation: Performing Lab:[address] [address] Notes/Report: TSH reflex Free T4 1.31 0.32-4.0 uIU/mL Immunoglobulins,IgG IgA IgM Reviewed date:12/09/2024 04:20:40 PM Interpretation: Performing Lab:[facility], [address] [place] [phone] Notes/Report: IgG 403 092-9131 mg/dL IgA 146 70-320 mg/dL IgM 105 50-300 mg/dL THIS TEST WAS PERFORMED AT: [facility] [address] [place] [phone] JASMIN BLANTON MD Immunoglobulin E Reviewed date:12/09/2024 04:20:22 PM Interpretation: Performing Lab:[facility], [address] [place] [phone] Notes/Report: Immunoglobulin E 40 <LT=131 kU/L THIS TEST WAS PERFORMED AT: [facility] [address] [place] [phone] JASMIN BLANTON MD Reason For Referral No [...] W/U Status Risk Notes Problem Abdominal bloating (325105305) Abdominal bloating (787.3) Active confirmed Problem 518083271 Special screening for malignant neoplasms, colon (Z12.11) Active confirmed Problem Eructation (45151007) Eructation (R14.2) Active confirmed Problem Elevated liver enzymes level (871278475) Elevated LFTs (R79.89) Active confirmed Problem Altered bowel function (73117421) Change in bowel function (R19.4) Active confirmed Problem Anemia (799292922) Anemia (D64.9) Active confir med Problem 90694265 Constipation, unspecified constipation type (K59.00) Active confirmed Problem Gastrointestinal tract problem (260278915) Abn findings-GI tract (R93.3) Active confirmed Problem Flatulence, eructation and gas pain (009091892) Abdominal gas pain (R14.1) Active confirmed Encounters Encounter Location Date Provider Diagnosis [facility] Outpatient [address] [place] [id number] 05/31/2024 Igor Lozada Jr Colon cancer screening Z12.11 and Colon polyps K63.5 [facility] [address] [place] [phone] 06/02/2024 Igor Lozada Jr [facility] [address] [phone] 11/29/2024 Igor Lozada Jr Change in bowel function R19.4 ; Abdominal gas pain R14.1 ; Abdominal bloating 787.3 and Eructation R14.2 [facility] [place] [phone] 11/30/2024 Igor Lozada Jr Elevated LFTs R79.89 ; Abn findings-GI tract R93.3 and Anemia D64.9 [facility] [place] [phone] 12/06/2024 Igor Lozada Jr Assessments Encounter Date Diagnosis (ICD Code) Assessment Notes Treatment Notes Treatment Clinical Notes Section Notes 05/31/2024 Colon cancer screening (ICD-10 - Z12.11) 05/31/2024 Colon polyps (ICD-10 - K63.5) 11/29/2024 Change in bowel function (ICD-10 - [...] [employer] [place] [address] [address] [place] [address] [id number] LILIAN DON Self - patient is the insured Medical (General) History Medical History History ICD Code environmental allergies asthma Surgical History Surgery Date(Month/Year) lipoma fatty left breast superficial 198 3 tubal ligation
--- OUTSIDE RECORDS SUMMARY | 2025-04-25 10:25 | XMS_ITS | Encounter Summary ---
Author Organization [employer] Address [address] 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 DENTAL [address] [place] [address] Tammy Trivedi 09/28/2025 8:30 AM EST Office Visit [facility] DENTAL [address] [place] [address] Tammy Trivedi documented as of this encounter [...] on filedocumented in this encounter Care Teams Storage Facility Rental Clerk Relationship Specialty Start Date End Date Alisson Oliva FNP [address] [place] [address] PCP - General Family Medicine 10/16/22 11/22/24 Inactive/Transferred PCP - General 11/23/24 11/23/24 documented as of this encounter
--- OUTSIDE RECORDS SUMMARY | 2025-04-25 10:25 | XMS_ITS | Encounter Summary ---
Author Organization [employer] Address 75 [facility] 7 [place] [address] Care Team Providers Care Machine Bookkeeper Name Role Phone Alisson Oliva Primary Care Provider [phone] Inactive/Transferred Primary Care Provider Unava ilable Encounter [...] 05/31/2025 8:30 AM EST Office Visit [facility] DENTAL [address] [place] [address] Tammy Trivedi 09/28/2025 8:30 AM EST Office Visit [facility] DENTAL [address] [place] [address] Tammy Trivedi documented as of this encounter Visit Diagnoses Not on filedocumented in this encounter Care Teams Machine Bookkeeper Relationship Specialty Start Date End Date Alisson Oliva FNP [address] [place] [address] PCP - General Family Medicine 10/16/22 11/22/24 Inactive/Transferred PCP - General 11/23/24 11/23/24 documented as of this encounter
--- OUTSIDE RECORDS SUMMARY | 2025-04-25 10:25 | XMS_ITS | Encounter Summary ---
Author Organization [employer] Address 75 [facility] 7 h Floor [place] [id number] Care Team Providers Care Transport Rn Name Role Phone Alisson Oliva Primary Care Provider [phone] Inactive/Transferred Primary Care Provider Unava ilable Encounter [...] Description 05/31/2025 8:30 AM EST Office Visit [facility] DENTAL [address] [place] [address] Tammy Trivedi 09/28/2025 8:30 AM EST Office Visit [facility] DENTAL [address] [place] [address] Tammy Trivedi documented as of this encounter Visit Diagnoses Not on filedocumented in this encounter Care Teams Transport Rn Relationship Specialty Start Date End Date Alisson Oliva FNP [address] [place] [address] PCP - General Family Medicine 10/16/22 11/22/24 Inactive/Transferred PCP - General 11/23/24 11/23/24 documented as of this encounter
--- OUTSIDE RECORDS SUMMARY | 2025-04-25 10:25 | XMS_ITS | Encounter Summary ---
Author Organization [employer] Address 75 [facility] 7 [place] [address] Care Team Providers Care Field Clinical Engineer Name Role Phone Alisson Oliva Primary Care Provider [phone] Inactive/Transferred Primary Care Provider Unava ilable Encounter [...] Description 05/31/2025 8:30 AM EST Office Visit [facility] DENTAL [address] [place] [address] Tammy Trivedi 09/28/2025 8:30 AM EST Office Visit [facility] DENTAL [address] [place] [address] Tammy Trivedi documented as of this encounter Visit Diagnoses Not on filedocumented in this encounter Care Teams Field Clinical Engineer Relationship Specialty Start Date End Date Alisson Oliva FNP [address] [place] [address] PCP - General Family Medicine 10/16/22 11/22/24 Inactive/Transferred PCP - General 11/23/24 11/23/24 documented as of this encounter
--- OUTSIDE RECORDS SUMMARY | 2025-04-25 10:25 | XMS_ITS | Encounter Summary ---
Author Organization [employer] Address 75 [facility] 7 [place] [address] Care Team Providers Care Paint Grinder Stone Mill Name Role Phone Alisson Oliva Primary Care Provider [phone] Inactive/Transferred Primary Care Provider Unava ilable Encounter [...] 05/31/2025 8:30 AM EST Office Visit [facility] DENTAL [address] [place] [address] Tammy Trivedi 09/28/2025 8:30 AM EST Office Visit [facility] DENTAL [address] [place] [address] Tammy Trivedi documented as of this encounter Visit Diagnoses Not on filedocumented in this encounter Care Teams Paint Grinder Stone Mill Relationship Specialty Start Date End Date Alisson Oliva FNP [address] [place] [address] PCP - General Family Medicine 10/16/22 11/22/24 Inactive/Transferred PCP - General 11/23/24 11/23/24 documented as of this encounter
--- OUTSIDE RECORDS SUMMARY | 2025-04-25 10:25 | XMS_ITS | Encounter Summary ---
Author Organization [employer] Address [address] [facility] [address] 7[address] [place] [address] Care Team Providers Care Grain Loader Name Role Phone Alisson Oliva CHRISTMAS TREE FARM WORKER Primary Care Provider [phone] Inactive/Transferred Primary Care Provider Unava ilable Encounter Details Date Type Department Care Team (Late st Contact Info) Description 10/16/[address] [facility] [address] [place] [address] Alisson Oliva FNP [address] [place] [address] Social History Tobacco Use Types Packs/Day Years [...] than half the days 10/17/2022 9:06 AM Reva Puckett CMA Patient Health Questionnaire-2 Score 2 10/17/2022 9:06 AM Reva Puckett CMA * If you checked off any problems on this questionnaire so far, Question Answer Date of Assessment Author How difficult have these problems made it for you to do your work, take care of things at home, or get along with other people? Not difficult at all 10/17/2022 9:06 AM Reva Puckett CMA documented as of this encounter Plan of Treatment Upcoming Encounters Date Type Department Care Team (Late st Contact Info) Description 05/31/2025 8:30 AM EST Office Visit [facility] DENTAL [address] [place] [address] Tammy Trivedi 09/28/2025 8:30 AM EST Office Visit [facility] DENTAL [address] [place] [address] Tammy Trivedi documented as of this encounter Procedures Procedure Name Priority Date/Time Associated Diagnosis Comments COLONOSCOPY Routine 10/01/2020 MAMMOGRAPHY Routine 09/20/2019 HEMOGLOBIN A1C Routine 03/10/2019 LIPID PANEL, STANDARD Routine 03/10/2019 documented in this encounter Results * Colonoscopy (10/01/2020) Pathologist [facility] Colonoscopy Normal Normal Comment:poyp removal, divert icula repeat 3-5 years us Historical Provider HEALTH MAINTENANCE Final Result * Mammography (09/20/2019) Pathologist [facility] Mammogram Neg - annual exam - very dense breasts Anatomical Region Laterality Modality Other us Historical Provider HEALTH MAINTENANCE Final Result * Hemoglobin A1c (03/10/2019) [facility] Hemoglobin A1C 5.4 4.0 - 6.0 % Blood Venous blood specimen / Unknown us Historical Provider LAB BLOOD ORDERABLES Sarah l Result * (ABNORMAL) Lipid Panel, Standard (03/10/2019) Triglycerides 128 40 - 160 mg/dL Cholesterol 201(A) 0 - 200 mg/dL HDL Cholesterol 45 35 - 70 mg/dL LDL Cholesterol 130 mg/dL Blood Venous blood specimen / Unknown Historical Provider LAB BLOOD ORDERABLES Sarah l Result documented in this encounter Visit Diagnoses Not on filedocumented in this encounter Care Teams Grain Loader Relationship Specialty Start Date End Date Alisson Oliva FNP [address] [place] [address] PCP - General Family Medicine 10/16/22 11/22/24 Inactive/Transferred PCP - General 11/23/24 11/23/24 documented as of this encounter
--- OUTSIDE RECORDS SUMMARY | 2025-04-25 10:25 | XMS_ITS | Clinical Summary ---
Author Organization [employer] Address [address] [facility] [address] 7[address] [place] [address] Care Team Providers Care Dormitory Keeper Name Role Phone Unavailable Primary Care Provider [...] None. Categorization based on Lung-RADS 2022 criteria. [email or web address] WSN: [id number] Ordering Physician: Alisson Oliva Dictated By: Angel [...] done at end of June 2023 at [facility]. Routine general medical exam ination at a health care facility 12/11/2022 Overview (12/15/2023): CPE done 12/15/23. HEALTH CARE MAINTENANCE: Colonoscopy (age 45-75): Dr. Luis - [facility]. Due for cscope. Has to go to [place] due to insurance. Wants to go to [place]. Has every 3 years - multiple benign polyps (tubular adenomas). Mammogram (age 40-74): Done 11/2023 - waiting for results. AAA Screen (Fam Hx AAA): No family hx. LDCT (smoke >30 pack year, age 55-80): Engaged with pulm - has routine screens. DEXA (age 61 with RF, age 66): Has Osteopenia - had scan at [facility]. Last done 08/2022. TRAIN OPERATOR: Outside TRAIN OPERATOR: Dr. Newell LMP: Menopause . Last [...] Was advised by PT to go to [facility] - would like to see Sunita Ferguson at [place]. We will send referral. Discussed pain management including piriformis stretches and ibuprofen. Assessment & Plan (02/06/2023 8:51 AM EDT): Son is zone manager and has been giving her suggestions. Is [...] from the original note were not included. [facility] Pulmonology Engaged with pulmonology - Isael Cortez. [...] cervicovaginal cytologic smear 10/16/2022 Overview (12/24/2023): Has TRAIN OPERATOR - Dr. Newell who is following. 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 on file [...] Description 05/31/2025 8:30 AM EST Office Visit [facility] DENTAL [address] [place] [address] Tammy Trivedi 09/28/2025 8:30 AM EST Office Visit [facility] DENTAL [address] [place] [address] Tammy Trivedi Health Maintenance Due Date Last Done Comments CT Colonography 1960 FIT DNA/Cologuard 1960 FIT 1960 FOBT 1960 Sigmoidoscopy 1960 Alcohol/Substance Use Screening 1973 HPV/Cotest 1991 Zoster Vaccines (1 of 2) 2011 Pneumococcal Vaccine: 50+ Years (2 of 2 - PCV) 01/06/2017 01/07/2016, 09/26/2011 RSV Patients and Patients Aged 60 years or older (1 - Risk 60-74 years 1-dose series) 2021 Dental X-Ray: Full Mouth 12/05/2024 022, 07/07/2019, 06/24/2007 Depression Screening 12/14/2024 12/15/2023, 12/15/19 24 SDOH Screening 12/14/2024 12/15/2023 Tobacco Screening 12/29/2024 12/30/2023 COVID-19 Vaccine ( season) 2025 06/26/2023, 08/10/2020, 07/18/2020 Influenza Vaccine (#1) 2025 04/28/2024, 2022 DTaP/Tdap/Td [...] * Hm Colonoscopy (05/31/2024 10:08 AM EST) [facility] HEALTH MAINTENANCE Final Result * BI Mammogram Screening Tomosynthesis Bilateral (12/10/2023 10:05 AM EDT) Anatomical Region Laterality Modality Breast Bilateral Mammography [facility] BI PROCEDURES Final Result * CT Lung Screening Low dose (12/09/2023) Anatomical Region Laterality Modality Lung Computed Tomogra phy [facility] CT PROCEDURES Final Result * HIV Antibody/Antigen, 4th Generation (04/23/2023 9:57 AM EDT) Result 4th Gen HIV Antibody Antigen NEGATIVE (NEG) [facility] Comment: Negative for antibodies to HIV 1 and HIV 2 and P24 antigen. Reference range: Negative Additional note: Written patient authorization is required for each separate release of this test result. This test was performed on the [employer] Manager immunoassay system. Testing performed or reported by [facility], a Service of [facility], [address] [place] [address] [place] [address] Jong Lou MD, Utility Appraiser [facility]# [id number] Blood 04/23/2023 9:57 AM EDT 04/23/2023 10:41 AM EDT [facility] LAB BLOOD ORDERABLES Final Resul t [facility] [address] [place] [address] * Hepatits C Antibody w/Reflex HCV Quant PCR and Genotyping (04/23/2023 9:57 AM EDT) Hepatitis C Virus Ab, Serum NEGATIVE (NEG) [facility] Comment: Reference range: Negative This test was performed on the [employer] Dairy Store Manager immunoassay system. Testing performed or reported by [facility], a Service of [facility], [address] [place] [address] Jong Lou MD, Utility Appraiser [facility]# [id number] 04/23/2023 9:57 AM EDT 04/23/2023 10:41 AM EDT Alisson Oliva [facility] LAB BLOOD ORDERABLES Final Resul t [facility] [address] [place] [address] * HM PAP/HPV (11/05/2022 10:22 AM EDT) Alisson Oliva [facility] HEALTH MAINTENANCE Final Result from Last 3 Months or Most Recently Relevant to Health Maintenance Insurance [employer]
== END 2025-04-25 10:55 | disposition home or self-care (01) ==
LOC: HO.HMCH 09:37
PROVIDERS: PCP Nurse Practitioner Family; Visit Provider Physician Assistant
DX: Z00.00 Encounter for general adult medical examination without abnormal findings (principal); I48.0 Paroxysmal atrial fibrillation; F17.210 Nicotine dependence, cigarettes, uncomplicated; I31.39 Other pericardial effusion (noninflammatory); E78.2 Mixed hyperlipidemia; I44.30 Unspecified atrioventricular block; Z23 Encounter for immunization

== ENCOUNTER → 2025-04-25 09:36 | Outpatient (BNVA) | payer OTHER, SELFPAY | PROVIDERS: PCP Nurse Practitioner Family; Visit Provider Physician Assistant | DX: Z00.00 Encounter for general adult medical examination without abnormal findings (principal); J45.909 Unspecified asthma, uncomplicated; E78.5 Hyperlipidemia, unspecified; I48.91 Unspecified atrial fibrillation; I31.39 Other pericardial effusion (noninflammatory); F17.210 Nicotine dependence, cigarettes, uncomplicated; J44.9 Chronic obstructive pulmonary disease, unspecified; I48.0 Paroxysmal atrial fibrillation; I44.30 Unspecified atrioventricular block; E78.2 Mixed hyperlipidemia; Z23 Encounter for immunization | CPT/HCPCS: 90471; 90715 ==

== ENCOUNTER 2025-05-30 09:30 | Outpatient (AMB) | payer OTHER, SELFPAY ==
--- OUTSIDE RECORDS SUMMARY | 2024-05-31 04:10 | XMS_ITS ---
Author Organization [facility] Address [address] [place] [address] Care Team Providers Care Patch Finisher Name Role Phone Alisson Story Primary Care Provider Igor Sommer Jr [phone] REASON FOR VISIT screening Encounters Encounter Location Date Provider Diagnosis [facility] Outpatient [address] [place] [id number] 05/31/2024 Igor Lozada Jr Colon cancer screening Z12.11 and Colon polyps K63.5 Assessments Encounter Date Diagnosis (ICD Code) Assessment Notes Treatment Notes Treatment Clinical Notes Section Notes 05/31/2024 Colon cancer screening (ICD-10 - Z12.11) 05/31/2024 Colon polyps (ICD-10 - K63.5) Plan Of Treatment No Information Progress Notes * NAVEED PETERSOB:[birth year] (65 yo F)Acc No.[id number]:05/31/2024 COLON WITH MAC Patient: KAROL AGOSTO Provider: Jin Lozada MD :1960 A ge:64 Y S ex:Female Date:05/31/2024 Address[address] [place] Pcp:DANNY Ness Subjective: * Chief Complaints: * [...] Date: 07/31/2023 Generated for Matty moyer/Brittany/Calvinitting on: 07/30/2024 10:37 AM EST
[2025-05-30 09:29] VITALS: BP 110/56; PULSE 72; O2SAT 97; BMI 26.5
--- NOTE | 2025-05-30 09:29 | A.OFFVIS_ITS ---
Vital Signs 05/30/25 09:29 Height 5 ft 4 in Weight 154 lb 5.177 oz BMI 26.5 BP 110/56 L Blood Pressure Location Lt brachial Position Sitting Pulse 72 Pulse Source Pulse Oximeter Pulse Oximetry (%) 97 Oxygen Delivery Method Room Air Intake Visit Reasons: Asthma Activities Aide Required: No Accompanied by: Self / Same As Patient Allergies eucalyptus Allergy (Severe, Verified 05/30/25 09:32) Anaphylaxis ampicillin Allergy (Intermediate, Verified 05/30/25 09:32) Rash sulfamethoxazole (From Bactrim) Allergy (Intermediate, Verified 05/30/25 09:32) Rash trimethoprim (From Bactrim) Allergy (Intermediate, Verified 05/30/25 09:32) Rash varenicline (From Chantix) Adverse Reaction (Intermediate, Verified 05/30/25 09:32) Depression citrace spray Allergy (Unknown, Uncoded 04/25/25 10:09) Unknown citronella Allergy (Unknown, Uncoded 04/25/25 10:09) Unknown patchouli plant Allergy (Unknown, Uncoded 04/25/25 10:09) Unknown HPI Comments Details: The patient is a 65 year woman, tobacco dependent, with a history of asthma presenting with worsening respiratory symptoms. Several months ago the patient has did develop a respiratory illness which started developing worsening chest tightness and cough. She did go to urgent care where she was given a course of prednisone. However, the patient was no better and she actually was getting worse and decided to come into the [facility] ED where she was evaluated. There she had a chest x-ray which I personally reviewed demonstrating tram tracking and peribronchial coughing primarily the right mid and lower lung areas. Suggest the possibility of bronchiectatic changes. She was initially given a course of prednisone and doxycycline. She was initially resistant to taking the doxycycline. Although her mucus was yellowish in color thick and tenacious and sticky. Moderate in amount. When she started taking the doxycycline her symptoms improved quickly. Now she is back to her baseline. She does use a rescue inhaler although she does not use 1 regularly. Typically less than twice a week. She had been participating also on the lung cancer screening program at [facility]. Her last CT scan was back in December 2022. I personally reviewed all the images with her. The patient does have e vidence of chronic bronchitis and also some bronchiectatic changes primarily involving the right middle lobe and lingular area. The patient also has pulmonary nodules largest 1 measuring more than 6 mm in size. The nodules appeared to be inflammatory. Although infectious etiologies such as smoldering infections also in differential. She was supposed to have a repeat CT scan in June based on her rads 3. however, the patient has not them the CT scan as of yet. She does require a CT scan at this time. Will order the CT scan to further address the pulmonary nodules specially her being high risk for malignancy. The patient was also smoking. She understands he is already developing significant smoking-related respiratory issues. She does want to quit. We did talk about different options I do believe the Chantix would be a good option for. She is agreeable this time to starting Chantix. I will send started pack to the pharmacy. 12/10/2023 the patient is here for a pulmonary follow-up visit. Overall the patient is doing well. She has not had to use her rescue inhaler. Still has some dyspnea on exertion. The patient did have pulmonary function studies which we personally reviewed. Appears to have moderate degree of COPD. No significant response to bronchodilators noted although there was a trend. We also reviewed her CT scan of the chest. Pulmonary nodules are stable although she does have areas of ground-glass opacities suggesting a component of respiratory bronchiolitis likely from the smoking. Based on the fact the nodules are stable we will go ahead and refer her to the lung cancer screening program for the next CT scan in a year. She did start the Chantix. She is having some mild adverse effects. She is going to continue with it. 06/15/2024 the patient is here for pulmonary follow-up visit. Overall she is doing well. The Trelegy has been affecting beneficial. She has only had to use her rescue inhaler once. This is because she was exposed to an irritant a stent that was bothering her. Otherwise she is doing good. Unfortunately, she had to stop the Chantix because she started to get depressive symptoms. Therefore she stopped it. Unfortunately she is still smoking about 10 cigarettes a day. She is going to look into hypnosis. She can also consider Wellbutrin. She is going to look into it. In the meantime the patient is taking part of the lung cancer screening program. She is going to have another CT scan in the springtime. Also she does have snoring. She has an elevated [place] score of 8/24. Right now she is doing okay like to hold off on sleep study. If her symptoms were to worsen we can consider home sleep study. She does practice already positional therapy since she can not sleep on her back. Patient follow-up in 6 months. If she has any issues prior to that she will call for an earlier assessment. 11/28/2024 the patient is here for pulmonary follow-up visit. Overall the patient had been doing very well for several months. The Trelegy inhaler has been very affecting beneficial. She has not had to use her rescue inhaler. Unfortunately she still struggle with smoking. She is looking to hypnosis. In the meantime for last few days she has been having issues with raspiness of her voice and worsening cough. She actually had to use her rescue inhaler this morning. She feels is potentially allergies and she has been working outside a lot lately. She does take allergy medications. Although only partially helpful. Will go and start her on Singulair to help her with her significant allergies. In the meantime she is going to monitor closely for any worsening respiratory symptoms. She had been sick with Haemophilus influenzae for several months. She did respond after prolonged course of azithromycin. Not unreasonable to consider checking her immune system to make sure that she does not have any immuno deficiencies that could predispose her to chronic infections. In addition to that the smoking by itself will cause her to have some increased risk of infections in the airways. She does have a CT scan coming up from the lung cancer screening program so will follow-up with that. Will have her get blood work and she can start the Singulair. She has any worsening symptoms or any chest congestion she will call and get a sputum culture. Will follow-up in 6-8 months. 05/30/2025 the patient is here for pulmonary follow-up visit. Since we last spoke the patient was having worsening symptoms of chest discomfort and fluttering. She did go to the ER. She was found to have a moderate-size pericardial effusion. She also has small bilateral pleural effusions. She was sent over to [facility] where she did undergo a pericardiocentesis. The fluid was consistent with an inflammatory process. No malignancy. She was placed on colchicine and also give him metoprolol because of the AFib. Ultimately she did undergo a heart monitor where she was found to have some episodes of bradycardia she was taken off the metoprolol. From a pulmonary standpoint the patient seems to be doing well. She does have daytime drowsiness with an elevated [place] score of 11/24. We had contemplated a sleep study but at this point based on the cardiac issues the patient will have a sleep study coming up in June. Will follow up with the results. The patient also continues use her respiratory therapy as prescribed. She is still struggling with the smoking. She is going to try hypnosis soon. She is still participating in the lung cancer screening program. Last CAT scan was back in November and she will get another 1 next November. Will follow-up in June after her sleep study. Prior to that she would also undergo blood work. [facility] Medical History (Updated 05/30/25 @ 09:57 by Isael Lewis MD) Pleural effusion Tubular adenoma of colon Nicotine dependence, cigarettes, uncomplicated Chronic bronchiolitis Has daytime drowsiness Pulmonary nodules Chronic bronchitis Asthma Surgical History History of tubal ligation History of colonoscopy History of breast lump/mass excision Family History (Updated 04/25/25 @ 10:19 by Austen Traylor PA-C) Mother CAD (coronary artery disease) Father CAD (coronary artery disease) Colon polyps Sister Colon polyps Social History Household Members: Spouse Housing: House Do you presently have visiting nurse or other home services: No Alcohol intake: current Alcohol intake frequency: a few times a week Alcohol type: hard liquor Patient Tobacco Use Status: Current everyday Tobacco user Tobacco use type: Cigarette Cigarette Packs Per Day: 0.5 Cigarettes Per Day: 10.0 Years Smoked: (onset 15yo, 1/2-1ppd x 49yrs, 30pyh) e-Cigarette/Vaping Use: Never Used Second Hand Smoke Exposure: Yes Substance Use Type: Marijuana service: No Current occupational status: employed 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 Cognitive needs: No Hearing needs: No Vision needs: No Review of Systems Const Denies chills, Denies fatigue, Denies fever(s), Denies weight gain and Denies weight loss ENT Denies dizziness Card Denies chest pain, Denies leg edema, Denies lightheadedness, Denies palpitations, Denies dyspnea on exertion, Denies orthopnea and Denies other Resp Reports cough, Denies dyspnea on exertion and Reports wheezing GI Denies hematochezia and Denies change in stool character Musc Denies abnormal gait, Denies muscle weakness, Denies numbness, Denies radiating pain into limb and Denies tingling Skin/Breast Denies rash Neuro Denies abnormal gait, Denies dizziness, Denies numbness and Denies tingling Endo Denies fatigue and Denies palpitations Von/Lymph Denies lymphadenopathy Aller/Immun Reports wheezing Physical Exam Vital Signs: Last Vital Signs Pulse 72 05/30/25 09:29 BP 110/56 L 05/30/25 09:29 Pulse Ox 97 05/30/25 09:29 Oxygen Delivery Method Room Air 05/30/25 09:29 BMI result Body Mass Index 26.5 Const General: comfortable HEENT Head: Yes normocephalic Neck Neck: Yes supple Chest Chest palpation & inspection: normal inspection of the chest Resp Effort & Inspection: normal respiratory effort Auscultation: no wheezes (On force exhalation) and diminished lung sounds Cardio Heart sounds: S1 normal heart sound present and S2 normal heart sound present GI Palpation (GI): Soft to palpation Skin General skin exam: no rashes or lesions noted Extrem General: Yes no clubbing, cyanosis or edema Assessment & Plan Assessment & Plan (1) Pulmonary nodules: Comment: 8mm nodule in RML on 12/2024 LDCT - plan is 6m repeat LDCT Code(s): R91.8 - Other nonspecific abnormal finding of lung field Category: Medical (2) Chronic bronchitis: Code(s): J42 - Unspecified chronic bronchitis Category: Medical Qualifiers: Chronic bronchitis type: simple Qualified Code(s): J41.0 - Simple chronic bronchitis (3) Tobacco dependence: Code(s): F17.200 - Nicotine dependence, unspecified, uncomplicated Category: Medical (4) Has daytime drowsiness: Code(s): R40.0 - Somnolence Category: Social Hx (5) Chronic bronchiolitis: Code(s): J44.89 - Other specified chronic obstructive pulmonary disease Category: Medical (6) Pericardial effusion: Code(s): I31.39 - Other pericardial effusion (noninflammatory) Category: Medical (7) Pleural effusion: Code(s): J90 - Pleural effusion, not elsewhere classified Category: Medical Plan 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 [employer] continue Trelegy 100 daily TAMEKA as needed, consider xopenex did not take Singulair bloodwork home PSG scheduled smoking cessation: looking at the hypnosis LDCT referral, next CT 11/2024 F/U 3-4 months Orders: Orders RUTHIE Reflex Titer and Pattern Today I31.39 - Other pericardial effusion (noninflammatory), J90 - Pleural effusion, not elsewhere classified Erythrocyte Sedimentation Rate Today I31.39 - Other pericardial effusion (noninflammatory), J90 - Pleural effusion, not elsewhere classified Cyclic Citrullinated Peptide Today I31.39 - Other pericardial effusion (noninflammatory), J90 - Pleural effusion, not elsewhere classified ANCA Vasculitides Today I31.39 - Other pericardial effusion (noninflammatory), J90 - Pleural effusion, not elsewhere classified Angiotensin Converting Enzyme Today I31.39 - Other pericardial effusion (noninflammatory), J90 - Pleural effusion, not elsewhere classified Scleroderma 70 Antibody Today I31.39 - Other pericardial effusion (noninflammatory), J90 - Pleural effusion, not elsewhere classified Medications: Refilled [id number]-rzyqnpley-yuwuzszc 100-62.5-25 mcg (Trelegy Ellipta) 1 inh inhalation DAILY 60 ea 11RF 30 days J44.9 - Chronic obstructive pulmonary disease, unspecified Coding Level of Care Code Est Pt Level 4 (85679) Complex EM visit Add On G2211 Diagnoses Pulmonary nodules R91.8 Simple chronic bronchitis J41.0 Chronic bronchitis type: simple Tobacco dependence F17.200 Has daytime drowsiness R40.0 Chronic bronchiolitis J44.89 Pericardial effusion I31.39 Pleural effusion J90 Time Spent (min) 18
--- OUTSIDE RECORDS SUMMARY | 2025-05-30 10:37 | XMS_ITS | Clinical Summary ---
Author Organization [employer] Address [address] [place] [address] Care Team Providers Care Early Childhood Director Name Role Phone Unavailable Primary Care Provider [...] None. Categorization based on Lung-RADS 2022 criteria. [email or web address] WSN: [id number] Ordering Physician: Alisson Oliva Dictated By: Angel [...] done at end of June 2023 at [facility]. Routine general medical exam ination at a health care facility 12/11/2022 Overview (12/15/2023): CPE done 12/15/23. HEALTH CARE MAINTENANCE: Colonoscopy (age 45-75): Dr. Luis - [facility]. Due for cscope. Has to go to [place] [facility] due to insurance. Wants to go to [facility]. Has every 3 years - multiple benign polyps (tubular adenomas). Mammogram (age 40-74): Done 11/2023 - waiting for results. AAA Screen (Fam Hx AAA): No family hx. LDCT (smoke >30 pack year, age 55-80): Engaged with pulm - has routine screens. DEXA (age 61 with RF, age 66): Has Osteopenia - had scan at [facility]. Last done 08/2022. SHEET ROCK APPLIER: Outside SHEET ROCK APPLIER: Dr. Newell LMP: Menopause . Last PAP [...] Was advised by PT to go to [facility] - would like to see Sunita Ferguson at [facility]. We will send referral. Discussed pain management including piriformis stretches and ibuprofen. Assessment & Plan (02/06/2023 8:51 AM EDT): Son is computer trainer and has been giving her suggestions. [...] from the original note were not included. [facility] [place] Engaged with pulmonology - Isael Cortez. [...] cervicovaginal cytologic smear 10/16/2022 Overview (12/24/2023): Has SHEET ROCK APPLIER - Dr. Newell who is following. 11/05/2022 [...] Resolved Date Shoulder joint pain 10/16/2022 12/15/19 Immunizations Immunization Administration Dates Next Due Influenza [...] your housing situation today? 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 Not on file Not on [...] Care Team (Late st Contact Info) Description 06/23/2025 3:00 PM EST Office Visit [facility] [address] [place] [address] Lennie Lundy LLD [address] [place] [address] 10/12/2025 2:00 PM EDT Office Visit [facility] [address] [place] [address] Zina Banks 10/25/2025 12:00 PM EDT Office Visit [facility] [address] [place] [address] Zina Banks Health Maintenance Due Date Last Done Comments [...] Vaccine ( season) 2025 06/26/2023, 08/10/2020, 07/18/2020 Disability Screening 06/16/2025 06/16/2024 Dental X-Ray: Bitewings 06/23/2025 06/22/20 24, 02/10/2023, 12/04/2021, Additional history exists Dental Oral Exam 07/30/2025 01/26/2025, , 08/26/2023, Additional history exists Dental Prophylaxis 07/30/2025 01/26/2025, 0 09/28/2024, 06/22/2024, Additional history exists Cervical Cancer Screening 11/05/2025 Pap Smear 11/05/2025 11/05/2022, 01/16/2021 Mammogram 12/09/2025 12/10/2023, 050 07/2023, 09/20/2019, Additional history exists Colonoscopy 05/31/2034 05/31/2024, 0302/2021, 10/01/2020, Additional history exists Colorectal Cancer Screening 05/31/2034 DTaP/Tdap/Td Vaccines (3 - Td or Tdap) 04/25/2035 04/25/2025, 05/14/2015, 06/24/2005 HIV Screening Completed 04/23/2023 Hepatitis C Screening Completed 04/23/2023 Lung Cancer Screening Discontinued 12/09/2023, 023 Influenza Vaccine Completed 04/28/2025, , 04/30/2023 HIB Vaccines Aged Out No longer [...] * Hm Colonoscopy (05/31/2024 10:08 AM EST) [facility] HEALTH MAINTENANCE Final Result * BI Mammogram Screening Tomosynthesis Bilateral (12/10/2023 10:05 AM EDT) Anatomical Region Laterality Modality Breast Bilateral Mammography [facility] IM BI PROCEDURES Final Result * CT Lung Screening Low dose (12/09/2023) Anatomical Region Laterality Modality Lung Computed Tomogra phy [facility] CT PROCEDURES Final Result * HIV Antibody/Antigen, 4th Generation (04/23/2023 9:57 AM EDT) Result 4th Gen HIV Antibody Antigen NEGATIVE (NEG) [facility] Comment: Negative for antibodies to HIV 1 and HIV 2 and P24 antigen. Reference range: Negative Additional note: Written patient authorization is required for each separate release of this test result. This test was performed on the [employer] Incident Response Coordinator immunoassay system. Testing performed or reported by [facility], a Service of [facility], [address] [place] [address] [place] [address] Jong Lou MD, Lumber Piler [facility]# [id number] Blood 04/23/2023 9:57 AM EDT 04/23/2023 10:41 AM EDT Result [facility] LAB BLOOD ORDERABLES Final Resul t [facility] [address] [place] [address] * Hepatits C Antibody w/Reflex HCV Quant PCR and Genotyping (04/23/2023 9:57 AM EDT) Hepatitis C Virus Ab, Serum NEGATIVE (NEG) [facility] Comment: Reference range: Negative This test was performed on the [employer] Incident Response Coordinator immunoassay system. Testing performed or reported by [facility], a Service of [facility], [address] [place] [address] Jnog Lou MD, Lumber Piler [facility]# [id number] 04/23/2023 9:57 AM EDT 04/23/2023 10:41 AM EDT Alisson CRP LAB BLOOD ORDERABLES Final Resul t [facility] [address] [place] [address] * HM PAP/HPV (11/05/2022 10:22 AM EDT) Alisson Oliva [facility] HEALTH MAINTENANCE Final Result from Last 3 Months or Most Recently Relevant to Health Maintenance Insurance [employer]
--- OUTSIDE RECORDS SUMMARY | 2025-05-30 10:37 | XMS_ITS | Encounter Summary ---
Author Organization [employer] Address [address] [place] [address] Care Team Providers Care Wheel Truer Name Role Phone Alisson Oliva Primary Care Provider [phone] Inactive/Transferred Primary Care Provider Unava ilable Encounter [...] Description 06/23/2025 3:00 PM EST Office Visit [facility] [address] [place] [address] Lennie Lundy LLD [address] [place] [address] 10/12/2025 2:00 PM EDT Office Visit [facility] [address] [place] [address] Zina Banks 10/25/2025 12:00 PM EDT Office Visit [facility] [address] [place] [address] Zina Banks documented as of this encounter Visit Diagnoses Not on filedocumented in this encounter Care Teams Wheel Truer Relationship Specialty Start Date End Date Alisson Oliva FNP [address] [place] [address] PCP - General Family Medicine 10/16/22 11/22/24 Inactive/Transferred PCP - General 11/23/24 11/23/24 documented as of this encounter
--- OUTSIDE RECORDS SUMMARY | 2025-05-30 10:37 | XMS_ITS | Patient Health Record ---
Author Organization [facility] Address [address] [place] [address] Care Team Providers Care Mixologist Name Role Phone Alisson Story Primary Care [...] date:11/30/2024 08:53:14 AM Interpretation: Performing Lab: Notes/Report: [address] [address] XRay Report Signed Patient: Lilian Peters MR#: [id number] : 1960 Acct:[id number] Age/Sex: 64 / F ADM Date: 11/29/24 Loc: HO.XRAY Attending Dr: Igor Lozada MD Ordering Physician: Igor Lozada MD Date of Service: 11/29/24 Procedure(s): XR abdomen min 2V Accession Number(s): [id number] cc: Igor Lozada MD; Physician,Unknown EXAMINATION: XR [...] 11/30/24 0731 DD/ 1552 TD/TT: 11/29/24 1601 Staff Psychologist: Pathology Reviewed date:06/02/2024 10:06:52 AM Interpretation: Performing Lab:[facility], [address] [place] [phone] Notes/Report: Complete Blood Count Auto Di ff Reviewed date:11/30/2024 08:52:46 AM Interpretation: Performing Lab:[facility], [address] [place] [phone] Notes/Report: White Blood Count 13.5 4.8-10.8 X10*3/uL [...] te Reviewed date:11/30/2024 08:52:39 AM Interpretation: Performing Lab:[address] [address] Notes/Report: Erythrocyte Sedimentation Rate 28 0-20 MM/HR Patients with polycythemia and many hemoglobin abnormalities may have depressed sed rates whereas patients with anemia may have elevated sed rates. Liver Panel Reviewed date:11/30/2024 08:52:08 AM Interpretation: Performing Lab:[address] [address] Notes/Report: Bilirubin Total 0.8 0.0-1.0 mg/dL Bilirubin Direct 0.3 0.0-0.5 mg/dL Aspartate Amino Transferase 65 5-31 U/L Alanine Aminotransferase 128 0-31 U/L Total Protein 6.6 6.5-8.0 g/dL Albumin Level 3.9 3.5-5.0 g/dL Alkaline Phosphatase 115 39-117 U/L Lipase Reviewed date:11/30/2024 08:52:05 AM Interpretation: Performing Lab:[address] [address] Notes/Report: Lipase 20 8-78 U/L TSH reflex Free T4 Reviewed date:11/30/2024 08:51:52 AM Interpretation: Performing Lab:[address] [address] Notes/Report: TSH reflex Free T4 1.31 0.32-4.0 uIU/mL Immunoglobulins,IgG IgA IgM Reviewed date:12/09/2024 04:20:40 PM Interpretation: Performing Lab:[facility], [address] [place] [phone] Notes/Report: IgG 228 263-5962 mg/dL IgA 146 70-320 mg/dL IgM 105 50-300 mg/dL THIS TEST WAS PERFORMED AT: [facility] [address] [place] [phone] JASMIN BLANTON MD Immunoglobulin E Reviewed date:12/09/2024 04:20:22 PM Interpretation: Performing Lab:[facility], [address] [place] [phone] Notes/Report: Immunoglobulin E 40 <GI=478 kU/L THIS TEST WAS PERFORMED AT: [facility] [address] [place] [phone] JASMIN BLANTON MD Reason For Referral No Information Medications Medication SIG (Take, Route, Frequency, Duration) Notes Start Date End Date Status MiraLax (colon prep) 17 GM/SCOOP mixed with Gatorade or Crystal Light Orally begin at 5:00 p.m. the day before the procedure; Duration: 1 day 04/14/2024 Active ibuprofen Not-Taking Albuterol Sulfate HFA 108 (90 Base) MCG/ACT Inhalation; Duration: 17 Active Trelegy Ellipta 100-62.5-25 MCG/ACT Inhalation; Duration: 30 Active Social History Tobacco Use: Social History Observation [...] W/U Status Risk Notes Problem Abdominal bloating (174599182) Abdominal bloating (787.3) Active confirmed Problem Screening for malignant neoplasm of colon (933898267) Special screening for malignant neoplasms, colon (Z12.11) Active confirmed Problem Eructation (14712623) Eructation (R14.2) Active confirmed Problem Elevated liver enzymes level (484243886) Elevated LFTs (R79.89) Active confirmed Problem Altered bowel function (98030625) Change in bowel function (R19.4) Active confirmed Problem Anemia (783652000) Anemia (D64.9) Active confir med Problem Constipation (74978357) Constipation, unspecified constipation type (K59.00) Active confirmed Problem Gastrointestinal tract problem (053172328) Abn findings-GI tract (R93.3) Active confirmed Problem Flatulence, eructation and gas pain (993971804) Abdominal gas pain (R14.1) Active confirmed Encounters Encounter Location Date Provider Diagnosis [facility] Outpatient [address] [place] [id number] 05/31/2024 Igor Lozada Jr Colon cancer screening Z12.11 and Colon polyps K63.5 [facility] [address] 06/02/2024 Igor Lozada Jr [facility] [address] 11/29/2024 Igor Lozada Jr Change in bowel function R19.4 ; Abdominal gas pain R14.1 ; Abdominal bloating 787.3 and Eructation R14.[address] [address] 11/30/2024 Igor Lozada Jr Elevated LFTs R79.89 ; Abn findings-GI tract R93.3 and Anemia D64.[address] [address] 12/06/2024 Igor Lozada Jr Assessments Encounter Date [...] Coverage End Date [employer] [address] [address] [place] [address] [id number] LILIAN DON Self - patient is the insured Medical (General) History Medical History History ICD Code environmental allergies asthma Surgical History Surgery Date(Month/Year) lipoma fatty left breast superficial 198 3 tubal ligation
--- OUTSIDE RECORDS SUMMARY | 2025-05-30 10:37 | XMS_ITS | Encounter Summary ---
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 Not on file Not on file documented as of this encounter Plan of Treatment Upcoming Encounters Date Type Department Care Team (Late st Contact Info) Description 06/23/2025 3:00 PM EST Office Visit [facility] DENTAL [address] [place] [address] Lennie Lundy LLD 9 [place] [address] 10/12/2025 2:00 PM EDT Office Visit [facility] [address] [place] [address] Zina Banks 10/25/2025 12:00 PM EDT Office Visit [facility] D[facility] [address] [place] [address] Zina Banks documented as of this encounter Procedures Procedure [...] on filedocumented in this encounter Care Teams Fire Captain Relationship Specialty Start Date End Date Alisson Oliva FNP [address] [place] [address] PCP - General Family Medicine 10/16/22 11/22/24 Inactive/Transferred PCP - General 11/23/24 11/23/24 documented as of this encounter
--- OUTSIDE RECORDS SUMMARY | 2025-05-30 10:37 | XMS_ITS | Encounter Summary ---
Author Organization [employer] Address [address] [facility] 7 [place] [address] Care Team Providers Care Bag Press Operator Name Role Phone Alisson Oliva Primary Care Provider [phone] Inactive/Transferred Primary Care Provider Unava ilable Encounter [...] Description 06/23/2025 3:00 PM EST Office Visit [facility] DENTAL [address] [place] [address] Lennie Lundy LLD 9 [place] [address] 10/12/2025 2:00 PM EDT Office Visit [facility] DENTAL [address] [place] [address] Zina Banks 10/25/2025 12:00 PM EDT Office Visit [facility] DENTAL [address] [place] [address] Zina Banks documented as of this encounter Visit Diagnoses Not on filedocumented in this encounter Care Teams Bag Press Operator Relationship Specialty Start Date End Date Alisson Oliva FNP [address] [place] [address] PCP - General Family Medicine 10/16/22 11/22/24 Inactive/Transferred PCP - General 11/23/24 11/23/24 documented as of this encounter
--- OUTSIDE RECORDS SUMMARY | 2025-05-30 10:37 | XMS_ITS | Encounter Summary ---
Author Organization [employer] Address [address] [facility] [address] 7[address] [place] [address] Care Team Providers Care Nurse Leader Name Role Phone Alisson Olvia MANUFACTURING BUSINESS ANALYST Primary Care Provider [phone] Inactive/Transferred Primary Care Provider Unava ilable Encounter Details Date Type Department Care Team (Late st Contact Info) Description 10/16/2022 Abstract Iram [facility] [address] [place] [address] Alisson Oliva FNP [address] [place] [address] Social History Tobacco Use Types Packs/Day Years [...] Description 06/23/2025 3:00 PM EST Office Visit [facility] [address] [place] [address] Lennie Lundy LLD 9 [place] [address] 10/12/2025 2:00 PM EDT Office Visit [facility] [address] [place] [address] Zina Banks 10/25/2025 12:00 PM EDT Office Visit [facility] [address] [place] [address] Zina Banks documented as of this encounter Procedures Procedure Name Priority Date/Time Associated Diagnosis Comments COLONOSCOPY Routine 10/01/2020 MAMMOGRAPHY Routine 09/20/2019 HEMOGLOBIN A1C Routine 03/10/2019 LIPID PANEL, STANDARD Routine 03/10/2019 documented in this encounter Results * Colonoscopy (10/01/2020) Colonoscopy Normal Normal Comment:poyp removal, divert icula repeat 3-5 years us Historical Provider HEALTH MAINTENANCE Final Result * Mammography (09/20/2019) Mammogram Neg - annual exam - very dense breasts Anatomical Region Laterality Modality Other Result [facility] Historical Provider HEALTH MAINTENANCE Final Result * Hemoglobin A1c (03/10/2019) Hemoglobin A1C 5.4 4.0 - 6.0 % Blood Venous blood specimen / Unknown Result [facility] Provider LAB BLOOD ORDERABLES Sarah l Result * (ABNORMAL) Lipid Panel, Standard (03/10/2019) Triglycerides 128 40 - 160 mg/dL Cholesterol 201(A) 0 - 200 mg/dL HDL Cholesterol 45 35 - 70 mg/dL LDL Cholesterol 130 mg/dL Blood Venous blood specimen / Unknown Result [facility] Provider LAB BLOOD ORDERABLES Sarah l Result documented in this encounter Visit Diagnoses Not on filedocumented in this encounter Care Teams Nurse Leader Relationship Specialty Start Date End Date Alisson Oliva FNP [address] [place] [address] PCP - General Family Medicine 10/16/22 11/22/24 Inactive/Transferred PCP - General 11/23/24 11/23/24 documented as of this encounter
--- OUTSIDE RECORDS SUMMARY | 2025-05-30 10:38 | XMS_ITS | Encounter Summary ---
Author Organization [employer] Address [address] [facility] [address] 7[address] [place] [address] Care Team Providers Care Construction Scheduler Name Role Phone HazelAlisson DOBIE WORKER Primary Care Provider [phone] Inactive/Transferred Primary Care Provider Unava ilable Encounter Details Date Type Department Care Team (Late st Contact Info) Description 05/11/2024 Orders Only [facility] [address] [place] [address] Alisson Oliva FNP [address] [place] [address] Colon cancer screening Social History Tobacco Use [...] 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 Not on file Not on file documented as of this encounter Plan of Treatment Upcoming Encounters Date Type Department Care Team (Late st Contact Info) Description 06/23/2025 3:00 PM EST Office Visit [facility] DENTAL [address] [place] [address] Lennie Lundy LLD 9 [place] [address] 10/12/2025 2:00 PM EDT Office Visit [facility] DENT[facility] [address] [place] [address] Zina Banks 10/25/2025 12:00 PM EDT Office Visit [facility] DENT[facility] [address] [place] [address] Zina Banks documented as of this encounter [...] colon documented in this encounter Care Teams Construction Scheduler Relationship Specialty Start Date End Date Alisson Oliva FNP [address] [place] [address] PCP - General Family Medicine 10/16/22 11/22/24 Inactive/Transferred PCP - General 11/23/24 11/23/24 documented as of this encounter
--- OUTSIDE RECORDS SUMMARY | 2025-05-30 10:38 | XMS_ITS | Encounter Summary ---
Author Organization [employer] Address [address] [facility] [address] 7[address] [place] [address] Care Team Providers Care Production Shift Supervisor Name Role Phone Alisson Oliva Primary Care Provider [phone] Inactive/Transferred Primary Care Provider Unava ilable Encounter Details Date Type Department Care Team (Late st Contact Info) Description 12/16/2023 Orders Only [facility] [address] [place] [address] Alisson Oliva FNP [address] [place] [address] Social History Tobacco Use Types Packs/Day Years [...] Description 06/23/2025 3:00 PM EST Office Visit [facility] DENTAL [address] [place] [address] Lennie Lundy LLD 9 [place] [address] 10/12/2025 2:00 PM EDT Office Visit [facility] DENT[facility] [address] [place] [address] Zina Banks 10/25/2025 12:00 PM EDT Office Visit [facility] DENT[facility] [address] [place] [address] Zina Banks documented as of this encounter Procedures Procedure Name Priority Date/Time Associated Diagnosis Comments HM PAP/HPV Routine 11/05/2022 10:22 AM EDT documented in this encounter Results * HM PAP/HPV (11/05/2022 10:22 AM EDT) Alisson DELGADO HEALTH MAINTENANCE Final Result documented in this encounter Visit Diagnoses Not on filedocumented in this encounter Care Teams Production Shift Supervisor Relationship Specialty Start Date End Date Alisson Oliva FNP [address] [place] [address] PCP - General Family Medicine 10/16/22 11/22/24 Inactive/Transferred PCP - General 11/23/24 11/23/24 documented as of this encounter
--- OUTSIDE RECORDS SUMMARY | 2025-05-30 10:38 | XMS_ITS | Encounter Summary ---
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 on file Not on file documented as of this encounter Plan of Treatment Upcoming Encounters Date Type Department Care Team (Late st Contact Info) Description 06/23/2025 3:00 PM EST Office Visit [facility] DENTAL [address] [place] [address] Lennie Lundy LLD 9 [place] [address] 10/12/2025 2:00 PM EDT Office Visit [facility] [address] [place] [address] Zina Banks 10/25/2025 12:00 PM EDT Office Visit [facility] DENTAL [address] [place] [address] Zina Banks documented as of this encounter Procedures Procedure Name Priority Date/Time Associated Diagnosis Comments BI MAMMOGRAM SCREENING TOMOSYNTHESIS BILATERAL Routine 12/10/2023 10:05 AM EDT documented in this encounter Results * BI Mammogram Screening Tomosynthesis Bilateral (12/10/2023 10:05 AM EDT) Anatomical Region Laterality Modality Breast Bilateral Mammography Alisson DELGADO IMG BI PROCEDURES Final Result documented in this encounter Visit Diagnoses Not on filedocumented in this encounter Care Teams Aoc Operations Intelligence Chief Relationship Specialty Start Date End Date Alisson Oliva FNP [address] [place] [address] PCP - General Family Medicine 10/16/22 11/22/24 Inactive/Transferred PCP - General 11/23/24 11/23/24 documented as of this encounter
--- OUTSIDE RECORDS SUMMARY | 2025-05-30 10:38 | XMS_ITS | Encounter Summary ---
Author Organization [employer] Address 75 [facility] [address] [place] [place] [address] Care Team Providers Care Sales Operations Name Role Phone Alisson Oliva Primary Care Provider [phone] Inactive/Transferred Primary Care Provider Unava ilable Encounter [...] Description 06/23/2025 3:00 PM EST Office Visit [facility] DENTAL [address] [place] [address] Lennie Lundy LLD 9 [place] [address] 10/12/2025 2:00 PM EDT Office Visit [facility] DENT[facility] [address] [place] [address] Zina Banks 10/25/2025 12:00 PM EDT Office Visit [facility] DENT[facility] [address] [place] [address] Zina Banks documented as of this encounter Visit Diagnoses Not on filedocumented in this encounter Care Teams Sales Operations Relationship Specialty Start Date End Date Alisson Oliva FNP [address] [place] [address] PCP - General Family Medicine 10/16/22 11/22/24 Inactive/Transferred PCP - General 11/23/24 11/23/24 documented as of this encounter
--- OUTSIDE RECORDS SUMMARY | 2025-05-30 10:38 | XMS_ITS | Encounter Summary ---
Author Organization [employer] Address [address] [facility] [address] [place] [address] Care Team Providers Care Senior Qa Tester Name Role Phone Alisson Oliva Primary Care Provider [phone] Inactive/Transferred Primary Care Provider Unava ilable Encounter [...] Description 06/23/2025 3:00 PM EST Office Visit [facility] DENTAL [address] [place] [address] Lennie Lundy LLD 9 [place] [address] 10/12/2025 2:00 PM EDT Office Visit [facility] DENTAL [address] [place] [address] Zina Banks 10/25/2025 12:00 PM EDT Office Visit [facility] DENTAL [address] [place] [address] Zina Banks documented as of this encounter Visit Diagnoses Not on filedocumented in this encounter Care Teams Senior Qa Tester Relationship Specialty Start Date End Date Alisson Oliva FNP [address] [place] [address] PCP - General Family Medicine 10/16/22 11/22/24 Inactive/Transferred PCP - General 11/23/24 11/23/24 documented as of this encounter
--- OUTSIDE RECORDS SUMMARY | 2025-05-30 10:38 | XMS_ITS | Encounter Summary ---
Author Organization [employer] Address 75 [facility] 7 [place] [address] Care Team Providers Care Morning Show Producer Name Role Phone Alisson Oliva Primary Care Provider [phone] Inactive/Transferred Primary Care Provider Unava ilable Encounter [...] 3:00 PM EST Office Visit [facility] D[facility] [address] [place] [address] Lennie Lundy LLD 9 [place] [address] 10/12/2025 2:00 PM EDT Office Visit [facility] D[facility] [address] [place] [address] Zina Banks 10/25/2025 12:00 PM EDT Office Visit [facility] D[facility] [address] [place] [address] Zina Banks documented as of this encounter Visit Diagnoses Not on filedocumented in this encounter Care Teams Morning Show Producer Relationship Specialty Start Date End Date Alisson Oliva FNP [address] [place] [address] PCP - General Family Medicine 10/16/22 11/22/24 Inactive/Transferred PCP - General 11/23/24 11/23/24 documented as of this encounter
--- OUTSIDE RECORDS SUMMARY | 2025-05-30 10:38 | XMS_ITS | Encounter Summary ---
Author Organization [employer] Address [address] [facility] 7 [place] [address] Care Team Providers Care Typing Checker Name Role Phone Alisson Oliav Primary Care Provider [phone] Inactive/Transferred Primary Care Provider Unava ilable Encounter [...] Description 06/23/2025 3:00 PM EST Office Visit [facility] DENTAL [address] [place] [address] Lennie Lundy LLD 9 [place] [address] 10/12/2025 2:00 PM EDT Office Visit [facility] DENTAL [address] [place] [address] Zina Banks 10/25/2025 12:00 PM EDT Office Visit [facility] DENTAL [address] [place] [address] Zina Banks documented as of this encounter Visit Diagnoses Not on filedocumented in this encounter Care Teams Typing Checker Relationship Specialty Start Date End Date Alisson Oliva FNP [address] [place] [address] PCP - General Family Medicine 10/16/22 11/22/24 Inactive/Transferred PCP - General 11/23/24 11/23/24 documented as of this encounter
--- OUTSIDE RECORDS SUMMARY | 2025-05-30 10:38 | XMS_ITS | Encounter Summary ---
Author Organization [employer] Address 75 [facility] 7 [place] [address] Care Team Providers Care Faculty Physician Name Role Phone Alisson Oliva Primary Care Provider [phone] Inactive/Transferred Primary Care Provider Unava ilable Encounter [...] Description 06/23/2025 3:00 PM EST Office Visit [facility] DENT[facility] [address] [place] [address] Lennie Lundy LLD 9 [place] [address] 10/12/2025 2:00 PM EDT Office Visit [facility] DENT[facility] [address] [place] [address] Zina Banks 10/25/2025 12:00 PM EDT Office Visit [facility] DENT[facility] [address] [place] [address] Zina Banks documented as of this encounter Visit Diagnoses Not on filedocumented in this encounter Care Teams Faculty Physician Relationship Specialty Start Date End Date Alisson Oliva FNP [address] [place] [address] PCP - General Family Medicine 10/16/22 11/22/24 Inactive/Transferred PCP - General 11/23/24 11/23/24 documented as of this encounter
--- OUTSIDE RECORDS SUMMARY | 2025-05-30 10:38 | XMS_ITS | Encounter Summary ---
Author Organization [employer] Address [address] 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 Not on file Not on file documented as of this encounter Plan of Treatment Upcoming Encounters Date Type Department Care Team (Late st Contact Info) Description 06/23/2025 3:00 PM EST Office Visit [facility] DENTAL [address] [place] [address] Lennie Lundy LLD 9 [place] [address] 10/12/2025 2:00 PM EDT Office Visit [facility] DENTAL [address] [place] [address] Zina Banks 10/25/2025 12:00 PM EDT Office Visit [facility] DENTAL [address] [place] [address] Zina Banks documented as of this encounter Procedures Procedure Name Priority Date/Time Associated Diagnosis Comments HM COLONOSCOPY Routine 05/31/2024 10:08 AM EST documented in this encounter Results * Hm Colonoscopy (05/31/2024 10:08 AM EST) Alisson DELGADO HEALTH MAINTENANCE Final Result documented in this encounter Visit Diagnoses Not on filedocumented in this encounter Care Teams Treadle Cut Off Saw Operator Relationship Specialty Start Date End Date Alisson Oliva FNP [address] [place] [address] PCP - General Family Medicine 10/16/22 11/22/24 Inactive/Transferred PCP - General 11/23/24 11/23/24 documented as of this encounter
--- OUTSIDE RECORDS SUMMARY | 2025-05-30 10:38 | XMS_ITS | Encounter Summary ---
Author Organization [employer] Address [address] [place] [address] [facility] [place] [address] Care Team Providers Care Ordained Minister Name Role Phone Alisson Oliva Primary Care Provider [phone] Inactive/Transferred Primary Care Provider Unava ilable Encounter [...] Description 06/23/2025 3:00 PM EST Office Visit [facility] [address] [place] [address] Lennie Lundy LLD [address] [place] [address] 10/12/2025 2:00 PM EDT Office Visit [facility] [address] [place] [address] Zina Banks 10/25/2025 12:00 PM EDT Office Visit [facility] [address] [place] [address] Zina Banks documented as of this encounter Visit Diagnoses Not on filedocumented in this encounter Care Teams Ordained Minister Relationship Specialty Start Date End Date Alisson Oliva FNP [address] [place] [address] PCP - General Family Medicine 10/16/22 11/22/24 Inactive/Transferred PCP - General 11/23/24 11/23/24 documented as of this encounter
--- OUTSIDE RECORDS SUMMARY | 2025-05-30 10:38 | XMS_ITS | Encounter Summary ---
Author Organization [employer] Address [address] [place] [address] [facility] [place] [address] Care Team Providers Care Internal Corrosion Specialist Name Role Phone Alisson Oliva Primary Care Provider [phone] Inactive/Transferred Primary Care Provider Unava ilable Encounter [...] Office Visit [facility] [address] [place] [address] Lennie Lundy LLD [address] [place] [address] 10/12/2025 2:00 PM EDT Office Visit [facility] [address] [place] [address] Zina Banks 10/25/2025 12:00 PM EDT Office Visit [facility] [address] [place] [address] Zina Banks documented as of this encounter Visit Diagnoses Not on filedocumented in this encounter Care Teams Internal Corrosion Specialist Relationship Specialty Start Date End Date Alisson Oliva FNP [address] [place] [address] PCP - General Family Medicine 10/16/22 11/22/24 Inactive/Transferred PCP - General 11/23/24 11/23/24 documented as of this encounter
== END 2025-05-30 10:02 | disposition home or self-care (01) ==
LOC: HO.HPS 09:30
PROVIDERS: PCP Physician Assistant; Visit Provider Hospitalist
DX: R91.8 Other nonspecific abnormal finding of lung field (principal); J41.0 Simple chronic bronchitis; F17.200 Nicotine dependence, unspecified, uncomplicated; R40.0 Somnolence; J44.89 Other specified chronic obstructive pulmonary disease; I31.39 Other pericardial effusion (noninflammatory); J90 Pleural effusion, not elsewhere classified
CPT/HCPCS: 99214

== ENCOUNTER 2025-05-31 06:56 | Outpatient (REF) | payer OTHER, SELFPAY ==
--- OUTSIDE RECORDS SUMMARY | 2024-05-31 04:10 | XMS_ITS ---
Author Organization [facility] Address [address] [place] [address] Care Team Providers Care Managing Director Name Role Phone Alisson Story Primary Care Provider Igor Sommer Jr REASON FOR VISIT screening Encounters Encounter Location Date Provider Diagnosis [facility] [place] [address] [place] [id number] 05/31/2024 Igor Lozada Jr Colon cancer screening Z12.11 and Colon polyps K63.5 Assessments Encounter Date Diagnosis (ICD Code) Assessment Notes Treatment Notes Treatment Clinical Notes Section Notes 05/31/2024 Colon cancer screening (ICD-10 - Z12.11) 05/31/2024 Colon polyps (ICD-10 - K63.5) Plan Of Treatment No Information Progress Notes * NAVEED PETERSOB:[birth year] (65 yo F)Acc No.[id number]:05/31/2024 COLON WITH MAC Patient: KAROL AGOSTO Provider: Jin Lozada MD :1960 A ge:64 Y S ex:Female Date:05/31/2024 Address[address] [place] Pcp:DANNY Ness Subjective: * Chief Complaints: * 1 . Screening. * Medical History: Objective: * Vitals: Assessment: * Assessment: 1. C olon cancer screening - Z12.11 (Primary) 2 . C olon polyps - K63.5? Plan: * Treatment: * Procedure Codes: 4 5385 LESION REMOVAL COLONOSCOPY, 0529F INTRVL 3+YRS PTS CLNSCP DOCD * * The named appointment provid er may or may not be the originator of this progress note, and it is not deemed complete until electronically signed by the appointment provider. Sign off status: Pending * Provider: Jin Lozada MD Date: 07/31/2023 Generated for Matty moyer/Brittany/Calvinitting on: 07/31/2024 06:58 AM EST
--- OUTSIDE RECORDS SUMMARY | 2025-05-31 06:58 | XMS_ITS | Patient Health Record ---
Author Organization [facility] Address [address] [place] [address] Care Team Providers Care Wine Sales Representative Name Role Phone Alisson Story Primary Care Provider Igor Sommer Jr Unavailable [phone] Allergies Allergen (clinical drug ingredient) Drug/Non Drug [...] date:11/30/2024 08:53:14 AM Interpretation: Performing Lab: Notes/Report: [address] [address] XRay Report Signed Patient: Lilian Peters MR#: [id number] : 1960 Acct:[id number] Age/Sex: 64 / F ADM Date: 11/29/24 Loc: HO.XRAY Attending Dr: Igor Lozada MD Ordering Physician: Igor Lozada MD Date of Service: 11/29/24 Procedure(s): XR abdomen min 2V Accession Number(s): [id number] cc: Igor Lozada MD; Physician,Unknown EXAMINATION: XR [...] OV> 11/30/24 0731 DD/ 1552 TD/TT: 11/29/24 1600 Manager Bar: Pathology Reviewed date:06/02/2024 10:06:52 AM Interpretation: Performing Lab:[facility], [address] [place] [phone] Notes/Report: Complete Blood Count Auto Di ff Reviewed date:11/30/2024 08:52:46 AM Interpretation: Performing Lab:[facility], [address] [place] [phone] Notes/Report: White Blood Count 13.5 4.8-10.8 X10*3/uL [...] te Reviewed date:11/30/2024 08:52:39 AM Interpretation: Performing Lab:[address] [address] Notes/Report: Erythrocyte Sedimentation Rate 28 0-20 MM/HR Patients with polycythemia and many hemoglobin abnormalities may have depressed sed rates whereas patients with anemia may have elevated sed rates. Liver Panel Reviewed date:11/30/2024 08:52:08 AM Interpretation: Performing Lab:[address] [address] Notes/Report: Bilirubin Total 0.8 0.0-1.0 mg/dL Bilirubin Direct 0.3 0.0-0.5 mg/dL Aspartate Amino Transferase 65 5-31 U/L Alanine Aminotransferase 128 0-31 U/L Total Protein 6.6 6.5-8.0 g/dL Albumin Level 3.9 3.5-5.0 g/dL Alkaline Phosphatase 115 39-117 U/L Lipase Reviewed date:11/30/2024 08:52:05 AM Interpretation: Performing Lab:[address] [address] Notes/Report: Lipase 20 8-78 U/L TSH reflex Free T4 Reviewed date:11/30/2024 08:51:52 AM Interpretation: Performing Lab:[address] [address] Notes/Report: TSH reflex Free T4 1.31 0.32-4.0 uIU/mL Immunoglobulins,IgG IgA IgM Reviewed date:12/09/2024 04:20:40 PM Interpretation: Performing Lab:[facility], [address] [place] [phone] Notes/Report: IgG 199 455-2543 mg/dL IgA 146 70-320 mg/dL IgM 105 50-300 mg/dL THIS TEST WAS PERFORMED AT: [facility] [address] [place] [phone] JASMIN BLANTON MD Immunoglobulin E Reviewed date:12/09/2024 04:20:22 PM Interpretation: Performing Lab:[facility], [address] [place] [phone] Notes/Report: Immunoglobulin E 40 <HI=038 kU/L THIS TEST WAS PERFORMED AT: [facility] [address] [place] [phone] JASMIN BLANTON MD Reason For Referral No [...] W/U Status Risk Notes Problem Abdominal bloating (991335956) Abdominal bloating (787.3) Active confirmed Problem Screening for malignant neoplasm of colon (333162783) Special screening for malignant neoplasms, colon (Z12.11) Active confirmed Problem Eructation (14007435) Eructation (R14.2) Active confirmed Problem Elevated liver enzymes level (962068467) Elevated LFTs (R79.89) Active confirmed Problem Altered bowel function (20977913) Change in bowel function (R19.4) Active confirmed Problem Anemia (245154557) Anemia (D64.9) Active confir med Problem Constipation (11070239) Constipation, unspecified constipation type (K59.00) Active confirmed Problem Gastrointestinal tract problem (838780883) Abn findings-GI tract (R93.3) Active confirmed Problem Flatulence, eructation and gas pain (064560039) Abdominal gas pain (R14.1) Active confirmed Encounters Encounter Location Date Provider Diagnosis [facility] [address] [place] [id number] 05/31/2024 Igor Lozada Jr Colon cancer screening Z12.11 and Colon polyps K63.5 [facility] [address] 06/02/2024 Igor Lozada Jr [facility] [address] 11/29/2024 Igor Lozada Jr Change in bowel function R19.4 ; Abdominal gas pain R14.1 ; Abdominal bloating 787.3 and Eructation R14.[address] [address] 11/30/2024 Igor Lozada Jr Elevated LFTs R79.89 ; Abn findings-GI tract R93.3 and Anemia D64.[address] [address] 12/06/2024 Igor Lozada Jr Assessments Encounter Date [...] Coverage End Date [employer] [place] [address] [address] [place] [address] [id number] 5 LILIAN DON Self - patient is the insured Medical (General) History Medical History History ICD Code environmental allergies asthma Surgical History Surgery Date(Month/Year) lipoma fatty left breast superficial 198 3 tubal ligation
[2025-06-01 20:08] LABS: Proteinase 3 PR3 Antibodies <1.0 AI
[2025-06-08 08:33] LABS: Anti Nuclear Antibody Screen POSITIVE (NEGATIVE); Anti Nuclear Antibody Titer 1:80 titer
== END 2025-05-31 06:57 | disposition home or self-care (01) ==
LOC: HO.LAB 06:56
PROVIDERS: PCP Physician Assistant; Visit Provider Hospitalist
DX: Z01.84 Encounter for antibody response examination (principal); I31.39 Other pericardial effusion (noninflammatory); J90 Pleural effusion, not elsewhere classified
CPT/HCPCS: 36415; 82164; 85652; 86021; 86038; 86039; 86200; 86235

== ENCOUNTER → 2025-07-03 06:59 | Outpatient (REF) | payer OTHER, SELFPAY | LOC: HO.SL 06:59 | PROVIDERS: PCP Physician Assistant | DX: I48.0 Paroxysmal atrial fibrillation (principal); G47.30 Sleep apnea, unspecified | CPT/HCPCS: 95806 ==

== ENCOUNTER → 2025-07-03 09:00 | Outpatient (BNV) | payer OTHER, SELFPAY | PROVIDERS: PCP Physician Assistant; Visit Provider Psychiatry & Neurology Neurology | DX: R06.83 Snoring (principal) | CPT/HCPCS: 95806 ==

== ENCOUNTER 2025-07-10 13:21 | Outpatient (AMB) | payer OTHER, SELFPAY ==
--- OUTSIDE RECORDS SUMMARY | 2024-05-31 04:10 | XMS_ITS ---
Author Organization [facility] Address [address] [place] [address] Care Team Providers Care Algebraist Name Role Phone Alisson Story Primary Care Provider UnavailIgor Marcial Jr REASON FOR VISIT screening Encounters Encounter Location Date Provider Diagnosis [facility] Outpatient [address] [place] [id number] 05/31/2024 Igor Lozada Jr Colon cancer screening Z12.11 and Colon polyps K63.5 Assessments Encounter Date Diagnosis (ICD Code) Assessment Notes Treatment Notes Treatment Clinical Notes Section Notes 05/31/2024 Colon cancer screening (ICD-10 - Z12.11) 05/31/2024 Colon polyps (ICD-10 - K63.5) Plan Of Treatment No Information Progress Notes * NAVEED PETERSOB:[birth year] (65 yo F)Acc No.[id number]:05/31/2024 COLON WITH MAC Patient: KAROL AGOSTO Provider: Jin Lozada MD :1960 A ge:64 Y S ex:Female Date:05/31/2024 Address[address] [place] Pcp:DANNY Ness Subjective: * Chief Complaints: * S creening Assessment: * Assessment: 1. C olon cancer screening - Z12.11 (Primary) 2 . C olon polyps - K63.5? Plan: * Procedure Codes: 4 5385 LESION REMOVAL [id number] INTRVL 3+YRS PTS CLNSCP DOCD Billing Information: * Procedure Codes: 09010 LESION REMOVAL COLONOSCOPY. 0529F INTRVL 3+YRS PTS CLNSCP DOCD. * The named appointment provid er may or may not be the originator of this progress note, and it is not deemed complete until electronically signed by the appointment provider. Sign off status: Pending * Provider: Jin Lozada MD Date: 07/31/2023 Generated for Matty moyer/Brittany/Calvinitting on: 09/10/2024 07:19 PM EST
--- NOTE | 2025-07-10 13:30 | MHC.OFFVIS ---
Vital Signs 07/10/25 13:31 Height 5 ft 4 in BMI Reason not done Patient refused/unable BP 110/64 Blood Pressure Location Lt brachial Position Sitting Pulse 69 Pulse Source Pulse Oximeter Pulse Oximetry (%) 95 Oxygen Delivery Method Room Air Intake Visit Reasons: per MD Corporation Officer Required: No Aircraft Captain: Aircraft Captain offered & declined Accompanied by: Self / Same As Patient Allergies eucalyptus Allergy (Severe, Verified 07/10/25 13:33) Anaphylaxis ampicillin Allergy (Intermediate, Verified 07/10/25 13:33) Rash sulfamethoxazole (From Bactrim) Allergy (Intermediate, Verified 07/10/25 13:33) Rash trimethoprim (From Bactrim) Allergy (Intermediate, Verified 07/10/25 13:33) Rash varenicline (From Chantix) Adverse Reaction (Intermediate, Verified 07/10/25 13:33) Depression citrace spray Allergy (Unknown, Uncoded 04/25/25 10:09) Unknown citronella Allergy (Unknown, Uncoded 04/25/25 10:09) Unknown patchouli plant Allergy (Unknown, Uncoded 04/25/25 10:09) Unknown HPI Comments Details: The patient is a 65 year woman, tobacco dependent, with a history of asthma presenting with worsening respiratory symptoms. Several months ago the patient has did develop a respiratory illness which started developing worsening chest tightness and cough. She did go to urgent care where she was given a course of prednisone. However, the patient was no better and she actually was getting worse and decided to come into the [facility] ED where she was evaluated. There she had a chest x-ray which I personally reviewed demonstrating tram tracking and peribronchial coughing primarily the right mid and lower lung areas. Suggest the possibility of bronchiectatic changes. She was initially given a course of prednisone and doxycycline. She was initially resistant to taking the doxycycline. Although her mucus was yellowish in color thick and tenacious and sticky. Moderate in amount. When she started taking the doxycycline her symptoms improved quickly. Now she is back to her baseline. She does use a rescue inhaler although she does not use 1 regularly. Typically less than twice a week. She had been participating also on the lung cancer screening program at [facility]. Her last CT scan was back in December 2022. I personally reviewed all the images with her. The patient does have evidence of chronic bronchitis and also some bronchiectatic changes primarily involving the right middle lobe and lingular area. The patient also has pulmonary nodules largest 1 measuring more than 6 mm in size. The nodules appeared to be inflammatory. Although infectious etiologies such as smoldering infections also in differential. She was supposed to have a repeat CT scan in June based on her rads 3. however, the patient has not them the CT scan as of yet. She does require a CT scan at this time. Will order the CT scan to further address the pulmonary nodules specially her being high risk for malignancy. The patient was also smoking. She understands he is already developing significant smoking-related respiratory issues. She does want to quit. We did talk about different options I do believe the Chantix would be a good option for. She is agreeable this time to starting Chantix. I will send started pack to the pharmacy. 12/10/2023 the patient is here for a pulmonary follow-up visit. Overall the patient is doing well. She has not had to use her rescue inhaler. Still has some dyspnea on exertion. The patient did have pulmonary function studies which we personally reviewed. Appears to have moderate degree of COPD. No significant response to bronchodilators noted although there was a trend. We also reviewed her CT scan of the chest. Pulmonary nodules are stable although she does have areas of ground-glass opacities suggesting a component of respiratory bronchiolitis likely from the smoking. Based on the fact the nodules are stable we will go ahead and refer her to the lung cancer screening program for the next CT scan in a year. She did start the Chantix. She is having some mild adverse effects. She is going to continue with it. 06/15/2024 the patient is here for pulmonary follow-up visit. Overall she is doing well. The Trelegy has been affecting beneficial. She has only had to use her rescue inhaler once. This is because she was exposed to an irritant a stent that was bothering her. Otherwise she is doing good. Unfortunately, she had to stop the Chantix because she started to get depressive symptoms. Therefore she stopped it. Unfortunately she is still smoking about 10 cigarettes a day. She is going to look into hypnosis. She can also consider Wellbutrin. She is going to look into it. In the meantime the patient is taking part of the lung cancer screening program. She is going to have another CT scan in the springtime. Also she does have snoring. She has an elevated [place] score of 8/24. Right now she is doing okay like to hold off on sleep study. If her symptoms were to worsen we can consider home sleep study. She does practice already positional therapy since she can not sleep on her back. Patient follow-up in 6 months. If she has any issues prior to that she will call for an earlier assessment. 11/28/2024 the patient is here for pulmonary follow-up visit. Overall the patient had been doing very well for several months. The Trelegy inhaler has been very affecting beneficial. She has not had to use her rescue inhaler. Unfortunately she still struggle with smoking. She is looking to hypnosis. In the meantime for last few days she has been having issues with raspiness of her voice and worsening cough. She actually had to use her rescue inhaler this morning. She feels is potentially allergies and she has been working outside a lot lately. She does take allergy medications. Although only partially helpful. Will go and start her on Singulair to help her with her significant allergies. In the meantime she is going to monitor closely for any worsening respiratory symptoms. She had been sick with Haemophilus influenzae for several months. She did respond after prolonged course of azithromycin. Not unreasonable to consider checking her immune system to make sure that she does not have any immuno deficiencies that could predispose her to chronic infections. In addition to that the smoking by itself will cause her to have some increased risk of infections in the airways. She does have a CT scan coming up from the lung cancer screening program so will follow-up with that. Will have her get blood work and she can start the Singulair. She has any worsening symptoms or any chest congestion she will call and get a sputum culture. Will follow-up in 6-8 months. 05/30/2025 the patient is here for pulmonary follow-up visit. Since we last spoke the patient was having worsening symptoms of chest discomfort and fluttering. She did go to the ER. She was found to have a moderate-size pericardial effusion. She also has small bilateral pleural effusions. She was sent over to [facility] where she did undergo a pericardiocentesis. The fluid was consistent with an inflammatory process. No malignancy. She was placed on colchicine and also give him metoprolol because of the AFib. Ultimately she did undergo a heart monitor where she was found to have some episodes of bradycardia she was taken off the metoprolol. From a pulmonary standpoint the patient seems to be doing well. She does have daytime drowsiness with an elevated [place] score of 11/24. We had contemplated a sleep study but at this point based on the cardiac issues the patient will have a sleep study coming up in June. Will follow up with the results. The patient also continues use her respiratory therapy as prescribed. She is still struggling with the smoking. She is going to try hypnosis soon. She is still participating in the lung cancer screening program. Last CAT scan was back in November and she will get another 1 next November. Will follow-up in June after her sleep study. Prior to that she would also undergo blood work. 07/10/2025 the patient is here for sick visit. She started getting sick about a week ago. She started developing URI like symptoms. That is settled in her chest. She has been complaining of chest tightness and wheezing. She has also had productive cough. Difficult to expectorate. Moderate severity. She has been having increasing shortness of breath with activity due to the chest tightness. She did try the nebulizer but it did not help her much. We did another albuterol neb in the office because she does have significant wheezing and then we did provide her with a flutter valve. We were able to get an induced sputum that was sent to the laboratory. In the meantime the patient is going to start doxycycline and also prednisone. Will place her on a higher dose of prednisone since she is having hard time. The patient also will get a chest x-ray for symptoms not clearing up. The orders in place. She will continue with the current respiratory therapy as prescribed. She will continue to use her nebulizer. the patient does have a CT scan of the chest coming up and we will go ahead and try to reschedule that for her because we do not want him to get a low-dose CT scan while she is undergoing a respiratory infection. [facility]LY [facility], [facility] Medical History (Updated 07/10/25 @ 21:31 by Isael Lewis MD) Pleural effusion Tubular adenoma of colon Nicotine dependence, cigarettes, uncomplicated Chronic bronchiolitis Has daytime drowsiness Pulmonary nodules Chronic bronchitis Asthma Surgical History History of tubal ligation History of colonoscopy History of breast lump/mass excision Family History (Updated 04/25/25 @ 10:19 by Austen Traylor PA-C) Mother CAD (coronary artery disease) Father CAD (coronary artery disease) Colon polyps Sister Colon polyps Social History Household Members: Spouse Housing: House Do you presently have visiting nurse or other home services: No Alcohol intake: current Alcohol intake frequency: a few times a week Alcohol type: hard liquor Patient Tobacco Use Status: Current everyday Tobacco user Tobacco use type: Cigarette Cigarette Packs Per Day: 0.5 Cigarettes Per Day: 10.0 Years Smoked: (onset 15yo, 1/2-1ppd x 50yrs, 30pyh) e-Cigarette/Vaping Use: Never Used Second Hand Smoke Exposure: Yes Substance Use Type: Marijuana service: No Current occupational status: employed 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 Cognitive needs: No Hearing needs: No Vision needs: No Review of Systems Const Denies chills, Denies fatigue, Denies fever(s), Denies weight gain and Denies weight loss ENT Denies dizziness Card Denies chest pain, Denies leg edema, Denies lightheadedness, Denies palpitations, Reports dyspnea on exertion, Denies orthopnea and Denies other Resp Reports chest congestion, Reports cough, Reports dyspnea on exertion and Reports wheezing GI Denies hematochezia and Denies change in stool character Musc Denies abnormal gait, Denies muscle weakness, Denies numbness, Denies radiating pain into limb and Denies tingling Skin/Breast Denies rash Neuro Denies abnormal gait, Denies dizziness, Denies numbness and Denies tingling Endo Denies fatigue and Denies palpitations Von/Lymph Denies lymphadenopathy Aller/Immun Reports wheezing Physical Exam Vital Signs: Last Vital Signs Pulse 69 07/10/25 13:31 BP 110/64 07/10/25 13:31 Pulse Ox 95 07/10/25 13:31 Oxygen Delivery Method Room Air 07/10/25 13:31 Const General: comfortable HEENT Head: Yes normocephalic Neck Neck: Yes supple Chest Chest palpation & inspection: normal inspection of the chest Resp Effort & Inspection: normal respiratory effort and prolonged expiratory phase Auscultation: rhonchi, wheezes (On force exhalation) and diminished lung sounds Cardio Heart sounds: S1 normal heart sound present and S2 normal heart sound present GI Palpation (GI): Soft to palpation Skin General skin exam: no rashes or lesions noted Extrem General: Yes no clubbing, cyanosis or edema Office Procedures Nebulizer Treatment Nebulizer Treatment [id number]/MDI RX initial, or Nebulizer Subsequent Treatment Office Meds albuterol sulfate 2.5 mg/3 mL (0.083 %) solution for nebulization Performing Provider: Isael Lewis MD Performing Location: [employer] Pul[facility]ology Services Administered by: Naa Shaikh LPN on 07/10/25 13:55 Dose Route Admin Location Dispensed Lot Number Expiration Date [facility] Director Of Payroll 2.5 mg inhalation 3 mL [id number] 08/26/25 4525-9150-67 MYLAN Assessment & Plan Assessment & Plan (1) COPD exacerbation: Code(s): J44.1 - Chronic obstructive pulmonary disease with (acute) exacerbation Category: Medical (2) Pulmonary nodules: Comment: 8mm nodule in RML on 12/2024 LDCT - plan is 6m repeat LDCT Code(s): R91.8 - Other nonspecific abnormal finding of lung field Category: Medical (3) Chronic bronchitis: Code(s): J42 - Unspecified chronic bronchitis Category: Medical Qualifiers: Chronic bronchitis type: simple Qualified Code(s): J41.0 - Simple chronic bronchitis (4) Has daytime drowsiness: Code(s): R40.0 - Somnolence Category: Social Hx (5) Chronic bronchiolitis: Code(s): J44.89 - Other specified chronic obstructive pulmonary disease Category: Medical (6) Pleural effusion: Code(s): J90 - Pleural effusion, not elsewhere classified Category: Medical Plan CPT with [employer] start Doxycycline start prednisone taper sputum cx continue Trelegy 100 daily TAMEKA as needed, consider xopenex did not take Singulair bloodwork home PSG scheduled smoking cessation: looking at the hypnosis LDCT referral, next CT 11/2024 F/U 3-4 months Orders: Orders Sputum Cult + Gram stain Today R91.1 - Solitary pulmonary nodule AMB Nebulizer Treatment Today J41.0 - Simple chronic bronchitis Medications: New doxycycline monohydrate 100 mg PO BID 28 tabs 0RF 14 days prednisone PO daily; Take 6 tabs daily x 3 days, then 5 tabs x 3 days, then 4 tabs x 3 days, then 3 tabs x 3 days, then 2 tabs daily x 3 days, then 1 tab x 3 days to complete. 63 tabs 0RF 18 days Coding Level of Care Code Est Pt Level 4 (89040) Diagnoses COPD exacerbation J44.1 Pulmonary nodules R91.8 Simple chronic bronchitis J41.0 Chronic bronchitis type: simple Has daytime drowsiness R40.0 Chronic bronchiolitis J44.89 Pleural effusion J90 CPT Codes Nebulizer Treatment - Nebulizer Treatment, initial or subsequent: [id number]/MDI RX initial, or Nebulizer Subsequent Treatment ([id number]) Time Spent (min) 20
[2025-07-10 13:31] VITALS: BP 110/64; PULSE 69; O2SAT 95
--- OUTSIDE RECORDS SUMMARY | 2025-07-10 19:19 | XMS_ITS | Encounter Summary ---
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 file Not on file Not on file documented as of this encounter Plan of Treatment Upcoming Encounters Date Type Department Care Team (Late st Contact Info) Description 10/27/2025 9:00 AM EDT Office Visit [facility] [address] [place] [address] Fadi Pisano documented as of this encounter Procedures Procedure Name Priority Date/Time Associated Diagnosis Comments HM PAP/HPV Routine 11/05/2022 10:22 AM EDT documented in this encounter Results * HM PAP/HPV (11/05/2022 10:22 AM EDT) Alisson Oliva NP HEALTH MAINTENANCE Final Result documented in this encounter Visit Diagnoses Not on filedocumented in this encounter Care Teams Sales Donor Recruitment Representative Relationship Specialty Start Date End Date Alisson Oliva NP PCP - General Family Medicine 10/16/22 11/22/24 Inactive/Transferred PCP - General 11/23/24 11/23/24 documented as of this encounter
--- OUTSIDE RECORDS SUMMARY | 2025-07-10 19:19 | XMS_ITS | Encounter Summary ---
Author Organization [employer] Address [address] [facility] [address] [place] [address] Care Team Providers Care Industrial Relations Representative Name Role Phone Alisson Oliva NP Primary Care Provider Unavailabl e Inactive/Transferred Primary Care Provider Unavirgilio ilable Encounter Details Date Type Department Care Team (Late st Contact Info) Description 05/11/2024 Orders Only [facility] MEDICAL [address] [place] [address] Alisson Oliva NP Colon cancer screening Social History Tobacco Use [...] Job 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 Not on file Not on file documented as of this encounter Plan of Treatment Upcoming Encounters Date Type Department Care Team (Late st Contact Info) Description 10/27/2025 9:00 AM EDT Office Visit [facility] DENTAL [address] [place] [address] Fadi Pisano documented as of this encounter Procedures Procedure Name Priority Date/Time Associated Diagnosis Comments AMB REFERRAL TO GASTROENTEROLOGY Routine 04/14/2024 Colon cancer screening documented in this encounter Results * Referral to Gastroenterology (04/14/2024) Alisson Oliva NP OUTPATIENT REFERRAL ORDERABLES F inal Result documented in this encounter Visit Diagnoses Diagnosis Colon cancer screening Special screening for malignant neoplasms, colon documented in this encounter Care Teams Industrial Relations Representative Relationship Specialty Start Date End Date Alisson Oliva NP PCP - General Family Medicine 10/16/22 11/22/24 Inactive/Transferred PCP - General 11/23/24 11/23/24 documented as of this encounter
--- OUTSIDE RECORDS SUMMARY | 2025-07-10 19:19 | XMS_ITS | Patient Health Record ---
Author Organization [facility] Address [address] [place] [address] Care Team Providers Care Atomizer Assembler Name Role Phone Alisson Story Primary Care Provider Igor Sommer Jr Unavailable Allergies Allergen (clinical drug ingredient) Drug/Non Drug Allergy documented on EMR Reaction Allergy Type Onset Date Status citrace spray (uncoded) Unknown Allergy Active citronella (uncoded) Unknown Allergy Active patchouli plant (uncoded) Unknown Allergy Active sulfamethoxazole / trimethoprim Bactrim Unknown Drug Allergy Active Eucalyptus Unknown Drug Allergy Active Penicillin Unknown Drug Allergy Active Results Component Value Reference Range Flag Notes XR abdomen min 2V Reviewed date:11/30/2024 08:53:14 AM Interpretation: Performing Lab: Notes/Report: [address] [address] XRay Report Signed Patient: Lilian Peters MR#: [id number] : 1960 Acct:[id number] Age/Sex: 64 / F ADM Date: 11/29/24 Loc: HO.XRAY Attending Dr: Igor Lozada MD Ordering Physician: Igor Lozada MD Date of Service: 11/29/24 Procedure(s): XR abdomen min 2V Accession Number(s): [id number] cc: Igor Lozada MD; Physician,Unknown EXAMINATION: XR [...] 11/30/24 0731 DD/ 1552 TD/TT: 11/29/24 1606 Ladle Repairer: Complete Blood Count Auto Di ff Reviewed date:11/30/2024 08:52:46 AM Interpretation: Performing Lab:[facility], [address] [place] [phone] Notes/Report: White Blood Count 13.5 4.8-10.8 X10*3/uL H Red Blood Count 4.02 4.20-5.50 X10*6/uL L Hemoglobin 12.1 12.0-16.0 g/dl Hematocrit 35.5 37.0-47.0 % L Mean Corpuscular Volume 88.3 80.0-98.0 fL N Mean Corpuscular Hemoglobin 30.1 27.0-33.0 pg N Mean Corpuscular HGB Conc 34.1 31.0-35.0 g/dl N Red Cell Distribution Width 12.2 11.0-16.0 % N Platelet Count 461 160-400 X10*3/uL H Mean Platelet Volume 8.8 9.4-12.3 fL L Neutrophils Percent Auto 80.4 45-73 % H Imm Gran Pct Auto 0.4 0.0-0.4 % N Lymphocytes Percent Auto 11.8 20-40 % L Monocytes Percent Auto 6.4 2-11 % N Eosinophils Percent Auto 0.6 0-4 % N Basophils Percent Auto 0.4 0-2 % N NRBC Pct Auto 0.0 0.0-0.2 /100WBC N Neutrophils Absolute Auto 10.9 2.0-8.3 x10*3/uL H Imm Gran Abs Auto 0.06 0.00-0.03 X10*3/uL H Lymphocytes Absolute Auto 1.6 1.2-4.9 X10*3/uL N Monocytes Absolute Auto 0.9 0.1-1.2 X10*3/uL N Eosinophils Absolute Auto 0.1 0.0-0.4 X10*3/uL N Basophils Absolute Auto 0.1 0.0-0.2 X10*3/uL N NRBC Abs Auto 0.000 0.0-0.012 X10*3/uL N Erythrocyte Sedimentation Ra te Reviewed date:11/30/2024 08:52:39 AM Interpretation: Performing Lab:[address] [phone] Notes/Report: Erythrocyte Sedimentation Rate 28 0-20 MM/HR H Patients with polycythemia and many hemoglobin abnormalities may have depressed sed rates whereas patients with anemia may have elevated sed rates. Liver Panel Reviewed date:11/30/2024 08:52:08 AM Interpretation: Performing Lab:[address] [phone] Notes/Report: Bilirubin Total 0.8 0.0-1.0 mg/dL N Bilirubin Direct 0.3 0.0-0.5 mg/dL N Aspartate Amino Transferase 65 5-31 U/L H Alanine Aminotransferase 128 0-31 U/L H Total Protein 6.6 6.5-8.0 g/dL N Albumin Level 3.9 3.5-5.0 g/dL N Alkaline Phosphatase 115 39-117 U/L N Lipase Reviewed date:11/30/2024 08:52:05 AM Interpretation: Performing Lab:[address] [phone] Notes/Report: Lipase 20 8-78 U/L N TSH reflex Free T4 Reviewed date:11/30/2024 08:51:52 AM Interpretation: Performing Lab:[address] [phone] Notes/Report: TSH reflex Free T4 1.31 0.32-4.0 uIU/mL N Immunoglobulins,IgG IgA IgM Reviewed date:12/09/2024 04:20:40 PM Interpretation: Performing Lab:[address] [phone] Notes/Report: IgG 033 262-1792 mg/dL N IgA 146 70-320 mg/dL N IgM 105 50-300 mg/dL N THIS TEST WAS PERFORMED AT: [facility] [address] [place] [phone] JASMIN BLANTON MD Immunoglobulin E Reviewed date:12/09/2024 04:20:22 PM Interpretation: Performing Lab:[facility], [address] [place] [phone] Notes/Report: Immunoglobulin E 40 <IK=786 kU/L N THIS TEST WAS PERFORMED AT: [facility] [address] [place] [phone] JASMIN BLANTON MD Reason For Referral No Information Medications Medication SIG (Take, Route, Frequency, Duration) Notes Start Date End Date Status MiraLax (colon prep) 17 GM/SCOOP Powder mixed with Gatorade or Crystal Light Orally begin at 5:00 p.m. the day before the procedure; Duration: 1 day 04/14/2024 Active ibuprofen Not-Taking /PRN Albuterol Sulfate HFA 108 (90 Base) MCG/ACT Aerosol Solution Inhalation; Duration: 17 Active Trelegy Ellipta 100-62.5-25 MCG/ACT Aerosol Powder Breath Activated Inhalation; Duration: 30 Active Social History Tobacco Use: Social History Observation Description Date Details (start date - stop date) Current Smoker NA - NA Social History Drugs/Alcohol: Social Info Question Answer Notes Alcohol Screen Did you have a drink containing alcohol in the past year? Yes How often did you have a drink containing alcohol in the past year? Monthly or less (1 point) How many drinks did you have on a typical day when you were drinking in the past year? 1 or 2 drinks (0 point) Points 1 Interpretation Negative Tobacco Use: Social Info Question Answer Notes Tobacco Use/Smoking Patient is a current smoker How often do you smoke cigarettes? every day How many cigarettes a day do you smoke? 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 Problems Problem Type SNOMED Code ICD Code Onset Dates Problem Status W/U Status Risk Notes Problem Abdominal bloating (728877670) Abdominal bloating (787.3) Active confirmed Problem Screening for malignant neoplasm of colon (978902486) Special screening for malignant neoplasms, colon (Z12.11) Active confirmed Problem Eructation (95478753) Eructation (R14.2) Active confirmed Problem Elevated liver enzymes level (545747123) Elevated LFTs (R79.89) Active confirmed Problem Altered bowel function (62968079) Change in bowel function (R19.4) Active confirmed Problem Anemia (849027376) Anemia (D64.9) Active confir med Problem Constipation (24016102) Constipation, unspecified constipation type (K59.00) Active confirmed Problem Gastrointestinal tract problem (143293121) Abn findings-GI tract (R93.3) Active confirmed Problem Flatulence, eructation and gas pain (115641911) Abdominal gas pain (R14.1) Active confirmed Encounters Encounter Location Date Provider Diagnosis [facility] [address] [place] [phone] 11/29/2024 Igor Lozada Jr Change in bowel function R19.4 ; Abdominal gas pain R14.1 ; Abdominal bloating 787.3 and Eructation R14.[address] [place] [phone] 11/30/2024 Igor Lozada Jr Elevated LFTs R79.89 ; Abn findings-GI tract R93.3 and Anemia D64.[address] [place] [phone] 12/06/2024 Igor Lozada Jr Assessments Encounter Date Diagnosis (ICD Code) Assessment Notes Treatment Notes Treatment Clinical Notes Section Notes 11/29/2024 Change in bowel function (ICD-10 - R19.4) 11/29/2024 Abdominal gas pain (ICD-10 - R14.1) 11/30/2024 Elevated LFTs (ICD-10 - R79.89) 11/30/2024 Abn findings-GI tract (ICD-10 - R93.3) 11/30/2024 Anemia (ICD-10 - D64.9) 11/29/2024 Abdominal bloating (ICD9-CM - 787.3) 11/29/2024 [...] Coverage End Date [employer] [place] [address] [address] [place] [address] [id number] LILIAN ODN Self - patient is the insured Medical (General) History Medical History History ICD Code environmental allergies asthma Surgical History Surgery Date(Month/Year) lipoma fatty left breast superficial 198 3 tubal ligation
--- OUTSIDE RECORDS SUMMARY | 2025-07-10 19:19 | XMS_ITS | Encounter Summary ---
Author Organization [employer] Address 75 [facility] 7 [place] [address] Care Team Providers Care Scraper Hand Name Role Phone Alisson Oliva NP Primary [...] Description 10/27/2025 9:00 AM EDT Office Visit [facility] DENTAL [address] [place] [address] Fadi Pisano documented as of this encounter Visit Diagnoses Not on filedocumented in this encounter Care Teams Scraper Hand Relationship Specialty Start Date End Date Alisson Oliva NP PCP - General Family Medicine 10/16/22 11/22/24 Inactive/Transferred PCP - General 11/23/24 11/23/24 documented as of this encounter
--- OUTSIDE RECORDS SUMMARY | 2025-07-10 19:19 | XMS_ITS | Encounter Summary ---
Author Organization [employer] Address 75 [facility] 7 [place] [address] Care Team Providers Care Survey Coordinator Name Role Phone Alisson Oliva NP Primary [...] Description 10/27/2025 9:00 AM EDT Office Visit [place] [facility] DENTAL [address] [place] [address] Fadi Pisano documented as of this encounter Visit Diagnoses Not on filedocumented in this encounter Care Teams Survey Coordinator Relationship Specialty Start Date End Date Alisson Oliva NP PCP - General Family Medicine 10/16/22 11/22/24 Inactive/Transferred PCP - General 11/23/24 11/23/24 documented as of this encounter
--- OUTSIDE RECORDS SUMMARY | 2025-07-10 19:19 | XMS_ITS | Encounter Summary ---
Author Organization [employer] Address 75 [facility] 7t [place] [address] Care Team Providers Care Multi Disciplined Language Analyst Name Role Phone Alisson Oliva NP Primary Care Provider Unavailabl e Inactive/Transferred Primary Care Provider Unava ilable Encounter Details Date Type Department Care Team (Late st Contact Info) Description 10/16/2022 Abstract [place] [facility] [address] [place] [address] Alisson Oliva NP Social History Tobacco Use [...] 9:06 AM EDT Reva Ramos CMA * How difficult have these problems made it for you to do your work, take care of things at home, or get along with other people? Answer Date of Assessment Author Not difficult at all 10/17/2022 9:06 AM EDT Reva Figueroa CMA documented as of this encounter Plan of Treatment Upcoming Encounters Date Type Department Care Team (Late st Contact Info) Description 10/27/2025 9:00 AM EDT Office Visit [place] [facility] DENT[facility] [address] [place] [address] Fadi Pisano documented as of this encounter Procedures Procedure Name Priority Date/Time Associated Diagnosis Comments COLONOSCOPY Routine 10/01/2020 MAMMOGRAPHY Routine 09/20/2019 HEMOGLOBIN A1C Routine 03/10/2019 LIPID PANEL, STANDARD Routine 03/10/2019 documented in this encounter Results * Colonoscopy (10/01/2020) Pathologist [facility] Colonoscopy Normal Normal Comment:poyp removal, divert icula repeat 3-5 years Historical Provider HEALTH MAINTENANCE Final Result * Mammography (09/20/2019) [facility] Mammogram Neg - annual exam - very dense breasts Anatomical Region Laterality Modality Other Historical Provider HEALTH MAINTENANCE Final Result * Hemoglobin A1c (03/10/2019) [facility] Hemoglobin A1C 5.4 4.0 - 6.0 % Blood Venous blood specimen / Unknown Historical Provider LAB BLOOD ORDERABLES Sarah l Result * (ABNORMAL) Lipid Panel, Standard (03/10/2019) [facility] Triglycerides 128 40 - 160 mg/dL Cholesterol 201(A) 0 - 200 mg/dL HDL Cholesterol 45 35 - 70 mg/dL LDL Cholesterol 130 mg/dL Blood Venous blood specimen / Unknown us Historical Provider LAB BLOOD ORDERABLES Sarah l Result documented in this encounter Visit Diagnoses Not on filedocumented in this encounter Care Teams Multi Disciplined Language Analyst Relationship Specialty Start Date End Date Alisson Oliva NP PCP - General Family Medicine 10/16/22 11/22/24 Inactive/Transferred PCP - General 11/23/24 11/23/24 documented as of this encounter
--- OUTSIDE RECORDS SUMMARY | 2025-07-10 19:19 | XMS_ITS | Encounter Summary ---
Author Organization [employer] Address 75 [facility] 7 [place] [address] Care Team Providers Care Profile Saw Operator Name Role Phone Alisson Oliva NP Primary [...] 9:00 AM EDT Office Visit [facility] DENTAL [address] [place] [address] Fadi Pisano documented as of this encounter Visit Diagnoses Not on filedocumented in this encounter Care Teams Profile Saw Operator Relationship Specialty Start Date End Date Alisson Oliva NP PCP - General Family Medicine 10/16/22 11/22/24 Inactive/Transferred PCP - General 11/23/24 11/23/24 documented as of this encounter
--- OUTSIDE RECORDS SUMMARY | 2025-07-10 19:19 | XMS_ITS | Encounter Summary ---
Author Organization [employer] Address 75 [facility] 7 [place] [address] Care Team Providers Care Mica Patcher Name Role Phone Alisson Oliva NP Primary [...] AM EDT Office Visit [facility] DENTAL [address] [place] [address] Fadi Pisano documented as of this encounter Visit Diagnoses Not on filedocumented in this encounter Care Teams Mica Patcher Relationship Specialty Start Date End Date Alisson Oliva NP PCP - General Family Medicine 10/16/22 11/22/24 Inactive/Transferred PCP - General 11/23/24 11/23/24 documented as of this encounter
--- OUTSIDE RECORDS SUMMARY | 2025-07-10 19:19 | XMS_ITS | Encounter Summary ---
Author Organization [employer] Address 75 [facility] 7 [place] [address] Care Team Providers Care Fence Rider Name Role Phone Alisson Oliva NP Primary [...] Description 10/27/2025 9:00 AM EDT Office Visit [place] [facility] DENTAL [address] [place] [address] Fadi Pisano documented as of this encounter Visit Diagnoses Not on filedocumented in this encounter Care Teams Fence Rider Relationship Specialty Start Date End Date Alisson Oliva NP PCP - General Family Medicine 10/16/22 11/22/24 Inactive/Transferred PCP - General 11/23/24 11/23/24 documented as of this encounter
--- OUTSIDE RECORDS SUMMARY | 2025-07-10 19:19 | XMS_ITS | Encounter Summary ---
Author Organization [employer] Address 75 [facility] 7 [place] [address] Care Team Providers Care Pantry Chef Name Role Phone Alisson Oliva NP Primary [...] Description 10/27/2025 9:00 AM EDT Office Visit [facility] DENTAL [address] [place] [address] Fadi Pisano documented as of this encounter Visit Diagnoses Not on filedocumented in this encounter Care Teams Pantry Chef Relationship Specialty Start Date End Date Alisson Oliva NP PCP - General Family Medicine 10/16/22 11/22/24 Inactive/Transferred PCP - General 11/23/24 11/23/24 documented as of this encounter
--- OUTSIDE RECORDS SUMMARY | 2025-07-10 19:19 | XMS_ITS | Encounter Summary ---
Author Organization [employer] Address 75 [facility] 7 [place] [address] Care Team Providers Care Assembler Bonding Name Role Phone Alisson Oliva NP Primary [...] Description 10/27/2025 9:00 AM EDT Office Visit [facility] DENTAL [address] [place] [address] Fadi Pisano documented as of this encounter Visit Diagnoses Not on filedocumented in this encounter Care Teams Assembler Bonding Relationship Specialty Start Date End Date Alisson Oliva NP PCP - General Family Medicine 10/16/22 11/22/24 Inactive/Transferred PCP - General 11/23/24 11/23/24 documented as of this encounter
--- OUTSIDE RECORDS SUMMARY | 2025-07-10 19:19 | XMS_ITS | Encounter Summary ---
Author Organization [employer] Address 75 [facility] 7 [place] [address] Care Team Providers Care Enrobing Machine Corder Name Role Phone Alisson Oliva NP Primary [...] Description 10/27/2025 9:00 AM EDT Office Visit [place] [facility] DENTAL [address] [place] [address] Fadi Pisano documented as of this encounter Visit Diagnoses Not on filedocumented in this encounter Care Teams Enrobing Machine Corder Relationship Specialty Start Date End Date Alisson Oliva NP PCP - General Family Medicine 10/16/22 11/22/24 Inactive/Transferred PCP - General 11/23/24 11/23/24 documented as of this encounter
--- OUTSIDE RECORDS SUMMARY | 2025-07-10 19:19 | XMS_ITS | Clinical Summary ---
Author Organization Group [employer] Address [address] [place] [address] Care Team Providers Care Drum Stenciler Name Role Phone Unavailable Primary Care Provider [...] None. Categorization based on Lung-RADS 2022 criteria. [email or web address] WSN: [id number] Ordering Physician: Alisson Oliva Dictated By: Angel [...] done at end of June 2023 at [facility]. Routine general medical exam ination at a health care facility 12/11/2022 Overview (12/15/2023): CPE done 12/15/23. HEALTH CARE MAINTENANCE: Colonoscopy (age 45-75): Dr. Luis - [facility]. Due for cscope. Has to go to [place] due to insurance. Wants to go to [place]. Has every 3 years - multiple benign polyps (tubular adenomas). Mammogram (age 40-74): Done 11/2023 - waiting for results. AAA Screen (Fam Hx AAA): No family hx. LDCT (smoke >30 pack year, age 55-80): Engaged with pulm - has routine screens. DEXA (age 61 with RF, age 66): Has Osteopenia - had scan at [facility]. Last done 08/2022. POULTRY HUSBANDRY TEACHER: Outside POULTRY HUSBANDRY TEACHER: Dr. Newell LMP: Menopause . Last PAP [...] Was advised by PT to go to [facility] - would like to see Sunita Ferguson at [place]. We will send referral. Discussed pain management including piriformis stretches and ibuprofen. Assessment & Plan (02/06/2023 8:51 AM EDT): Son is guide dog trainer and has been giving her suggestions. [...] from the original note were not included. [facility] Pulmonology Engaged with pulmonology [...] cervicovaginal cytologic smear 10/16/2022 Overview (12/24/2023): Has POULTRY HUSBANDRY TEACHER - Dr. Newell who is following. 11/05/2022 [...] Encounters Date Type Department Care Team Description 06/23/2025 2:00 PM EST Office Visit 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 Not on file Not on file Last Filed Vital Signs Vital Sign Reading Time Taken Comments Blood Pressure 130/80 06/23/2025 2:03 PM EST Pulse 74 06/23/2025 2:03 PM EST Temperature 36.7 C (98.1 F) 06/16/2024 [...] 10/27/2025 9:00 AM EDT Office Visit [facility] [address] [place] [address] Aliya Torinanci Health Maintenance Due Date Last Done Comments CT Colonography 1961 FIT DNA/Cologuard 1961 FIT 1961 FOBT 1961 Sigmoidoscopy 1961 Disability Screening 1961 Alcohol/Substance Use Screening 1973 HPV/Cotest 1991 RSV Patients and Patients Aged 60 years or older (1 - Risk 50-74 years 1-dose series) 2011 Zoster Vaccines (1 of 2) 2011 Pneumococcal Vaccine: 50+ Years (2 of 2 - PCV) 01/06/2017 01/07/2016, 09/26/2011 Dental X-Ray: Full Mouth 12/05/2024 022, 07/07/2019, 06/24/2007 Depression Screening 12/14/2024 12/15/2023, 12/15/19 24 SDOH Screening 12/14/2024 12/15/2023 Tobacco Screening 12/29/2024 12/30/2023 COVID-19 Vaccine ( season) 2025 06/26/2023, 08/10/2020, 07/18/2020 Dental Oral Exam 07/30/2025 01/26/2025, , 08/26/2023, Additional history exists Cervical Cancer Screening 11/05/2025 Pap Smear 11/05/2025 11/05/2022, 01/16/2021 Mammogram 12/09/2025 12/10/2023, 05/0 07/2023, 09/20/2019, Additional history exists Dental Prophylaxis 12/22/2025 06/23/2025, 0 01/26/2025, 09/28/2024, Additional history exists Dental X-Ray: Bitewings 06/24/2026 06/23/20 25, 06/22/2024, 02/10/2023, Additional history exists Colonoscopy 05/31/2034 05/31/2024, 02/2021, 10/01/2020, Additional history exists Colorectal Cancer [...] Procedure Name Priority Date/Time Associated Diagnosis Comments ORAL HYGIENE INSTRUCTIONS Routine 06/23/2025 2:00 PM EST BITEWINGS - 4 RADIOGRAPHIC IMAGES Routine 06/23/2025 2:00 PM EST Full PROPHYLAXIS - ADULT Routine 06/23/2025 2:00 PM EST PERIODIC ORAL EVALUATION - ESTABLISHED PATIENT Routine 01/26/2025 8:30 AM EDT HM COLONOSCOPY Routine 05/31/2024 10:08 AM EST [...] * Hm Colonoscopy (05/31/2024 10:08 AM EST) us Alisson Oliva NP HEALTH MAINTENANCE Final Result * BI Mammogram Screening Tomosynthesis Bilateral (12/10/2023 10:05 AM EDT) Anatomical Region Laterality Modality Breast Bilateral Mammography us Alisson Oliva NP IMG BI PROCEDURES Final Result * CT Lung Screening Low dose (12/09/2023) Anatomical Region Laterality Modality Lung Computed Tomogra phy us Alisson Oliva NP IMG CT PROCEDURES Final Result * HIV Antibody/Antigen, 4th Generation (04/23/2023 9:57 AM EDT) Result 4th Gen HIV Antibody Antigen NEGATIVE (NEG) [facility] Comment: Negative for antibodies to HIV 1 and HIV 2 and P24 antigen. Reference range: Negative Additional note: Written patient authorization is required for each separate release of this test result. This test was performed on the [employer] Footballer immunoassay system. Testing performed or reported by [facility], a Service of [facility], [address] [place] [id number] Jong Lou MD, Bicycle Fitter [facility]# [id number] Blood 04/23/2023 9:57 AM EDT 04/23/2023 10:41 AM EDT us Alisson Oliva NP LAB BLOOD ORDERABLES Final Resul t [facility] [address] [place] [address] * Hepatits C Antibody w/Reflex HCV Quant PCR and Genotyping (04/23/2023 9:57 AM EDT) Hepatitis C Virus Ab, Serum NEGATIVE (NEG) [facility] Comment: Reference range: Negative This test was performed on the [place] Rugby League Footballer immunoassay system. Testing performed or reported by [facility], a Service of [facility], [address] [place] [place] [address] Jong Lou MD, Bicycle Fitter [facility]# [id number] 04/23/2023 9:57 AM EDT 04/23/2023 10:41 AM EDT Alisson lOiva NP LAB BLOOD ORDERABLES Final Resul t [facility] [address] [place], [place] [id number] * HM PAP/HPV (11/05/2022 10:22 AM EDT) Alisson Oliva NP HEALTH MAINTENANCE Final Result from Last 3 Months or Most Recently Relevant to Health Maintenance Insurance [employer]
--- OUTSIDE RECORDS SUMMARY | 2025-07-10 19:19 | XMS_ITS | Encounter Summary ---
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 Not on file Not on file documented as of this encounter Plan of Treatment Upcoming Encounters Date Type Department Care Team (Late st Contact Info) Description 10/27/2025 9:00 AM EDT Office Visit [place] [facility] [address] [place] [phone] Fadi Pisano documented as of this encounter Procedures Procedure Name Priority Date/Time Associated Diagnosis Comments XR LUMBAR SPINE COMPLETE 4 OR MORE VIEWS Routine 08/26/2024 11:49 AM EST documented in this encounter Results * XR LUMBAR SPINE COMPLETE 4 OR MORE VIEWS (08/26/2024 11:49 AM EST) Anatomical Region Laterality Modality Radiographic Deidra ging Alisson Oliva NP IMG XR PROCEDURES Final Result documented in this encounter Visit Diagnoses Not on filedocumented in this encounter Care Teams Reconciliation Coordinator Relationship Specialty Start Date End Date Alisson Oliva NP PCP - General Family Medicine 10/16/22 11/22/24 Inactive/Transferred PCP - General 11/23/24 11/23/24 documented as of this encounter
--- OUTSIDE RECORDS SUMMARY | 2025-07-10 19:19 | XMS_ITS | Encounter Summary ---
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 Not on file Not on file documented as of this encounter Plan of Treatment Upcoming Encounters Date Type Department Care Team (Late st Contact Info) Description 10/27/2025 9:00 AM EDT Office Visit [place] [facility] D[facility] [address] [place] [id number] Fadi Pisano documented as of this encounter Procedures Procedure Name Priority Date/Time Associated Diagnosis Comments BI MAMMOGRAM SCREENING TOMOSYNTHESIS BILATERAL Routine 12/10/2023 10:05 AM EDT documented in this encounter Results * BI Mammogram Screening Tomosynthesis Bilateral (12/10/2023 10:05 AM EDT) Anatomical Region Laterality Modality Breast Bilateral Mammography Alisson Oliva NP IMG BI PROCEDURES Final Result documented in this encounter Visit Diagnoses Not on filedocumented in this encounter Care Teams Life Insurance Sales Agent Relationship Specialty Start Date End Date Alisson Oliva NP PCP - General Family Medicine 10/16/22 11/22/24 Inactive/Transferred PCP - General 11/23/24 11/23/24 documented as of this encounter
--- OUTSIDE RECORDS SUMMARY | 2025-07-10 19:19 | XMS_ITS | Encounter Summary ---
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 Not on file Not on file documented as of this encounter Plan of Treatment Upcoming Encounters Date Type Department Care Team (Late st Contact Info) Description 10/27/2025 9:00 AM EDT Office Visit [facility] DENTAL [address] [place] [phone] Fadi Pisano documented as of this encounter Procedures Procedure Name Priority Date/Time Associated Diagnosis Comments HM COLONOSCOPY Routine 05/31/2024 10:08 AM EST documented in this encounter Results * Hm Colonoscopy (05/31/2024 10:08 AM EST) Alisson Oliva NP HEALTH MAINTENANCE Final Result documented in this encounter Visit Diagnoses Not on filedocumented in this encounter Care Teams Rolling Machine Tender Relationship Specialty Start Date End Date Alisson Oliva NP PCP - General Family Medicine 10/16/22 11/22/24 Inactive/Transferred PCP - General 11/23/24 11/23/24 documented as of this encounter
--- OUTSIDE RECORDS SUMMARY | 2025-07-10 19:19 | XMS_ITS | Encounter Summary ---
Author Organization [employer] Address [address] [facility] [address] [facility] [address] [place] [address] Care Team Providers Care Human Resources Intern Name Role Phone Alisson Oliva NP Primary [...] Description 10/27/2025 9:00 AM EDT Office Visit [place] [facility] [address] [place] [address] Fadi Pisano documented as of this encounter Visit Diagnoses Not on filedocumented in this encounter Care Teams Human Resources Intern Relationship Specialty Start Date End Date Alisson Oliva NP PCP - General Family Medicine 10/16/22 11/22/24 Inactive/Transferred PCP - General 11/23/24 11/23/24 documented as of this encounter
== END 2025-07-10 14:29 | disposition home or self-care (01) ==
LOC: HO.HPS 13:22
PROVIDERS: PCP Physician Assistant; Visit Provider Hospitalist
DX: J44.1 Chronic obstructive pulmonary disease with (acute) exacerbation (principal); R91.8 Other nonspecific abnormal finding of lung field; J41.0 Simple chronic bronchitis; R40.0 Somnolence; J44.89 Other specified chronic obstructive pulmonary disease; J90 Pleural effusion, not elsewhere classified
CPT/HCPCS: 99214

== ENCOUNTER 2025-07-10 13:21 | Outpatient (REF) | payer OTHER, SELFPAY | END 2025-07-10 13:22 | disposition home or self-care (01) | LOC: HO.LNP 13:21 | PROVIDERS: PCP Physician Assistant; Visit Provider Hospitalist | DX: J44.1 Chronic obstructive pulmonary disease with (acute) exacerbation (principal); R91.1 Solitary pulmonary nodule; R91.8 Other nonspecific abnormal finding of lung field; J41.0 Simple chronic bronchitis; R40.0 Somnolence; J90 Pleural effusion, not elsewhere classified; F17.210 Nicotine dependence, cigarettes, uncomplicated; Z79.51 Long term (current) use of inhaled steroids | CPT/HCPCS: 87070; 87205; 94640 ==